=== PATIENT | female | born 1940 | race Caucasian/White ===

== ENCOUNTER 2018-10-28 09:55 | Emergency (ER) | payer OTHER, BC ==
[2018-10-28 10:37] LABS: Protime INR 1.57
[2018-10-28 10:42] LABS: Absolute Lymphocytes (CBC) 1.6 K/uL (0.7-4.9); Absolute Monocytes 1.7 K/uL (0.1-1.3); Absolute Neutrophil 33.6 K/uL (1.8-8.0); Basophils % 0.3 % (0-1.3); Hematocrit 28.9 % (36.0-45.0); Lymphocytes % 4.3 % (15.3-44.8); MPV 8.8 fL (7.6-11.3); Monocytes % 4.6 % (3.3-12.3); RBC Red Blood Cell Count 3.95 M/uL (3.86-4.86)
--- NOTE | 2018-10-28 10:52 | RAD REPORT ---
EXAM DESCRIPTION: RAD - Chest Single View - 10/28/2018 10:42 am CLINICAL HISTORY: Fall, chest pain COMPARISON: Chest exam April 2007. TECHNIQUE: AP portable chest image was obtained 1039 hours . FINDINGS: The lungs are fibrotic as a baseline. There is a 2 centimeter masslike density along the m edial right upper chest. There is questionable small 7 mm nodule left suprahilar region. Both are new from remote 2007 imaging. No focal consolidation. No failure or volume overload. Heart and vasculature are normal. No measurable pleural effusion and no pneumothorax. No acute bony abnormality seen. No acute aortic findings suspected. Referring clinician was notified of the chest finding 10:48 a.m.. IMPRESSION: Approximately 2 centimeter rounded mass density medial right upper lung field and possib le small nodule left suprahilar region. Both warrant follow-up CT chest imaging Fibrotic lung change with no infiltrate or failure finding.
[2018-10-28 10:53] LABS: ALT/SGPT 20 U/L (12-78); AST/SGOT 34 U/L (15-37); Albumin 2.3 g/dL (3.4-5.0); Alkaline Phosphatase 125 U/L (45-117); BUN Blood Urea Nitrogen 20 mg/dL (7-18); Bicarbonate 24 mmol/L (21-32); Bilirubin Direct 0.1 mg/dL (0-0.2); Bilirubin Total 0.5 mg/dL (0.2-1.0); CKMB Creatine Kinase MB 2.6 ng/mL (0.3-3.6); Creatine Phosphokinase 329 U/L (26-192); Glucose Level 115 mg/dL (74-106); Magnesium 2.1 mg/dL (1.8-2.4); NT PRO-BNP 2053 pg/mL (<450); Potassium 3.9 mmol/L (3.5-5.1); Protein, Total 7.9 g/dL (6.4-8.2); Sodium Level 130 mmol/L (136-145); Troponin (Emerg Dept Use Only) < 0.02 ng/mL (0.0-0.045)
--- NOTE | 2018-10-28 11:14 | RAD REPORT ---
EXAM DESCRIPTION: CT - CTHCSPWOC - 10/28/2018 10:51 am CLINICAL HISTORY: Trauma, head and neck injury. fall COMPARISON: Facial Bones W/ Mpr dated 10/28/2018; Abdomen Pelvis W Contrast dated 10/28/2018 TECHNIQUE: Axial 5 mm thick images of the head were obtained. Axial 2 mm thick images of the cervical spine were obtained with sagittal and coronal reconstruction images generated and reviewed. All CT scans are performed using dose optimization technique as appropriate and may include automated exposure control or mA/KV adjustment according to patient size. FINDINGS: CT HEAD WITHOUT CONTRAST: No acute hemorrhage, hydrocephalus or extra-axial collection is identified.Moderate generalized brain atrophy.No areas of brain edema or midline shift. The paranasal sinuses and mastoids are clear.The calvarium is intact. CT CERVICAL SPINE WITHOUT CONTRAST: No fracture or subluxation.No prevertebral soft tissues swelling is identified. Carotid atheroscleros is. IMPRESSION: No acute intracranial or cervical spine findings.
--- NOTE | 2018-10-28 11:16 | RAD REPORT ---
EXAM DESCRIPTION: CT - CTFB CLINICAL HISTORY: fall Fall, trauma, facial pain and injury. COMPARISON: No comparisons TECHNIQUE: Axial 2 mm thick images of the face were obtained with sagittal and coronal reconstructio n images. All CT scans are performed using dose optimization technique as appropriate and may include automated exposure control or mA/KV adjustment according to patient size. FINDINGS: No acute facial bone fracture is seen.The mandible is intact. The globes and orbital contents are grossly unremarkable.The paranasal sinuses and mastoids are clear . IMPRESSION: Negative for facial bone fracture.
[2018-10-28] MEDS ORDERED: NA CHLORIDE 0.9% 1,000 ML ONE (11:53)
[2018-10-28 12:19] LABS: Urine Bacteria <20 /HPF (<20); Urine Culture Reflex Order NOT NEEDED; Urine RBC <5 /HPF (NONE SEEN)
[2018-10-28 12:37] LABS: Platelet Estimate INCR; Toxic Granulation 1+
[2018-10-28 12:38] LABS: Blood Morphology Comment NOT SEEN (NOT SEEN)
--- NOTE | 2018-10-28 13:41 | RAD REPORT ---
EXAM DESCRIPTION: CT - Chest Abd Pelvis Wo Con - 10/28/2018 1:27 pm CLINICAL HISTORY: Chest and abdomen pain. LLQ abdomen pain COMPARISON: Head C Spine Mpr Wo Con dated 10/28/2018; Facial Bones W/ Mpr dated 10/28/2018; Chest Single View dated 10/28/2018 TECHNIQUE: A noncontrast examination was performed. All CT scans are performed using dose optimization technique as appropriate and may include automated exposure control or mA/KV adjustment according to patient size. FINDINGS: Solid irregular mass measuring 3.0 x 2.8 cm is seen in the upper medial right lung. This m ass abuts the mediastinum and superior vena cava and is likely lung malignancy. Tiny noncalcified nod ules present in the left lung base posteriorly measuring 5 mm. The lungs are diffusely emphysematous. Several mildly prominent lymph nodes are seen in the upper mediastinum. Small hiatal hernia. Noncontrast assessment of the liver shows no focal mass or biliary dilatation. The spleen, pancreas a nd right kidney are normal. Punctate stone is seen in the inferior left kidney without hydronephrosis . Small gallstone may be present in the gallbladder. Mild thickening of both adrenal glands are seen. Irregular masslike lesion is seen in the left lower quadrant sigmoid colon measuring 3.2 x 2.6 cm. Th ere appears to be extraluminal air and inflammatory changes extending from this mass to a multilocula xenia abscess in the left inguinal region measuring 7.0 x 4.9 cm. The surrounding tissues are inflamed. The combination foci of findings is suspicious for a perforated colonic neoplasm. The pattern of sarai ging findings would be unusual for infection/diverticulitis. Direct visualization with colonoscopy wo uld be recommended. No lytic or blastic bone lesion is seen. 5 mm anterolisthesis L4 on 5 is seen. IMPRESSION: 3.0 x 2.8 cm solid mass in the superior mediastinum abutting the SVC is compatible with lung neoplasia. Suspicion for solid mass involving the left lower quadrant sigmoid colon measuring approximately 3.2 x 2.6 cm. Perforation of the colon in this region is suspected with fluid in inflammation tracking in to the left inguinal region were a multiloculated abscess collection is seen measuring 7.0 x 4.9 cm. Direct visualization with followup colonoscopy would be advised.
[2018-10-28 13:50] LABS: Urine Blood NEGATIVE (NEG); Urine Glucose NEGATIVE (NEG); Urine Protein NEGATIVE (NEG); Urine Specific Gravity 1.015 (1.005-1.030); Urine pH 6.5 (5.0-7.0)
[2018-10-28] MEDS ORDERED: PIPER/TAZO/NS 3.375gm 3.375 GM/100 ML BAG ONE (14:06)
--- NOTE | 2018-10-28 14:49 | EDPHYS ---
Physician Documentation [facility] Name: Tesha Amaya Age: 77 yrs Sex: Female : 1940 Arrival Date: 10/28/2018 Time: 09:56 Bed 17 Private MD: ED Physician Ho Marina HPI: 10/28 10:20 This 77 yrs old Female presents to ER via Wheelchair with complaints of cp Abdominal Pain, Weakness. 10:20 The patient presents with abdominal pain in the left lower quadrant. Onset: The cp symptoms/episode began/occurred "for weeks". The symptoms do not radiate. Associated signs and symptoms: Pertinent positives: fever, Pertinent negatives: anorexia, blood in stools, chest pain, constipation, diarrhea, dysuria, vomiting. Severity of pain: in the emergency department the pain is unchanged despite home interventions. Patient reports fall from standing position while returning from bathroom this morning around 0130. Patient reports she struck head on carpeted floor and remained on floor until she was able to call daughter this morning to assist her. Historical: - Allergies: 10:11 Codeine; hj - Home Meds: 10:11 [place] Thyroid 60 mg Oral tab twice a day [Active]; bisoprolol fumarate 5 mg oral tab 1 hj tab once daily [Active]; triamterene-hydrochlorothiazid 75-50 mg Oral tab 1 tab once daily [Active]; - PMHx: 10:11 Hypothyroidism; Hypertension; hj - PSHx: 10:11 None; hj - Immunization history:: Adult Immunizations up to date. - Social history:: Smoking status: Patient/guardian denies using tobacco, Patient/guardian denies using alcohol. - Ebola Screening: : Patient negative for fever greater than or equal to 101.5 degrees Fahrenheit, and additional compatible Ebola Virus Disease symptoms Patient denies exposure to infectious person Patient denies travel to an Ebola-affected area in the 21 days before illness onset. ROS: 10:25 Constitutional: Negative for body aches, chills, fever, poor PO intake, weight loss. cp 10:25 Eyes: Negative for injury, pain, redness, and discharge. cp 10:25 ENT: Negative for drainage from ear(s), ear pain, sore throat, difficulty swallowing, difficulty handling secretions. 10:25 Cardiovascular: Negative for chest pain, edema, palpitations. 10:25 Respiratory: Negative for cough, shortness of breath, wheezing. 10:25 Abdomen/GI: Positive for abdominal pain, of the left lower quadrant, Negative for vomiting, diarrhea, constipation, black/tarry stool, rectal bleeding. 10:25 Back: Negative for pain at rest, pain with movement, radiated pain. 10:25 : Negative for urinary symptoms. 10:25 Skin: Negative for rash. 10:25 Neuro: Positive for general weakness, Negative for altered mental status, dizziness, headache, syncope. 10:25 All other systems are negative. Exam: 10:30 Constitutional: The patient appears in no acute distress, alert, awake, cp non-diaphoretic, non-toxic, well developed, well nourished. 10:30 Head/face: Noted is abrasion(s), that are mild, of the below left eye, swelling, that cp is mild. 10:30 Eyes: Pupils: equal, round, and reactive to light and accomodation, Extraocular movements: intact throughout, Conjunctiva: normal, no exudate, no injection, Sclera: no appreciated abnormality, Lids and lashes: appear normal, bilaterally. 10:30 ENT: External ear(s): are unremarkable, Ear canal(s): are normal, clear, TM's: bulging, is not appreciated, bilaterally, dullness, bilaterally, erythema, is not appreciated, bilaterally, Nose: is normal, Mouth: Lips: moist, Oral mucosa: pink and intact, moist, Posterior pharynx: is normal, airway is patent, no erythema, no exudate, Voice: is normal. 10:30 Neck: C-spine: C-collar placed in ED, vertebral tenderness, that is mild, crepitus, is not appreciated, ROM/movement: pain, that is mild, with flexion, nuchal rigidity, is not appreciated. 10:30 Chest/axilla: Inspection: normal, Palpation: is normal, no crepitus, no tenderness. 10:30 Cardiovascular: Rate: normal, Rhythm: regular, Edema: is not appreciated, JVD: is not appreciated. 10:30 Respiratory: the patient does not display signs of respiratory distress, Respirations: normal, no use of accessory muscles, no retractions, no splinting, no tachypnea, labored breathing, is not present, Breath sounds: are clear throughout, no decreased breath sounds, no stridor, no wheezing. 10:30 Abdomen/GI: Inspection: abdomen appears normal, Bowel sounds: active, all quadrants, Palpation: soft, in all quadrants, mild abdominal tenderness, in the left lower quadrant, rebound tenderness, is not appreciated, voluntary guarding, is elicited in the left lower quadrant, involuntary guarding, is not appreciated. 10:30 Back: pain, is absent, ROM is normal. 10:30 Skin: no rash present. 10:30 Neuro: Orientation: to person, place \\T\\ time. Mentation: is normal, Cerebellar function: is grossly normal, Motor: moves all fours, general weakness w/o focal deficits, Sensation: is normal. 10:35 ECG was reviewed by the Attending Physician. Vital Signs: 10:09 BP 145 / 50; Pulse 85; Resp 20; Temp 98.0(O); Pulse Ox 100% ; Weight 90.72 kg; Height 5 hj ft. 5 in. (165.10 cm); 11:15 BP 138 / 55; Pulse 74; Resp 18; Pulse Ox 100% on R/A; hj 12:40 BP 136 / 60; Pulse 79; Resp 18; Pulse Ox 100% on R/A; hj 13:22 BP 175 / 55; Pulse 76; Resp 18; Temp 97.8(O); Pulse Ox 98% ; Pain 0/10; mh5 10:09 Body Mass Index 33.28 (90.72 kg, 165.10 cm) MDM: 10:11 Patient medically screened. 13:56 Physician consultation: Juan Ann MD was called at 13:56, was contacted at 13:56, regarding patient's condition, after a discussion of the case, a recommendation for transfer for higher level of care is made, for IR drainage of pelvic abscess. 14:05 Data reviewed: vital signs, nurses notes, lab test result(s), EKG, radiologic studies, CT scan, plain films, I have discussed the patient's presentation/case with the attending Emergency Department Physician; and as a result, I will administer antibiotics Zosyn. 10/28 10:19 Order name: Basic Metabolic Panel; Complete Time: 11:25 10/28 13:56 Interpretation: Normal except: NA 130; CL 95; GLUC 115; BUN 20; CRE 1.49; GFR 34. cp 05/02 10:19 Order name: CBC with Diff; Complete Time: 13:45 cp 05/02 11:29 Interpretation: Normal except: WBC 37.1; HGB 9.3; HCT 28.9; MCV 73.2; MCH 23.5; PLT cp 592; RDW 16.2; SOILA% 90.8; LYM% 4.3; NEUT A 33.6; MNA 1.7. 05 10:19 Order name: LFT's; Complete Time: 11:25 cp 05/02 10:19 Order name: Magnesium; Complete Time: 11:25 cp 0502 10:19 Order name: NT PRO-BNP; Complete Time: 11:25 cp 0502 10:19 Order name: PT-INR; Complete Time: 11:25 cp 05/02 10:19 Order name: Troponin (emerg Dept Use Only); Complete Time: 11:25 cp 10/28 10:19 Order name: CK; Complete Time: 11:25 cp 10/28 10:19 Order name: Ckmb; Complete Time: 11:25 cp 0502 10:22 Order name: XRAY Chest (1 view); Complete Time: 11:25 cp 02 10:22 Order name: Urine Microscopic Only; Complete Time: 13:45 cp 05/02 13:45 Interpretation: Normal except: UWBC 20-50; SQEPI 20-50. cp 05/02 10:24 Order name: Lipase; Complete Time: 11:25 cp 0502 10:47 Order name: Manual Differential; Complete Time: 13:45 EDMS 02 12:25 Order name: Urine Dipstick--Ancillary (enter results); Complete Time: 13:55 eb 10/28 10:19 Order name: EKG; Complete Time: 10:20 cp 0502 10:19 Order name: Cardiac monitoring; Complete Time: 10:20 cp 05/02 10:19 Order name: EKG - Nurse/Tech; Complete Time: 10:25 cp 05/02 10:19 Order name: IV Saline Lock; Complete Time: 10:21 cp 0502 10:19 Order name: Labs collected and sent; Complete Time: 10:25 cp 05/02 10:19 Order name: O2 Per Protocol; Complete Time: 10:21 cp 05/02 10:19 Order name: O2 Sat Monitoring; Complete Time: 10:21 cp 10/28 10:22 Order name: Urine Dipstick-Ancillary (obtain specimen); Complete Time: 12:03 cp 10/28 10:22 Order name: CT Head C Spine; Complete Time: 11:25 cp 10/28 10:22 Order name: CT Facial Bones W/O Con; Complete Time: 11:25 cp 10/28 11:34 Order name: CT Chest Abdomen Pelvis W/O Contrast: give oral contrast; Complete Time: cp 13:45 EC:35 Rate is 75 beats/min. Rhythm is regular. [place] interval is normal. QRS interval is normal. cp QT interval is normal. T waves are Flattened in lead aVL. Interpreted by me. Reviewed by me. Administered Medications: 11:30 Drug: NS 0.9% 500 ml Route: IV; Rate: 250 ml/hr; Site: right antecubital; hj 13:57 Follow up: IV Status: Completed infusion; IV Intake: 500ml hj 11:42 Drug: NS 0.9% 1000 ml Route: IV; Rate: 100 ml/hr; Site: right antecubital; hj 13:57 Follow up: IV Status: Infusion continued hj 15:26 Follow up: IV Status: Infusion continued upon transfer; IV Intake: 450ml hj 13:51 Drug: Zosyn 3.375 grams Route: IVPB; Infused Over: 60 mins; Site: right antecubital; hj 14:30 Follow up: IV Status: Completed infusion; IV Intake: 100ml hj Disposition: 14:51 Chart complete. cp 17:01 Co-signature as Attending Physician, Ho Marina MD. rn Disposition: 10/28/18 14:48 Transfer ordered to [facility]. Diagnosis are Right lung mass, Sigmoid colon mass with perforation and abscess. - Reason for transfer: Higher level of care. - Accepting physician is DR Annabella Allison. - Condition is Stable. - Problem is new. - Symptoms have improved. Signatures: Dispatcher [employer] EDHo Lehman MD MD rn Joaquin, Henry, RN RN hj Page, Corey, PA PA cp Corrections: (The following items were deleted from the chart) 11:29 11:29 Normal except: WBC 37.1; HGB 9.3; HCT 28.9; MCV 73.2; MCH 23.5; PLT 592; RDW cp 16.2; SOILA% 90.8; LYM% 4.3; NEUT A 33.6. cp 11:37 10:30 Abdomen Pelvis W Con+CT.RAD.BRZ ordered. EDMS EDMS 11:38 10:49 Thorax W/ Con+CT.RAD.BRZ ordered. EDMS EDMS 12:03 10:22 Watkins ordered. cp hj 15:25 14:48 10/28/2018 14:48 Transfer ordered to [facility]. hj Diagnosis is Right lung mass; Sigmoid colon mass with perforation and abscess. Reason for transfer: Higher level of care. Accepting physician is DR Annabella Allison. Condition is Stable. Problem is new. Symptoms have improved. cp
--- NOTE | 2018-10-28 14:49 | ER ---
Nurse's Notes [facility] Name: Tesha Amaya Age: 77 yrs Sex: Female : 1940 Arrival Date: 10/28/2018 Time: 09:56 Bed 17 Private MD: Diagnosis: Right lung mass;Sigmoid colon mass with perforation and abscess Presentation: 10/28 10:11 Presenting complaint: Patient states: LLQ pain X 2-3 weeks, is getting worse, was due iw to see Dr. Chua today but had a fall last night, states she was bent over due to pain and slid forward onto carpeted floor, was on floor for 3 hours, pt has small abrasion to left cheek and left wrist, c/o weakness and chills. Transition of care: patient was not received from another setting of care. Onset of symptoms was October 16, 2018. Risk Assessment: Do you want to hurt yourself or someone else? Patient reports no desire to harm self or others. Initial Sepsis Screen: Does the patient meet any 2 criteria? No. Patient's initial sepsis screen is negative. Does the patient have a suspected source of infection? No. Patient's initial sepsis screen is negative. Care prior to arrival: None. 10:11 Method Of Arrival: Wheelchair iw 10:11 Acuity: DIANNA 3 iw Triage Assessment: 10:11 General: Appears in no apparent distress. uncomfortable, Behavior is calm, cooperative, hj appropriate for age. Pain: Complains of pain in abdomen. GI: Reports lower abdominal pain, upper abdominal pain, diarrhea, nausea. Historical: - Allergies: 10:11 Codeine; hj - Home Meds: 10:11 [place] Thyroid 60 mg Oral tab twice a day [Active]; bisoprolol fumarate 5 mg oral tab 1 hj tab once daily [Active]; triamterene-hydrochlorothiazid 75-50 mg Oral tab 1 tab once daily [Active]; - PMHx: 10:11 Hypothyroidism; Hypertension; hj - PSHx: 10:11 None; hj - Immunization history:: Adult Immunizations up to date. - Social history:: Smoking status: Patient/guardian denies using tobacco, Patient/guardian denies using alcohol. - Ebola Screening: : Patient negative for fever greater than or equal to 101.5 degrees Fahrenheit, and additional compatible Ebola Virus Disease symptoms Patient denies exposure to infectious person Patient denies travel to an Ebola-affected area in the 21 days before illness onset. Screenin:11 Abuse screen: Denies threats or abuse. Denies injuries from another. Nutritional hj screening: No deficits noted. Tuberculosis screening: No symptoms or risk factors identified. Fall Risk Fall in past 12 months (25 points). Assessment: 10:11 GI: Bowel sounds present X 4 quads. Abd is soft and non tender. hj 10:11 General: Appears in no apparent distress. uncomfortable, Behavior is calm, cooperative, hj appropriate for age. Pain: Complains of pain in abdomen. Neuro: Level of Consciousness is awake, alert, obeys commands, Oriented to person, place, time, situation, Appropriate for age. Cardiovascular: Capillary refill < 3 seconds Patient's skin is warm and dry. Respiratory: Airway is patent Respiratory effort is even, unlabored, Respiratory pattern is regular, symmetrical. : No signs and/or symptoms were reported regarding the genitourinary system. EENT: No signs and/or symptoms were reported regarding the EENT system. Derm: No signs and/or symptoms reported regarding the dermatologic system. Musculoskeletal: No signs and/or symptoms reported regarding the musculoskeletal system. 11:00 Reassessment: Patient and/or family updated on plan of care and expected duration. Pain hj level reassessed. Patient is alert, oriented x 3, equal unlabored respirations, skin warm/dry/pink. awaiting results and POC:. 12:40 Reassessment: Patient and/or family updated on plan of care and expected duration. Pain hj level reassessed. Patient is alert, oriented x 3, equal unlabored respirations, skin warm/dry/pink. awaiting POC; daughter in room;. 13:15 Reassessment: CT chest taken;. hj 14:30 Reassessment: Patient and/or family updated on plan of care and expected duration. Pain hj level reassessed. Patient is alert, oriented x 3, equal unlabored respirations, skin warm/dry/pink. awaiting CT result and POC:. 14:45 Reassessment: provider in roof for POC;. hj 15:13 Reassessment: family is aware of tranfer and updated with ambulance ETA;. hj Vital Signs: 10:09 BP 145 / 50; Pulse 85; Resp 20; Temp 98.0(O); Pulse Ox 100% ; Weight 90.72 kg; Height 5 hj ft. 5 in. (165.10 cm); 11:15 BP 138 / 55; Pulse 74; Resp 18; Pulse Ox 100% on R/A; hj 12:40 BP 136 / 60; Pulse 79; Resp 18; Pulse Ox 100% on R/A; hj 13:22 BP 175 / 55; Pulse 76; Resp 18; Temp 97.8(O); Pulse Ox 98% ; Pain 0/10; mh5 10:09 Body Mass Index 33.28 (90.72 kg, 165.10 cm) ED Course: 09:56 Patient arrived in ED. as 10:03 Juma Landaverde, FLORIAN is Primary Nurse. hj 10:06 Naseem Looney PA is PHCP. cp 10:06 Ho Marina MD is Attending Physician. cp 10:08 Patient has correct armband on for positive identification. Bed in low position. Call 5 light in reach. Side rails up X2. Adult w/ patient. Warm blanket given. Pulse ox on. NIBP on. 10:11 Arm band placed on. hj 10:13 Triage completed. iw 10:43 XRAY Chest (1 view) In Process Unspecified. EDMS 10:44 Notified Nurse Practitioner and/or Physician Instructor Business Education of a critical lab result(s), WBC iw 37.1. 10:46 EKG done, by freezer laboratory technician. reviewed by Naseem MA. at1 10:46 No provider procedures requiring assistance completed. Initial lab(s) drawn, by il, hj sent to lab. Inserted saline lock: 22 gauge in right antecubital area, using aseptic technique. Blood collected. 10:52 CT Head C Spine In Process Unspecified. EDMS 10:52 CT Facial Bones W/O Con In Process Unspecified. EDMS 13:27 CT Chest Abdomen Pelvis W/O Contrast: give oral contrast In Process Unspecified. EDMS 14:09 transfer initiated with Kristen at the [facility] [place]. eb 14:29 administrative approval given by Kristen Oscar RN transfer table operator helper/ Patient has eb been accepted to the [facility] ER/ Dr. Yesenia Allison has accepted the patient in transfer without conference/ report to be called to [phone]. 14:56 Patient transferred, IV remains in place. intact. hj Administered Medications: 11:30 Drug: NS 0.9% 500 ml Route: IV; Rate: 250 ml/hr; Site: right antecubital; hj 13:57 Follow up: IV Status: Completed infusion; IV Intake: 500ml hj 11:42 Drug: NS 0.9% 1000 ml Route: IV; Rate: 100 ml/hr; Site: right antecubital; hj 13:57 Follow up: IV Status: Infusion continued hj 15:26 Follow up: IV Status: Infusion continued upon transfer; IV Intake: 450ml hj 13:51 Drug: Zosyn 3.375 grams Route: IVPB; Infused Over: 60 mins; Site: right antecubital; hj 14:30 Follow up: IV Status: Completed infusion; IV Intake: 100ml hj Intake: 13:57 IV: 500ml; Total: 500ml. hj 14:30 IV: 100ml; Total: 600ml. hj 15:26 IV: 450ml; Total: 1050ml. Outcome: 14:48 ER care complete, transfer ordered by . karla 14:56 Transferred by ground EMS to [facility], Transfer form completed. X-rays sent hj w/ patient. 14:56 Condition: stable 14:56 Instructed on the need for transfer, Demonstrated understanding of instructions. 15:25 Patient left the ED. Signatures: Dispatcher [employer] Brooke Bowman Irene, FLORIAN DU Gayle Leslie, fusing machine tender EKG Tat1 Juma Landaverde RN RN Naseem Looney PA PA cp Martinez, Maria [facility] Lauren Fuller Corrections: (The following items were deleted from the chart) 11:16 10:09 BP 145 / 50; Pulse 85bpm; Resp 20bpm; Pulse Ox 100%; Temp 98.0F Oral; 5
--- NOTE | 2018-10-28 17:06 | EKG ---
Test Date: 2018-10-28 Test Time: 10:28:16 Plc Programmer: MEHUL MEASUREMENT RESULTS: Intervals: Rate: 75 ME: 164 QRSD: 94 QT: 390 QTc: 435 [place]: P: 54 ME: 164 QRS: -12 T: 59 INTERPRETIVE STATEMENTS: Normal sinus rhythm Normal ECG Compared to ECG 08/11/2001 12:52:00 Left-axis deviation no longer present Electronically Signed On 10-28-18 17:05:02 CDT by Shahriar Giron
== END 2018-10-28 15:25 | disposition short-term general hospital (02) ==
LOC: ER 09:55
DX: R91.8 Other nonspecific abnormal finding of lung field (principal); K63.1 Perforation of intestine (nontraumatic); K63.0 Abscess of intestine; E03.9 Hypothyroidism, unspecified; I10 Essential (primary) hypertension
CPT/HCPCS: 96365; 96361; 93005; 85025; 80048; 36415; 83735; 82550; 85610; 80076; 84484; 82553; 83690; 83880; 70450; 71250; 72125; 70486; 76377; 74176; 71045; 99285; J2543; J7030; 81003; 81015

== ENCOUNTER 2018-11-20 15:50 | Emergency (ER) | payer OTHER, BC ==
--- OUTSIDE RECORDS SUMMARY | 2018-11-20 15:54 | XMS REPORT | Continuity of Care Document ---
:1940 Author Organization Interface Problems Problem Status Onset Classification Date Comments Source Date Reported BEDDED Active 11/12/19 [facility] OUTPATIENT Medical IMAGE GUIDED Center FRAIN ST DSU SIGMOID MASS Active 11/06/[address] MASS IN ABDOMEN Active 11/04/[address] PERFORATED Active 10/29/19 [facility] SIGMOID MASS [address] ABSCESS Center Anemia Resolved Problem 11/19/2018 [facility], [facility] [place] Anxiety Resolved Problem 11/19/2018 [facility], [facility] [place] Arthritis Resolved Problem 11/19/2018 [facility], [facility] [place] Thyroid disease Resolved Problem 11/19/2018 [facility], [facility] [place] Hypertension Resolved Problem 11/19/2018 [facility], [facility] [place] Cancer of colon Active Problem 11/19/2018 [facility], [facility] [place] Morbid obesity Active Problem 11/19/2018 [facility] Morbid obesity Active Problem 11/17/2018 [facility] [place] PERFORATION OF Active [facility] INTESTINE Medical (NONTRAUMATIC) [place] Medications Medication Details Route Status Patient Ordering Order Source Instructions Provider Date Ondansetron 4 mg, 2 mL, No Longer [facility] Route: IVP, Active 2018 Medical Drug form: INJ, Center ONCE, Dosing Weight 97.727, kg, PRN Nausea & Vomiting, Start date: 11/17/18 16:50:00 CDTNotes: (Same as: Zofran) MEDICATION WASTE Product Size: 4 mg Product Wasted: ___ mg Flumazenil 0.2 mg, 2 mL, No Longer [facility] Route: IVP, Active 2018 Medical Drug form: INJ, Center PRN, Dosing Weight 97.727, kg, PRN Benzodiazepine Reversal, Initial dose, Start date: 11/17/18 16:50:00 CDT, Duration: 30 day, Stop date: 12/17/18 16:49:00 CDTNotes: (Same as: Romazicon) Naloxone 0.4 mg, 1 mL, No Longer [place] Route: IVP, Active 2019 Medical Drug form: INJ, Center Q2MIN, Dosing Weight 97.727, kg, PRN Narcotic Reversal, Start date: 11/17/18 16:50:00 CDT, Duration: 8 doses or times, Stop date: 11/18/18 0:00:00 CDTNotes: Same as Narcan Hydralazine 25 mg, 1 tab, Inactive [place] Hydrochloride 25 MG Route: PO, Drug 2019 Medical Oral Tablet form: TAB, Center ONCE, Dosing Weight 97.727, kg, Priority: STAT, Start date: 11/11/18 14:27:00 CDT, Stop date: 11/11/18 14:27:00 CDTNotes: (Same as: Apresoline) May interfere w/enteral feedings Take With Food. GoLYTELY oral See Inactive [facility] powder for Instructions, 2019 reconstitution Take as directed by physician. Give jug for Colonoscopy, # 1 ea, 0 Refill(s), Pharmacy: [facility] [id number] Acetaminophen 500 1 gm=2 tab, PO, Active [place] MG Oral Tablet Q6H, X 7 day, # 2019 Medical 56 tab, 0 Center Refill(s) Metronidazole 500 500 mg=1 tab, Active [place] MG Oral Tablet PO, Q8H, X 7 2019 Medical day, # 21 tab, Center 0 Refill(s) ferrous sulfate 325 325 mg, PO, Active [place] MG Oral Tablet Daily, # 30 2019 Medical [Feosol] tab, 0 Center Refill(s) Docusate Sodium 100 100 mg=1 cap, Inactive [place] MG Oral Capsule PO, BID, # 14 2019 Medical cap, 0 Center Refill(s), other ciprofloxacin 500 500 mg=1 tab, Active [place] mg oral tablet PO, Q12H, X 7 2019 Medical day, # 14 tab, Center 0 Refill(s) Acetaminophen 500 1 gm=2 tab, PO, Inactive [place] MG Oral Tablet Q6H, X 7 day, # 2019 Medical 56 tab, 0 Center Refill(s), other Zofran 4 mg, 2 mL, Inactive [facility] Route: IVP2018 Medical Drug form: INJ, Center ONCE, Dosing Weight 100, kg, Start date: 10/31/18 13:18:00 CDT, Stop date: 10/31/18 13:18:00 CDTNotes: (Same as: Zofran) MEDICATION WASTE Product Size: 4 mg Product Wasted: ___ mg Flagyl 500 mg, 1 tab, No Longer [facility] Route: PO, Drug Active 2018 Medical form: TAB, Q8H, Center Dosing Weight 100, kg, Start date: 10/30/18 16:00:00 CDT, Duration: 30 day, Stop date: 11/29/18 8:00:00 CDT, ABX Indication: Intra-abdominal InfectionNotes: (Same as: Flagyl) Take with food/ avoid alcohol Zofran 4 mg, 2 mL, Inactive [facility] Route: IVP2018 Medical Drug form: INJ, Center ONCE, Dosing Weight 100, kg, Start date: 10/30/18 15:48:00 CDT, Stop date: 10/30/18 15:48:00 CDTNotes: (Same as: Zofran) MEDICATION WASTE Product Size: 4 mg Product Wasted: 0 mg Hydrochlorothiazide 0.5 tab, PO, Active [facility] 50 MG / Triamterene Daily, 0 2018 Medical 75 MG Oral Tablet Refill(s) Center Ciprofloxacin 500 mg, 1 tab, No Longer [facility] Route: PO, Drug Active 2019 Medical form: TAB, Center Q12H, Dosing Weight 100, kg, Start date: 10/30/18 12:00:00 CDT, Duration: 30 day, Stop date: 11/29/18 0:00:00 CDT, ABX Indication: Intra-abdominal InfectionNotes: May interfere w/enteral feedings - Take 1 hr before or 2 hrs after antacids, dairy pdt & minerals. On empty stomach. Hydrochlorothiazide 1 cap, Route: No Longer [facility] 25 MG / Triamterene PO, Drug Form: Active 2019 Medical 37.5 MG Oral CAP, Dosing Center Capsule Weight 100, kg, QAM, Start date: 10/30/18 9:00:00 CDT, Duration: 30 day, Stop date: 11/28/18 9:00:00 CDTNotes: (triamterene-hy drochlorothiazi de 37.5-25 mg CAP) (Same As: Dyazide) Melatonin 3 mg, 1 tab, No Longer [place] Route: PO, Drug Active 2018 Medical form: TAB, Center Bedtime, Dosing Weight 100, kg, PRN Sleep, Start date: 10/29/18 23:35:00 CDT, Duration: 30 day, Stop date: 11/28/18 23:34:00 CDTNotes: (Same as: Melatonin) Bisoprolol 5 mg, 1 tab, No Longer [place] Route: PO, Drug Active 2018 Medical form: TAB, Center Daily, Dosing Weight 100, kg, Start date: 10/29/18 21:00:00 CDT, Duration: 30 day, Stop date: 11/27/18 21:00:00 CDTNotes: (Same As: Zebeta) Dextrose 5% with 1,000 mL, Rate: No Longer [place] 0.45% NaCl IV 1,000 100 ml/hr, Active 2019 Medical mL Infuse over: 10 Center hr, Route: IV, Dosing Weight 100 kg, Total Volume: 1,000, Start date: 10/29/18 18:15:00 CDT, Duration: 30 day, Stop date: 11/28/18 18:14:00 CDT, 2.16, m2 Lidocaine 15 mL, Route: Inactive [place] Hydrochloride 10 INTRADERM, 2019 Medical MG/ML Injectable Dosing Weight Center Solution 100, kg, ONCE, Start date: 10/29/18 15:47:00 CDT, Stop date: 10/29/18 15:47:00 CDT Fentanyl 50 microgram, Inactive [place] Route: IV, 2019 Medical ONCE, Dosing Center Weight 100, kg, Start date: 10/29/18 15:30:00 CDT, Stop date: 10/29/18 15:30:00 CDT Midazolam 0.5 mg, Route: Inactive [place] IV, ONCE, 2019 Medical Dosing Weight Center 100, kg, Start date: 10/29/18 15:30:00 CDT, Stop date: 10/29/18 15:30:00 CDT Fentanyl 50 microgram, Inactive [facility] Route: IV, 2019 Medical ONCE, Dosing Center Weight 100, kg, Start date: 10/29/18 15:20:00 CDT, Stop date: 10/29/18 15:20:00 CDT Midazolam 1 mg, Route: Inactive [facility] IV, ONCE, 2019 Medical Dosing Weight Center 100, kg, Start date: 10/29/18 15:20:00 CDT, Stop date: 10/29/18 15:20:00 CDT Hydrochlorothiazide 1 cap, Route: Inactive [facility] 25 MG / Triamterene PO, Drug Form: 2019 Medical 37.5 MG Oral CAP, Dosing Center Capsule Weight 100, kg, QAM, Start date: 10/29/18 14:00:00 CDT, Duration: 30 day, Stop date: 11/28/18 9:00:00 CDTNotes: (triamterene-hy drochlorothiazi de 37.5-25 mg CAP) (Same As: Dyazide) [place] Thyroid 30 mg, 1 tab, No Longer [facility] Route: PO, Drug Active 2018 Medical form: TAB, Center QNoon, Dosing Weight 100, kg, Start date: 10/29/18 12:00:00 CDT, Duration: 30 day, Stop date: 11/27/18 12:00:00 CDTNotes: (Same As: Sherif Bermudez, S-P-T) remove patch 1 patch, Route: No Longer [facility] TOP, Daily, Active 2019 Medical Drug form: Center ERFILM, Start date: 10/29/18 10:00:00 CDT, Duration: 30 day, Stop date: 11/27/18 10:00:00 CDT [place] Thyroid 60 mg, 1 tab, No Longer [facility] Route: PO, Drug Active 2019 Medical form: TAB, Center Daily, Dosing Weight 100, kg, Start date: 10/29/18 9:00:00 CDT, Duration: 30 day, Stop date: 11/27/18 9:00:00 CDTNotes: (Same As: [place]if Thyroid, S-P-T) Docusate Sodium 100 100 mg, 1 cap, No Longer [place] MG Oral Capsule Route: PO, Drug Active 2018 Medical form: CAP, BID, Center Dosing Weight 100, kg, Start date: 10/29/18 9:00:00 CDT, Duration: 30 day, Stop date: 11/27/18 17:00:00 CDT heparin 5,000 unit, 1 No Longer [place] mL, Route: Active 2019 Medical SUB-Q, Drug Center form: INJ, Q8H, Dosing Weight 100, kg, Start date: 10/29/18 0:00:00 CDT, Stop date: 11/27/18 16:00:00 CDT Bisoprolol 5 mg, Route: Inactive [place] PO, Drug form: 2019 Medical TAB, ONCE, Center Dosing Weight 100, kg, Priority: STAT, Start date: 10/28/18 22:59:00 CDT, Stop date: 10/28/18 22:59:00 CDT Hydralazine 5 mg, 0.25 mL, No Longer [place] Route: IV, Drug Active 2018 Medical form: INJ, TID, Center Dosing Weight 100, kg, PRN Hypertension, Start date: 10/28/18 22:14:00 CDT, Duration: 30 day, Stop date: 11/27/18 22:13:00 CDTNotes: (Same as: Apresoline) Push over 5 minutes thyroid (PRISON) 30 MG 30 mg=1 tab, Active [place] Oral Tablet [[place] PO, QNoon, 0 2018 Medical Thyroid] Refill(s) [place] thyroid (PRISON) 60 MG See Active [place] Oral Tablet [[place] Instructions, 1 2018 Medical Thyroid] tab PO Daily, 0 Center Refill(s) Hydrochlorothiazide 1 cap, PO, QAM, No Longer [place] 25 MG / Triamterene 0 Refill(s) Active 2019 Medical 37.5 MG Oral Center Capsule bisoprolol 5 mg 5 mg=1 tab, PO, Active [place] oral tablet Daily, 0 2019 Medical Refill(s) [place] Lidocaine 1 patch, Route: No Longer [place] Hydrochloride 0.05 TOP, Q24H, Drug Active 2019 Medical MG/MG Transdermal form: FILM, [place] Patch [Lidoderm] Start date: 10/28/18 22:00:00 CDT, Duration: 30 day, Stop date: 11/26/18 22:00:00 CDT Naproxen 500 mg, 1 tab, No Longer [facility] Route: PO, Drug Active 2018 Medical form: TAB, Center Q12H, Dosing Weight 100, kg, PRN Pain Score 4-6, Start date: 10/28/18 21:38:00 CDT, Duration: 30 day, Stop date: 11/27/18 21:37:00 CDT Tramadol 50 mg, 1 tab, No Longer [place] Route: PO, Drug Active 2018 Medical form: TAB, Q6H, Center Dosing Weight 100, kg, PRN Pain Score 7-10, Do NOT use for patients with a past medical history of seizures, Start date: 10/28/18 21:38:00 CDT, Duration: 30 day, Stop date: 11/27/18 21:37:00 CDT Zosyn 3.375 gm, Inactive [place] Route: IVPB2018 Medical Drug form: Center PDR/INJ, ONCE, Dosing Weight 100, kg, Priority: STAT, Start date: 10/28/18 21:26:00 CDT, Stop date: 10/28/18 21:26:00 CDT, ABX Indication: Intra-abdominal InfectionNotes: MEDICATION WASTE Product Size: 3375 mg Product Wasted: ___ mg Ciprofloxacin 400 mg, 200 mL, No Longer [place] Route: IVPB, Active 2018 Medical Drug form: INJ, Center [id number], Dosing Weight 100, kg, Start date: 10/28/18 21:00:00 CDT, Duration: 30 day, Stop date: 11/27/18 13:00:00 CDT, ABX Indication: Intra-abdominal Infection Sodium Chloride 250 mL, Rate: No Longer [place] 0.9% (titrate) 250 To prime line Active 2019 Medical mL and flush Center remaining blood products., Dosing Weight 100, kg, Route: IV, Total Volume: 250, Start Date: 10/28/18 20:31:00 CDT, Duration: 30 day, Stop date: 11/27/18 20:30:00 CDT, Replace Every: 24 hr Flagyl 500 mg, 100 mL, No Longer [facility] Route: IVPB, Active 2019 Medical Drug form: INJ, Center [id number], Dosing Weight 100, kg, Priority: STAT, Start date: 10/28/18 20:28:00 CDT, Duration: 30 day, Stop date: 11/27/18 16:00:00 CDT, ABX Indication: Intra-abdominal Infection gabapentin 300 mg, 1 cap, No Longer [place] Route: PO, Drug Active 2019 Medical form: CAP, Q8H, Center Dosing Weight 100, kg, PRN Pain Score 6-10, Priority: NOW, Start date: 10/28/18 20:28:00 CDT, Duration: 30 day, Stop date: 11/27/18 20:27:00 CDTNotes: (Same as: Neurontin) Acetaminophen 1 gm, 2 tab, No Longer [place] Route: PO, Drug Active 2019 Medical form: TAB, Q6H, Center Dosing Weight 100, kg, Priority: NOW, Start date: 10/28/18 20:28:00 CDT, Duration: 30 day, Stop date: 11/27/18 18:00:00 CDT Isolyte S PH 7.4 1,000 mL, Rate: No Longer [place] 1,000 mL 100 ml/hr, Active 2019 Medical Infuse over: 10 Center hr, Route: IV, Dosing Weight 100 kg, Total Volume: 1,000, Start date: 10/28/18 20:28:00 CDT, Duration: 30 day, Stop date: 11/27/18 20:27:00 CDT, 2.16, [id number]: (Same as: Isolyte S PH 7.4) Isolyte S PH-7.4 500 mL, Route: Inactive [place] (Bolus) IV IV, ONCE, 2019 Medical Dosing Weight Center 100 kg, Start date: 10/28/18 20:28:00 CDT, Stop date: 10/28/18 20:28:00 CDT Allergies, Adverse Reactions, Alerts Substance Category Reaction Severity Reaction Status Date Comments Source type Reported codeine Assertion Drug Active [facility] allergy Medical Center Immunizations Immunization Date Given Site Status Last Updated Comments Source Results Order Name Results Value Reference Date Interpretation Comments Source Range Chest w Chest w EXAM: CT CHEST WITH CONTRAST 11/15 - OP[facility] contrast CT contrast CT - [place] DATE: 11/15/2018 14:00 CDT Read by: Rebecca Carranza MD Dictated Date/time: 11/15/18 14:45 Electronically Signed by: Rebecca Carranza MD 11/15/18 14:59 FINAL REPORT INDICATION: - 77 y/o ADDITIONAL INFORMATION: -- This is a 77-year-old female with mass in the lung and abdomen, colon cancer. TECHNIQUE: Volumetric CT acquisition of the chest was obtained following the intravenous administration of contrast. Sagittal, coronal and axial MIP reformatted images were reconstructed and obtained at the workstation. I.V. Contrast Dose: 100 mL Visipaque contrast Total Exam DLP: 662.55 mGy-- cm COMPARISON: No prior chest CT is available for comparison. FINDINGS: Heart is not enlarged. The mitral annulus is calcified. Ascending aorta and central pulmonary arteries are normal in caliber. No pericardial effusion. There are no pleural effusions. For a description of findings below the diaphragm, please reference the recent abdominal CT from 11/10/2018. Subcentimeter mediastinal lymph nodes. Dependent atelectasis in the bilateral lower lobes. Mild biapical scarring. There is scattered air trapping predominantly in the lower lungs bilaterally. There is an irregular mass in the right upper lobe abutting the mediastinum on axial image 66 and sagittal image 116 measuring 29 x 33 mm There is an adjacent satellite nodule in the right upper lobe measuring 6 mm image 80. Additional pulmonary nodules as follows, series 2: A 2 mm nodule right apex image 36 A 2 mm nodule left apex image 40 A 2 mm nodule left upper lobe posteriorly image 52 A 2.5 mm nodule left upper lobe image 57 A 1 mm nodule left lower lobe image 109 A 2 mm nodule left lower lobe image 171 A 5 mm nodule left lower lobe image 148 There are several small lucent lesions scattered throughout the thoracic spine and the sternum. IMPRESSION: 1. Irregular mass in the right upper lobe abutting the mediastinum measures 29 x 33 mm. This could represent a primary or metastatic lesion. 2. Several additional small pulmonary nodules scattered bilaterally ranging in size from 1 to 6 mm. These are nonspecific but could be metastatic. 3. Dependent atelectasis in the bilateral lower lobes. Scattered air trapping predominantly in the lower lobes. 4. Calcified mitral annulus. 5. Several small lucent lesions scattered throughout the thoracic spine and sternum. These could be due to lytic metastases. HEMATOLOGY Eosinophils # 0.2 K/CMM 0.0 - 0.5 11/02 [facility] [address] [place] [address] HEMATOLOGY Basophils # 0.1 K/CMM 0.0 - 0.2 11/[address] HEMATOLOGY Microcyte 1+ None Seen 11/02 [facility] (11/02/18 3:19 AM) HEMATOLOGY Monocytes # 1.0 K/CMM 0.0 - 0.8 11/[address] HEMATOLOGY Monocytes 7.6 % 2.0 - 12.0 11/[address] HEMATOLOGY Eosinophils 1.7 % 0.0 - 4.0 11/[address] HEMATOLOGY Basophils 0.4 % 0.0 - 1.0 11/[address] HEMATOLOGY Neutrophils # 10.0 K/CMM 1.5 - 8.1 11/02 [facility] [address] [place] [address] HEMATOLOGY Lymphocytes # 2.2 K/CMM 1.0 - 5.5 11/[address] HEMATOLOGY Segs 74.0 % 45.0 - 11/02 [facility] [address] [facility] HEMATOLOGY Lymphocytes 16.3 % 20.0 - 11/[address] [facility] HEMATOLOGY MCH 25.1 pg 27.0 - 11/[address] [facility] HEMATOLOGY MPV 8.4 fL 7.4 - 10.4 11/[address] [place] [address] HEMATOLOGY MCHC 31.9 g/dL 32.0 - 11/[address] [facility] HEMATOLOGY RDW 20.2 % 11.5 - 11/[address] [facility] HEMATOLOGY Platelet 527 K/CMM 133 - 450 11/[address] HEMATOLOGY Hct 33.1 % 36.0 - 11/02 [place] [address] [facility] HEMATOLOGY MCV 78.6 fL 80.0 - 11/02 [place] 98.[address] [facility] HEMATOLOGY WBC 13.6 K/CMM 3.7 - 10.4 11/[address] [facility] HEMATOLOGY RBC 4.22 M/CMM 4.20 - 11/02 [place] 5.[address] [facility] HEMATOLOGY Hgb 10.6 g/dL 12.0 - 11/[address] [facility] BLOOD BANK ABO/Rh O POS 11/[address] [facility] BLOOD BANK Antibody Scrn Negative 11/01 [facility] (11/01/18 5:37 PM) [place] HEMATOLOGY Monocytes # 0.8 K/CMM 0.0 - 0.[address] [facility] HEMATOLOGY Eosinophils # 0.1 K/CMM 0.0 - 0.5 11/[address] [facility] HEMATOLOGY Basophils # 0.1 K/CMM 0.0 - 0.2 11/01 /[address] [facility] HEMATOLOGY Monocytes 5.4 % 2.0 - 12.0 11/[address] [facility] HEMATOLOGY Eosinophils 0.5 % 0.0 - 4.0 11/[address] [facility] HEMATOLOGY Lymphocytes 12.6 % 20.0 - [address] [facility] HEMATOLOGY Segs 81.0 % 45.0 - 05 [facility] [address] [facility] HEMATOLOGY Basophils 0.5 % 0.0 - 1.0 05 /[address] [facility] HEMATOLOGY Lymphocytes # 1.8 K/CMM 1.0 - 5.5 11/[address] [facility] HEMATOLOGY Neutrophils # 11.8 K/CMM 1.5 - 8.1 11/[address] [facility] HEMATOLOGY Microcyte 1+ None [facility]11[facility]18 5:37 PM[facility] HEMATOLOGY MCHC 31.9 g/dL 32.0 - 05/ 36.[address] [facility] HEMATOLOGY MCV 78.2 fL 80.0 - 05 [place] 98.[address] [facility] HEMATOLOGY MCH 25.0 pg 27.0 - 05 31.[address] [facility] HEMATOLOGY Hct 33.6 % 36.0 - 05 [place] 48.0 /[address] [facility] HEMATOLOGY RDW 19.7 % 11.5 - 0506 [place] 14.[address] [facility] HEMATOLOGY MPV 8.3 fL 7.4 - 10.4 05/06 [facility] HEMATOLOGY Platelet 581 K/CMM 133 - 450 11/01 [facility] HEMATOLOGY Hgb 10.7 g/dL 12.0 - 11/01 [facility] 16.[address] [facility] HEMATOLOGY RBC 4.30 M/CMM 4.20 - 11/01 [facility] 5.[address] [facility] HEMATOLOGY WBC 14.6 K/CMM 3.7 - 10.4 11/01 [facility] MOLECULAR C difficile Negative Negative 11/01 [facility] DIAGNOSTIC DNA Medical (11/01/18 4:28 PM) [place] Abdomen Abdomen acute EXAM: XR ABDOMEN 2 VIEWS 11/01 - [facility] acute series w - Medical series w chest 1 view EXAM: CHEST 1 VIEW [place] chest 1 DX view DX Read by: Jeison Escoto MD Dictated Date/time: 11/01/18 14:20 DATE: 11/01/2018 12:59 CDT Electronically Signed by: Jeison Escoto MD 11/01/18 14:24 FINAL REPORT INDICATION: - [place] ADDITIONAL INFORMATION: None. COMPARISON: None. TECHNIQUE: A single frontal view of the chest and upright and/or decubitus and supine abdominal radiographs were done. Number of images: 5 FINDINGS: Lines and tubes: Left pelvic drainage pigtail catheter.. Chest: Right perihilar 3.1 x 3.0 cm density.. Pneumothorax: None Vascularity: Normal pulmonary vascularity.. Heart size: Normal for technique. The mediastinal contours are normal. Bowel: No free air. No differential air fluid levels. Mild gaseous distension of bowel loops seen. Nonspecific air-fluid levels are seen. Bones. There is an L1 vertebral body fracture. Stool burden: None. Soft Tissues: Mild. IMPRESSION: 1. No acute abnormalities seen. 2. Tubes as above. CHEM PANEL eGFR 57 10/31 Result Comment: The eGFR is calculated using the CKD-EPI formula. In most young, healthy individuals the eGFR will be >90 mL/ min/1.73m2. The eGFR declines with age. An eGFR of 60-89 may be normal in [facility] mL/min/1. some populations, particularly the elderly, for whom the CKD-EPI formula has not been extensively validated. Use of the eGFR is not recommended in the following populations: [address] Center Individuals with unstable creatinine concentrations, including patients and those with serious co-morbid conditions. Patients with extremes in muscle mass or diet. The data above are obtained from the National Kidney Disease Education Program (NKDEP) which additionally recommends that when the eGFR is used in patients with extremes of body mass index for purposes of drug dosing, the eGFR should be multiplied by the estimated BMI. CHEM PANEL BUN 14 mg/dL 7 - [address] CHEM PANEL Potassium Lvl 3.7 meq/L 3.5 - 5.1 10/[address] CHEM PANEL Chloride Lvl 103 meq/L 95 - [address] CHEM PANEL Creatinine 0.97 mg/dL 0.50 - 05 [facility] Lvl 1.[address] [facility] CHEM PANEL Sodium Lvl 137 meq/L 135 - [address] CHEM PANEL Glucose Lvl 94 mg/dL 70 - [address] CHEM PANEL CO2 24 meq/L 24 - [address] CHEM PANEL Calcium Lvl 8.9 mg/dL 8.5 - 10.[address] CHEM PANEL AGAP 13.7 meq/L 10.0 - 0505 [facility] 20.[address] [facility] HEMATOLOGY Segs 71.8 % 45.0 - 0505 [facility] 75.[address] [facility] HEMATOLOGY Lymphocytes 17.5 % 20.0 - 0505 [facility] 40.[address] [facility] HEMATOLOGY Monocytes # 1.0 K/CMM 0.0 - 0.[address] HEMATOLOGY Eosinophils # 0.4 K/CMM 0.0 - 0.[address] HEMATOLOGY Microcyte 1+ None Seen 10/[address] *ABN* [place] (10/31/18 4:50 AM) HEMATOLOGY Basophils # 0.1 K/CMM 0.0 - 0.[address] HEMATOLOGY Anisocyte 1+ None Seen 10/[address] *ABN* [place] (10/31/18 4:50 AM) HEMATOLOGY Monocytes 7.5 % 2.0 - 12.[address] HEMATOLOGY Neutrophils # 10.0 K/CMM 1.5 - 8.1 [address] [facility] HEMATOLOGY Lymphocytes # 2.4 K/CMM 1.0 - 5.5 [address] [facility] HEMATOLOGY Eosinophils 2.7 % 0.0 - 4.0 [address] [facility] HEMATOLOGY Basophils 0.5 % 0.0 - 1.0 10/31 [facility] [facility] HEMATOLOGY Large Plt Moderate None Seen 10/31 Medical *ABN* Center (10/31/18 4:50 AM) HEMATOLOGY Toxic Gran Slight [address] [facility] HEMATOLOGY MCHC 32.3 g/dL 32.0 - 05 [place] 36.[address] [facility] HEMATOLOGY Platelet 523 K/CMM 133 - 450 05 [facility] [facility] HEMATOLOGY RDW 18.5 % 11.5 - 05 [facility] 14.[address] [facility] HEMATOLOGY MPV 8.6 fL 7.4 - 10.4 10/[address] HEMATOLOGY WBC 13.9 K/CMM 3.7 - 10.4 10/31 [facility] [facility] HEMATOLOGY MCH 25.1 pg 27.0 - 05 [facility] 31.0 [facility] HEMATOLOGY MCV 77.6 fL 80.0 - 10/31 [facility] 98.[address] [facility] HEMATOLOGY RBC 4.17 M/CMM 4.20 - 10/31 [facility] 5.[address] [facility] HEMATOLOGY Hct 32.4 % 36.0 - 10/31 [facility] 48.[address] [facility] HEMATOLOGY Hgb 10.5 g/dL 12.0 - 10/31 [facility] 16.[address] [facility] CHEM PANEL eGFR 59 10/30 Result Comment: The eGFR is calculated using the CKD-EPI formula. In most young, healthy individuals the eGFR will be >90 mL/ min/1.73m2. The eGFR declines with age. An eGFR of 60-89 may be normal in [facility] mL/min/1. some populations, particularly the elderly, for whom the CKD-EPI formula has not been extensively validated. Use of the eGFR is not recommended in the following populations: [address] Individuals with unstable creatinine concentrations, including patients and those with serious co-morbid conditions. Patients with extremes in muscle mass or diet. The data above are obtained from the National Kidney Disease Education Program (NKDEP) which additionally recommends that when the eGFR is used in patients with extremes of body mass index for purposes of drug dosing, the eGFR should be multiplied by the estimated BMI. CHEM PANEL BUN 15 mg/dL 7 - 22 10/[address] CHEM PANEL Sodium Lvl 136 meq/L 135 - 145 10/[address] CHEM PANEL Potassium Lvl 3.4 meq/L 3.5 - 5.1 10/[address] CHEM PANEL Glucose Lvl 114 mg/dL 70 - 99 10/[address] CHEM PANEL AGAP 12.4 meq/L 10.0 - 10/30 [facility] 20.[address] [facility] CHEM PANEL CO2 24 meq/L 24 - 32 10/[address] CHEM PANEL Creatinine 0.95 mg/dL 0.50 - 10/30 [facility] Lvl 1.[address] [facility] CHEM PANEL Chloride Lvl 103 meq/L 95 - 109 10/[address] CHEM PANEL Calcium Lvl 8.5 mg/dL 8.5 - 10.5 10/[address] MEROPENEM:S Gram Stain Gram Stain 10/29 [facility]:PT:ISOL Report Performed Medical ATE:ORDQN:M By: Center IC [facility] MEROPENEM:S Culture: Many Escherichia coli 10/29 [facility]:PT:ISOL Aspirate/Body /2018 Medical ATE:ORDQN:M Fluid/Tissue Many Alpha Streptococcus, Not Enterococcus [facility] MEROPENEM:S Alpha Alpha 10/29 [facility]:PT:ISOL Streptococcus Streptococ Medical ATE:ORDQN:M , Not cus, Not Center IC Enterococcus Enterococc MEROPENEM:S Escherichia Escherichi 10/29 [facility]:PT:ISOL coli a coli /2018 Medical ATE:ORDQN:M Center IC Abdomen Abdomen PROCEDURE: Drainage catheter placement 10/29 - [facility] Abscess w Abscess w - Medical drainage drainage CT Center CT Procedural Personnel Read by: Mathew Nicole MD Dictated Date/time: 10/29/18 15:44 Attending physician(s): Mathew Nicole M.D. Electronically Signed by : Mathew Nicole MD 10/29/18 15:46 FINAL REPORT Fellow physician(s): None Resident physician(s): Yaw Paniagua MD Advanced practice provider(s): None Pre-procedure diagnosis: Colonic mass Post-procedure diagnosis: Same Indication: Perforated colonic mass Additional clinical history: None Complications: No immediate complications. IMPRESSION: Percutaneous placement of a 12 Welsh drainage catheter into left lower quadrant abscess, yielding 20 mL of purulent fluid. Plan: Catheter should be flushed with 20 mL every 8 hours. Follow-up tube check in 2 weeks. PROCEDURE SUMMARY: - CT drainage catheter placement under CT guidance - Additional procedure(s): None PROCEDURE DETAILS: Pre-procedure Consent: Informed consent for the procedure including risks, benefits and alternatives was obtained and time-out was performed prior to the procedure. Preparation: The site was prepared and draped using maximal sterile barrier technique including cutaneous antisepsis. Anesthesia/sedation Level of anesthesia/sedation: Moderate sedation (conscious sedation) Anesthesia/sedation administered by: Independent trained observer under attending supervision with continuous monitoring of the patient's level of consciousness and physiologic status Total intra-service sedation time (minutes): 30 Drainage catheter placement The patient was positioned supine. Initial imaging was performed. Local anesthesia was administered. The fluid collection was accessed using 18-gauge needle and a drainage catheter was placed. Position of the drainage catheter within the fluid collection was confirmed. - Initial imaging findings: Air and fluid collection left lower quadrant - Drainage catheter placed: 12-Welsh - External catheter securement: Suture - Post-drainage imaging findings: Drainage catheter in the collection Contrast Contrast agent: None Contrast volume (mL): [address] dose length product (mGy-cm): 470 Additional Details Additional description of procedure: None Equipment details: None Specimens removed: Aspirated fluid 10 mL purulent fluid sent for analysis. Estimated blood loss (mL): Less than 10 Standardized report: [id number] Attestation Signer name: Mathew Nicole MD I attest that I was present for the entire procedure. I reviewed the stored images and agree with the report as written. CHEM PANEL eGFR 46 10/29 Result Comment: The eGFR is calculated using the CKD-EPI formula. In most young, healthy individuals the eGFR will be >90 mL/ min/1.73m2. The eGFR declines with age. An eGFR of 60-89 may be normal in [facility] mL/min/1.7 some populations, particularly the elderly, for whom the CKD-EPI formula has not been extensively validated. Use of the eGFR is not recommended in the following populations: [address] Individuals with unstable creatinine concentrations, including patients and those with serious co-morbid conditions. Patients with extremes in muscle mass or diet. The data above are obtained from the National Kidney Disease Education Program (NKDEP) which additionally recommends that when the eGFR is used in patients with extremes of body mass index for purposes of drug dosing, the eGFR should be multiplied by the estimated BMI. CHEM PANEL Glucose Lvl 77 mg/dL 70 - 99 10/[address] CHEM PANEL Creatinine 1.16 mg/dL 0.50 - 10/29 [facility] 1.[address] [facility] CHEM PANEL BUN 19 mg/dL 7 - 22 10/[address] CHEM PANEL Sodium Lvl 135 meq/L 135 - 145 10/[address] CHEM PANEL Potassium Lvl 4.0 meq/L 3.5 - 5.1 10/[address] CHEM PANEL Chloride Lvl 102 meq/L 95 - 109 10/[address] CHEM PANEL Calcium Lvl 8.8 mg/dL 8.5 - 10.5 10/[address] CHEM PANEL CO2 20 meq/L 24 - 32 10/[address] CHEM PANEL AGAP 17.0 meq/L 10.0 - 10/29 [facility] 20.[address] [facility] CHEM PANEL Phosphorus 4.1 mg/dL 2.5 - 4.5 10/[address] CHEM PANEL Magnesium Lvl 2.0 mg/dL 1.8 - 2.4 10/[address] CHEM PANEL Lactic Acid 1.0 mMol/L 0.5 - 2.2 10/29 [facility] [address] [place] [address] IMMUNOLOGY Prealbumin 6.1 mg/dL 18.0 - 10/29 [facility] 45.[address] [facility] URINE AND UA RBC 1 /HPF 0 - 2 10/[address] URINE AND UA Bacteria Occasional None Seen 10/29 [facility] STOOL /HPF /HPF /[address] [facility] URINE AND UA Mucus Few /LPF None Seen 10/29 [facility] STOOL /LPF [facility] URINE AND UA Amorph Occasional None Seen 10/29 [facility] Alissa /HPF /HPF [facility] URINE AND UA Hyal Cast 3 /LPF 0 - 2 10/[address] URINE AND UA [place] Yeast Few /HPF None Seen 10/29 [facility] STOOL /HPF [facility] URINE AND UA WBC 5 /HPF 0 - 5 10/29 [facility] [address] [place] [address] URINE AND UA Turbidity Marked Clear 10/29 [facility] [address] [place] [address] *ABN* Center (10/29/18 12:06 AM) URINE AND UA Color Yellow Yellow 10/29 [facility] *NA* Center (10/29/18 12:06 AM) URINE AND UA Ketones Trace Negative 10/29 [facility] mg/dL mg/dL [facility] URINE AND UA Glucose Negative Negative 10/29 [facility] mg/dL mg/dL [facility] URINE AND UA Spec Grav 1.014 <=1.030 10/29 [facility] [address] [place] [address] URINE AND UA Protein Negative Negative 10/29 [facility] mg/dL mg/dL [facility] URINE AND UA pH 5.0 5.0 - 8.0 10/[address] URINE AND UA Nitrite Negative Negative 10/[address] (10/29/18 12:06 AM) [place] URINE AND UA Blood Small Negative 10/29 [facility] *ABN* Center (10/29/18 12:06 AM) URINE AND UA Bili Negative Negative 10/29 [facility] *NA* Center (10/29/18 12:06 AM) URINE AND UA null 0.1 - 1.0 10/29 [facility] Urobilinogen /[address] [facility] URINE AND UA Sq Epi Moderate Few /LPF 10/29 [facility] /LPF [address] [place] [address] URINE AND UA Leuk Est Small Negative 10/29 [facility] Medical *ABN* Center (10/29/18 12:06 AM) TUMOR CEA 7.0 ng/mL 0.0 - 3.0 10/29 [facility] [facility] BLOOD BANK RBC product Product available 10/29 [facility] RESULTS Medical (10/28/18 7:54 PM) [place] BLOOD BANK Antibody Scrn Negative 10/28 [facility] RESULTS [facility] (10/28/18 6:30 PM) [place] BLOOD BANK ABO/Rh O POS 10/28 [facility] RESULTS [facility] CARDIAC Total CK 279 unit/L 12 - 191 10/28 [facility] ENZYMES [facility] CHEM PANEL Lactic Acid 1.9 mmol/L 0.5 - 2.2 10/28 [facility] WB /[address] [facility] HEMATOLOGY PTT 25.5 s 22.9 - 10/28 [place] 35.[address] [facility] HEMATOLOGY PT 17.1 s 12.0 - 10/28 [facility] 14.[address] [facility] HEMATOLOGY INR 1.42 0.85 - 10/28 [facility] [address]. [facility] HEMATOLOGY Hypochrom 1+ None Seen 10/28 [facility] (10/28/18 6:30 PM) [place] HEMATOLOGY Large Plt Moderate None [facility] [place] (10/28/18 6:30 PM) HEMATOLOGY Anisocyte 1+ None Seen 10/28 [facility]* [place] (10/28/18 6:30 PM) HEMATOLOGY Atypical 0.0 % <=0.0 % 10/28 [facility] Lymphs [facility] HEMATOLOGY Tot Cell Ct 200 10/28 [facility] HEMATOLOGY Schistocyte 0-2 10/28 [facility] [facility] HEMATOLOGY Toxic Gran Moderate None Seen 10/28 [facility]* [place] (10/28/18 6:30 PM) HEMATOLOGY Rouleaux Present None Seen 10/28 [facility]* [place] (10/28/18 6:30 PM) HEMATOLOGY Bands 0.0 % 0.0 - 11.0 10/28 [facility] /[address] [facility] Brain-Outsi Brain-Outside EXAM: Brain-Outside Consult CT 10/28 - [facility] de Consult Consult CT - Medical CT This report was dictated by a Pot Liner/Fellow/ Physician Home Insurance Agent. I have personally Center reviewed the images as well as the interpretation and agree with the findings. DATE: 10/28/2018 8:23 PM CDT Read by: Camilo Coulter MD Resident/Fellow/Physician Home Insurance Agent: Camilo Coulter MD Dictated Date/time: 10/28/18 20:40 Electronically Signed by: Ela Calloway MD 10/29/18 00:48 FINAL REPORT INDICATION: - outside study COMPARISON: None TECHNIQUE: Axial images of the head were obtained without contrast administration DISCUSSION: No acute hemorrhage, hydrocephalus or midline shift. Prominence of the cerebral sulci due to volume loss. No acute parenchymal abnormality. IMPRESSION: Negative exam Spine-Outsi Spine-Outside EXAM: CT CERVICAL SPINE WITHOUT CONTRAST 2ND OPINION INTERPRETATION 10/28 - [facility] Consult Consult CT /2018 - Medical CT This report was dictated by a Pot Liner/Fellow/ Physician Home Insurance Agent. I have personally Center reviewed the images as well as the interpretation and agree with the findings. DATE: 10/28/2018 18:31 CDT Read by: Yoni Gabriel MD Resident/Fellow/Physician Home Insurance Agent: Yoni Gabriel MD Dictated Date/time: 10/28/18 20:08 Electronically Signed by: Wolf Beaver MD 10/28/18 23:00 FINAL REPORT INDICATION: - OUTSIDE STUDY, second interpretation requested COMPARISON: None TECHNIQUE: Noncontrast CT images of the cervical spine, obtained at [facility] 10/28/2018 at 1050 hours. Axial, sagittal and coronal images provided. UT SECTION: ER FINDINGS: The spine is imaged from the skull base to the level of T3. Atherosclerotic calcifications of the carotid bulbs and proximal internal carotid arteries present. Grade 1 anterolisthesis present at C4-C5, likely degenerative. Vertebral body heights are normal. No cervical spine fracture is identified. Multiple scattered small lucent bone lesions present throughout the visualized spine. No prevertebral soft tissue edema or hematoma is observed. Mild-moderate degenerative disc disease present at C4-C7. Disc osteophyte complex bulge and uncovertebral joint hypertrophy present at C5-C7. Mild-moderate right-sided facet arthropathy present at C3-C5. Moderate-severe left-sided facet arthropathy present at C2-C5. Left-sided neural foraminal stenosis present at C4-C5. IMPRESSION: Multiple small lucent bone lesions present throughout the visualized spine. Differential possibilities include metastatic disease and multiple myeloma. No cervical spine fractures identified. Grade 1 anterolisthesis at C4-C5, probably degenerative. Multilevel degenerative disc disease, uncovertebral joint hypertrophy, disc -osteophyte complex bulge, and facet joint arthropathy with neural foraminal stenosis as described. Brain-Outsi Brain-Outside EXAM: CT FACIAL BONES WITHOUT CONTRAST 2ND OPINION INTERPRETATION 10/28 - [facility] Consult Consult CT [facility] DATE: 10/28/2018 18:29 CDT Read by: Wolf Beaver MD Dictated Date/time: 10/29/18 15:17 Electronically Signed by: Wolf Beaver MD 10/29/18 15:27 FINAL REPORT INDICATION: - outside study/fall, trauma head and neck injury COMPARISON: None available TECHNIQUE: Second opinion interpretation of CT facial bone exam obtained at [facility] 10/28/2018 at 1050 hours Non-contrast axial images through the facial bones were obtained. Sagittal and coronal reformatted images were performed. FINDINGS: Evaluation the soft tissues limited due to only bone algorithm images. Globes are intact. No intraconal hematoma identified. Visualized submandibular and parotid glands are unremarkable. Paranasal sinuses are clear. Mastoid air cells are clear. No facial bone fractures identified. Dental cavities and periodontal disease noted. Moderate degenerative changes of the right temporomandibular joint noted. Cervical spine findings reported on concurrent CT cervical spine exam. IMPRESSION: No facial bone fractures identified. Vital Signs Vital Sign Value Date Comments Source Systolic (mm Hg) 158 11/17/2018 [facility] Diastolic (mm Hg) 62 11/17/2018 [facility] Respitory Rate 16 11/17/2018 [facility] Respitory Rate 20 11/17/2018 [facility] Systolic (mm Hg) 144 11/17/2018 [facility] Diastolic (mm Hg) 63 11/17/2018 [facility] Systolic (mm Hg) 151 11/17/2018 [facility] Diastolic (mm Hg) 70 11/17/2018 [facility] Respitory Rate 16 11/17/2018 [facility] Height 162.56 cm 11/17/2018 [facility] Weight 97.727 11/17/2018 [facility] BMI Calculated 36.98 11/17/2018 [facility] Heart Rate 89 11/17/2018 [facility] Systolic (mm Hg) 176 11/11/2018 [facility] Diastolic (mm Hg) 78 11/11/2018 [facility] Respitory Rate 18 11/11/2018 [facility] Systolic (mm Hg) 188 11/11/2018 [facility] Diastolic (mm Hg) 81 11/11/2018 [facility] Respitory Rate 18 11/11/2018 [facility] Systolic (mm Hg) 174 11/11/2018 [facility] Diastolic (mm Hg) 74 11/11/2018 [facility] Respitory Rate 18 11/11/2018 [facility] Weight 97.727 11/11/2018 [facility] Height 162.56 cm 11/11/2018 [facility] BMI Calculated 36.98 11/11/2018 [facility] Respitory Rate 20 11/02/2018 [facility] Systolic (mm Hg) 148 11/02/2018 [facility] Diastolic (mm Hg) 65 11/02/2018 [facility] Heart Rate 60 11/02/2018 [facility] Temperature Oral (F) 97.7 F 11/02/2018 [facility] Heart Rate 62 11/02/2018 [facility] Respitory Rate 20 11/02/2018 [facility] Systolic (mm Hg) 151 11/02/2018 [facility] Diastolic (mm Hg) 78 11/02/2018 [facility] Temperature Oral (F) 98.2 F 11/02/2018 [facility] Heart Rate 52 11/02/2018 [facility] Systolic (mm Hg) 151 11/02/2018 [facility] Diastolic (mm Hg) 70 11/02/2018 [facility] Respitory Rate 20 11/02/2018 [facility] Temperature Oral (F) 97.4 F 11/02/2018 [facility] BMI Calculated 37.84 10/29/2018 [facility] Weight 100 10/29/2018 [facility] Height 162.56 cm 10/29/2018 [facility] Weight 100 10/28/2018 [facility] BMI Calculated 37.84 10/28/2018 [facility] Height 162.56 cm 10/28/2018 [facility] Encounters Location Location Encounter Encounter Reason Attending ADM DC Status Source Details Type Number For Provider Date Date Visit [facility] [id number] Shahriar Rios 10/28 11/02 [facility] Ramana [facility] Digestive Phone [id number] 11/05 11/07 [facility] Disease Message [facility] Bedded [id number] Rojelio 11/11 11/11 [facility] Ramana Outpatient 1 Zvaaracely [facility] Outpt Diag [id number] Medina Bautistae 11/15 11/16 [facility] Day Surgery [id number] Ihsan 11/17 11/18 Terrence Boles 0 [facility] Procedures Procedure Code Date Perfomer Comments Source
--- OUTSIDE RECORDS SUMMARY | 2018-11-20 15:55 | XMS REPORT | Summary of Care ---
:1940 Author Organization [facility] Address [address] [place] [address], [address] [place] [address]- Encounter HQ Encntr_alias(FIN) [id number] Date(s): 11/05/18 - 11/06/18 [facility] [address] [place] [address] [place] [id number]- Vital Signs No data available for this section Problem List Condition Effective Dates Status Health Status Informant Morbid obesity(Confirmed) Active Allergies, Adverse Reactions, Alerts Substance Reaction Severity Status codeine Active Medications GoLYTELY oral powder for reconstitution See Instructions, Take as directed by physician. Give jug for Colonoscopy, # 1 ea, 0 Refill(s), Pharmacy: [email or web address] [id number] Start Date: 11/05/18 Stop Date: 11/05/18 Status: Completed Results No data available for this section Immunizations No data available for this section Procedures No data available for this section Social History Social History Type Response Smoking Status Never smoker; Exposure to Tobacco Smoke None; Cigarette Smoking Last 365 Days No; Reg Smoking Cessation Counseling No entered on: 10/28/18 Assessment and Plan No data available for this section
--- OUTSIDE RECORDS SUMMARY | 2018-11-20 15:55 | XMS REPORT | Summary of Care ---
:1940 Author Organization [facility] Address [address] [place] [id number] Encounter HQ Jesser_jose(FIN) [phone] Date(s): 10/28/18 - 11/02/[address] Professional Services provided by [facility] [place] [address]- Discharge Disposition: Home or Self Care Attending Physician: Shahriar Rios MD Admitting Physician: Shahriar Rios MD Vital Signs Most recent to oldest [Reference 1 2 3 Range]: Height 162.56 cm 162.56 cm (10/29/18 12:31 AM) (10/28/18 4:25 PM) Temperature Oral [96.4-99.1 DegF] 97.7 DegF 98.2 DegF 97.4 DegF (11/02/18 4:00 PM) (11/02/18 1:00 PM) (11/02/18 8:00 AM) Blood Pressure [90-140/60-90 148/65 mmHg 151/78 mmHg 151/70 mmHg mmHg] *HI* *HI* *HI* (11/02/18 4:00 PM) (11/02/18 1:00 PM) (11/02/18 8:00 AM) Respiratory Rate [14-20 BRMIN] 20 BRMIN 20 BRMIN 20 BRMIN (11/02/18 4:00 PM) (11/02/18 1:00 PM) (11/02/18 8:00 AM) Peripheral Pulse Rate [60-100 60 bpm 62 bpm 52 bpm bpm] (11/02/18 4:00 PM) (11/02/18 1:00 PM) *LOW* (11/02/18 8:00 AM) Weight 100 kg 100 kg (10/29/18 12:31 AM) (10/28/18 4:25 PM) Body Mass Index 37.84 m2 37.84 m2 (10/29/18 12:31 AM) (10/28/18 4:25 PM) Problem List Condition Effective Dates Status Health Status Informant Morbid obesity(Confirmed) Active Allergies, Adverse Reactions, Alerts Substance Reaction Severity Status codeine Active Medications acetaminophen 1 gm, 2 tab, Route: PO, Drug form: TAB, Q6H, Dosing Weight 100, kg, Priority: NOW, Start date: 10/28/18 20:28:00 CDT, Duration: 30 day, Stop date: 11/27/18 18 :00:00 CDT Start Date: 10/28/18 Stop Date: 11/02/18 Status: Discontinuedacetaminophen 500 mg oral tablet 1 gm=2 tab, PO, Q6H, X 7 day, # 56 tab, 0 Refill(s) Start Date: 11/02/18 Stop Date: 11/09/18 Status: Orderedacetaminophen 500 mg oral tablet 1 gm=2 tab, PO, Q6H, X 7 day, # 56 tab, 0 Refill(s), other Start Date: 11/02/18 Stop Date: 11/02/18 Status: DiscontinuedArmour Thyroid 60 mg, 1 tab, Route: PO, Drug form: TAB, Daily, Dosing Weight 100, kg, Start date: 10/29/18 9:00:00 CDT, Duration: 30 day, Stop date: 11/27/18 9:00:00 CDT Notes: (Same As: [place] Thyroid, S-P-T) Start Date: 10/29/18 Stop Date: 11/02/18 Status: DiscontinuedArmour Thyroid 30 mg, 1 tab, Route: PO, Drug form: TAB, QNoon, Dosing Weight 100, kg, Start date: 10/29/18 12:00:00CDT, Duration: 30 day, Stop date: 11/27/18 12:00:00 CDT Notes: (Same As: [place] Thyroid, S-P-T) Start Date: 10/29/18 Stop Date: 11/02/18 Status: DiscontinuedArmour Thyroid 30 mg oral tablet 30 mg=1 tab, PO, QNoon, 0 Refill(s) Start Date: 10/28/18 Status: OrderedArmour Thyroid 60 mg oral tablet See Instructions, 1 tab PO Daily, 0 Refill(s) Start Date: 10/28/18 Status: Orderedbisoprolol 5 mg, Route: PO, Drug form: TAB, ONCE, Dosing Weight 100, kg, Priority: STAT, Start date: 10/28/18 22:59:00 CDT, Stop date: 10/28/18 22:59:00 CDT Start Date: 10/28/18 Stop Date: 10/28/18 Status: Discontinuedbisoprolol 5 mg, 1 tab, Route: PO, Drug form: TAB, Daily, Dosing Weight 100, kg, Start date : 10/29/18 21:00:00 CDT, Duration: 30 day, Stop date: 11/27/18 21:00:00 CDT Notes: (Same As: Zebeta) Start Date: 10/29/18 Stop Date: 11/02/18 Status: Discontinuedbisoprolol 5 mg oral tablet 5 mg=1 tab, PO, Daily, 0 Refill(s) Start Date: 10/28/18 Status: Orderedciprofloxacin 400 mg, 200 mL, Route: IVPB, Drug form: INJ, [id number], Dosing Weight 100, kg, Start date: 10/28/18 21:00:00 CDT, Duration: 30 day, Stop date: 11/27/18 13:00: 00 CDT, ABX Indication: Intra-abdominal Infection Start Date: 10/28/18 Stop Date: 10/30/18 Status: Discontinuedciprofloxacin 500 mg, 1 tab, Route: PO, Drug form: TAB, Q12H, Dosing Weight 100, kg, Start date: 10/30/18 12:00:00CDT, Duration: 30 day, Stop date: 11/29/18 0:00:00 CDT, ABX Indication: Intra-abdominal Infection Notes: May interfere w/enteral feedings - Take 1 hr before or 2 hrs after antacids, dairy pdt & minerals. On empty stomach. Start Date: 10/30/18 Stop Date: 11/02/18 Status: Discontinuedciprofloxacin 500 mg oral tablet 500 mg=1 tab, PO, Q12H, X 7 day, # 14 tab, 0 Refill(s) Start Date: 11/02/18 Stop Date: 11/09/18 Status: OrderedDextrose 5% with 0.45% NaCl IV 1,000 mL 1,000 mL, Rate: 100 ml/hr, Infuse over: 10 hr, Route: IV, Dosing Weight 100 kg, Total Volume: 1,000,Start date: 10/29/18 18:15:00 CDT, Duration: 30 day, Stop date: 11/28/18 18:14:00 CDT, 2.16, m2 Start Date: 10/29/18 Stop Date: 10/30/18 Status: Discontinueddocusate sodium 100 mg oral capsule 100 mg, 1 cap, Route: PO, Drug form: CAP, BID, Dosing Weight 100, kg, Start date : 10/29/18 9:00:00 CDT, Duration: 30 day, Stop date: 11/27/18 17:00:00 CDT Start Date: 10/29/18 Stop Date: 11/02/18 Status: Discontinueddocusate sodium 100 mg oral capsule 100 mg=1 cap, PO, BID, # 14 cap, 0 Refill(s), other Start Date: 11/02/18 Stop Date: 11/02/18 Status: DiscontinuedfentaNYL 50 microgram, Route: IV, ONCE, Dosing Weight 100, kg, Start date: 10/29/18 15:30 :00 CDT, Stop date: 10/29/18 15:30:00 CDT Start Date: 10/29/18 Stop Date: 10/29/18 Status: CompletedfentaNYL 50 microgram, Route: IV, ONCE, Dosing Weight 100, kg, Start date: 10/29/18 15:20 :00 CDT, Stop date: 10/29/18 15:20:00 CDT Start Date: 10/29/18 Stop Date: 10/29/18 Status: CompletedFeosol 325 mg oral tablet 325 mg, PO, Daily, # 30 tab, 0 Refill(s) Start Date: 11/02/18 Stop Date: 12/02/18 Status: OrderedFlagyl 500 mg, 100 mL, Route: IVPB, Drug form: INJ, ABXQ8H, Dosing Weight 100, kg, Priority: STAT, Start date: 10/28/18 20:28:00 CDT, Duration: 30 day, Stop date: 11/27/18 16:00:00 CDT, ABX Indication: Intra-abdominal Infection Start Date: 10/28/18 Stop Date: 10/30/18 Status: DiscontinuedFlagyl 500 mg, 1 tab, Route: PO, Drug form: TAB, Q8H, Dosing Weight 100, kg, Start date : 10/30/18 16:00:00 CDT, Duration: 30 day, Stop date: 11/29/18 8:00:00 CDT, ABX Indication: Intra-abdominal Infection Notes: (Same as: Flagyl) Take with food/ avoid alcohol Start Date: 10/30/18 Stop Date: 11/02/18 Status: Discontinuedgabapentin 300 mg, 1 cap, Route: PO, Drug form: CAP, Q8H, Dosing Weight 100, kg, PRN Pain Score 6-10, Priority:NOW, Start date: 10/28/18 20:28:00 CDT, Duration: 30 day, Stop date: 11/27/18 20:27:00 CDT Notes: (Same as: Neurontin) Start Date: 10/28/18 Stop Date: 11/02/18 Status: Discontinuedheparin 5,000 unit, 1 mL, Route: SUB-Q, Drug form: INJ, Q8H, Dosing Weight 100, kg, Start date: 10/29/18 0:00:00 CDT, Stop date: 11/27/18 16:00:00 CDT Start Date: 10/29/18 Stop Date: 11/02/18 Status: DiscontinuedhydrALAZINE 5 mg, 0.25 mL, Route: IV, Drug form: INJ, TID, Dosing Weight 100, kg, PRN Hypertension, Start date: 10/28/18 22:14:00 CDT, Duration: 30 day, Stop date: 22:13:00 CDT Notes: (Same as: Apresoline)Push over 5 minutes Start Date: 10/28/18 Stop Date: 11/02/18 Status: Discontinuedhydrochlorothiazide-triamterene 25 mg-37.5 mg oral capsule 1 cap, Route: PO, Drug Form: CAP, Dosing Weight 100, kg, QAM, Start date: 14:00:00 CDT, Duration: 30 day, Stop date: 11/28/18 9:00:00 CDT Notes: (triamterene-hydrochlorothiazide 37.5-25 mg CAP)(Same As: Dyazide) Start Date: 10/29/18 Stop Date: 10/29/18 Status: Discontinuedhydrochlorothiazide-triamterene 25 mg-37.5 mg oral capsule 1 cap, Route: PO, Drug Form: CAP, Dosing Weight 100, kg, QAM, Start date: 9:00:00 CDT, Duration: 30 day, Stop date: 11/28/18 9:00:00 CDT Notes: (triamterene-hydrochlorothiazide 37.5-25 mg CAP)(Same As: Dyazide) Start Date: 10/30/18 Stop Date: 11/02/18 Status: Discontinuedhydrochlorothiazide-triamterene 25 mg-37.5 mg oral capsule 1 cap, PO, QAM, 0 Refill(s) Start Date: 10/28/18 Stop Date: 10/30/18 Status: Discontinuedhydrochlorothiazide-triamterene 50 mg-75 mg oral tablet 0.5 tab, PO, Daily, 0 Refill(s) Start Date: 10/30/18 Status: OrderedIsolyte S PH 7.4 1,000 mL 1,000 mL, Rate: 100 ml/hr, Infuse over: 10 hr, Route: IV, Dosing Weight 100 kg, Total Volume: 1,000,Start date: 10/28/18 20:28:00 CDT, Duration: 30 day, Stop date: 11/27/18 20:27:00 CDT, 2.16, m2 Notes: (Same as: Isolyte S PH 7.4) Start Date: 10/28/18 Stop Date: 10/29/18 Status: DiscontinuedIsolyte S PH-7.4 (Bolus) IV 500 mL, Route: IV, ONCE, Dosing Weight 100 kg, Start date: 10/28/18 20:28:00 CDT , Stop date: 10/28/18 20:28:00 CDT Start Date: 10/28/18 Stop Date: 10/28/18 Status: Completedlidocaine 1% 15 mL, Route: INTRADERM, Dosing Weight 100, kg, ONCE, Start date: 10/29/18 15:47 :00 CDT, Stop date: 10/29/18 15:47:00 CDT Start Date: 10/29/18 Stop Date: 10/29/18 Status: CompletedLidoderm 5% topical film (patch) 1 patch, Route: TOP, Q24H, Drug form: FILM, Start date: 10/28/18 22:00:00 CDT, Duration: 30 day, Stop date: 11/26/18 22:00:00 CDT Start Date: 10/28/18 Stop Date: 11/02/18 Status: Discontinuedmelatonin 3 mg, 1 tab, Route: PO, Drug form: TAB, Bedtime, Dosing Weight 100, kg, PRN Sleep, Start date: 10/29/18 23:35:00 CDT, Duration: 30 day, Stop date: 11/28/18 23:34:00 CDT Notes: (Same as: Melatonin) Start Date: 10/29/18 Stop Date: 11/02/18 Status: DiscontinuedmetroNIDAZOLE 500 mg oral tablet 500 mg=1 tab, PO, Q8H, X 7 day, # 21 tab, 0 Refill(s) Start Date: 11/02/18 Stop Date: 11/09/18 Status: Orderedmidazolam 0.5 mg, Route: IV, ONCE, Dosing Weight 100, kg, Start date: 10/29/18 15:30:00 CDT, Stop date: 10/29/18 15:30:00 CDT Start Date: 10/29/18 Stop Date: 10/29/18 Status: Completedmidazolam 1 mg, Route: IV, ONCE, Dosing Weight 100, kg, Start date: 10/29/18 15:20:00 CDT , Stop date: 10/29/1914:20:00 CDT Start Date: 10/29/18 Stop Date: 10/29/18 Status: Completednaproxen 500 mg, 1 tab, Route: PO, Drug form: TAB, Q12H, Dosing Weight 100, kg, PRN Pain Score 4-6, Start date: 10/28/18 21:38:00 CDT, Duration: 30 day, Stop date: 11/27 21:37:00 CDT Start Date: 10/28/18 Stop Date: 11/02/18 Status: Discontinuedremove patch 1 patch, Route: TOP, Daily, Drug form: ERFILM, Start date: 10/29/18 10:00:00 CDT , Duration: 30 day, Stop date: 11/27/18 10:00:00 CDT Start Date: 10/29/18 Stop Date: 11/02/18 Status: DiscontinuedSodium Chloride 0.9% (titrate) 250 mL 250 mL, Rate: To prime line and flush remaining blood products., Dosing Weight 100, kg, Route: IV, Total Volume: 250, Start Date: 10/28/18 20:31:00 CDT, Duration: 30 day, Stop date: 11/27/18 20:30:00 CDT, Replace Every: 24 hr Start Date: 10/28/18 Stop Date: 11/02/18 Status: Discontinuedtramadol 50 mg, 1 tab, Route: PO, Drug form: TAB, Q6H, Dosing Weight 100, kg, PRN Pain Score 7-10, Do NOT usefor patients with a past medical history of seizures, Start date: 10/28/18 21:38:00 CDT, Duration: 30 day, Stop date: 11/27/18 21:37: 00 CDT Start Date: 10/28/18 Stop Date: 11/02/18 Status: DiscontinuedZofran 4 mg, 2 mL, Route: IVP, Drug form: INJ, ONCE, Dosing Weight 100, kg, Start date : 10/31/18 13:18:00 CDT, Stop date: 10/31/18 13:18:00 CDT Notes: (Same as: Zofran) MEDICATION WASTE Product Size: 4 mgProduct Wasted: ___ mg Start Date: 10/31/18 Stop Date: 10/31/18 Status: CompletedZofran 4 mg, 2 mL, Route: IVP, Drug form: INJ, ONCE, Dosing Weight 100, kg, Start date : 10/30/18 15:48:00 CDT, Stop date: 10/30/18 15:48:00 CDT Notes: (Same as: Zofran) MEDICATION WASTE Product Size: 4 mgProduct Wasted: 0 mg Start Date: 10/30/18 Stop Date: 10/30/18 Status: CompletedZosyn 3.375 gm, Route: IVPB, Drug form: PDR/INJ, ONCE, Dosing Weight 100, kg, Priority : STAT, Start date: 10/28/18 21:26:00 CDT, Stop date: 10/28/18 21:26:00 CDT, ABX Indication: Intra-abdominal Infection Notes: MEDICATION WASTE Product Size: 3375 mgProduct Wasted: ___ mg Start Date: 10/28/18 Stop Date: 10/28/18 Status: Completed Results Most recent to oldest 1 2 3 [Reference Range]: Neutrophils # [1.5-8.1 10.0 K/CMM 11.8 K/CMM 10.0 K/CMM K/CMM] *HI* *HI* *HI* (11/02/18 3:19 AM) (11/01/18 5:37 PM) (10/31/18 4:50 AM) Lymphocytes # [1.0-5.5 2.2 K/CMM 1.8 K/CMM 2.4 K/CMM K/CMM] (11/02/18 3:19 AM) (11/01/18 5:37 PM) (10/31/18 4:50 AM) Monocytes # [0.0-0.8 K/CMM] 1.0 K/CMM 0.8 K/CMM 1.0 K/CMM *HI* (11/01/18 5:37 PM) *HI* (11/02/18 3:19 AM) (10/31/18 4:50 AM) Eosinophils # [0.0-0.5 0.2 K/CMM 0.1 K/CMM 0.4 K/CMM K/CMM] (11/02/18 3:19 AM) (11/01/18 5:37 PM) (10/31/18 4:50 AM) Basophils # [0.0-0.2 K/CMM] 0.1 K/CMM 0.1 K/CMM 0.1 K/CMM (11/02/18 3:19 AM) (11/01/18 5:37 PM) (10/31/18 4:50 AM) Schistocyte 0-2 *Unknown* (10/28/18 6:30 PM) Large Plt [None Seen] Moderate Moderate *ABN* *ABN* (10/31/18 4:50 AM) (10/28/18 6:30 PM) eGFR 57 mL/min/1.73m2 1 59 mL/min/1.73m2 2 46 mL/min/1.73m2 3 *NA* *NA* *NA* (10/31/18 4:50 AM) (10/30/18 1:32 AM) (10/29/18 6:13 AM) RBC product Product available (10/28/18 7:54 PM) ABO/Rh O POS O POS *Unknown* *Unknown* (11/01/18 5:37 PM) (10/28/18 6:30 PM) Antibody Scrn Negative Negative (11/01/18 5:37 PM) (10/28/18 6:30 PM) AGAP [10.0-20.0 mEq/L] 13.7 mEq/L 12.4 mEq/L 17.0 mEq/L (10/31/18 4:50 AM) (10/30/18 1:32 AM) (10/29/18 6:13 AM) Anisocyte [None Seen] 1+ 1+ *ABN* *ABN* (10/31/18 4:50 AM) (10/28/18 6:30 PM) Bands [0.0-11.0 %] 0.0 % (10/28/18 6:30 PM) Basophils [0.0-1.0 %] 0.4 % 0.5 % 0.5 % (11/02/18 3:19 AM) (11/01/18 5:37 PM) (10/31/18 4:50 AM) BUN [7-22 mg/dL] 14 mg/dL 15 mg/dL 19 mg/dL (10/31/18 4:50 AM) (10/30/18 1:32 AM) (10/29/18 6:13 AM) Calcium Lvl [8.5-10.5 mg/dL] 8.9 mg/dL 8.5 mg/dL 8.8 mg/dL (10/31/18 4:50 AM) (10/30/18 1:32 AM) (10/29/18 6:13 AM) CEA [0.0-3.0 ng/mL] 7.0 ng/mL *HI* (10/28/18 8:49 PM) Total CK [12-191 unit/L] 279 unit/L *HI* (10/28/18 6:30 PM) Chloride Lvl [95-109 mEq/L] 103 mEq/L 103 mEq/L 102 mEq/L (10/31/18 4:50 AM) (10/30/18 1:32 AM) (10/29/18 6:13 AM) CO2 [24-32 mEq/L] 24 mEq/L 24 mEq/L 20 mEq/L (10/31/18 4:50 AM) (10/30/18 1:32 AM) *LOW* (10/29/18 6:13 AM) Creatinine Lvl [0.50-1.40 0.97 mg/dL 0.95 mg/dL 1.16 mg/dL mg/dL] (10/31/18 4:50 AM) (10/30/18 1:32 AM) (10/29/18 6:13 AM) Eosinophils [0.0-4.0 %] 1.7 % 0.5 % 2.7 % (11/02/18 3:19 AM) (11/01/18 5:37 PM) (10/31/18 4:50 AM) Glucose Lvl [70-99 mg/dL] 94 mg/dL 114 mg/dL 77 mg/dL (10/31/18 4:50 AM) *HI* (10/29/18:13 AM) (10/30/18 1:32 AM) Hct [36.0-48.0 %] 33.1 % 33.6 % 32.4 % *LOW* *LOW* *LOW* (11/02/18 3:19 AM) (11/01/18 5:37 PM) (10/31/18 4:50 AM) Hgb [12.0-16.0 g/dL] 10.6 g/dL 10.7 g/dL 10.5 g/dL *LOW* *LOW* *LOW* (11/02/18 3:19 AM) (11/01/18 5:37 PM) (10/31/18 4:50 AM) Hypochrom [None Seen] 1+ (10/28/18 6:30 PM) INR [0.85-1.17] 1.42 *HI* (10/28/18 6:30 PM) Potassium Lvl [3.5-5.1 3.7 mEq/L 3.4 mEq/L 4.0 mEq/L mEq/L] (10/31/18 4:50 AM) *LOW* (10/29/18 6:13 AM) (10/30/18 1:32 AM) Lactic Acid Lvl [0.5-2.2 1.0 mMol/L mMol/L] (10/29/18 6:13 AM) Atypical Lymphs [<=0.0 %] 0.0 % (10/28/18 6:30 PM) Lymphocytes [20.0-40.0 %] 16.3 % 12.6 % 17.5 % *LOW* *LOW* *LOW* (11/02/18 3:19 AM) (11/01/18 5:37 PM) (10/31/18 4:50 AM) MCH [27.0-31.0 pg] 25.1 pg 25.0 pg 25.1 pg *LOW* *LOW* *LOW* (11/02/18 3:19 AM) (11/01/18 5:37 PM) (10/31/18 4:50 AM) MCHC [32.0-36.0 g/dL] 31.9 g/dL 31.9 g/dL 32.3 g/dL *LOW* *LOW* (10/31/18 4:50 AM) (11/02/18 3:19 AM) (11/01/18 5:37 PM) MCV [80.0-98.0 fL] 78.6 fL 78.2 fL 77.6 fL *LOW* *LOW* *LOW* (11/02/18 3:19 AM) (11/01/18 5:37 PM) (10/31/18 4:50 AM) Magnesium Lvl [1.8-2.4 2.0 mg/dL mg/dL] (10/29/18 6:13 AM) Microcyte [None Seen] 1+ 1+ 1+ *ABN* *ABN* *ABN* (11/02/18 3:19 AM) (11/01/18 5:37 PM) (10/31/18 4:50 AM) Monocytes [2.0-12.0 %] 7.6 % 5.4 % 7.5 % (11/02/18 3:19 AM) (11/01/18 5:37 PM) (10/31/18 4:50 AM) MPV [7.4-10.4 fL] 8.4 fL 8.3 fL 8.6 fL (11/02/18 3:19 AM) (11/01/18 5:37 PM) (10/31/18 4:50 AM) Sodium Lvl [135-145 mEq/L] 137 mEq/L 136 mEq/L 135 mEq/L (10/31/18 4:50 AM) (10/30/18 1:32 AM) (10/29/18 6:13 AM) Phosphorus [2.5-4.5 mg/dL] 4.1 mg/dL (10/29/18 6:13 AM) Platelet [133-450 K/CMM] 527 K/CMM 581 K/CMM 523 K/CMM *HI* *HI* *HI* (11/02/18 3:19 AM) (11/01/18 5:37 PM) (10/31/18 4:50 AM) Segs [45.0-75.0 %] 74.0 % 81.0 % 71.8 % (11/02/18 3:19 AM) *HI* (10/31/18 4:50 AM) (11/01/18 5:37 PM) Prealbumin [18.0-45.0 mg/dL] 6.1 mg/dL *LOW* (10/29/18 6:13 AM) PT [12.0-14.7 seconds] 17.1 seconds *HI* (10/28/18 6:30 PM) PTT [22.9-35.8 seconds] 25.5 seconds (10/28/18 6:30 PM) RBC [4.20-5.40 M/CMM] 4.22 M/CMM 4.30 M/CMM 4.17 M/CMM (11/02/18 3:19 AM) (11/01/18 5:37 PM) *LOW* (10/31/18 4:50 AM) RDW [11.5-14.5 %] 20.2 % 19.7 % 18.5 % *HI* *HI* *HI* (11/02/18 3:19 AM) (11/01/18 5:37 PM) (10/31/18 4:50 AM) Rouleaux [None Seen] Present *ABN* (10/28/18 6:30 PM) Tot Cell Ct 200 *NA* (10/28/18 6:30 PM) Toxic Gran Slight *NA* (10/31/18 4:50 AM) Toxic Gran [None Seen] Moderate *ABN* (10/28/18 6:30 PM) UA Amorph Alissa [None Seen Occasional /HPF /HPF] *NA* (10/29/18 12:06 AM) UA Bacteria [None Seen /HPF] Occasional /HPF *NA* (10/29/18 12:06 AM) UA Bili [Negative] Negative *NA* (10/29/18 12:06 AM) UA Blood [Negative] Small *ABN* (10/29/18 12:06 AM) UA Color [Yellow] Yellow *NA* (10/29/18 12:06 AM) UA Glucose [Negative mg/dL] Negative mg/dL *NA* (10/29/18 12:06 AM) UA Hyal Cast [0-2 /LPF] 3 /LPF *HI* (10/29/18 12:06 AM) UA Ketones [Negative mg/dL] Trace mg/dL *ABN* (10/29/18 12:06 AM) UA Leuk Est [Negative] Small *ABN* (10/29/18 12:06 AM) UA Mucus [None Seen /LPF] Few /LPF *NA* (10/29/18 12:06 AM) UA Nitrite [Negative] Negative (10/29/18 12:06 AM) UA pH [5.0-8.0] 5.0 (10/29/18 12:06 AM) UA Protein [Negative mg/dL] Negative mg/dL (10/29/18 12:06 AM) UA RBC [0-2 /HPF] 1 /HPF (10/29/18 12:06 AM) UA Spec Grav [<=1.030] 1.014 (10/29/18 12:06 AM) UA Sq Epi [Few /LPF] Moderate /LPF *ABN* (10/29/18 12:06 AM) UA Turbidity [Clear] Marked *ABN* (10/29/18 12:06 AM) UA Urobilinogen [0.1-1.0 <1.0 mg/dL mg/dL] (10/29/18 12:06 AM) UA WBC [0-5 /HPF] 5 /HPF (10/29/18 12:06 AM) UA [place] Yeast [None Seen Few /HPF /HPF] *ABN* (10/29/18 12:06 AM) WBC [3.7-10.4 K/CMM] 13.6 K/CMM 14.6 K/CMM 13.9 K/CMM *HI* *HI* *HI* (11/02/18 3:19 AM) (11/01/18 5:37 PM) (10/31/18 4:50 AM) C difficile DNA [Negative] Negative (11/01/18 4:28 PM) Lactic Acid WB [0.5-2.2 1.9 mmol/L mmol/L] (10/28/18 6:30 PM) 1Result Comment: The eGFR is calculated using the CKD-EPI formula. In most young , healthy individualsthe eGFR will be >90 mL/min/1.73m2. The eGFR declines with age. An eGFR of 60-89 may be normal insome populations, particularly the elderly, for whom the CKD-EPI formula has not been extensively validated. Use of the eGFR is not recommended in the following populations: Individuals with unstable creatinine concentrations, including patients and those with serious co-morbid conditions. Patients with extremes in muscle mass or diet. The data above are obtained from the National Kidney Disease Education Program ( NKDEP) which additionally recommends that when the eGFR is used in patients with extremes of body mass index for purposesof drug dosing, the eGFR should be multiplied by the estimated BMI.2Result Comment: The eGFR is calculated using the CKD-EPI formula. In most young, healthy individualsthe eGFR will be >90 mL/min/1.73m2. The eGFR declines with age. An eGFR of 60-89 may be normal insome populations, particularly the elderly, for whom the CKD-EPI formula has not been extensively validated. Use of the eGFR is not recommended in the following populations: Individuals with unstable creatinine concentrations, including patients and those with serious co-morbid conditions. Patients with extremes in muscle mass or diet. The data above are obtained from the National Kidney Disease Education Program ( NKDEP) which additionally recommends that when the eGFR is used in patients with extremes of body mass index for purposesof drug dosing, the eGFR should be multiplied by the estimated BMI.3Result Comment: The eGFR is calculated using the CKD-EPI formula. In most young, healthy individualsthe eGFR will be >90 mL/min/1.73m2. The eGFR declines with age. An eGFR of 60-89 may be normal insome populations, particularly the elderly, for whom the CKD-EPI formula has not been extensively validated. Use of the eGFR is not recommended in the following populations: Individuals with unstable creatinine concentrations, including patients and those with serious co-morbid conditions. Patients with extremes in muscle mass or diet. The data above are obtained from the National Kidney Disease Education Program ( NKDEP) which additionally recommends that when the eGFR is used in patients with extremes of body mass index for purposesof drug dosing, the eGFR should be multiplied by the estimated BMI.Microbiology Reports TEST:Culture: Aspirate/Body Fluid/Tissue STATUS:Auth (Verified) BODY SITE: SOURCE:Aspirate COLLECTED DATE/TIME:10/29/18 4:00 PMFINAL REPORTMany Escherichia coli Many Alpha Streptococcus, Not EnterococcusSTAIN REPORTGram Stain Performed By: [facility] ORGANISM:Escherichia coliORGANISM:Alpha Streptococcus, Not Enterococcus Immunizations No data available for this section Procedures No data available for this section Social History Social History Type Response Smoking Status Never smoker; Exposure to Tobacco Smoke None; Cigarette Smoking Last 365 Days No; Reg Smoking Cessation Counseling No entered on: 10/28/18 Assessment and Plan Extracted from: Title: Interventional Radiology Author: Lizbeth Herrmann NP Date: 11/02/18 Progress Note - Daily [facility] Completed: Friday, NOVEMBER 02, 2018, 15: 24 by Lizbeth Herrmann NP RM: [id number], [id number] SHANIA AMAYA 77y (: 1940) F Attending: Shahriar Rios MD Service: Surgery Reason for Admission: PERFORATED SIGMOID MASS W/ ABSCESS Working DRG: Code status: Full Code Current diet: Isolation: No Isolation/Standard Precautions Allergies: codeine SUBJECTIVE Resting in bed. Patient states she is happy that she is being discharged today , but nervous about caring for the drain. She denies pain or shortness of breath. OBJECTIVE No sign of distress noted. Neuro- Alert, oriented, appropriate Lungs- Clear throughout anteriorly, nonlabored CV- S1,S2, RRR Abd- Round, soft, nontender to palpation, + bowel sounds Ext- pink, warm, palpable distal pulses, no edema 24hr Labs 11/02 0319 WBC 13.6 H RBC 4.22 Hgb 10.6 L Hct 33.1 L MCV 78.6 L MCH 25.1 L MCHC 31.9 L RDW 20.2 H Platelet 527 H MPV 8.4 Segs 74.0 Monocytes 7.6 Lymphocytes 16.3 L Eosinophils 1.7 Basophils 0.4 Neutrophils # 10.0 H Lymphocytes # 2.2 Monocytes # 1.0 H Eosinophils # 0.2 Basophils # 0.1 Microcyte 1+ 11/01 1737 ABO/Rh O POS Antibody Scrn Negative WBC 14.6 H RBC 4.30 Hgb 10.7 L Hct 33.6 L MCV 78.2 L MCH 25.0 L MCHC 31.9 L RDW 19.7 H Platelet 581 H MPV 8.3 Segs 81.0 H Monocytes 5.4 Lymphocytes 12.6 L Eosinophils 0.5 Basophils 0.5 Neutrophils # 11.8 H Lymphocytes # 1.8 Monocytes # 0.8 Eosinophils # 0.1 Basophils # 0.1 Microcyte 1+ 11/01 1628 C difficile DNA Negative [place] still necessary (Yes/No): Line still necessary (Yes/No): Vitals Tmp(F) Pulse BP RR SpO2 FIO2 11/02 13:00 98.2 62 151/78 20 98 --- 11/02 08:00 97.4 52 151/70 20 99 --- 11/02 03:52 97.5 60 140/69 18 98 --- 11/02 00:17 97.9 63 148/69 19 98 --- 11/01 20:00 97.7 68 138/66 20 98 --- 24 Hr Tmax: 98.2F (36.78c) at 11/02 13:00 Vital Signs are the last 5 in the past 48 hours. Date Wt(kg) Wt(lb) Ht(cm) Ht(in) Method 10/29 100.00 220.00 162.56 64.00 Est/Sta 10/28 (initial) 100.00 220.00 Estimated 10/28 162.56 64.00 Stated I&O Record In Out Bal 11/02 24hr Tot 240 0 240 11/01 24hr Tot 1240 45 1195 Medications (17) Active Scheduled Meds (11): 10/28/18 acetaminophen 1 gm PO Q6H 10/29/18 bisoprolol 5 mg PO Daily 10/30/18 ciprofloxacin 500 mg PO Q12H 10/29/18 docusate (docusate sodium 100 mg oral capsule) 100 mg PO BID 10/29/18 heparin 5,000 unit SUB-Q Q8H 10/30/18 hydrochlorothiazide-triamterene (hydrochlorothiazide-triamterene 25 mg -37.5 mg oral capsule) 1 cap PO QAM 10/28/18 lidocaine topical (Lidoderm 5% topical film (patch)) 1 patch TOP Q24H 10/30/18 metroNIDAZOLE (Flagyl) 500 mg PO Q8H 10/29/18 remove patch 1 patch TOP Daily 10/29/18 thyroid desiccated ([place] Thyroid) 30 mg PO QNoon 10/29/18 thyroid desiccated ([place] Thyroid) 60 mg PO Daily Unscheduled Meds: None PRN Meds (5): 10/28/18 gabapentin 300 mg PO Q8H 10/28/18 hydrALAZINE 5 mg IV TID 10/29/18 melatonin 3 mg PO Bedtime 10/28/18 naproxen 500 mg PO Q12H 10/28/18 tramadol 50 mg PO Q6H One Time Meds: None Continuous Infusions (1): 10/28/18 Sodium Chloride 0.9% IV 250 mL (Sodium Chloride 0.9% (titrate) 250 mL ) 250 mL To prime line and flush remaining blood products. ASSESSMENT 1. Pericolonic LLQ Fluid Collection s/p 10 Fr Pigtail catheter placed per IR on 10/29/2018 2. Right Lung Nodule 3. Obesity 4. Sigmoid Mass PLAN: Patient is being discharged home today. Oral, written, and hands on education and supplies were provided to the patient and family regarding how to flush the drain, change the dressing, cover it to show er, empty the bag, etc... They verbalized understanding. Home Care is set up. The patient is to record the input and output from the catheter. We will schedule her to follow up with the IR Clinic [place]. She is also to follow up with the IR Clinic regarding a biopsy of her right lung nodule. Plan of care was discussed with the patient, family, RN, and IR Attending, Dr. Hughes. Lizbeth Herrmann, [facility] Interventional Radiology Extracted from: Title: GI Initial Consult Note Author: Ihsan Treviño MD Date : 10/29/18 Ms. Amaya is a 77yo F with PMH HTN and hypothyroidism transferred from OSH after CT scan showing sigmoid abscess and concern for sigmoid mass. GI consulted for recommendations concerning this possible malignancy. - No plans for colonoscopy during this admission - Patient will need outpatient colonoscopy once sigmoid abscess has resolved ( no sooner than 2 weeks from today) - Agree with IR consult for abscess drainage and abx per primary team Plan discussed with attending Dr. Treviño. Please page GI with any questions. The patient was seen and reviewed with resident/fellow in the rounds on . I agree with the history of presenting illness and physical exam. I have personally reviewed the lab results and radiology tests and discussed the findings with resident/fellow . We have formulated the assessment and plan together for this patient and I agree with the current recommendations. Thank you for the consult. Ihsan Treviño MD, [facility] Rubio Chicas MD Chair in Gastroenterology, Hepatology and Solution Specialist of Advanced Endoscopy, Offset Plate Preparation Supervisor [facility], [facility], [facility] [phone] (New Patient Referral) [phone] or [phone] (Office Phone, [facility] [phone] (Office Fax, [place], [facility]) [phone] (Administrative Office, [facility]) [phone] (Fax, Administrative Office, [place]) [phone] (Pager) Extracted from: Title: Surgery H&P Author: Camilo eBss MD Date: 10/28/18 77yoF w/ PMH of HTN, hypothyroidism transferred from OSH forsigmoid colon perforationw/ surrounding abscess, with imaging findings indicating likely malignancy w/ mass lesions noted in the sigmoid colon and right lung. - Admit to under EGS. - NPO, mIVF. 1 time 500cc bolus of Isolyte. - Start IV cipro/flagyl. Obtain blood cultures, UA w/ reflex prior to starting ABX. - MMPT as needed. - SQH tonight for VTE ppx, will hold AM dose for possible IR procedure. - IR consulted for potential drainage of asbcess in AM. - Obtain CEA level. VTE ppx:SQ Heparin- will hold in AM for possible IR drainage. Admit to surgical floor. Emergency General Surgery Faculty Addendum I have seen and examined the patient with the residents Dr. Green, Dr. Bess and Dr. Ray I repeated the history and examined the patient. I have reviewed the pertinent laboratory values and imaging studies. I agree with the assessment and plan as documented in the attached note and as detailed below: Ms. Amaya is a 77 yo f with history andimaging concerning for cancer who presents with a LLQabscess pericolonic abscess thatinvolves her abdominal wall, 3 cm sigmoid colon mass. She has a nodule noted in herright upper lobe concerning for metastatic disease. She has lost 50 lbs.She deniesnights sweats fevers and chills. 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 - no indication for emergent operation at this time. - colorectalrectal consult in am. CEA level. - serial abd exams. Shahriar Rios MD Emergency General Surgery
--- OUTSIDE RECORDS SUMMARY | 2018-11-20 15:55 | XMS REPORT ---
:1940 [facility] Address [address] [place] [address] Dr. Hagan [address] [place] [address] Care Team Providers Name Role Phone Unavailable Unavailable Unavailable Problems This patient has no known problems. Allergies, Adverse Reactions, Alerts This patient has no known allergies or adverse reactions. Medications This patient has no known medications. Encounters Start End Encounter Admission Attending Care Care Encounter Date/Time Date/Time Type Type Clinicians Facility Department ID 2018-11-17 2018-11-17 Outpatient [facility] [id number] 12:49:00 12:49:00 2018-11-11 2018-11-11 Outpatient [facility] [id number] 11:51:00 11:51:00 2018-11-09 2018-11-09 Outpatient [facility] [id number] 10:28:00 10:28:00 2018-10-28 2018-10-28 Inpatient [facility] [id number] 21:35:00 14:56:00
--- OUTSIDE RECORDS SUMMARY | 2018-11-20 15:55 | XMS REPORT | Summary of Care ---
:1940 Author Organization [facility] Address [address] [place], [place] [address]- Encounter HQ Jesseredita(FIN) [id number] Date(s): 11/17/18 - 11/17/[address] [address]- [place] Discharge Disposition: Home or Self Care Attending Physician: Ihsan Treviño MD Referring Physician: Ihsan Treviño MD Vital Signs Most recent to oldest 1 2 3 [Reference Range]: Height 162.56 cm (11/17/18 2:02 PM) Blood Pressure [90-140/60-90 158/62 mmHg 144/63 mmHg 151/70 mmHg mmHg] *HI* *HI* *HI* (11/17/18 4:52 PM) (11/17/18 4:30 PM) (11/17/18 4:15 PM) Respiratory Rate [14-20 BRMIN] 16 BRMIN 20 BRMIN 16 BRMIN (11/17/18 4:52 PM) (11/17/18 4:30 PM) (11/17/18 4:15 PM) Peripheral Pulse Rate [60-100 89 bpm bpm] (11/17/18 1:15 PM) Weight 97.727 kg (11/17/18 2:02 PM) Body Mass Index 36.98 m2 (11/17/18 2:02 PM) Problem List Condition Effective Dates Status Health Status Informant Anemia(Confirmed) Resolved Anxiety(Confirmed) Resolved Arthritis(Confirmed) Resolved Thyroid disease(Confirmed) Resolved Hypertension(Confirmed) Resolved Cancer of colon(Confirmed) Active Morbid obesity(Confirmed) Active Allergies, Adverse Reactions, Alerts Substance Reaction Severity Status codeine Active Medications ANES flumazenil 0.2 mg, 2 mL, Route: IVP, Drug form: INJ, PRN, Dosing Weight 97.727, kg, PRN Benzodiazepine Reversal, Initial dose, Start date: 11/17/18 16:50:00 CDT, Duration: 30 day, Stop date: 12/17/18 16:49:00 CDT Notes: (Same as: Romazicon) Start Date: 11/17/18 Stop Date: 11/18/18 Status: DiscontinuedANES naloxone 0.4 mg, 1 mL, Route: IVP, Drug form: INJ, Q2MIN, Dosing Weight 97.727, kg, PRN Narcotic Reversal, Start date: 11/17/18 16:50:00 CDT, Duration: 8 doses or times , Stop date: 11/18/18 0:00:00 CDT Notes: Same as Narcan Start Date: 11/17/18 Stop Date: 11/18/18 Status: CompletedANES ondansetron 4 mg, 2 mL, Route: IVP, Drug form: INJ, ONCE, Dosing Weight 97.727, kg, PRN Nausea & Vomiting, Start date: 11/17/18 16:50:00 CDT Notes: (Same as: Prabhakar) MEDICATION WASTE Product Size: 4 mgProduct Wasted: ___ mg Start Date: 11/17/18 Stop Date: 11/18/18 Status: Discontinued Results No data available for this section Immunizations No data available for this section Procedures No data available for this section Social History Social History Type Response Smoking Status Never smoker; Exposure to Tobacco Smoke None; Cigarette Smoking Last 365 Days No; Reg Smoking Cessation Counseling No entered on: 11/19/18 Assessment and Plan No data available for this section
--- OUTSIDE RECORDS SUMMARY | 2018-11-20 15:55 | XMS REPORT | Summary of Care ---
:1940 Author Organization [facility] Address [address] [place], [place] [address]- Encounter HQ Encntr_alias(FIN) [id number] Date(s): 11/15/18 - 11/15/18 [facility] [address] [place] [address]- [phone] Discharge Disposition: Home or Self Care Attending Physician: Medina Chance MD Referring Physician: Medina Chance MD Vital Signs No data available for this section Problem List Condition Effective Dates Status Health Status Informant Anemia(Confirmed) Resolved Anxiety(Confirmed) Resolved Arthritis(Confirmed) Resolved Thyroid disease(Confirmed) Resolved Hypertension(Confirmed) Resolved Cancer of colon(Confirmed) Active Morbid obesity(Confirmed) Active Allergies, Adverse Reactions, Alerts Substance Reaction Severity Status codeine Active Medications No data available for this section Results No data available for this section Immunizations No data available for this section Procedures No data available for this section Social History Social History Type Response Smoking Status Never smoker; Exposure to Tobacco Smoke None; Cigarette Smoking Last 365 Days No; Reg Smoking Cessation Counseling No entered on: 11/17/18 Assessment and Plan No data available for this section
--- OUTSIDE RECORDS SUMMARY | 2018-11-20 15:55 | XMS REPORT | Summary of Care ---
:1940 Author Organization [facility] Address [address] [place], [place] [address]- Encounter HQ Aislinn(FIN) [id number] Date(s): 11/11/18 - 11/11/[address] [address]- [place] Discharge Disposition: Home or Self Care Attending Physician: Rojelio Mesa MD Referring Physician: Rojelio Mesa MD Vital Signs Most recent to oldest 1 2 3 [Reference Range]: Height 162.56 cm (11/11/18 1:20 PM) Blood Pressure [90-140/60-90 176/78 mmHg 188/81 mmHg 174/74 mmHg mmHg] *HI* *HI* *HI* (11/11/18 3:40 PM) (11/11/18 3:30 PM) (11/11/18 3:20 PM) Respiratory Rate [14-20 BRMIN] 18 BRMIN 18 BRMIN 18 BRMIN (11/11/18 3:40 PM) (11/11/18 3:30 PM) (11/11/18 3:20 PM) Weight 97.727 kg (11/11/18 1:20 PM) Body Mass Index 36.98 m2 (11/11/18 1:20 PM) Problem List Condition Effective Dates Status Health Status Informant Anemia(Confirmed) Resolved Anxiety(Confirmed) Resolved Arthritis(Confirmed) Resolved Thyroid disease(Confirmed) Resolved Hypertension(Confirmed) Resolved Cancer of colon(Confirmed) Active Morbid obesity(Confirmed) Active Allergies, Adverse Reactions, Alerts Substance Reaction Severity Status codeine Active Medications hydrALAZINE 25 mg oral tablet 25 mg, 1 tab, Route: PO, Drug form: TAB, ONCE, Dosing Weight 97.727, kg, Priority: STAT, Start date:11/11/18 14:27:00 CDT, Stop date: 11/11/18 14:27:00 CDT Notes: (Same as: Apresoline) May interfere w/enteral feedings Take With Food. Start Date: 11/11/18 Stop Date: 11/11/18 Status: Ordered Results No data available for this section Immunizations No data available for this section Procedures No data available for this section Social History Social History Type Response Smoking Status Never smoker; Exposure to Tobacco Smoke None; Cigarette Smoking Last 365 Days No; Reg Smoking Cessation Counseling No entered on: 11/11/18 Assessment and Plan Extracted from: Title: IR H&P Author: Chintan Maldonado Date: 11/11/18 Interventional Radiology History and Physical History of Present Illness: 77 YO WF with PMH of hypothyroidism and hypertension who was transferred from OSH after found to have imaging concerning for colonic perforation with possible abscess, sigmoid mass, and right lung nodul e. Pt underwent 10/29/18 image guided LLQ fluid collection aspiration with 12F drain placement. Pt seen is clinic as output has been < 10cc for several consecutive days, and imaging on clinic followup concerning for possible fistula formation. Past Medical History: Anemia Anxiety Arthritis Hypertension Thyroid disease Past Surgical History: No qualifying data available Social History: Tobacco Details: Use: Never smoker. Tobacco smoke exposure: None. Did the Patient Smoke Cigarettes Anytime During the Last 365 Days? No. Cessation Counseling Provided? No. Family History: Mother: Cancer, Liver Grandparent: Cancer, Other Allergies Reviewed: Allergies: codeine Current Medications: Medications (0) Active Scheduled Meds: None Unscheduled Meds: None PRN Meds: None One Time Meds: None Continuous Infusions: None Labs: (no lab data in past 24 hours) Imaging Studies: Review of Systems: Constitutional Symptoms: no fever, no chills HEENT: no vision changes, no sore throat Cardiovascular: no chest pain Respiratory: no cough, no wheezing Gastrointestinal: no abdominal pain or nausea/vomiting Genitourinary: no difficulty urinating Musculoskeletal: no joint pain Integumentary: no rash Neurological: no seizure, no headache Psychiatric: no anxiety and/or depression Endocrine: no polyuria, no polydipsia Hematologic/Lymphatic: no bleeding Physical Examination: Vitals Tmp(F) Pulse BP RR SpO2 FIO2 (no data in last 48 hours) 24 Hr Tmax: No Data Available Vital Signs are the last 5 in the past 48 hours. Gen: AAO x3, NAD HEENT: normocephalic, anicteric sclera Neck: Supple with midline trachea Resp: Clear to auscultation bilaterally CV: RRR, no murmurs Abd: BS present, abd soft, LLQ 12F drain in place with purulent drainage Neuro: sensation to light touch intact Skin: no rashes or jaundice Impression 1. Pericolonic LLQ fluid collection s/p / abdominal drain placement 2. Anemia 3. Leukocytosis Plan: Plan is for image guided abdominal drain evaluation with possible removal under local anesthesia vs moderate sedation with interventional radiology. Benefits, risks, and alternatives were discussed wit h patient in the IR clinic, and she verbalized understanding and consented to proceed. -Pt last ate at 9am, however, she is agreeable to IV narcotics should any intervention be needed -BP elevated to 180/90; pt reported compliance with BP meds this morning, will give hydralazine 25mg x1 THANK YOU FOR CONSULTING INTERVENTIONAL RADIOLOGY, IF YOU HAVE ANY QUESTIONS, PLEASE CONTACT [phone].
--- OUTSIDE RECORDS SUMMARY | 2018-11-20 15:56 | XMS REPORT | Summary of Care ---
:1940 Author Name DARLENE VILLASEÑOR N.P. Address [place] Physicians Unavailable , Care Team Providers Name Role Phone DARLENE VILLASEÑOR N.P. Unavailable Unavailable PRAVEEN BARRETO [place], MARCO ANTONIO Jorgenesn Unavailable Unavailable DARLENE MORGAN Unavailable Unavailable BLAIR BARRETO, RADHA Crawford Unavailable Unavailable Kamila BARRETO, Ihsan Unavailable Unavailable Functional Status Name Dates Details Functional status health issues are not documented Status: Name Dates Details Cognitive status health issues are not documented Status: Problems Name Dates Details Colonic mass (569.89, K63.9) Status: Active Intra-abdominal collection (789.59, R18.8) Status: Active Medications Name Dates Details Orchard Thyroid 60 MG Oral Tablet Refills: 0 Active Orchard Thyroid 30 MG Oral Tablet Refills: 0 Active Bisoprolol Fumarate 5 MG Oral Tablet Refills: 0 Active hydroCHLOROthiazide 50 MG Oral Tablet Refills: 0 Active Allergies and Adverse Reactions Name Dates Details Codeine Derivatives (Allergy) Status: Active Past Medical History Name Dates Details History of essential hypertension (V12.59, Z86.79) Status: Resolved History of hypothyroidism (V12.29, Z86.39) Status: Resolved Procedures Procedure Dates Details [facility] Vascular/Interventional Radiology Consult Date: 11-Nov-2018 CT Abdomen wo contrast [id number] Date: 05-Nov-2018 No pertinent past medical history Completed Immunization Name Dates Details Immunizations not documented Family History Name Dates Details Family history of Liver cancer, primary, with metastasis from liver to other site (155.0, C22.8) Status: Active Name Dates Details No pertinent family history (V49.89, Z78.9) Status: Active Social History Name Dates Details - Status: Name Dates Details Former smoker Vital Signs Date Test Result Details 20-Qat-83831:54 BP Systolic 130 mm[Hg] Status: Comments: Location: LUE; Position: Sitting BP Diastolic 76 mm[Hg] Status: Comments: Location: LUE; Position: Sitting Temperature 97.4 f Status: Comments: Method: Oral Heart Rate 82 /min Status: Comments: Quality: Normal Respiration Rate 18 /min Status: Comments: Quality: Normal O2 SAT 95 % Status: Comments: Source: RA Height 64.5 in Status: Weight 215 lb Status: Body Mass Index Calculated 36.33 kg/m2 Status: Body Surface Area Calculated 2.03 m2 Status: Results Date Description Value Details Results not documented Plan of Care Name Dates Details Planned Observations Planned Goals not documented Planned Encounters Appointment; [facility], [facility] On: 17-Nov-2018 14:30 Appointment; GENERAL, SERVICE On: 25-Nov-2018 13:30 Interventions Provided Labs/Procedures/ImagingVR Vascular/Interventional Radiology Consult; To Be Done : 11 Nov 2018PlanIntra-abdominal fluid collection s/p LLE drain placement* Drain removal was deferred due to concern of possible fistula in the setting of perforated diverticulum and recent imaging findings previously mentioned. Patient referred to -IR for drain study, possible removal to exclude fistula/ communication w/sigmoid colon. It was explained that if there is noabnormal communication, drain will be removed.* Patient has an appointment with Dr. Allison to discuss potential surgical interventions on November 23. Instructions Name Dates Details Instructions not documented Encounters Appointment; RADIOLOGY, PROVIDER On: 11-Nov-2018 9:30 Encounter Diagnosis: Problem not documented
[2018-11-20] MEDS ORDERED: NA CHLORIDE 0.9% 1,000 ML ONE ×2 (16:59→18:37)
[2018-11-20 17:20] LABS: Absolute Lymphocytes (CBC) 0.8 K/uL (0.7-4.9); Absolute Monocytes 1.2 K/uL (0.1-1.3); Absolute Neutrophil 13.6 K/uL (1.8-8.0); Basophils % 0.3 % (0-1.3); Eosinophils % 0.2 % (0-4.4); Hematocrit 33.4 % (36.0-45.0); Lymphocytes % 5.1 % (15.3-44.8); MPV 9.6 fL (7.6-11.3); Monocytes % 7.8 % (3.3-12.3); RBC Red Blood Cell Count 4.17 M/uL (3.86-4.86)
[2018-11-20 17:22] LABS: Protime INR 1.39
--- NOTE | 2018-11-20 17:36 | RAD REPORT ---
EXAM DESCRIPTION: RAD - Chest Single View - 11/20/2018 5:06 pm CLINICAL HISTORY: ABDOMINAL DISTENTION Chest pain. COMPARISON: Chest Single View dated 10/28/2018; Abdomen Pelvis Wo Contrast dated 11/10/2018; Chest Ab d Pelvis Wo Con dated 10/28/2018 FINDINGS: Portable technique limits examination quality. Emphysematous changes are present with 2 cm solid mass again noted along the right peritracheal regio n. The heart is normal in size. No displaced fractures.
--- NOTE | 2018-11-20 17:41 | EDPHYS ---
Physician Documentation [facility] Name: Tesha Amaya Age: 77 yrs Sex: Female : 1940 Arrival Date: 11/20/2018 Time: 15:53 Bed 5 Private MD: ED Physician Naseem Fang HPI: 11/20 16:32 This 77 yrs old Female presents to ER via Wheelchair with complaints of radha Fever, Bloody Stools. 16:32 This 77 yrs old Female presents to ER via Wheelchair with complaints of radha Fever, Bloody Stools. 16:32 The patient reports fever, that was measured at 100 degrees Fahrenheit. Onset: The radha symptoms/episode began/occurred. Historical: - Allergies: 16:15 Codeine; la1 - PMHx: 16:15 Hypertension; Hypothyroidism; la1 - Immunization history:: Adult Immunizations up to date. - Social history:: Smoking status: Patient/guardian denies using tobacco. - Ebola Screening: : No symptoms or risks identified at this time. ROS: 17:37 Eyes: Negative for injury, pain, redness, and discharge, ENT: Negative for injury, radha pain, and discharge, Neck: Negative for injury, pain, and swelling, Cardiovascular: Negative for chest pain, palpitations, and edema, Respiratory: Negative for shortness of breath, cough, wheezing, and pleuritic chest pain, Back: Negative for injury and pain, : Negative for injury, bleeding, discharge, and swelling, MS/Extremity: Negative for injury and deformity, Skin: Negative for injury, rash, and discoloration, Neuro: Negative for headache, weakness, numbness, tingling, and seizure, Psych: Negative for depression, anxiety, suicide ideation, homicidal ideation, and hallucinations, Allergy/Immunology: Negative for hives, rash, and allergies, Endocrine: Negative for neck swelling, polydipsia, polyuria, polyphagia, and marked weight changes, Hematologic/Lymphatic: Negative for swollen nodes, abnormal bleeding, and unusual bruising. 17:37 Abdomen/GI: Positive for abdominal pain, of the left lower quadrant. Exam: 17:37 Head/Face: Normocephalic, atraumatic. Eyes: Pupils equal round and reactive to light, radha extra-ocular motions intact. Lids and lashes normal. Conjunctiva and sclera are non-icteric and not injected. Cornea within normal limits. Periorbital areas with no swelling, redness, or edema. ENT: Nares patent. No nasal discharge, no septal abnormalities noted. Tympanic membranes are normal and external auditory canals are clear. Oropharynx with no redness, swelling, or masses, exudates, or evidence of obstruction, uvula midline. Mucous membranes moist. Neck: Trachea midline, no thyromegaly or masses palpated, and no cervical lymphadenopathy. Supple, full range of motion without nuchal rigidity, or vertebral point tenderness. No Meningismus. Chest/axilla: Normal chest wall appearance and motion. Nontender with no deformity. No lesions are appreciated. Cardiovascular: Regular rate and rhythm with a normal S1 and S2. No gallops, murmurs, or rubs. Normal PMI, no JVD. No pulse deficits. Respiratory: Lungs have equal breath sounds bilaterally, clear to auscultation and percussion. No rales, rhonchi or wheezes noted. No increased work of breathing, no retractions or nasal flaring. Back: No spinal tenderness. No costovertebral tenderness. Full range of motion. Female : Normal external genitalia. Skin: Warm, dry with normal turgor. Normal color with no rashes, no lesions, and no evidence of cellulitis. MS/ Extremity: Pulses equal, no cyanosis. Neurovascular intact. Full, normal range of motion. Neuro: Awake and alert, GCS 15, oriented to person, place, time, and situation. Cranial nerves II-XII grossly intact. Motor strength 5/5 in all extremities. Sensory grossly intact. Cerebellar exam normal. Normal gait. Psych: Awake, alert, with orientation to person, place and time. Behavior, mood, and affect are within normal limits. 17:37 Constitutional: The patient appears febrile. 17:37 Abdomen/GI: Inspection: distension, Bowel sounds: normal, Palpation: mild abdominal tenderness, in the left lower quadrant, Liver: no appreciated palpable abnormalities, Hernia: not appreciated. Vital Signs: 16:15 BP 125 / 59; Pulse 89; Resp 16; Temp 99.6(TE); Pulse Ox 98% on R/A; Weight 99.79 kg; la1 Height 5 ft. 4 in. (162.56 cm); 19:30 BP 157 / 68; Pulse 74; Resp 18; Pulse Ox 98% on R/A; ea 20:36 BP 139 / 53; Pulse 69; Resp 18; Pulse Ox 98% on R/A; Pain 2/10; ea 21:07 BP 137 / 58; Pulse 70; Resp 18; Temp 98.6; Pulse Ox 98% ; ea 21:15 BP 148 / 50; Pulse 68; Resp 18; Pulse Ox 97% ; ea 16:15 Body Mass Index 37.76 (99.79 kg, 162.56 cm) la1 MDM: 16:22 Patient medically screened. [facility] 17:38 Data reviewed: vital signs, nurses notes, lab test result(s), EKG, radiologic studies, [facility] CT scan, plain films, left lower quadrant fullness, with percutaneous drain, purulent drainage. 11/20 16:33 Order name: Basic Metabolic Panel [facility] 11/20 16:33 Order name: CBC with Diff [facility] 11/20 16:33 Order name: LFT's [facility] 11/20 16:33 Order name: Magnesium [facility] 11/20 16:33 Order name: NT PRO-BNP [facility] 11/20 16:33 Order name: PT-INR [facility] 11/20 16:33 Order name: Troponin (emerg Dept Use Only) [facility] 11/20 16:33 Order name: Lipase [facility] 11/20 16:33 Order name: Urine Culture [facility] 11/20 16:33 Order name: Blood Culture Adult (2) [facility] 11/20 16:33 Order name: Procalcitonin; Complete Time: 18:09 [facility] 11/20 16:33 Order name: Lactate; Complete Time: 17:41 [facility] 11/20 16:33 Order name: XRAY Chest (1 view); Complete Time: 17:41 [facility] 11/20 16:33 Order name: CT Abd/Pelvis - W/Contrast [facility] 11/20 16:33 Order name: Basic Metabolic Panel; Complete Time: 18:09 [facility] 11/20 16:33 Order name: CBC with Automated Diff; Complete Time: 18:09 [facility] 11/20 16:33 Order name: Liver (Hepatic) Function; Complete Time: 18:09 [facility] 11/20 16:33 Order name: Magnesium; Complete Time: 18:09 [facility] 11/20 16:33 Order name: NT PRO-BNP; Complete Time: 18:09 [facility] 11/20 16:33 Order name: Protime (+INR); Complete Time: 17:41 [facility] 11/20 16:33 Order name: Troponin (Emerg Dept Use Only); Complete Time: 18:09 [facility] 11/20 16:34 Order name: Lipase; Complete Time: 18:09 [facility] 11/20 17:23 Order name: CBC Smear Scan; Complete Time: 18:09 [facility] 11/20 18:20 Order name: Urine Dipstick--Ancillary (enter results) 11/20 16:33 Order name: EKG; Complete Time: 16:34 [facility] 11/20 16:33 Order name: Cardiac monitoring; Complete Time: 17:46 [facility] 11/20 16:33 Order name: EKG - Nurse/Tech; Complete Time: 17:46 [facility] 11/20 16:33 Order name: IV Saline Lock; Complete Time: 17:10 [facility] 11/20 16:33 Order name: Labs collected and sent; Complete Time: 17:47 [facility] 11/20 16:33 Order name: O2 Per Protocol; Complete Time: 17:47 [facility] 11/20 16:33 Order name: O2 Sat Monitoring; Complete Time: 17:47 [facility] Administered Medications: 17:30 Drug: NS 0.9% 500 ml Route: IV; Rate: bolus; Site: right antecubital; sg 19:50 Follow up: IV Status: Completed infusion; IV Intake: 500ml ea 18:20 Drug: Cipro 400 mg Volume: 200 ml; Route: IVPB; Infused Over: 60 mins; Site: right sg antecubital; 20:20 Follow up: Response: No adverse reaction; No change in condition; IV Status: Completed fc infusion; IV Intake: 200ml 21:32 Follow up: IV Status: Infusion continued upon transfer ea 18:20 Drug: Pepcid 20 mg Route: IVP; Site: right antecubital; sg 19:50 Follow up: Response: No adverse reaction ea 18:30 Drug: NS 0.9% 1000 ml Route: IV; Rate: 125 ml/hr; Site: right antecubital; sg 21:33 Follow up: IV Status: Infusion continued upon transfer; IV Intake: 500ml ea 18:30 Drug: Tylenol 650 mg Route: PO; sg 19:50 Follow up: Response: No adverse reaction; Pain is decreased ea 18:30 Drug: Potassium Chloride 20 mEq Route: IV; Rate: per protocol; Site: right antecubital; 21:29 Follow up: IV Status: Completed infusion la1 20:18 Drug: Magnesium Sulfate 1 grams Route: IVPB; Infused Over: 1 hrs; Site: left la1 antecubital; 21:31 Follow up: IV Status: Infusion continued upon transfer ea 20:21 Drug: Flagyl 500 mg Volume: 100 ml; Route: IVPB; Rate: 200 ml/hr; Infused Over: 30 fc mins; Site: right antecubital; 21:29 Follow up: IV Status: Completed infusion la1 21:32 Follow up: IV Status: Infusion continued upon transfer ea Disposition: 11/20/18 17:40 Transfer ordered to [facility]. Diagnosis are Abdominal and pelvic pain - colon mass, abscess, with percutaneous drain, Fever, unspecified, Elevated white blood cell count, Hypokalemia, Hypomagnesemia, Anemia, unspecified. - Reason for transfer: Higher level of care. - Accepting physician is to [facility]. - Condition is Fair. - Problem is new. - Symptoms have improved. Signatures: Dispatcher [employer] EDMS Jayant Albert RN RN Naseem Pineda MD MD cha Chretien, Felicia, RN RN fc Attema, Lee, RN RN la1 Antunez, Elena, RN RN ea Corrections: (The following items were deleted from the chart) 17:41 17:40 11/20/2018 17:40 Transfer ordered to [facility]. radha Diagnosis is Abdominal and pelvic pain - colon mass, abscess, with percutaneous drain; Fever, unspecified. Reason for transfer: Higher level of care. Accepting physician is to [facility]. Condition is Fair. Problem is new. Symptoms have improved. [facility] 18:13 17:41 11/20/2018 17:40 Transfer ordered to [facility]. radha Diagnosis is Abdominal and pelvic pain - colon mass, abscess, with percutaneous drain; Fever, unspecified; Elevated white blood cell count. Reason for transfer: Higher level of care. Accepting physician is to [facility]. Condition is Fair. Problem is new. Symptoms have improved. [facility] 21:37 18:13 11/20/2018 17:40 Transfer ordered to [facility]. ea Diagnosis is Abdominal and pelvic pain - colon mass, abscess, with percutaneous drain; Fever, unspecified; Elevated white blood cell count; Hypokalemia; Hypomagnesemia; Anemia, unspecified. Reason for transfer: Higher level of care. Accepting physician is to [facility]. Condition is Fair. Problem is new. Symptoms have improved. radha
--- NOTE | 2018-11-20 17:41 | ER ---
Nurse's Notes [facility] Name: Tesha Amaya Age: 77 yrs Sex: Female : 1940 Arrival Date: 11/20/2018 Time: 15:53 Bed 5 Private MD: Diagnosis: Abdominal and pelvic pain-colon mass, abscess, with percutaneous drain;Fever, unspecified;Elevated white blood cell count;Hypokalemia;Hypomagnesemia;Anemia, unspecified Presentation: 11/20 16:14 Presenting complaint: Child states: Fever, bloody stool. pt has drain from colon la1 abscess in place and home health instructed her to come in for evaluation. Given 2 advil at 1330. Transition of care: patient was not received from another setting of care. Onset of symptoms was November 20, 2018. Risk Assessment: Do you want to hurt yourself or someone else? Patient reports no desire to harm self or others. Initial Sepsis Screen: Does the patient meet any 2 criteria? No. Patient's initial sepsis screen is negative. Does the patient have a suspected source of infection? No. Patient's initial sepsis screen is negative. Care prior to arrival: None. 16:14 Method Of Arrival: Wheelchair la1 16:14 Acuity: DIANNA 2 la1 Historical: - Allergies: 16:15 Codeine; la1 - PMHx: 16:15 Hypertension; Hypothyroidism; la1 - Immunization history:: Adult Immunizations up to date. - Social history:: Smoking status: Patient/guardian denies using tobacco. - Ebola Screening: : No symptoms or risks identified at this time. Screenin:40 Abuse screen: Denies threats or abuse. Denies injuries from another. Nutritional sg screening: No deficits noted. Tuberculosis screening: No symptoms or risk factors identified. Never had TB. Fall Risk None identified. Assessment: 16:40 General: Appears in no apparent distress. well groomed, well developed, well nourished, sg Behavior is calm, cooperative, appropriate for age. Pain: Complains of pain in left lower quadrant Quality of pain is described as aching. Neuro: Level of Consciousness is awake, alert, obeys commands, Oriented to person, place, time, situation, Digital Research Analyst are equal bilaterally Moves all extremities. Speech is normal, Facial symmetry appears normal. Cardiovascular: Heart tones S1 S2 present Capillary refill is brisk in bilateral fingers Patient's skin is warm and dry. Chest pain is denied. Respiratory: Airway is patent Respiratory effort is even, unlabored, Respiratory pattern is regular, symmetrical. GI: Abdomen is round non-distended, obese, to gravity drainage. Gastric tube from recent surgery Stools are reported to be loose, diarrhea. : No signs and/or symptoms were reported regarding the genitourinary system. EENT: No signs and/or symptoms were reported regarding the EENT system. Derm: Skin is pink, warm \T\ dry. Musculoskeletal: No signs and/or symptoms reported regarding the musculoskeletal system. 18:51 Reassessment: Patient appears in no apparent distress at this time. awaiting CT scan sg results prior to transport to receiving facility. 19:48 General: Appears in no apparent distress. Behavior is calm, cooperative, appropriate ea for age. Pain: Denies pain. Neuro: Level of Consciousness is awake, alert, obeys commands, Oriented to person, place, time, situation, Speech is normal. Cardiovascular: Patient's skin is warm and dry. Respiratory: Airway is patent Respiratory effort is even, unlabored, Respiratory pattern is regular, symmetrical. GI: Abdomen is non-distended. Derm: Skin is pink, warm \T\ dry. Musculoskeletal: No signs and/or symptoms reported regarding the musculoskeletal system. 19:50 Reassessment: Report given to Lupe DU at [facility]. ea 20:50 Reassessment: Patient and/or family updated on plan of care and expected duration. Pain ea level reassessed. Patient is alert, oriented x 3, equal unlabored respirations, skin warm/dry/pink. Awaiting on EMS for transport. 21:06 Reassessment: Patient and/or family updated on plan of care and expected duration. Pain ea level reassessed. Patient is alert, oriented x 3, equal unlabored respirations, skin warm/dry/pink. 21:34 Reassessment: Patient and/or family updated on plan of care and expected duration. Pain ea level reassessed. Patient is alert, oriented x 3, equal unlabored respirations, skin warm/dry/pink. EMS at facility for transfer, report given to EMS. Pt left ED via stretcher per EMS, pt tolerating well. Vital Signs: 16:15 BP 125 / 59; Pulse 89; Resp 16; Temp 99.6(TE); Pulse Ox 98% on R/A; Weight 99.79 kg; la1 Height 5 ft. 4 in. (162.56 cm); 19:30 BP 157 / 68; Pulse 74; Resp 18; Pulse Ox 98% on R/A; ea 20:36 BP 139 / 53; Pulse 69; Resp 18; Pulse Ox 98% on R/A; Pain 2/10; ea 21:07 BP 137 / 58; Pulse 70; Resp 18; Temp 98.6; Pulse Ox 98% ; ea 21:15 BP 148 / 50; Pulse 68; Resp 18; Pulse Ox 97% ; ea 16:15 Body Mass Index 37.76 (99.79 kg, 162.56 cm) la1 ED Course: 15:53 Patient arrived in ED. rg4 16:15 Triage completed. la1 16:15 Arm band placed on left wrist. la1 16:22 Naseem Fang MD is Attending Physician. radha 17:07 XRAY Chest (1 view) In Process Unspecified. EDMS 17:09 Inserted saline lock: 20 gauge in right antecubital area, using aseptic technique. tr5 Blood collected. 17:09 Lipase Sent. tr5 17:09 Troponin (Emerg Dept Use Only) Sent. tr5 17:10 NT PRO-BNP Sent. tr5 17:10 Protime (+INR) Sent. tr5 17:10 Blood Culture Adult (2) Sent. tr5 17:10 Procalcitonin Sent. tr5 17:10 Lactate Sent. tr5 17:11 Basic Metabolic Panel Sent. tr5 17:11 CBC with Diff Sent. tr5 17:11 LFT's Sent. tr5 17:11 Troponin (emerg Dept Use Only) Sent. tr5 17:11 PT-INR Sent. tr5 17:11 NT PRO-BNP Sent. tr5 17:11 Magnesium Sent. tr5 17:11 Liver (Hepatic) Function Sent. tr5 17:12 Magnesium Sent. tr5 17:12 Basic Metabolic Panel Sent. tr5 17:12 CBC with Automated Diff Sent. tr5 17:46 Jayant Albert, RN is Primary Nurse. sg 18:14 \T\[address] Fang with Juan Carlos Carver from the [facility]/ \T\ 174 Dr. Levy the practice professional emergency room doctor with Dr. Fang for patient transfer consultation./ \T\[id number] administrative approval given by Juan Carlos Carver RN from the [facility]/ patient has been accepted to the [facility] ER by Dr. Levy/ report to be called to [phone]. 19:00 CT Abd/Pelvis - W/Contrast In Process Unspecified. EDMS 19:50 Patient has correct armband on for positive identification. Bed in low position. Call ea light in reach. 20:17 Inserted saline lock: 22 gauge in left antecubital area, using aseptic technique. la1 21:07 No provider procedures requiring assistance completed. Patient transferred, IV remains ea in place. Administered Medications: 17:30 Drug: NS 0.9% 500 ml Route: IV; Rate: bolus; Site: right antecubital; sg 19:50 Follow up: IV Status: Completed infusion; IV Intake: 500ml ea 18:20 Drug: Cipro 400 mg Volume: 200 ml; Route: IVPB; Infused Over: 60 mins; Site: right sg antecubital; 20:20 Follow up: Response: No adverse reaction; No change in condition; IV Status: Completed fc infusion; IV Intake: 200ml 21:32 Follow up: IV Status: Infusion continued upon transfer ea 18:20 Drug: Pepcid 20 mg Route: IVP; Site: right antecubital; sg 19:50 Follow up: Response: No adverse reaction ea 18:30 Drug: NS 0.9% 1000 ml Route: IV; Rate: 125 ml/hr; Site: right antecubital; sg 21:33 Follow up: IV Status: Infusion continued upon transfer; IV Intake: 500ml ea 18:30 Drug: Tylenol 650 mg Route: PO; sg 19:50 Follow up: Response: No adverse reaction; Pain is decreased ea 18:30 Drug: Potassium Chloride 20 mEq Route: IV; Rate: per protocol; Site: right antecubital; sg 21:29 Follow up: IV Status: Completed infusion la1 20:18 Drug: Magnesium Sulfate 1 grams Route: IVPB; Infused Over: 1 hrs; Site: left la1 antecubital; 21:31 Follow up: IV Status: Infusion continued upon transfer ea 20:21 Drug: Flagyl 500 mg Volume: 100 ml; Route: IVPB; Rate: 200 ml/hr; Infused Over: 30 fc mins; Site: right antecubital; 21:29 Follow up: IV Status: Completed infusion la1 21:32 Follow up: IV Status: Infusion continued upon transfer ea Intake: 19:50 IV: 500ml; Total: 500ml. ea 20:20 IV: 200ml; Total: 700ml. fc 21:33 IV: 500ml; Total: 1200ml. ea Outcome: 17:40 ER care complete, transfer ordered by . radha 19:50 Instructed on the need for transfer. ea 21:34 Transferred by ground EMS to [facility], Transfer form completed. ea 21:34 Condition: stable 21:37 Patient left the ED. ea Signatures: Dispatcher [employer] EDMS Jayant Albert, RN RN Naseem Pineda MD MD cha Chretien, Felicia, RN Scott Solis RN RN laJudy Johnson rg4 Cristina Youssef RN RN ea Botello, Elizabeth eb Rodriguez, Tommie RN RN tr5 Corrections: (The following items were deleted from the chart) 16:16 16:14 Presenting complaint: Child states: Fever, bloody stool. pt has drain from colon la1 abscess in place and home health instructed her to come in for evaluation. la1
[2018-11-20 17:51] LABS: Anisocytosis 2+; Blood Morphology Comment NOTED (NOT SEEN); Platelet Estimate ADEQ; Urine White Blood Cell Casts OK
[2018-11-20 17:53] LABS: ALT/SGPT 19 U/L (12-78); AST/SGOT 15 U/L (15-37); Albumin 2.5 g/dL (3.4-5.0); Alkaline Phosphatase 73 U/L (45-117); BUN Blood Urea Nitrogen 17 mg/dL (7-18); Bicarbonate 24 mmol/L (21-32); Bilirubin Direct 0.1 mg/dL (0-0.2); Bilirubin Total 0.4 mg/dL (0.2-1.0); Glucose Level 109 mg/dL (74-106); Lipase 112 U/L (73-393); Magnesium 1.5 mg/dL (1.8-2.4); NT PRO-BNP 2743 pg/mL (<450); Protein, Total 7.3 g/dL (6.4-8.2); Sodium Level 133 mmol/L (136-145); Troponin (Emerg Dept Use Only) < 0.02 ng/mL (0.0-0.045)
[2018-11-20 18:01] LABS: Potassium 2.9 mmol/L (3.5-5.1)
[2018-11-20 18:28] LABS: Urine Blood NEGATIVE (NEG); Urine Glucose NEGATIVE (NEG); Urine Protein NEGATIVE (NEG)
[2018-11-20] MEDS ORDERED: MAGNESIUM SULFATE 1 gm IVPB 1 GM/100 ML BAG IV ONE (18:36)
[2018-11-20] MEDS ORDERED: ACETAMINOPHEN 325 MG TABLET ONE (18:36)
[2018-11-20] MEDS ORDERED: CIPROFLOXACIN 400mg IV 400 MG/200 ML BAG IV ONE (18:37)
[2018-11-20] MEDS ORDERED: KCL 20 MEQ/100 mL IVPB 20 MEQ/100 ML BAG IV ONE (18:37)
[2018-11-20] MEDS ORDERED: FAMOTIDINE 20 MG/2 ML VIAL IV ONE (18:37)
[2018-11-20] MEDS ORDERED: METRONIDAZOLE 500mg IVPB 500 MG/100 ML BAG IV ONE (18:37)
--- NOTE | 2018-11-20 19:12 | RAD REPORT ---
EXAM DESCRIPTION: CTAbdomen Pelvis W Contrast - 11/20/2018 6:59 pm CLINICAL HISTORY: Abdominal pain. ABD PAIN COMPARISON: Abdomen Pelvis Wo Contrast dated 11/10/2018 TECHNIQUE: Biphasic CT imaging of the abdomen and pelvis was performed with 100 ml non-ionic IV cont rast. All CT scans are performed using dose optimization technique as appropriate and may include automated exposure control or mA/KV adjustment according to patient size. FINDINGS: The lung bases are emphysematous but clear. Mild fatty liver. The spleen, pancreas, adrenal glands and kidneys are within normal limits. Inflammatory changes are seen involving the descending colon and the sigmoid colon in the left lower quadrant. There is a percutaneous drain in place and a left lower quadrant abscess collection measuri ng 4.6 x 3.6 cm. This abscess appears slightly larger in size compared to the 11/10/2018 study. No fr ee intraperitoneal air seen. No bowel obstruction. No evidence of significant lymphadenopathy. No suspicious bony findings. IMPRESSION: Mild increase in size of the left lower quadrant/ inguinal region abscess since the 10/27, with drainage catheter in place. Inflammatory changes are present involving the descending co simón and the proximal sigmoid colon. 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 Direct visualization with colonoscopy may be of value for followup.
--- NOTE | 2018-11-21 10:07 | EKG ---
Test Date: 2018-11-20 Test Time: 16:59:43 Practice Specialist: SWG MEASUREMENT RESULTS: Intervals: Rate: 80 NV: 166 QRSD: 92 QT: 390 QTc: 449 [place]: P: 43 NV: 166 QRS: -33 T: 51 INTERPRETIVE STATEMENTS: Normal sinus rhythm Left axis deviation Minimal voltage criteria for LVH, may be normal variant Abnormal ECG Compared to ECG 10/28/2018 10:28:16 Left-axis deviation now present Left ventricular hypertrophy now present Electronically Signed On 11-21-18 10:05:40 CDT by Marlon Smith
== END 2018-11-20 21:37 | disposition short-term general hospital (02) ==
LOC: ER 15:50
DX: K63.0 Abscess of intestine (principal); D72.829 Elevated white blood cell count, unspecified; E87.6 Hypokalemia; E83.42 Hypomagnesemia; D64.9 Anemia, unspecified; I10 Essential (primary) hypertension; E03.9 Hypothyroidism, unspecified; Z88.5 Allergy status to narcotic agent
CPT/HCPCS: 93005; 87040 ×2; 87088; 85025; 87086; 80048; 36415; 83735; 85610; 80076; 83605; 81003; 84484; 83690; 84145; 83880; 74177; 71045; 99285; Q9966; J3475; J7030 ×2; J0744

== ENCOUNTER 2019-02-04 16:55 | Inpatient (IN) | payer OTHER, BC ==
--- OUTSIDE RECORDS SUMMARY | 2019-02-04 17:02 | XMS REPORT | Continuity of Care Document ---
:1940 Author Organization [employer] ([place]) Information On[employer] Care Team Providers Name Role Phone [facility] [employer] Information [employer] Unavailable Unavailable Problems Problem Status Onset Classification Date Comments Source Date Reported CONTAINED Active 11/21/19 [facility] ABDOMINAL Medical ABSCESS Center COLONIC MASS, Active 11/21/19 [facility] ABSCESS OF [address] [place] [address] SIGMOID COLON Center OUTPATIENT/RUL Active 11/20/19 [facility] LUNG BX Medical Center BEDDED Active 11/12/19 [facility] OUTPATIENT/ Medical IMAGE GUIDED Center FRAIN ST DSU SIGMOID MASS Active 11/06/[address] MASS IN ABDOMEN Active 11/04/[address] Center PERFORATED Active 10/29/19 [facility] SIGMOID MASS W/ 19 Medical ABSCESS Center Anemia Resolved Problem 12/10/2018 [facility], SANJUANA Boles Anxiety Resolved Problem 12/10/2018 [facility], OPIZa Boles Arthritis Resolved Problem 12/10/2018 [facility], OPIZa B[place] Thyroid disease Resolved Problem 12/10/2018 [facility], OPIZa B[place] Hypertension Resolved Problem 12/10/2018 [facility], OPIZa B[place] Cancer of colon Active Problem 12/10/2018 [facility], OPIZa [place] Morbid obesity Active Problem 12/10/2018 [facility], SANJUANA Boles, EDDC PERFORATION OF Active [facility] INTESTINE Medical (NONTRAUMATIC) Center DISEASE OF Active [facility] INTESTINE, Medical UNSPECIFIED Center ABSCESS OF Active [facility] Medications Medication Details Route Status Patient Ordering Order Source Instructions Provider Date Potassium Chloride 40 mEq, 2 tab, Inactive 11/23/ [facility] Route: PO, Drug 2018 Medical form: ERTAB, Center ONCE, Dosing Weight 100, kg, Electrolyte replacement, Start date: 11/23/18 15:28:00 CDT, Stop date: 11/23/18 15:28:00 CDTNotes: (Same as: K-Dur 20) "Do Not Crush" Give with food and full glass of water For patients unable to swallow tablet, dissolve in one half glass of water. Allow about 2 minutes for the tablets to disintegrate. Stir before giving to prepare slurry and administer. Please exclude Patients with feeding tube less than 14 Nepali (Dobhoff, J-tube etc) and pediatric and patients. Enoxaparin 40 mg, 0.4 mL, Inactive [place] Route: SUB-Q, 2019 Medical Drug form: INJ, Center [id number], Dosing Weight 100, kg, Start date: 11/23/18 15:00:00 CDT, Duration: 30 day, Stop date: 12/22/18 15:00:00 CDTNotes: (Same as: Lovenox) Potassium Chloride 10 mEq, 50 mL, Inactive [facility] Route: IVPB, 2019 Medical Drug form: INJ, Center ONCE, Dosing Weight 100, kg, Start date: 11/23/18 14:01:00 CDT, Stop date: 11/23/18 14:01:00 CDTNotes: (Same as: KCL) Infuse over 2 hours. Metronidazole 500 500 mg=1 tab, Active [place] MG Oral Tablet PO, TID, X 4 2019 Medical [Flagyl] day, # 12 tab, Center 0 Refill(s) ciprofloxacin 250 250 mg=1 tab, Active [place] mg oral tablet PO, Q12H, X 4 2019 Medical day, # 8 tab, 0 Center Refill(s) Docusate Sodium 50 50 mg=1 cap, Active [place] MG Oral Capsule PO, BID, PRN 2019 Medical [Colace] Constipation, # Center 60 cap, 0 Refill(s) heparin sodium, 5,000 unit, 1 No Longer [place] porcine 2500 UNT/ML mL, Route: Active 2019 Medical Injectable Solution SUB-Q, Drug Center form: INJ, Q8H, Dosing Weight 100, kg, Priority: NOW, Start date: 11/22/18 10:09:00 CDT, Duration: 30 day, Stop date: 12/22/18 10:00:00 CDTNotes: porcine heparin sennosides, ALF 17.2 mg, 2 tab, No Longer [place] Route: PO, Drug Active 2019 Medical Form: TAB, Center Dosing Weight 99.7, kg, Bedtime, Start date: 11/21/18 21:00:00 CDT, Duration: 30 day, Stop date: 12/20/18 21:00:00 CDTNotes: (Same as: Garcia) [place] Thyroid 60 mg, 2 tab, No Longer [place] Route: PO, Drug Active 2019 Medical form: TAB, Center QNoon, Dosing Weight 100, kg, Start date: 11/21/18 12:00:00 CDT, Duration: 30 day, Stop date: 12/20/18 12:00:00 CDTNotes: (Same As: [place] Thyroid, S-P-T) [place] Thyroid 60 mg, 2 tab, No Longer [facility] Route: PO, Drug Active 2019 Medical form: TAB, Center Daily, Dosing Weight 100, kg, Priority: NOW, Start date: 11/21/18 10:13:00 CDT, Duration: 30 day, Stop date: 12/21/18 9:00:00 CDTNotes: (Same As: [place] Thyroid, S-P-T) Docusate 100 mg, 1 cap, No Longer [facility] Route: PO, Drug Active 2018 Medical form: CAP, BID, Center Dosing Weight 99.7, kg, Start date: 11/21/18 9:00:00 CDT, Duration: 30 day, Stop date: 12/20/18 17:00:00 CDTNotes: (Same as: Colace) (Do Not Crush) Hydrochlorothiazide 0.5 tab, Route: No Longer [place] 50 MG / Triamterene PO, Drug Form: Active 2019 Medical 75 MG Oral Tablet TAB, Dosing Center Weight 100, kg, Daily, Start date: 11/21/18 9:00:00 CDT, Duration: 30 day, Stop date: 12/20/18 9:00:00 CDTNotes: 18.75-12.5 mg=1/2 x 37.5-25 mg TAB ferrous sulfate 325 325 mg, 1 tab, No Longer [place] MG Oral Tablet Route: PO, Drug Active 2019 Medical [Feosol] form: ECTAB, Center Daily, Dosing Weight 100, kg, Start date: 11/21/18 9:00:00 CDT, Duration: 30 day, Stop date: 12/20/18 18:00:00 CDTNotes: Give with food. "Do Not Crush" Bisoprolol 5 mg, 1 tab, No Longer [place] Route: PO, Drug Active 2018 Medical form: TAB, Center Daily, Dosing Weight 100, kg, Start date: 11/21/18 9:00:00 CDT, Duration: 30 day, Stop date: 12/20/18 18:00:00 CDTNotes: (Same As: Zebeta) Flagyl 500 mg, 100 mL, No Longer [place] Route: IVPB, Active 2018 Medical Drug form: INJ, Center [id number], Dosing Weight 100, kg, Start date: 11/21/18 8:00:00 CDT, Duration: 7 day, Stop date: 11/28/18 0:00:00 CDT, ABX Indication: Intra-abdominal InfectionNotes: (Same as: Flagyl) Avoid alcohol. Ciprofloxacin 400 mg, 200 mL, No Longer [facility] Route: IVPB, Active 2018 Medical Drug form: INJ, Center [id number], Dosing Weight 100, kg, Start date: 11/21/18 8:00:00 CDT, Duration: 7 day, Stop date: 11/27/18 20:00:00 CDT, ABX Indication: Intra-abdominal InfectionNotes: Do not refrigerate Acetaminophen 650 mg, 2 tab, No Longer [facility] Route: PO, Drug Active 2018 Medical form: TAB, Q4H, Center Dosing Weight 99.7, kg, PRN Pain 1-3/Temp > 100.4 F, Start date: 11/21/18 1:36:00 CDT, Duration: 30 day, Stop date: 12/21/18 1:35:00 CDTNotes: Do not exceed 4 gm/day. (Same as: Tylenol) Melatonin 10 mg, 2 tab, No Longer [place] Route: PO, Drug Active 2018 Medical form: TAB, Center Bedtime, Dosing Weight 99.7, kg, PRN Insomnia, Start date: 11/21/18 1:36:00 CDT, Duration: 30 day, Stop date: 12/21/18 1:35:00 CDTNotes: (Same as: Melatonin) Glucagon 1 mg, Route: No Longer [place] IM, Drug form: Active 2019 Medical PDR/INJ, PRN, Center Dosing Weight 99.7, kg, PRN Blood Glucose Results, Start date: 11/21/18 1:36:00 CDT, Duration: 30 day, Stop date: 12/21/18 1:35:00 CDT Dextrose 50% 25 gm, 50 mL, No Longer [place] Syringe Route: IVP, Active 2019 Medical Drug Form: INJ, Center Dosing Weight 99.7, kg, PRN, PRN Blood Glucose Results, Start date: 11/21/18 1:36:00 CDT, Duration: 30 day, Stop date: 12/21/18 1:35:00 CDT Isolyte S PH 7.4 1,000 mL, Rate: No Longer [place] 1,000 mL 100 ml/hr, Active 2019 Medical Infuse over: 10 Center hr, Route: IV, Dosing Weight 99.7 kg, Total Volume: 1,000, Start date: 11/21/18 1:30:00 CDT, Duration: 30 day, Stop date: 12/21/18 1:29:00 CDT, 2.16, l5Teckf: (Same as: Isolyte S PH 7.4) Aspirin 324 mg, Route: Inactive [place] CHEW, Drug 2019 Medical form: CHEWTAB, Center ONCE, Dosing Weight 99.7, kg, Priority: STAT, Start date: 11/21/18 0:47:00 CDT, Stop date: 11/21/18 0:47:00 CDT Isolyte S PH-7.4 1,000 mL, 1000 No Longer [facility] ([place]) IV ml/hr, Infuse Active 2019 Medical Over: 1 hr, Center Route: IV, 1,000, Drug form: SOLN, ONCE, Dosing Weight 99.7 kg, Start date: 11/20/18 23:30:00 CDT, Stop date: 11/20/18 23:30:00 CDTNotes: (Same as: Isolyte S PH 7.4) Ondansetron 4 mg, 2 mL, No Longer [place] Route: IVP, Active 2019 Medical Drug form: INJ, Center ONCE, Dosing Weight 97.727, kg, PRN Nausea & Vomiting, Start date: 11/17/18 16:50:00 CDTNotes: (Same as: Zofran) MEDICATION WASTE Product Size: 4 mg Product Wasted: ___ mg Flumazenil 0.2 mg, 2 mL, No Longer [place] Route: IVP, Active 2019 Medical Drug form: INJ, Center PRN, Dosing Weight 97.727, kg, PRN Benzodiazepine Reversal, Initial dose, Start date: 11/17/18 16:50:00 CDT, Duration: 30 day, Stop date: 12/17/18 16:49:00 CDTNotes: (Same as: Romazicon) Naloxone 0.4 mg, 1 mL, No Longer [place] Route: IVP, Active 2018 Medical Drug form: INJ, Center Q2MIN, Dosing [...] Colonoscopy, # 1 ea, 0 Refill(s), Pharmacy: [facility] [id number] Acetaminophen 500 1 gm=2 tab, PO, Active [place] MG Oral Tablet Q6H, X 7 day, # 2019 Medical 56 tab, 0 Center Refill(s) Metronidazole 500 500 mg=1 tab, Active [place] MG Oral Tablet PO, Q8H, X 7 2019 Medical day, # 21 tab, Center 0 Refill(s) ferrous sulfate 325 325 mg, PO, Active [place] MG Oral Tablet Daily, # 30 2019 [...] other Zofran 4 mg, 2 mL, Inactive [facility] Route: IVP2018 Medical Drug form: INJ, Center ONCE, Dosing Weight 100, kg, Start date: 10/31/18 13:18:00 CDT, Stop date: 10/31/18 13:18:00 CDTNotes: (Same as: Zofran) MEDICATION WASTE Product Size: 4 mg Product Wasted: ___ mg Flagyl 500 mg, 1 tab, No Longer [place] Route: PO, Drug Active 2018 Medical form: TAB, Q8H, Center Dosing Weight 100, kg, Start date: 10/30/18 16:00:00 CDT, Duration: 30 day, Stop date: 11/29/18 8:00:00 CDT, ABX Indication: Intra-abdominal InfectionNotes: (Same as: Flagyl) Take with food/ avoid alcohol Zofran 4 mg, 2 mL, Inactive [facility] Route: IVP2018 Medical Drug form: INJ, Center ONCE, Dosing Weight 100, kg, Start date: 10/30/18 15:48:00 CDT, Stop date: 10/30/18 15:48:00 CDTNotes: (Same as: Zofran) MEDICATION WASTE Product Size: 4 mg Product Wasted: 0 mg Hydrochlorothiazide 0.5 tab, PO, Active [place] 50 MG / Triamterene Daily, 0 2019 Medical 75 MG Oral Tablet Refill(s) Center Ciprofloxacin 500 mg, 1 tab, No Longer [facility] Route: PO, Drug Active 2019 Medical form: TAB, Center Q12H, Dosing Weight 100, kg, Start date: 10/30/18 12:00:00 CDT, Duration: 30 day, Stop date: 11/29/18 0:00:00 CDT, ABX Indication: Intra-abdominal InfectionNotes: May interfere w/enteral feedings - Take 1 hr before or 2 hrs after antacids, dairy pdt & minerals. On empty stomach. Hydrochlorothiazide 1 cap, Route: No Longer [place] 25 MG / Triamterene PO, Drug Form: Active 2019 Medical 37.5 MG Oral CAP, Dosing Center Capsule Weight 100, kg, QAM, Start date: 10/30/18 9:00:00 CDT, Duration: 30 day, Stop date: 11/28/18 9:00:00 CDTNotes: (triamterene-hy drochlorothiazi de 37.5-25 mg CAP) (Same As: Dyazide) Melatonin 3 mg, 1 tab, No Longer [facility] Route: PO, Drug Active 2019 Medical form: TAB, Center Bedtime, Dosing Weight 100, kg, PRN Sleep, Start date: 10/29/18 23:35:00 CDT, Duration: 30 day, Stop date: 11/28/18 23:34:00 CDTNotes: (Same as: Melatonin) Bisoprolol 5 mg, 1 tab, No Longer [facility] Route: PO, Drug Active 2018 Medical form: TAB, Center Daily, Dosing Weight 100, kg, Start date: 10/29/18 21:00:00 CDT, Duration: 30 day, Stop date: 11/27/18 21:00:00 CDTNotes: (Same As: Zebeta) Dextrose 5% with 1,000 mL, Rate: No Longer [place] 0.45% NaCl IV 1,000 100 ml/hr, Active 2019 Medical mL Infuse over: 10 Center hr, Route: IV, Dosing Weight 100 kg, Total Volume: 1,000, Start date: 10/29/18 18:15:00 CDT, Duration: 30 day, Stop date: 11/28/18 18:14:00 CDT, 2.16, m2 Lidocaine 15 mL, Route: Inactive [facility] Hydrochloride 10 INTRADERM, 2019 Medical MG/ML Injectable Dosing Weight Center Solution 100, kg, ONCE, Start date: 10/29/18 15:47:00 CDT, Stop date: 10/29/18 15:47:00 CDT Fentanyl 50 microgram, Inactive [facility] Route: IV, 2019 Medical ONCE, Dosing Center Weight 100, kg, Start date: 10/29/18 15:30:00 CDT, Stop date: 10/29/18 15:30:00 CDT Midazolam 0.5 mg, Route: Inactive [facility] IV, ONCE, 2019 Medical Dosing Weight Center 100, kg, Start date: 10/29/18 15:30:00 CDT, Stop date: 10/29/18 15:30:00 CDT Fentanyl 50 microgram, Inactive [facility] Route: IV, 2019 Medical ONCE, Dosing Center Weight 100, kg, Start date: 10/29/18 15:20:00 CDT, Stop date: 10/29/18 15:20:00 CDT Midazolam 1 mg, Route: Inactive [facility] IV, ONCE, 2019 Medical Dosing Weight Center 100, kg, Start date: 10/29/18 15:20:00 CDT, Stop date: 10/29/18 15:20:00 CDT Hydrochlorothiazide 1 cap, Route: Inactive [facility] 25 MG / Triamterene PO, Drug Form: 2019 Medical 37.5 MG Oral CAP, Dosing Center Capsule Weight 100, kg, QAM, Start date: 10/29/18 14:00:00 CDT, Duration: 30 day, Stop date: 11/28/18 9:00:00 CDTNotes: (triamterene-hy drochlorothiazi de 37.5-25 mg CAP) (Same As: Dyazide) [place] Thyroid 30 mg, 1 tab, No Longer [facility] Route: PO, Drug Active 2018 Medical form: TAB, Center QNoon, Dosing Weight 100, kg, Start date: 10/29/18 12:00:00 CDT, Duration: 30 day, Stop date: 11/27/18 12:00:00 CDTNotes: (Same As: [place] Thyroid, S-P-T) remove patch 1 patch, Route: No Longer [facility] TOP, Daily, Active 2019 Medical Drug form: Center ERFILM, Start date: 10/29/18 10:00:00 CDT, Duration: 30 day, Stop date: 11/27/18 10:00:00 CDT [place] Thyroid 60 mg, 1 tab, No Longer [facility] Route: PO, Drug Active 2019 Medical form: TAB, Center Daily, Dosing Weight 100, kg, Start date: 10/29/18 9:00:00 CDT, Duration: 30 day, Stop date: 11/27/18 9:00:00 CDTNotes: (Same As: [place] Thyroid, S-P-T) Docusate Sodium 100 100 mg, 1 cap, No Longer [facility] MG Oral Capsule Route: PO, Drug Active 2019 Medical form: CAP, BID, Center Dosing Weight 100, kg, Start date: 10/29/18 9:00:00 CDT, Duration: 30 day, Stop date: 11/27/18 17:00:00 CDT heparin 5,000 unit, 1 No Longer [facility] mL, Route: Active 2019 Medical SUB-Q, Drug Center form: INJ, Q8H, Dosing Weight 100, kg, Start date: 10/29/18 0:00:00 CDT, Stop date: 11/27/18 16:00:00 CDT Bisoprolol 5 mg, Route: Inactive [facility] PO, Drug form: 2019 Medical TAB, ONCE, Center Dosing Weight 100, kg, Priority: STAT, Start date: 10/28/18 22:59:00 CDT, Stop date: 10/28/18 22:59:00 CDT Hydralazine 5 mg, 0.25 mL, No Longer [facility] Route: IV, Drug Active 2019 Medical form: INJ, TID, Center Dosing Weight 100, kg, PRN Hypertension, Start date: 10/28/18 22:14:00 CDT, Duration: 30 day, Stop date: 11/27/18 22:13:00 CDTNotes: (Same as: Apresoline) Push over 5 minutes thyroid (ALF) 30 MG 30 mg=1 tab, Active [facility] Oral Tablet [[place] PO, QNoon, 0 2018 Medical Thyroid] Refill(s) [place] thyroid (ALF) 60 MG See Active [place] Oral Tablet [[place] Instructions, 2018 Medical Thyroid] tab PO Daily, 0 [place] Refill(s) Hydrochlorothiazide 1 cap, PO, QAM, No Longer [place] 25 MG / Triamterene 0 Refill(s) Active 2019 Medical 37.5 MG Oral Center Capsule bisoprolol 5 mg 5 mg=1 tab, PO, Active [place] oral tablet Daily, 0 2018 Medical Refill(s) [place] Lidocaine 1 patch, Route: No Longer [facility] Hydrochloride 0.05 TOP, Q24H, Drug Active 2019 Medical MG/MG Transdermal form: FILM, [place] Patch [Lidoderm] Start date: 10/28/18 22:00:00 CDT, Duration: 30 day, Stop date: 11/26/18 22:00:00 CDT Naproxen 500 mg, 1 tab, No Longer [facility] Route: PO, Drug Active 2018 Medical form: TAB, Center Q12H, Dosing Weight 100, kg, PRN Pain Score 4-6, Start date: 10/28/18 21:38:00 CDT, Duration: 30 day, Stop date: 11/27/18 21:37:00 CDT Tramadol 50 mg, 1 tab, No Longer [facility] Route: PO, Drug Active 2019 Medical form: TAB, Q6H, Center Dosing Weight 100, kg, PRN Pain Score 7-10, Do NOT use for patients with a past medical history of seizures, Start date: 10/28/18 21:38:00 CDT, Duration: 30 day, Stop date: 11/27/18 21:37:00 CDT Zosyn 3.375 gm, Inactive [place] Route: IVPB, 2018 Medical Drug form: Center PDR/INJ, ONCE, Dosing Weight 100, kg, Priority: STAT, Start date: 10/28/18 21:26:00 CDT, Stop date: 10/28/18 21:26:00 CDT, ABX Indication: Intra-abdominal InfectionNotes: MEDICATION WASTE Product Size: 3375 mg Product Wasted: ___ mg Ciprofloxacin 400 mg, 200 mL, No Longer [facility] Route: IVPB, Active 2018 Medical Drug form: INJ, Center [id number], Dosing Weight 100, kg, Start date: 10/28/18 21:00:00 CDT, Duration: 30 day, Stop date: 11/27/18 13:00:00 CDT, ABX Indication: Intra-abdominal Infection Sodium Chloride 250 mL, Rate: No Longer [place] 0.9% (titrate) 250 To prime line Active 2019 Medical mL and flush Center remaining blood products., Dosing Weight 100, kg, Route: IV, Total Volume: 250, Start Date: 10/28/18 20:31:00 CDT, Duration: 30 day, Stop date: 11/27/18 20:30:00 CDT, Replace Every: 24 hr Flagyl 500 mg, 100 mL, No Longer [facility] Route: IVPB, Active 2018 Medical Drug form: INJ, Center [id number], Dosing Weight 100, kg, Priority: STAT, Start date: 10/28/18 20:28:00 CDT, Duration: 30 day, Stop date: 11/27/18 16:00:00 CDT, ABX Indication: Intra-abdominal Infection gabapentin 300 mg, 1 cap, No Longer [facility] Route: PO, Drug Active 2019 Medical form: CAP, Q8H, Center Dosing Weight 100, kg, PRN Pain Score 6-10, Priority: NOW, Start date: 10/28/18 20:28:00 CDT, Duration: 30 day, Stop date: 11/27/18 20:27:00 CDTNotes: (Same as: Neurontin) Acetaminophen 1 gm, 2 tab, No Longer [facility] Route: PO, Drug Active 2019 Medical form: TAB, Q6H, Center Dosing Weight 100, kg, Priority: NOW, Start date: 10/28/18 20:28:00 CDT, Duration: 30 day, Stop date: 11/27/18 18:00:00 CDT Isolyte S PH 7.4 1,000 mL, Rate: No Longer [facility] 1,000 mL 100 ml/hr, Active 2019 Medical Infuse over: 10 Center hr, Route: IV, Dosing Weight 100 kg, Total Volume: 1,000, Start date: 10/28/18 20:28:00 CDT, Duration: 30 day, Stop date: 11/27/18 20:27:00 CDT, 2.16, q4Hhosn: (Same as: Isolyte S PH 7.4) Isolyte S PH-7.4 500 mL, Route: Inactive [facility] ([place]) IV IV, ONCE, 2018 Medical Dosing Weight Center 100 kg, Start date: 10/28/18 20:28:00 CDT, Stop date: 10/28/18 20:28:00 CDT Allergies, Adverse Reactions, Alerts Substance Category Reaction Severity Reaction Status Date Comments Source type Reported codeine Assertion Drug Active [facility] Immunizations No Data Provided for This Section Results Order Name Results Value Reference Date Interpretation Comments Source Range CHEM PANEL eGFR 56 11/23 Result Comment: The Medical eGFR is Center calculated using the CKD-EPI formula. In most young, healthy individuals the eGFR will be >90 mL/min/1.73m2 . The eGFR declines with age. An eGFR of 60-89 may be normal in some populations, particularly the elderly, for whom the CKD-EPI formula has not been extensively validated. Use of the eGFR is not recommended in the following populations:< br/>
Debra viduals with unstable creatinine concentration s, including patients and those with serious co-morbid conditions.<b r/>
Patie nts with extremes in muscle mass or diet.

The data above are obtained from the National Kidney Disease Education Program (NKDEP) which additionally recommends that when the eGFR is used in patients with extremes of body mass index for purposes of drug dosing, the eGFR should be multiplied by the estimated BMI. CHEM PANEL Calcium Lvl 8.7 8.5 - 10.5 11/23 [facility] CHEM PANEL CO2 25 24 - 32 11/23 [facility] CHEM PANEL Chloride Lvl 104 95 - 109 11/23 [facility] CHEM PANEL Potassium Lvl 3.3 3.5 - 5.1 11/23 [facility]2018 [facility] CHEM PANEL Sodium Lvl 139 135 - 145 11/23 [facility] CHEM PANEL Creatinine 0.98 0.50 - 11/23 [facility] Lvl 1.40 [facility] CHEM PANEL BUN 11 7 - 22 11/23 2018 [facility] CHEM PANEL Glucose Lvl 76 70 - 99 11/23 2018 [facility] CHEM PANEL AGAP 13.3 10.0 - 11/23 [place] 20.0 [facility] CHEM PANEL Magnesium Lvl 2.0 1.8 - 2.4 11/23 [facility] CHEM PANEL Phosphorus 3.1 2.5 - 4.5 11/23 2018 [facility] HEMATOLOGY RDW 24.1 11.5 - 11/23 [place] 14.5 [facility] HEMATOLOGY MCHC 32.3 32.0 - 11/23 [place] 36.0 [facility] HEMATOLOGY Platelet 269 133 - 450 11/23 2018 [facility] HEMATOLOGY MPV 10.4 7.4 - 10.4 11/23 [facility] HEMATOLOGY RBC 3.96 4.20 - 11/23 [place] 5.40 /2018 [facility] HEMATOLOGY WBC 9.3 3.7 - 10.4 11/23 [facility] HEMATOLOGY Hct 31.8 36.0 - 11/23 [place] 48.0 [facility] HEMATOLOGY Hgb 10.3 12.0 - 11/23 [place] 16.0 [facility] HEMATOLOGY MCH 25.9 27.0 - 11/23 [facility] 31.0 [facility] HEMATOLOGY MCV 80.3 80.0 - 11/23 [place] 98.0 2019 [facility] HEMATOLOGY Lymphocytes 18.3 20.0 - 11/23 [place] 40.0 2019 [facility] HEMATOLOGY Basophils 1.3 0.0 - 1.0 11/23 2018 [facility] HEMATOLOGY Segs 64.2 45.0 - 11/23 [place] 75.0 2019 [facility] HEMATOLOGY Neutrophils # 6.0 1.5 - 8.1 11/23 [facility] HEMATOLOGY Eosinophils 4.5 0.0 - 4.0 11/23 [facility] HEMATOLOGY Monocytes 11.7 2.0 - 12.0 11/23 [facility] HEMATOLOGY Monocytes # 1.1 0.0 - 0.8 11/23 [facility] HEMATOLOGY Eosinophils # 0.4 0.0 - 0.5 11/23 2018 [facility] HEMATOLOGY Lymphocytes # 1.7 1.0 - 5.5 11/23 [facility] HEMATOLOGY Smudge Moderate None Seen 11/23 [facility] *ABN* [facility] (11/23/18 4:50 AM) [place] HEMATOLOGY Anisocyte 1+ None Seen 11/23 [facility] *ABN* [facility] (11/23/18 4:50 AM) [place] HEMATOLOGY Basophils # 0.1 0.0 - 0.2 11/23 [facility] HEMATOLOGY Plt Morph Normal Normal 11/23 [facility] (11/23/18 4:50 AM) [facility] HEMATOLOGY RBC Morph Normal Normal 11/23 [facility] (11/23/18 4:50 AM) [facility] PARATHYROID Ca Ion WB 1.07 1. - 11/23 [facility] PROFILE 07.23 [facility] PARATHYROID Ca Norm WB 1.05 1. - 11/23 [facility] 07.23 [facility] ELECTROLYTE AGAP 11.2 10.0 - 11/22 [facility] S 20. [facility] ELECTROLYTE eGFR 58 11/22 Result [facility] Comment: The [facility] eGFR is Center calculated using the CKD-EPI formula. In most young, healthy individuals the eGFR will be >90 mL/min/1.73m2 . The eGFR declines with age. An eGFR of 60-89 may be normal in some populations, particularly the elderly, for whom the CKD-EPI formula has not been extensively validated. Use of the eGFR is not recommended in the following populations:< br/>
Debra viduals with unstable creatinine concentration s, including patients and those with serious co-morbid conditions.<b r/>
Patie nts with extremes in muscle mass or diet.

The data above are obtained from the National Kidney Disease Education Program (NKDEP) which additionally recommends that when the eGFR is used in patients with extremes of body mass index for purposes of drug dosing, the eGFR should be multiplied by the estimated BMI. ELECTROLYTE Calcium Lvl 8.4 8.5 - 10.5 11/22 [facility] ELECTROLYTE BUN 9 7 - 22 11/22 [facility] ELECTROLYTE Glucose Lvl 105 70 - 99 11/22 [facility] ELECTROLYTE Potassium Lvl 3.2 3.5 - 5.1 11/22 [facility] ELECTROLYTE Chloride Lvl 102 95 - 109 11/22 [facility] /2018 [facility] ELECTROLYTE CO2 26 24 - 32 11/22 [facility] S /2018 [facility] ELECTROLYTE Sodium Lvl 136 135 - 145 11/22 [facility] S 2018 [facility] ELECTROLYTE Creatinine 0.96 0.50 - 11/22 [facility] S Lvl 1.40 [facility] HEMATOLOGY Platelet 224 133 - 450 11/22 [facility] HEMATOLOGY MPV 9.8 7.4 - 10.4 11/22 2018 [facility] HEMATOLOGY Hgb 11.5 12.0 - 11/22 [facility] 16.0 [facility] HEMATOLOGY RBC 4.45 4.20 - 11/22 [facility] 5.40 [facility] HEMATOLOGY Hct 35.8 36.0 - 11/22 [facility] 48.0 [facility] HEMATOLOGY RDW 24.1 11.5 - 11/22 [facility] 14.5 [facility] HEMATOLOGY MCHC 32.2 32.0 - 11/22 [facility] 36.0 [facility] HEMATOLOGY MCH 25.9 27.0 - 11/22 [facility] 31.0 [facility] HEMATOLOGY MCV 80.4 80.0 - 11/22 [facility] 98.0 [facility] HEMATOLOGY WBC 8.4 3.7 - 10.4 11/22 [facility] HEMATOLOGY Neutrophils # 6.1 1.5 - 8.1 11/22 [facility] HEMATOLOGY Eosinophils 2.4 0.0 - 4.0 11/22 [facility] HEMATOLOGY Basophils 0.5 0.0 - 1.0 11/22 [facility] HEMATOLOGY Segs 72.4 45.0 - 11/22 [facility] 75.0 2019 [facility] HEMATOLOGY Lymphocytes 13.3 20.0 - 11/22 [facility] 40.0 [facility] HEMATOLOGY Monocytes 11.4 2.0 - 12.0 11/22 [facility] HEMATOLOGY Anisocyte 1+ None Seen 11/22 [facility] *ABN* /2018 [facility] (11/22/18 12:19 PM) [place] HEMATOLOGY Eosinophils # 0.2 0.0 - 0.5 11/22 [facility]2018 [facility] HEMATOLOGY Monocytes # 1.0 0.0 - 0.8 11/22 [facility]2018 [facility] HEMATOLOGY Lymphocytes # 1.1 1.0 - 5.5 11/22 [facility] HEMATOLOGY INR 1.32 0.85 - 11/21 [place] 1.17 [facility] HEMATOLOGY PT 16.1 12.0 - 11/21 [facility] 14.7 [facility] HEMATOLOGY PTT 31.9 22.9 - 11/21 [facility] 35.8 [facility] CHEM PANEL Bili Total 0.5 0.2 - 1.3 11/[address] CHEM PANEL Alk Phos 73 39 - 136 11/21 [facility] CHEM PANEL Bili Indirect UNABLE TO 0.0 - 1.0 11/21 [facility] CHEM PANEL Bili Direct <0.1 0.0 - 0.3 11/21 [facility]2018 [facility] CHEM PANEL Albumin Lvl 2.1 3.5 - 5.0 11/[address] CHEM PANEL Total Protein 6.7 6.4 - 8.4 11/[address] CHEM PANEL Globulin 4.6 2.7 - 4.2 11/[address] CHEM PANEL A/G Ratio 0.5 0.7 - 1.6 11/[address] CHEM PANEL AST 34 0 - 37 11/[address] CHEM PANEL ALT 17 0 - 65 11/[address] CHEM PANEL eGFR 44 11/21 [facility] Comment: The Medical eGFR is Center calculated using the CKD-EPI formula. In most young, healthy individuals the eGFR will be >90 mL/min/1.73m2 . The eGFR declines with age. An eGFR of 60-89 may be normal in some populations, particularly the elderly, for whom the CKD-EPI formula has not been extensively validated. Use of the eGFR is not recommended in the following populations:< br/>
Debra viduals with unstable creatinine concentration s, including patients and those with serious co-morbid conditions.<b r/>
Patie nts with extremes in muscle mass or diet.

The data above are obtained from the National Kidney Disease Education Program (NKDEP) which additionally recommends that when the eGFR is used in patients with extremes of body mass index for purposes of drug dosing, the eGFR should be multiplied by the estimated BMI. CHEM PANEL CO2 22 24 - 32 11/[address] CHEM PANEL Potassium Lvl 3.2 3.5 - 5.1 11/21 Result Comment: [facility] Center hemolyzed. CHEM PANEL Chloride Lvl 98 95 - 109 11/21 [facility]2018 [facility] CHEM PANEL Creatinine 1.21 0.50 - 11/21 [place] Lvl 1.40 [facility] CHEM PANEL Sodium Lvl 131 135 - 145 11/21 2018 [facility] CHEM PANEL BUN 18 7 - 22 11/21 [facility]2018 [facility] CHEM PANEL Glucose Lvl 103 70 - 99 11/21 [facility]2018 [facility] CHEM PANEL Calcium Lvl 8.3 8.5 - 10.5 11/21 [facility] CHEM PANEL AGAP 14.2 10.0 - 11/21 [facility] 20.0 [facility] CHEM PANEL Lactic Acid 1.3 0.5 - 2.2 11/21 [facility] HEMATOLOGY Neutrophils # 10.8 1.5 - 8.1 11/21 [facility]2018 [facility] HEMATOLOGY Lymphocytes # 0.9 1.0 - 5.5 11/21 [facility] HEMATOLOGY Monocytes # 1.1 0.0 - 0.8 11/21 [facility] HEMATOLOGY Eosinophils # 0.1 0.0 - 0.5 11/21 [facility]2018 [facility] HEMATOLOGY Basophils # 0.1 0.0 - 0.2 11/21 [facility] HEMATOLOGY Anisocyte 1+ None Seen 11/21 [facility] *ABN* /2018 [facility] (11/21/18 12:11 AM) [facility] HEMATOLOGY Segs 83.1 45.0 - 11/21 [facility] 75.0 [facility] HEMATOLOGY Lymphocytes 6.9 20.0 - 11/21 [place] 40.0 [facility] HEMATOLOGY Monocytes 8.5 2.0 - 12.0 11/21 [facility] HEMATOLOGY Eosinophils 1.0 0.0 - 4.0 11/21 [facility]2018 [facility] HEMATOLOGY Basophils 0.5 0.0 - 1.0 11/21 [facility] HEMATOLOGY RBC Morph Normal Normal 11/21 [facility] (11/21/18 12:11 AM) [facility] HEMATOLOGY Plt Morph Normal Normal 11/21 [facility] (11/21/18 12:11 AM) [facility] HEMATOLOGY PTT 27.9 22.9 - 05/26 [place] 35.8 /2019 [facility] HEMATOLOGY INR 1.25 0.85 - 11/21 [place] 1.17 [facility] HEMATOLOGY PT 15.5 12.0 - 11/21 [place] 14.7 [facility] HEMATOLOGY Hct 31.0 36.0 - 11/21 [place] 48.0 [facility] HEMATOLOGY MCV 79.9 80.0 - 11/21 [place] 98.0 [facility] HEMATOLOGY MCH 25.8 27.0 - 11/21 [place] 31.0 /2018 [facility] HEMATOLOGY MCHC 32.3 32.0 - 11/21 [place] 36.0 [facility] HEMATOLOGY RDW 23.7 11.5 - 11/21 [facility] 14.5 [facility] HEMATOLOGY Platelet 265 133 - 450 11/21 [facility] HEMATOLOGY MPV 9.2 7.4 - 10.4 11/21 [facility] HEMATOLOGY WBC 12.9 3.7 - 10.4 11/21 [facility] HEMATOLOGY RBC 3.88 4.20 - 11/21 [place] 5.40 /2018 [facility] HEMATOLOGY Hgb 10.0 12.0 - 11/21 [place] 16.0 [facility] CHEM PANEL Phosphorus 4.0 2.5 - 4.5 11/19 [facility] CHEM PANEL Magnesium Lvl 1.9 1.8 - 2.4 11/19 [facility]2018 [facility] CHEM PANEL Globulin 5.3 2.7 - 4.2 11/19 2018 [facility] CHEM PANEL A/G Ratio 0.5 0.7 - 1.6 11/19 [facility] CHEM PANEL AGAP 14.5 10.0 - 11/19 [place] 20.0 [facility] CHEM PANEL B/C Ratio 11 6 - 25 11/[address] CHEM PANEL Bili Total 0.3 0.2 - 1.3 11/19 [facility]2018 [facility] CHEM PANEL AST 26 0 - 37 11/[address] CHEM PANEL Alk Phos 79 39 - 136 11/19 [facility]2018 [facility] CHEM PANEL Total Protein 7.8 6.4 - 8.4 11/19 [facility] CHEM PANEL Albumin Lvl 2.5 3.5 - 5.0 11/[address] CHEM PANEL ALT 30 0 - 65 05/ [address] CHEM PANEL eGFR 43 11/19 Result [facility] Comment: The Medical eGFR is Center calculated using the CKD-EPI formula. In most young, healthy individuals the eGFR will be >90 mL/min/1.73m2 . The eGFR declines with age. An eGFR of 60-89 may be normal in some populations, particularly the elderly, for whom the CKD-EPI formula has not been extensively validated. Use of the eGFR is not recommended in the following populations:< br/>
Debra viduals with unstable creatinine concentration s, including patients and those with serious co-morbid conditions.<b r/>
Patie nts with extremes in muscle mass or diet.

The data above are obtained from the National Kidney Disease Education Program (NKDEP) which additionally recommends that when the eGFR is used in patients with extremes of body mass index for purposes of drug dosing, the eGFR should be multiplied by the estimated BMI. CHEM PANEL Chloride Lvl 99 95 - [address] CHEM PANEL Calcium Lvl 8.9 8.5 - 10.5 11/[address] CHEM PANEL CO2 28 24 - 32 11/[address] CHEM PANEL Potassium Lvl 3.5 3.5 - 5.1 11/[address] CHEM PANEL BUN 13 7 - 22 11/[address] CHEM PANEL Creatinine 1.23 0.50 - 11/19 [facility] Lvl 1.40 [facility] CHEM PANEL Glucose Lvl 157 70 - 99 11/[address] CHEM PANEL Sodium Lvl 138 135 - 145 11/[address] HEMATOLOGY Eosinophils 2.1 0.0 - 4.0 / [address] HEMATOLOGY Monocytes 8.3 2.0 - 12.0 / [address] HEMATOLOGY Lymphocytes 11.7 20.0 - 11/19 [facility] 40.[address] HEMATOLOGY Segs 76.8 45.0 - 05/ [place] 75.0 2018 [facility] HEMATOLOGY Eosinophils # 0.2 0.0 - 0.5 11/[address] HEMATOLOGY Lymphocytes # 1.1 1.0 - 5.5 11/19 [facility] HEMATOLOGY Basophils # 0.1 0.0 - 0.2 11/19 [facility] HEMATOLOGY Monocytes # 0.7 0.0 - 0.8 11/19 [facility] HEMATOLOGY Neutrophils # 6.9 1.5 - 8.1 11/19 [facility] HEMATOLOGY Basophils 1.1 0.0 - 1.0 11/19 [facility] HEMATOLOGY Anisocyte 1+ None Seen 11/19 [facility] *ABN* /2018 [facility] (11/19/18 10:32 AM) [facility] HEMATOLOGY Large Plt slight 11/19 [facility] HEMATOLOGY INR 1.12 0.85 - 11/19 [facility] 1.17 [facility] HEMATOLOGY PTT 29.4 22.9 - 11/19 [facility] 35.8 [facility] HEMATOLOGY PT 14.2 12.0 - 11/19 [facility] 14.7 [facility] HEMATOLOGY RDW 24.8 11.5 - 11/19 [facility] 14.5 [facility] HEMATOLOGY Platelet 340 133 - 450 11/19 [facility] HEMATOLOGY MPV 9.0 7.4 - 10.4 11/19 [facility] HEMATOLOGY MCH 26.1 27.0 - 11/19 [facility] 31.0 [facility] HEMATOLOGY MCHC 32.0 32.0 - 11/19 [facility] 36.0 [facility] HEMATOLOGY MCV 81.6 80.0 - 11/19 [facility] 98.0 [facility] HEMATOLOGY RBC 4.19 4.20 - 11/19 [facility] 5.40 [facility] HEMATOLOGY Hgb 10.9 12.0 - 11/19 [place] 16.0 2019 [facility] HEMATOLOGY Hct 34.2 36.0 - 11/19 [facility] 48.0 2019 [facility] HEMATOLOGY WBC 9.0 3.7 - 10.4 11/19 [facility] TUMOR CEA 11.2 0.0 - 3.0 11/19 [facility] CHEM PANEL Vitamin D, 67.4 30.0 - 11/09 [facility] 25-OH, Total 100.0 [facility] CHEM PANEL Phosphorus 3.9 2.5 - 4.5 11/09 [facility] CHEM PANEL Magnesium Lvl 1.8 1.8 - 2.4 11/[address] ELECTROLYTE AGAP 15.1 10.0 - 11/09 [facility] S 20.0 [facility] ELECTROLYTE B/C Ratio 14 6 - 25 11/[address] ELECTROLYTE A/G Ratio 0.5 0.7 - 1.6 11/[address] ELECTROLYTE Globulin 5.3 2.7 - 4.2 11/[address] ELECTROLYTE eGFR 39 11/[address] [facility] Comment: The Medical eGFR is Center calculated using the CKD-EPI formula. In most young, healthy individuals the eGFR will be >90 mL/min/1.73m2 . The eGFR declines with age. An eGFR of 60-89 may be normal in some populations, particularly the elderly, for whom the CKD-EPI formula has not been extensively validated. Use of the eGFR is not recommended in the following populations:< br/>
Debra viduals with unstable creatinine concentration s, including patients and those with serious co-morbid conditions.<b r/>
Patie nts with extremes in muscle mass or diet.

The data above are obtained from the National Kidney Disease Education Program (NKDEP) which additionally recommends that when the eGFR is used in patients with extremes of body mass index for purposes of drug dosing, the eGFR should be multiplied by the estimated BMI. ELECTROLYTE BUN 19 7 - 22 11/[address] ELECTROLYTE Creatinine 1.32 0.50 - 11/09 [facility] Lvl 1.40 [facility] ELECTROLYTE Sodium Lvl 137 135 - 145 11/[address] ELECTROLYTE Potassium Lvl 4.1 3.5 - 5.1 11/[address] ELECTROLYTE CO2 26 24 - 32 11/[address] ELECTROLYTE Chloride Lvl 100 95 - 109 11/[address] ELECTROLYTE Calcium Lvl 9.7 8.5 - 10.5 11/[address] ELECTROLYTE Glucose Lvl 135 70 - 99 11/[address] ELECTROLYTE Bili Total 0.2 0.2 - 1.3 11/[address] ELECTROLYTE Alk Phos 71 39 - 136 11/[address] ELECTROLYTE AST 22 0 - 37 11/09 [facility] S 2018 [facility] ELECTROLYTE ALT 18 0 - 65 11/09 [facility] S 2018 [facility] ELECTROLYTE Albumin Lvl 2.7 3.5 - 5.0 11/09 [facility] S 2018 [facility] ELECTROLYTE Total Protein 8.0 6.4 - 8.4 11/09 [facility] S 2018 [facility] HEMATOLOGY RDW 24.0 11.5 - 11/09 [facility] 14.5 /2019 [facility] HEMATOLOGY Platelet 562 133 - 450 11/09 [facility] HEMATOLOGY MPV 8.7 7.4 - 10.4 11/09 [facility] HEMATOLOGY MCHC 31.5 32.0 - 11/09 [facility] 36.0 /2019 [facility] HEMATOLOGY Hct 37.1 36.0 - 11/09 [facility] 48.0 /2018 [facility] HEMATOLOGY MCH 25.1 27.0 - 11/09 [facility] 31.0 /2019 [facility] HEMATOLOGY Hgb 11.7 12.0 - 11/09 [facility] 16.0 /2019 [facility] HEMATOLOGY MCV 79.8 80.0 - 11/09 [facility] 98.0 /2019 [facility] HEMATOLOGY RBC 4.65 4.20 - 11/09 [place] 5.40 /2019 [facility] HEMATOLOGY WBC 15.4 3.7 - 10.4 11/[address] HEMATOLOGY Monocytes 6.2 2.0 - 12.0 11/[address] HEMATOLOGY Eosinophils 1.3 0.0 - 4.0 11/[address] HEMATOLOGY Lymphocytes 8.8 20.0 - 11/09 [facility] 40.0 /2019 [facility] HEMATOLOGY Monocytes # 1.0 0.0 - 0.8 11/[address] HEMATOLOGY Neutrophils # 12.9 1.5 - 8.1 11/[address] HEMATOLOGY Lymphocytes # 1.4 1.0 - 5.5 11/[address] HEMATOLOGY Eosinophils # 0.2 0.0 - 0.5 11/[address] HEMATOLOGY Basophils 0.4 0.0 - 1.0 11/[address] HEMATOLOGY Anisocyte 1+ None Seen 11/09 [facility] *ABN* /2018 [facility] (11/09/18 12:56 PM) [place] HEMATOLOGY Basophils # 0.1 0.0 - 0.2 11/09 [facility] HEMATOLOGY Segs 83.3 45.0 - 11/09 [place] 75.0 2019 [facility] Center TUMOR CEA 20.9 0.0 - 3.0 11/09 [facility] HEMATOLOGY Eosinophils # 0.2 0.0 - 0.5 11/02 [facility] HEMATOLOGY Basophils # 0.1 0.0 - 0.2 11/02 [facility] HEMATOLOGY Microcyte 1+ None Seen 11/02 [facility] *ABN* /2018 [facility] (11/02/18 3:19 AM) [place] HEMATOLOGY Monocytes # 1.0 0.0 - 0.8 11/02 [facility] HEMATOLOGY Monocytes 7.6 2.0 - 12.0 11/02 2018 [facility] HEMATOLOGY Eosinophils 1.7 0.0 - 4.0 11/02 2018 [facility] HEMATOLOGY Basophils 0.4 0.0 - 1.0 11/02 [facility] HEMATOLOGY Neutrophils # 10.0 1.5 - 8.1 11/02 [facility] HEMATOLOGY Lymphocytes # 2.2 1.0 - 5.5 11/02 [facility] HEMATOLOGY Segs 74.0 45.0 - 11/02 [place] 75.0 2019 [facility] HEMATOLOGY Lymphocytes 16.3 20.0 - 05 [place] 40.0 2019 [facility] HEMATOLOGY MCH 25.1 27.0 - 11/02 [place] 31.0 2019 [facility] HEMATOLOGY MPV 8.4 7.4 - 10.4 11/02 [facility] HEMATOLOGY MCHC 31.9 32.0 - 05 [place] 36.0 2019 [facility] HEMATOLOGY RDW 20.2 11.5 - 05 [place] 14.5 2019 [facility] HEMATOLOGY Platelet 527 133 - 450 05 2018 [facility] HEMATOLOGY Hct 33.1 36.0 - 05 [place] 48.0 2019 [facility] HEMATOLOGY MCV 78.6 80.0 - 05 [place] 98.0 /2019 [facility] HEMATOLOGY WBC 13.6 3.7 - 10.4 11/02 [facility] HEMATOLOGY RBC 4.22 4.20 - 05 [place] 5.40 2019 [facility] HEMATOLOGY Hgb 10.6 12.0 - 0507 [place] 16.0 [facility] BLOOD BANK ABO/Rh O POS 05 [facility] RESULTS /2018 [facility] BLOOD BANK Antibody Scrn Negative 11/01 [facility] RESULTS (11/01/18 5:37 PM) [facility] HEMATOLOGY Monocytes # 0.8 0.0 - 0.8 05/ [facility] HEMATOLOGY Eosinophils # 0.1 0.0 - 0.5 05/ [facility] HEMATOLOGY Basophils # 0.1 0.0 - 0.2 05/ [facility] HEMATOLOGY Monocytes 5.4 2.0 - 12.0 05/ [facility] HEMATOLOGY Eosinophils 0.5 0.0 - 4.0 05/ [facility] HEMATOLOGY Lymphocytes 12.6 20.0 - 05 [place] 40.0 [facility] HEMATOLOGY Segs 81.0 45.0 - 05/06 [place] 75.0 [facility] HEMATOLOGY Basophils 0.5 0.0 - 1.0 05 [facility] HEMATOLOGY Lymphocytes # 1.8 1.0 - 5.5 05/ [facility] HEMATOLOGY Neutrophils # 11.8 1.5 - 8.1 05 [facility] HEMATOLOGY Microcyte 1+ None Seen 11/01 [facility] *ABN* /2018 [facility] (11/01/18 5:37 PM) [facility] HEMATOLOGY MCHC 31.9 32.0 - 05/06 [place] 36.0 2019 [facility] HEMATOLOGY MCV 78.2 80.0 - 05/06 [place] 98.0 2019 [facility] HEMATOLOGY MCH 25.0 27.0 - 05 [place] 31.0 2019 [facility] HEMATOLOGY Hct 33.6 36.0 - 05/06 [place] 48.0 2019 [facility] HEMATOLOGY RDW 19.7 11.5 - 05/ [place] 14.5 2019 [facility] HEMATOLOGY MPV 8.3 7.4 - 10.4 05 [facility] HEMATOLOGY Platelet 581 133 - 450 05/ [facility] HEMATOLOGY Hgb 10.7 12.0 - 05/06 [place] 16.0 2019 [facility] HEMATOLOGY RBC 4.30 4.20 - 05/06 [place] 5.40 2019 [facility] HEMATOLOGY WBC 14.6 3.7 - 10.4 11/01 [facility] MOLECULAR C difficile Negative Negative 11/01 [facility] DIAGNOSTIC DNA (11/01/18 4:28 PM) [facility] CHEM PANEL eGFR 57 10/31 Result [facility] Comment: The [facility] eGFR is Center calculated using the CKD-EPI formula. In most young, healthy individuals the eGFR will be >90 mL/min/1.73m2 . The eGFR declines with age. An eGFR of 60-89 may be normal in some populations, particularly the elderly, for whom the CKD-EPI formula has not been extensively validated. Use of the eGFR is not recommended in the following populations:< br/>
Debra viduals with unstable creatinine concentration s, including patients and those with serious co-morbid conditions.<b r/>
Patie nts with extremes in muscle mass or diet.

The data above are obtained from the National Kidney Disease Education Program (NKDEP) which additionally recommends that when the eGFR is used in patients with extremes of body mass index for purposes of drug dosing, the eGFR should be multiplied by the estimated BMI. CHEM PANEL BUN 14 7 - [address] CHEM PANEL Potassium Lvl 3.7 3.5 - 5.[address] CHEM PANEL Chloride Lvl 103 95 - [address] CHEM PANEL Creatinine 0.97 0.50 - 10/31 [facility] Lvl 1.40 /2018 [facility] CHEM PANEL Sodium Lvl 137 135 - [address] CHEM PANEL Glucose Lvl 94 70 - 99 05 [facility]2018 [facility] CHEM PANEL CO2 24 24 - 32 05/ [address] CHEM PANEL Calcium Lvl 8.9 8.5 - 10.[address] CHEM PANEL AGAP 13.7 10.0 - 05/05 [facility] 20.0 [facility] HEMATOLOGY Segs 71.8 45.0 - 05/05 [facility] 75.0 [facility] HEMATOLOGY Lymphocytes 17.5 20.0 - 05/05 [facility] 40.0 [facility] HEMATOLOGY Monocytes # 1.0 0.0 - 0.8 05/ [facility]2018 [facility] HEMATOLOGY Eosinophils # 0.4 0.0 - 0.5 05 2018 [facility] HEMATOLOGY Microcyte 1+ None [facility]en 10[facility] (10/31/18 4:50 AM) [place] HEMATOLOGY Basophils # 0.1 0.0 - 0.2 05 [facility]2018 [facility] HEMATOLOGY Anisocyte 1+ None Seen 10/31 [facility] (10/31/18 4:50 AM) [place] HEMATOLOGY Monocytes 7.5 2.0 - 12.0 05 [facility]2018 [facility] HEMATOLOGY Neutrophils # 10.0 1.5 - 8.1 05 [facility]2018 [facility] HEMATOLOGY Lymphocytes # 2.4 1.0 - 5.5 05 [facility]2018 [facility] HEMATOLOGY Eosinophils 2.7 0.0 - 4.0 05 [facility]2018 [facility] HEMATOLOGY Basophils 0.5 0.0 - 1.[address] HEMATOLOGY Large Plt Moderate None Seen 10/31 [facility]* [facility] (10/31/18 4:50 AM) [place] HEMATOLOGY Toxic Gran Slight 05 [facility] HEMATOLOGY MCHC 32.3 32.0 - 0505 [facility] 36.0 [facility] HEMATOLOGY Platelet 523 133 - 450 05 [facility]2018 [facility] HEMATOLOGY RDW 18.5 11.5 - 0505 [facility] 14.5 [facility] HEMATOLOGY MPV 8.6 7.4 - 10.[address] HEMATOLOGY WBC 13.9 3.7 - 10.4 05 [facility]2018 [facility] HEMATOLOGY MCH 25.1 27.0 - 0505 [place] 31.0 [facility] HEMATOLOGY MCV 77.6 80.0 - 0505 [place] 98.0 [facility] HEMATOLOGY RBC 4.17 4.20 - 0505 [facility] 5.40 [facility] HEMATOLOGY Hct 32.4 36.0 - 05/05 [facility] 48.0 [facility] HEMATOLOGY Hgb 10.5 12.0 - 05/05 [facility] 16.0 [facility] CHEM PANEL eGFR 59 05/04 [facility] Comment: The Medical eGFR is Center calculated using the CKD-EPI formula. In most young, healthy individuals the eGFR will be >90 mL/min/1.73m2 . The eGFR declines with age. An eGFR of 60-89 may be normal in some populations, particularly the elderly, for whom the CKD-EPI formula has not been extensively validated. Use of the eGFR is not recommended in the following populations:< br/>
Debra viduals with unstable creatinine concentration s, including patients and those with serious co-morbid conditions.<b r/>
Patie nts with extremes in muscle mass or diet.

The data above are obtained from the National Kidney Disease Education Program (NKDEP) which additionally recommends that when the eGFR is used in patients with extremes of body mass index for purposes of drug dosing, the eGFR should be multiplied by the estimated BMI. CHEM PANEL BUN 15 7 - 22 10/30 [facility]2018 [facility] CHEM PANEL Sodium Lvl 136 135 - 145 10/30 [facility]2018 [facility] CHEM PANEL Potassium Lvl 3.4 3.5 - 5.1 10/30 [facility]2018 [facility] CHEM PANEL Glucose Lvl 114 70 - 99 10/[address] CHEM PANEL AGAP 12.4 10.0 - 10/30 [facility] 20.0 [facility] CHEM PANEL CO2 24 24 - 32 10/[address] CHEM PANEL Creatinine 0.95 0.50 - 10/30 [facility] Lvl 1.40 [facility] CHEM PANEL Chloride Lvl 103 95 - 109 10/[address] CHEM PANEL Calcium Lvl 8.5 8.5 - 10.5 10/[address] MEROPENEM:S Gram Stain Gram Stain 10/29 [facility]:PT:ISOL Report Performed Medical ATE:ORDQN:M By: Center IC [facility] MEROPENEM:S Culture: Many Escherichia coli 10/29 [facility]:PT:ISOL Aspirate/Body Many Alpha Streptococcus, Not Enterococcus 2018 Medical ATE:ORDQN:M Fluid/Tissue Center IC MEROPENEM:S Alpha Alpha 10/29 [facility]:PT:ISOL Streptococcus Streptococ Medical ATE:ORDQN:M , Not cus, Not Center IC Enterococcus Enterococc us MEROPENEM:S Escherichia Escherichi 10/29 [facility]:PT:ISOL coli a coli Medical ATE:ORDQN:M Center IC CHEM PANEL eGFR 46 10/29 Result Comment: The Medical eGFR is Center calculated using the CKD-EPI formula. In most young, healthy individuals the eGFR will be >90 mL/min/1.73m2 . The eGFR declines with age. An eGFR of 60-89 may be normal in some populations, particularly the elderly, for whom the CKD-EPI formula has not been extensively validated. Use of the eGFR is not recommended in the following populations:< br/>
Debra viduals with unstable creatinine concentration s, including patients and those with serious co-morbid conditions.<b r/>
Patie nts with extremes in muscle mass or diet.

The data above are obtained from the National Kidney Disease Education Program (NKDEP) which additionally recommends that when the eGFR is used in patients with extremes of body mass index for purposes of drug dosing, the eGFR should be multiplied by the estimated BMI. CHEM PANEL Glucose Lvl 77 70 - 99 10/[address] CHEM PANEL Creatinine 1.16 0.50 - 10/29 [facility] Lvl 1.40 [facility] CHEM PANEL BUN 19 7 - 22 10/[address] CHEM PANEL Sodium Lvl 135 135 - 145 10/[address] CHEM PANEL Potassium Lvl 4.0 3.5 - 5.1 10/[address] CHEM PANEL Chloride Lvl 102 95 - 109 10/[address] CHEM PANEL Calcium Lvl 8.8 8.5 - 10.5 10/[address] CHEM PANEL CO2 20 24 - 32 10/[address] CHEM PANEL AGAP 17.0 10.0 - 10/29 [facility] 20.0 [facility] CHEM PANEL Phosphorus 4.1 2.5 - 4.5 10/[address] CHEM PANEL Magnesium Lvl 2.0 1.8 - 2.4 10/[address] CHEM PANEL Lactic Acid 1.0 0.5 - 2.2 10/29 [facility] IMMUNOLOGY Prealbumin 6.1 18.0 - 05 [place] 45.0 [facility] URINE AND UA RBC 1 0 - 2 10/29 [facility] URINE AND UA Bacteria Occasional None Seen 10/29 [facility] STOOL /HPF /HPF /2018 [facility] URINE AND UA Mucus Few /LPF None Seen 10/29 [facility] STOOL /LPF [facility] URINE AND UA Amorph Occasional None Seen 10/29 [facility] STOOL Alissa /HPF /HPF [facility] URINE AND UA Hyal Cast 3 0 - 2 10/29 [facility] [address] [place] [address] URINE AND UA [place] Yeast Few /HPF None Seen 10/29 [facility] STOOL /HPF [facility] URINE AND UA WBC 5 0 - 5 10/29 [facility] URINE AND UA Turbidity Marked Clear 10/29 [facility] *ABN* [facility] (10/29/18 12:06 AM) [place] URINE AND UA Color Yellow Yellow 10/29 [facility] *NA* [facility] (10/29/18 12:06 AM) [place] URINE AND UA Ketones Trace Negative 10/29 [facility] mg/dL mg/dL [facility] URINE AND UA Glucose Negative Negative 10/29 [facility] mg/dL mg/dL [facility] URINE AND UA Spec Grav 1.014 <=1.030 10/29 [facility] [address] [place] [address] URINE AND UA Protein Negative Negative 10/29 [facility] mg/dL mg/dL [facility] URINE AND UA pH 5.0 5.0 - 8.0 10/29 [facility] [address] [place] [address] URINE AND UA Nitrite Negative Negative 10/29 [facility] (10/29/18 12:06 AM) [facility] URINE AND UA Blood Small Negative 10/29 [facility] *ABN* [facility] (10/29/18 12:06 AM) [place] URINE AND UA Bili Negative Negative 10/29 [facility] *NA* [facility] (10/29/18 12:06 AM) [place] URINE AND UA <1.0 0.1 - 1.0 10/29 [facility] Urobilinogen /2018 [facility] URINE AND UA Sq Epi Moderate Few /LPF 10/29 [facility] STOOL /LPF [facility] URINE AND UA Leuk Est Small Negative 10/29 [facility] *ABN* [facility] (10/29/18 12:06 AM) [place] TUMOR CEA 7.0 0.0 - 3.0 10/29 [facility] MARKERS [facility] BLOOD BANK RBC product Product available 10/29 [facility] RESULTS (10/28/18 7:54 PM) [facility] BLOOD BANK Antibody Scrn Negative 10/28 [facility] RESULTS (10/28/18 6:30 PM) [facility] BLOOD BANK ABO/Rh O POS 10/28 [facility] RESULTS /2018 [facility] CARDIAC Total CK 279 12 - 191 10/28 [facility] ENZYMES /2018 [facility] CHEM PANEL Lactic Acid 1.9 0.5 - 2.2 10/28 [facility] WB /2018 [facility] HEMATOLOGY PTT 25.5 22.9 - 10/28 [facility] 35.8 [facility] HEMATOLOGY PT 17.1 12.0 - 10/28 [facility] 14.7 [facility] HEMATOLOGY INR 1.42 0.85 - 10/28 [facility] 1.17 [facility] HEMATOLOGY Hypochrom 1+ None Seen 10/28 [facility] (10/28/18 6:30 PM) [facility] HEMATOLOGY Large Plt Moderate None Seen 10/28 [facility] (10/28/18 6:30 PM) [place] HEMATOLOGY Anisocyte 1+ None Seen 10/28 [facility] (10/28/18 6:30 PM) [place] HEMATOLOGY Atypical 0.0 <=0.0 % 10/28 [facility] Lymphs [facility] HEMATOLOGY Tot Cell Ct 200 10/28 [facility] /2018 [facility] HEMATOLOGY Schistocyte 0-2 10/28 [facility] /[address] [place] [address] HEMATOLOGY Toxic Gran Moderate None Seen 10/28 [facility] (10/28/18 6:30 PM) [place] HEMATOLOGY Rouleaux Present None Seen 10/28 [facility] (10/28/18 6:30 PM) [place] HEMATOLOGY Bands 0.0 0.0 - 11.0 10/28 [facility] /[address] [place] [address] Pathology Reports No Data Provided for This Section Diagnostic Reports Report Value Date Source Chest w contrast CT EXAM: CT CHEST WITH CONTRAST 11/15/2018 SANJUANA Boles DATE: 11/15/2018 14:00 CDT INDICATION: - 77 y/o ADDITIONAL INFORMATION: -- [...] These could be due to lytic metastases. Abscess Catheter PROCEDURE: Drainage catheter check and removal 11/11/2018 [facility] [place] [facility] Procedural Personnel Center Attending physician(s): RAJESH ELLIS M.D. Fellow physician(s): None Resident physician(s): None Advanced practice provider(s): None Pre-procedure diagnosis: Diverticular abscess Post-procedure diagnosis: Same Indication: 77-year-old female with pelvic collection underwent drain placement. The drain has been in for a period of time with very little output. She is here for evaluation for possible removal or further treatment planning. Additional clinical history: None Complications: No immediate complications. 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 Plan: Patient will be evaluated by the surgical team for potential surgical intervention PROCEDURE SUMMARY: - Drainage catheter check under fluoroscopic guidance PROCEDURE DETAILS: Pre-procedure Consent: Informed consent for the procedure including risks, benefits and alternatives was obtained and time-out was performed prior to the procedure. Preparation: The site was prepared and draped using maximal sterile barrier technique including cutaneous antisepsis. Anesthesia/sedation Level of anesthesia/sedation: No sedation Anesthesia/sedation administered by: Not applicable Total intra-service sedation time (minutes): 0 Drainage catheter check and removal The patient was positioned supine. Initial imaging was performed with contrast injection through the indwelling tube. . - Initial imaging findings: The catheter is in good location. The abscess cavity is very small. There is this was communication with the large bowel. The catheter was not removed. Contrast Contrast agent: Nonionic Contrast volume (mL): 30 Radiation Dose Fluoroscopy time (minutes): 1.7 Reference air kerma (Yadira Ramirez): 23.3 Additional Details Additional description of procedure: None Equipment details: None Specimens removed: None Estimated blood loss (mL): Less than 10 Standardized report: [email or web address] Attestation Signer name: Rajesh Ellis MD I attest that I was present for the entire procedure. I reviewed the stored images and agree with the report as written. Abdomen acute series EXAM: XR ABDOMEN 2 VIEWS 11/01/2018 [facility] chest 1 view DX EXAM: CHEST 1 VIEW Center DATE: 11/01/2018 12:59 CDT INDICATION: - Distention ADDITIONAL INFORMATION: None. COMPARISON: [...] acute abnormalities seen. 2. Tubes as above. Abdomen Abscess w PROCEDURE: Drainage catheter placement 10/29/2018 [facility] CT Procedural Personnel Center Attending physician(s): Mathew Nicole M.D. Fellow physician(s): None Resident physician(s): Yaw Paniagua MD Advanced practice provider(s): None Pre-procedure diagnosis: Colonic mass Post-procedure diagnosis: Same Indication: Perforated colonic mass Additional clinical history: None Complications: No immediate complications. IMPRESSION: Percutaneous placement of a 12 Nepali drainage catheter into left lower quadrant abscess, [...] left lower quadrant - Drainage catheter placed: 12-Nepali - External catheter securement: Suture - Post-drainage [...] and agree with the report as written. Brain-Outside Consult EXAM: Brain-Outside Consult CT 10/28/2018 [facility] [address] DATE: 10/28/2018 8:23 PM CDT Center INDICATION: - outside study COMPARISON: None TECHNIQUE: Axial images of the head were obtained without contrast administration DISCUSSION: No acute hemorrhage, hydrocephalus or midline shift. Prominence of the cerebral sulci due to volume loss. No acute parenchymal abnormality. IMPRESSION: Negative exam Spine-Outside Consult EXAM: CT CERVICAL SPINE WITHOUT CONTRAST 2ND OPINION INTERPRETATION 10/28/2018 [facility] [address] DATE: 10/28/2018 18:31 CDT Center INDICATION: - OUTSIDE STUDY, second interpretation requested COMPARISON: None TECHNIQUE: Noncontrast CT images of the cervical spine, obtained at [facility] 10/28/2018 at 1050 hours. Axial, sagittal and [...] Multilevel degenerative disc disease, uncovertebral joint hypertrophy, disc- osteophyte complex bulge, and facet joint arthropathy with neural foraminal stenosis as described. Brain-Outside Consult EXAM: CT FACIAL BONES WITHOUT CONTRAST 2ND OPINION INTERPRETATION 10/28/2018 [facility] DATE: 10/28/2018 18:29 CDT Center INDICATION: - outside study/fall, trauma head and neck injury COMPARISON: None available TECHNIQUE: Second opinion interpretation of CT facial bone exam obtained at [facility] 10/28/2018 at 1050 hours Non-contrast axial images [...] exam. IMPRESSION: No facial bone fractures identified. Consultation Notes No Data Provided for This Section Discharge Summaries No Data Provided for This Section History and Physicals No Data Provided for This Section Vital Signs Vital Sign Value Date Comments Source Systolic (mm Hg) 130 11/23/2018 [facility] Diastolic (mm Hg) 78 11/23/2018 [facility] Respitory Rate 18 11/23/2018 [facility] Heart Rate 61 11/23/2018 [facility] Temperature Oral (F) 97.5 F 11/23/2018 [facility] Systolic (mm Hg) 152 11/23/2018 [facility] Diastolic (mm Hg) 78 11/23/2018 [facility] Respitory Rate 18 11/23/2018 [facility] Temperature Oral (F) 97.8 F 11/23/2018 [facility] Heart Rate 60 11/23/2018 [facility] Temperature Oral (F) 98.3 F 11/23/2018 [facility] Heart Rate 71 11/23/2018 [facility] Respitory Rate 18 11/23/2018 [facility] Systolic (mm Hg) 127 11/23/2018 [facility] Diastolic (mm Hg) 70 11/23/2018 [facility] Height 163.83 cm 11/21/2018 [facility] Weight 100 11/21/2018 [facility] BMI Calculated 37.26 11/21/2018 [facility] Weight 99.7 11/21/2018 [facility] Height 162.5 cm 11/19/2018 [facility] BMI Calculated 37.94 11/19/2018 [facility] Weight 100.182 11/19/2018 [facility] Systolic (mm Hg) 138 11/19/2018 [facility] Center Diastolic (mm Hg) 84 11/19/2018 [facility] Temperature Oral (F) 98.3 F 11/19/2018 [facility] Heart Rate 76 11/19/2018 [facility] Respitory Rate 16 11/19/2018 [facility] Systolic (mm Hg) 158 11/17/2018 [facility] Center Diastolic (mm Hg) 62 11/17/2018 [facility] Respitory Rate 16 11/17/2018 [facility] Respitory Rate 20 11/17/2018 [facility] Systolic (mm Hg) 144 11/17/2018 [facility] Center Diastolic (mm Hg) 63 11/17/2018 [facility] Systolic (mm Hg) 151 11/17/2018 [facility] Center Diastolic (mm Hg) 70 11/17/2018 [facility] Respitory Rate 16 11/17/2018 [facility] Height 162.56 cm 11/17/2018 [facility] Weight 97.727 11/17/2018 [facility] BMI Calculated 36.98 11/17/2018 [facility] Heart Rate 89 11/17/2018 [facility] Systolic (mm Hg) 176 11/11/2018 [facility] Center Diastolic (mm Hg) 78 11/11/2018 [facility] Respitory Rate 18 11/11/2018 [facility] Center Systolic (mm Hg) 188 11/11/2018 [facility] Center Diastolic (mm Hg) 81 11/11/2018 [facility] Respitory Rate 18 11/11/2018 [facility] Systolic (mm Hg) 174 11/11/2018 [facility] Center Diastolic (mm Hg) 74 11/11/2018 [facility] Respitory Rate 18 11/11/2018 [facility] Weight 97.727 11/11/2018 [facility] Height 162.56 cm 11/11/2018 [facility] BMI Calculated 36.98 11/11/2018 [facility] Height 162.56 cm 11/09/2018 [facility] Respitory Rate 16 11/09/2018 [facility] Temperature Oral (F) 97.9 F 11/09/2018 [facility] Heart Rate 101 11/09/2018 [facility] BMI Calculated 37.01 11/09/2018 [facility] Weight 97.8 11/09/2018 [facility] Systolic (mm Hg) 122 11/09/2018 [facility] Diastolic (mm Hg) 78 11/09/2018 [facility] Respitory Rate 20 11/02/2018 [facility] Systolic (mm Hg) 148 11/02/2018 [facility] Diastolic (mm Hg) 65 11/02/2018 [facility] Heart Rate 60 11/02/2018 [facility] Temperature Oral (F) 97.7 F 11/02/2018 [facility] Heart Rate 62 11/02/2018 [facility] Respitory Rate 20 11/02/2018 [facility] Systolic (mm Hg) 151 11/02/2018 [facility] Diastolic (mm Hg) 78 11/02/2018 [facility] Temperature Oral (F) 98.2 F 11/02/2018 [facility] Heart Rate 52 11/02/2018 [facility] Systolic (mm Hg) 151 11/02/2018 [facility] Diastolic (mm Hg) 70 11/02/2018 [facility] Respitory Rate 20 11/02/2018 [facility] Temperature Oral (F) 97.4 F 11/02/2018 [facility] BMI Calculated 37.84 10/29/2018 [facility] Weight 100 10/29/2018 [facility] Height 162.56 cm 10/29/2018 [facility] Weight 100 10/28/2018 [facility] BMI Calculated 37.84 10/28/2018 [facility] Height 162.56 cm 10/28/2018 [facility] Encounters Location Location Encounter Encounter Reason Attending ADM DC Status Source Details Type Number For Provider Date Date [facility] [id number] Phone [phone] 11/05 11/07 [facility] Disease Message [place] Oncology Recurring [id number] Medina Chance 11/09 12/09 [facility] Bedded [id number] Rojelio 11/11 11/11 [facility] Outpatient 1 [facility] Out[facility] Diag [id number] Medina Chance 11/15 11/16 [facility] Surgery [id number] Ihsan 11/17 11/18 [facility] 0 Thosani [facility] Observation [id number] Naseem 11/21 11/23 [facility] 5 Leoncio [facility] Procedures No Data Provided for This Section Assessment and Plan Assessment and Plan Date Source Extracted from:Title: Consult Note 12/09/2018 [facility] Author: Medina Chance MD Date: 11/09/18 Body mass index (BMI) 37.0-37.9, adult(Z68.37) 1. Patient losing weight due to malignancy. 2. Nutrition consult. Ordered: CEA, 11/19/18, Routine, ONCE, Future Order CBC w/ Diff and Platelet, 11/19/18, Routine, ONCE, Future Order CMP, 11/19/18, Routine, ONCE, Future Order Magnesium Level, 11/19/18, Routine, ONCE, Future Order [id number] Office/Outpatient Visit New, 11/09/18 13:35:00 CDT, 24 hr, Cancer of colon | Body mass index (BMI) 37.0-37.9, adult Phosphorus Level, 11/19/18, Routine, ONCE, Future Order PT and PTT, 11/19/18, Routine, ONCE, Future Order Cancer of colon(C18.9), Cancer of colon(C18.9) 1. I have discussed patient's diagnosis. 2. I discussed that the goal of chemotherapy is palliative. 3. I need full staging and currently have a colonoscopy scheduled on 11/17/[address] chest w/ contrast. 4.patient already has CT abdomen scheduled at [facility] and requested for CDto be uploaded. 5. Ihad discussed potential treatment options with chemotherapy. 6. I will have IR place a portacath within the nextweek. Colon perforation: 1. Continue abcs. 2. ct abdomen tomorrow at [facility] and pending 11/15/18 -IR drain removal Leukocytosis/Thrombocytosis: Reactive, 2/2 malignancy. Hypothyroidism: Cont current meds. RTC 11/19/18 Thank you for the opportunity to care for this patient. I will continue to follow with you. Ordered: CEA, 11/19/18, Routine, ONCE, Future Order CEA, 11/09/18 12:37:00 CDT, Stat, ONCE CT Chest w contrast, 11/15/18, C4 order, Stat, 77 y/o, Transport by Bed, N/A, Patient has IV Yes, Oxygen, No Isolation/Standard Precautions, Future Order Indicator, [facility] Follow Up, Weeks - 2, 11/19/18, Future Order Indicator, Cancer of colon , GI - [facility], Medina Chance MD CBC w/ Diff and Platelet, 11/19/18, Routine, ONCE, Future Order CMP, 11/19/18, Routine, ONCE, Future Order Magnesium Level, 11/19/18, Routine, ONCE, Future Order [id number] Office/Outpatient Visit New, 11/09/18 13:35:00 CDT, 24 hr, Cancer of colon | Body mass index (BMI) 37.0-37.9, adult Phosphorus Level, 11/19/18, Routine, ONCE, Future Order PT and PTT, 11/19/18, Routine, ONCE, Future Order Vitamin D 25-Hydroxy, 11/09/18 12:37:00 CDT, Stat, ONCE Extracted from:Title: EGS Discharge summary 11/23/2018 [facility] Author: Anthony Barba MD Date: 11/23/18 Discharge Summary Attending Physician:Wendy Levy MD Date of Admission: Patient was admitted on 11/23/2018 Date of Discharge: 11/23/2018 14:51 Admission Diagnosis: Abscess of intestine (K63.0) Disease of intestine, unspecified (K63.9) Discharge Diagnosis: Abscess of intestine (K63.0) Disease of intestine, unspecified (K63.9) Physical Exam at discharge Constitutional: NAD Neuro: awake, responsive HEENT: NCAT CV: normal rate, +2 radial Pulm: CTAB, on RA Abdomen: NTND, soft, LLQ drain in place, minimal clear drainage in bag and around tube 2/2 flushing MSK: moves all extremities Consultations: Consulting Physicians: (none on file) Operative Procedures: (no surgical procedures documented) Imaging: Imaging Studies (last 36 hours) (none) Labs: 24hr Labs 11/23 0450 Glucose Lvl 76 BUN 11 Creatinine Lvl 0.98 Sodium Lvl 139 Potassium Lvl 3.3 L Chloride Lvl 104 CO2 25 AGAP 13.3 Calcium Lvl 8.7 eGFR 56 Magnesium Lvl 2.0 Phosphorus 3.1 Ca Ion WB 1.07 Ca Norm WB 1.05 WBC 9.3 RBC 3.96 L Hgb 10.3 L Hct 31.8 L MCV 80.3 MCH 25.9 L MCHC 32.3 RDW 24.1 H Platelet 269 MPV 10.4 Segs 64.2 Monocytes 11.7 Lymphocytes 18.3 L Eosinophils 4.5 H Basophils 1.3 H Neutrophils # 6.0 Lymphocytes # 1.7 Monocytes # 1.1 H Eosinophils # 0.4 Basophils # 0.1 RBC Morph Normal Plt Morph Normal Anisocyte 1+ Smudge Moderate Hospital Course: Patient was a 77 y/o female with recently diagnosed malignancy of the sigmoid colon, and right sided lung nodule with previous pelvic abscess s/p IR placement of drain who was admitted to [facility] on 11/21 w ith c/o increased LLQ pain, fevers, as well as drainage around previously placed IR drain for pelvic abscess. Patient was admitted, started on IV abx and IR was consulted for evaluation of drain exchang e vs upsizing. IR staff reviewed imaging determined that there was no longer any drainable fluid collection and that patient should maintain current drain throughout discharge with 2 week follow-up give n previous fistula noted on abscessogram. Hospital Day #2, patient found to have minimal output per drain as well as around drain, no leukocytosis, and no c /o abdominal pain or TTP throughout. Patient w as tolerating regular diet, pain controlled with PO medications, ambulating, and afebrile. Discharge Instructions: Wound Care: Was affected area with warm soap and water. Do not submerge in water (hot tubs/pools). Please notify your physician if any of the following occur: Bleeding, Fever, Pain, Signs of infection, Swelling Other Information Special Home Care Instructions: Call to schedule follow-up with Radiology in 2 weeks to assess drain. If drain completely ceease to have output or if having worsened drainage around drain site, establis h follow-up with radiology as quickly as possible. Activity: Lifting: No heavy lifting 10 lbs Bathing: Shower only Incision care: clean with soap and water only, no alcohols, no lotions; keep open to air, clean, and dry Diet: Medication List: Medication List Active Medications Ordered acetaminophen: 650 mg, 2 tab, PO, Q4H, PRN: Pain 1-3/Temp > 100.4 F. bisoprolol: 5 mg, 1 tab, PO, Daily. ciprofloxacin: 400 mg, 200 mL, 200 ml/hr, IVPB, [id number]. Dextrose 50% in Water IV: 12.5 gm, 25 mL, IVP, PRN, PRN: Blood Glucose Results. Dextrose 50% in Water IV: 25 gm, 50 mL, IVP, PRN, PRN: Blood Glucose Results. docusate: 100 mg, 1 cap, PO, BID. Electrolyte Solution 1,000 mL: 100 ml/hr, IV, Stop: 12/21/18 1:29: 00 CDT. enoxaparin: 40 mg, 0.4 mL, SUB-Q, [id number]. ferrous sulfate: 325 mg, 1 tab, PO, Daily. glucagon: 1 mg, IM, PRN, PRN: Blood Glucose Results. hydrochlorothiazide-triamterene: 0.5 tab, PO, Daily. melatonin: 10 mg, 2 tab, PO, Bedtime, PRN: Insomnia. metroNIDAZOLE: 500 mg, 100 mL, 200 ml/hr, IVPB, [id number]. potassium chloride: 10 mEq, 50 mL, 50 ml/hr, IVPB, ONCE. senna: 17.2 mg, 2 tab, PO, Bedtime. thyroid desiccated: 60 mg, 2 tab, PO, QNoon. thyroid desiccated: 60 mg, 2 tab, PO, Daily. Prescribed ciprofloxacin: 250 mg, 1 tab, PO, Q12H, for 4 day, 8 tab, 0 Refill(s ). docusate: 50 mg, 1 cap, PO, BID, PRN: Constipation, 60 cap, 0 Refill(s). ferrous sulfate: 325 mg, PO, Daily, for 30 day, 30 tab, 0 Refill(s) . metroNIDAZOLE: 500 mg, 1 tab, PO, TID, for 4 day, 12 tab, 0 Refill(s ). Documented bisoprolol: 5 mg, 1 tab, PO, Daily, 0 Refill(s). hydrochlorothiazide-triamterene: 0.5 tab, PO, Daily, 0 Refill(s). thyroid desiccated: See Instructions, 1 tab PO Daily, 0 Refill(s). thyroid desiccated: 30 mg, 1 tab, PO, QNoon, 0 Refill(s). Medications Inactivated in the Last 72 Hours aspirin: 324 mg, CHEW, ONCE. Electrolyte Solution: 1,000 mL, 1000 ml/hr, IV, ONCE. heparin: 5,000 unit, 1 mL, SUB-Q, Q8H. hydrALAZINE: 25 mg, 1 tab, PO, ONCE. Follow-Up appointments: Physician Follow-Up v2 Follow-Up With Provider : physician, physician #2, physician #3 Provider #1 : Rafael Allison MD Follow-Up Call : Call for appointment Follow-up with Provider within : 2 Weeks Reason : Follow-up on treatment MH Provider #2 : Medina Chance MD Follow-Up Call : Call for appointment Follow-up with Provider #2 within : 1 Week Reason : Oncological follow-up Provider #3 : Rojelio Mesa MD Follow-Up Call : Call for appointment Follow-up with Provider #3 within : 2 Weeks Reason : Follow-up on drain Please return to the ER, or call the physician/clinic with any chest pain, shortness of breath fever >101F, nausea, vomiting, diarrhea, pain unrelieved by pain medication no urine output for grea ter than 8 hours, any signs of infection around the incision/wound such as redness, swelling, drainage, or with any other concerns. Extracted from:Title: EGS Progress Note Author: Deng Heller MD Date: 11/22/18 Progress Note - Daily [facility] Completed: Thursday, NOVEMBER 22, 2018, 08: 57 by Deng Heller MD RM: [id number] - [id number], 3JP SHANIA AMAYA 77y (: 1940) F Attending: Wendy Levy MD Service : Surgery Reason for Admission: COLONIC MASS, ABSCESS OF SIGMOID COLON Working DRG: Code status: None Specified=FULL CODE Current diet: Isolation: No Isolation/Standard Precautions Allergies: codeine SUBJECTIVE Doing ok, pain well controlled, hungry and wishes to eat. OBJECTIVE General appearance: Patient well nourished, well developed, NAD, resting comfortably Skin: Integument intact without rashes or erythema HEENT: normocephalic, Pupils equal and reactive to light and accommodation, neck without masses or lymphadenopathy, tympanic membranes clear Heart:regular rate and rhythm Vascular exam: 2+ pulses throughout with good capillary refill Lungs: Symmetric Chest Rise and Fall Abdomen: soft, drain in place with some leakage around drain, not distended Musculoskeletal: no limitation of passive/active motion Neurological: appropriately interactive; CN II-XII intact 24hr Labs 11/21 1028 PT 16.1 H INR 1.32 H PTT 31.9 Watkins still necessary (Yes/No): Line still necessary (Yes/No): Vitals Tmp(F) Pulse BP RR SpO2 FIO2 11/22 06:46 98.2 63 125/75 18 97 --- 11/22 05:02 98.1 80 144/68 18 97 --- 11/22 00:20 98.1 67 130/68 18 97 --- 11/21 20:17 98.6 74 145/69 18 98 --- 11/21 15:26 98.3 77 151/72 18 100 --- 24 Hr Tmax: 98.6F (37.00c) at 11/21 20:17 Vital Signs are the last 5 in the past 48 hours. Date Wt(kg) Wt(lb) Ht(cm) Ht(in) Method 11/21 100.00 220.00 163.83 64.50 Lucita/Sta 11/20 (initial) 99.70 219.34 Estimated 11/21 163.83 64.50 Stated I&O Record In Out Bal 11/21 24hr Tot 3280 15 3265 11/20 24hr Tot 1000 30 970 Medications (17) Active Scheduled Meds (9): 11/21/18 bisoprolol 5 mg PO Daily 11/21/18 ciprofloxacin 400 mg IVPB [id number] 200 ml/hr 11/21/18 docusate 100 mg PO BID 11/21/18 ferrous sulfate (Feosol 325 mg oral tablet) 325 mg PO Daily 11/21/18 hydrochlorothiazide-triamterene (hydrochlorothiazide-triamterene 50 mg -75 mg oral tablet) 0.5 tab PO Daily 11/21/18 metroNIDAZOLE (Flagyl) 500 mg IVPB [id number] 200 ml/hr 11/21/18 senna 17.2 mg PO Bedtime 11/21/18 thyroid desiccated ([place] Thyroid) 60 mg PO QNoon 11/21/18 thyroid desiccated ([place] Thyroid) 60 mg PO Daily Unscheduled Meds: None PRN Meds (5): 11/21/18 Dextrose 50% in Water IV (Dextrose 50% Syringe) 12.5 gm IVP PRN 11/21/18 Dextrose 50% in Water IV (Dextrose 50% Syringe) 25 gm IVP PRN 11/21/18 acetaminophen 650 mg PO Q4H 11/21/18 glucagon 1 mg IM PRN 11/21/18 melatonin 10 mg PO Bedtime One Time Meds (2): 11/20/18 (Completed) Electrolyte Solution (Isolyte S PH-7.4 (Bolus) IV) 1,000 mL IV ONCE 1000 ml/hr 11/21/18 (Discontinued) aspirin 324 mg CHEW ONCE Continuous Infusions (1): 11/21/18 Electrolyte Solution 1,000 mL (Isolyte S PH 7.4 1,000 mL) 1,000 mL 100 ml/hr ASSESSMENT and PLAN 77F with perforated sigmoid adenocarcinoma now s/p IR drain with leakage around drain -Pending IR for possible drain upsizing. Plan for Thursday 11/23. NPO after midnight. Deng Heller MD General Surgery PGY3 Addendum by Nestor Miles MD on 11/22/2018 16:43 I have discussed the patient with the chief resident, Samina Macdonald, and agree with the assessment and plan. Extracted from:Title: Consultation Note Author: Anthony Barba MD Date: 11/21/18 Assessment and Plan: Patient is a 77 y/o female who presents to [facility] ED with complaints of LLQ abdominal pain and foul smelling discharge around previously placed IR drain for pelvic fluid collection. CT AP performed at OSH demonstrates interval increase in dimensions of pelvic fluid collection with drain in place. -Admit to EGS, under observation -AM IR consultation for upsizing vs drain placement to pelvic fluid collection. -S/w oncology to determine goals including timing of chemotherapy -MMP -NPO pending possible procedure -mIVF Prophylaxis: LVX 40 q24, held pending possible IR procedure Disposition: Inpatient care per EGS Anthony Barba Jr., MD General Surgery PGY-1 MSO # [id number] Pager #: [phone] EGS Consult Note 11/21/2018 00:13 Consulting Physician: Wendy Levy MD Requesting Physician: Kennedy Mcloed MD Reason for Consultation: Pelvic fluid collection HPI: Patient is a 77 y/o female with PMH of HTN and hypothyroidism who was recently discharged from [facility] after she was found to have colonic perforation and concerns for a sigmoid mass and nodule in right ivan g when she presented to OSH for ground level fall. Prior to discharge IR placed a 10Fr pigtail drain in the LLQ to drain this fluid collection. At time of previous discharge patient was advised to follo w-up with GI for colonoscopy to obtain biopsy of this sigmoid colon mass as well as with IR for biopsy of lung nodule. Patient has since had her colonoscopy , biopsy demonstrated moderately differentiate d adenocarcinoma, patient has yet to obtain lung nodule biopsy. Also at time of previous discharge, Oncology was consulted with Dr. Chance who discussed with patient options for palliative chemotherapy, p atient was scheduled for permacath placement which has not yet been performed. This admission, patient presents with c/o LLQ abdominal pain as well as foul smelling drainage around her IR drain, associated with fevers as high as 101 recorded at home. Patient reports that she has c ontinued to flush her drain as she was instructed to do prior to discharge and reports that bag has continued to work as it had previously with no issues. Of note, patient stats that she has also seen s mall blood clots within her drain bag however no ponce blood and states the she has also had dark red blood in her stool which she had also c/o at previous admission. Review of Systems: Constitutional Symptoms: no fever, no weight loss, no weight gain, no fatigue , no malaise Eyes: no diplopia, no blurred vision, no redness, no discharge, no loss of vision Ears, Nose, Mouth, Throat: no dysphagia, no odynophagia, no otalgia, no deafness, no rhinorrhea Cardiovascular: no chest pain, no SOB, no AMBROSE, no orthopnea, no PND, exercise tolerated, no palpitations Respiratory: same as CVS, no cough, no hemoptysis Gastrointestinal: no NVD, no BPR, no dark stool, no constipation, + abdominal pain, + foul smelling output around drain Genitourinary: no dysuria, no frequency, no urgency, no nocturia, no incontinence Musculoskeletal: no arthralgia, no myalgia, no stiffness Integumentary: (skin and/or breast): no rash, no hives, no breast pain, no mass , no nipple dc Neurological: no weakness, no headache, no seizure, no dizziness, no tingling, no numbness Psychiatric: no anxiety, no depression, no insomnia Endocrine: no polyuria, no polydipsia, no fatigue, no weight loss, no weight gain, no cold or heat intolerance, no palpitations Hematologic/Lymphatic: no bleeding, no bruising, no edema, no lumps (axilla groin neck) Allergic/Immunologic: no rash, no allergies, no fever, no chills PMH: Anemia Anxiety Arthritis Hypertension Thyroid disease PSH: (no surgical procedures documented) Social History: Tobacco Details: Use: Never smoker. Tobacco smoke exposure: None. Did the Patient Smoke Cigarettes Anytime During the Last 365 Days? No. Cessation Counseling Provided? No. Medications: Medications (1) Active Scheduled Meds: None Unscheduled Meds: None PRN Meds: None One Time Meds (1): 11/20/18 (Ordered) Electrolyte Solution (Isolyte S PH-7.4 (Bolus) IV) 1,000 mL IV ONCE 1000 ml/hr Continuous Infusions: None Allergies: Allergies (1) Active Reaction codeine None documented Physical Examination/Findings: Vital Signs: Vitals Tmp(F) Pulse BP RR SpO2 FIO2 11/20 22:29 98.5 70 147/62 18 96 --- 24 Hr Tmax: 98.5F (36.94c) at 11/20 22:29 Vital Signs are the last 5 in the past 48 hours. General appearance: Patient well nourished, well developed, NAD, resting comfortably Skin: Integument intact without rashes or erythema HEENT: normocephalic, Pupils equal and reactive to light and accommodation, neck without masses or lymphadenopathy, tympanic membranes clear Heart:regular rate and rhythm without clicks/rubs or murmurs Vascular exam: 2+ pulses throughout with good capillary refill and no evidence of venous insufficiency Lungs: Symmetric Chest Rise and Fall Abdomen: soft, TTP in LLQ, with previously placed drain in place, foul smelling fluid draining around tube site, non-distended without palpable masses , no hepato-splenomegaly Musculoskeletal: no limitation of passive/active motion Neurological: appropriately interactive; CN II-XII intact No I and O Data Available Labs: (no lab data in past 24 hours) Imaging Studies (last 36 hours) (none) Emergency General Surgery Faculty Addendum I have seen and examined the patient with the resident. I have reviewed the pertinent laboratory values and imaging studies. I agree with the assessment and plan as documented in the attached note and as detailed below: Perforated sigmoid adenocarcinoma -- s/p IR drain which is still functioning. However, may need to be upsized based on outside imaging and leakage around drain. WBC 12.9. Afebrile. Start antibiotics and consult IR. Wendy Levy MD Extracted from:Title: Interventional Radiology 11/02/2018 [facility] Author: Lizbeth Herrmann NP Date: 11/02/18 Progress Note - Daily [facility] Completed: Friday, NOVEMBER 02, 2018, 15: 24 by Lizbeth Herrmann RELATIONS DIRECTOR RM: [id number] - [id number], 6EJP SHANIA AMAYA [...] palpable distal pulses, no edema 24hr Labs 05/07 0319 WBC 13.6 H RBC 4.22 Hgb [...] 1 patch TOP Daily 10/29/18 thyroid desiccated ([place] Thyroid) 30 mg PO QNoon 10/29/18 thyroid desiccated ([place] Thyroid) 60 mg PO Daily Unscheduled Meds: [...] with the IR Clinic in 1 w [place]. She is also to follow up with the IR Clinic regarding a biopsy of her right lung nodule. Plan of care was discussed with the patient, family, RN, and IR Attending, Dr. Hughes. Lizbeth Herrmann, ACNP-BC [facility] Interventional Radiology Extracted from:Title: GI Initial Consult Note Author: Ihsan Treviño MD Date: 10/29/18 Ms. Amaya is a 77yo F [...] you for the consult. Ihsan Treviño MD, [facility] Rubio Chicas MD Chair in Gastroenterology, Hepatology and Element Winding Machine Tender of Advanced Endoscopy, Stenotypist [facility], [facility], [facility] [phone] (New Patient Referral) [phone] or [phone] (Office Phone, [place], [facility]) [phone] (Office Fax, [place], [facility]) [phone] (Administrative Office, [facility]) [phone] (Fax, Administrative Office, [facility]) [phone] (Pager) Extracted from:Title: Surgery H&P Author: Camilo Bess MD Date: 10/28/18 77yoF w/ PMH of HTN, hypothyroidism transferred from OSH forsigmoid colon perforationw/ surrounding abscess, with imaging findings indicating likely malignancy w/ mass lesions noted in the sigmoid colon and right lung. - Admit to 6J under EGS. - NPO, mIVF. 1 time [...] AM for possible IR drainage. Admit to 6J surgical floor. Emergency General Surgery Faculty Addendum [...] with a LLQabscess pericolonic abscess thatinvolves her abdominalwall, 3 cm sigmoid colon mass. She has a nodule noted i n herright upper lobe concerning for metastatic disease. [...] exams. Shahriar Rios MD Emergency General Surgery Plan of Care No Data Provided for This Section Social History Social History Date Source Social History TypeResponse 11/21/2018 [facility] Smoking Status Former smoker; Type: Cigarettes; Previous treatment: None; Exposure to Tobacco Smoke None; Cigarette Smoking Last 365 Days No; Reg Smoking Cessation Counseling No; Started at age: 20.0; Stopped at age: 30; entered on: 11/21/18 Social History TypeResponse 11/17/2018 [facility] Smoking Status Never smoker; Exposure to Tobacco Smoke None; Cigarette Smoking Last 365 Days No; Reg Smoking Cessation Counseling No entered on: 11/17/18 Social History TypeResponse 10/28/2018 [facility] Smoking Status Never smoker; Exposure to Tobacco Smoke None; Cigarette Smoking Last 365 Days No; Reg Smoking Cessation Counseling No entered on: 10/28/18 Family History No Data Provided for This Section Advance Directives No Data Provided for This Section Functional Status No Data Provided for This Section
--- OUTSIDE RECORDS SUMMARY | 2019-02-04 17:03 | XMS REPORT ---
:1940 Author Organization [facility] Address [address] [place] [address] Dr. [address] [place] [id number] Care Team Providers Name Role Phone Unavailable Unavailable Unavailable Problems This patient has no known problems. Allergies, Adverse Reactions, Alerts This patient has no known allergies or adverse reactions. Medications This patient has no known medications. Encounters Start End Encounter Admission Attending Care Care Encounter Date/Time Date/Time Type Type Clinicians Facility Department ID 2018-11-28 Outpatient [facility] [id number] 14:51:58 2018-11-21 2018-11-21 Outpatient E [facility] [id number] 01:30:00 01:30:00 2018-11-17 2018-11-17 Outpatient [facility] [id number] 12:49:00 12:49:00 2018-11-11 2018-11-11 Outpatient [facility] [id number] 11:51:00 11:51:00 2018-11-09 2018-11-09 Outpatient [facility] [id number] 10:28:00 10:28:00 2018-10-28 2018-10-28 Inpatient E [facility] [id number] 21:35:00 14:56:00
[2019-02-04] MEDS ORDERED: NA CHLORIDE 0.9% 1,000 ML ONE (17:35)
[2019-02-04 18:09] LABS: Basophils % 0.3 % (0-1.3); Hematocrit 31.1 % (36.0-45.0); Lymphocytes % 7.7 % (15.3-44.8); MPV 8.9 fL (7.6-11.3); RBC Red Blood Cell Count 3.95 M/uL (3.86-4.86)
[2019-02-04 18:10] LABS: Protime INR 1.31
--- NOTE | 2019-02-04 18:11 | RAD REPORT ---
EXAM DESCRIPTION: RAD - Chest Single View - 02/04/2019 6:03 pm CLINICAL HISTORY: hyponatremia Chest pain. COMPARISON: Chest Single View dated 11/20/2018; Chest Single View dated 10/28/2018 FINDINGS: Portable technique limits examination quality. Emphysematous changes are present throughout the lungs. The patient's known right medial upper lobe 2 cm lung mass appears unchanged. The heart is normal in size. No displaced fractures.
[2019-02-04 18:24] LABS: ALT/SGPT 20 U/L (12-78); AST/SGOT 22 U/L (15-37); Albumin 2.7 g/dL (3.4-5.0); Alkaline Phosphatase 81 U/L (45-117); BUN Blood Urea Nitrogen 14 mg/dL (7-18); Bicarbonate 23 mmol/L (21-32); Bilirubin Direct 0.1 mg/dL (0-0.2); Bilirubin Total 0.3 mg/dL (0.2-1.0); Glucose Level 96 mg/dL (74-106); Magnesium 1.8 mg/dL (1.8-2.4); NT PRO-BNP 1414 pg/mL (<450); Potassium 3.7 mmol/L (3.5-5.1); Protein, Total 8.7 g/dL (6.4-8.2); Sodium Level 120 mmol/L (136-145); Troponin (Emerg Dept Use Only) < 0.02 ng/mL (0.0-0.045)
--- NOTE | 2019-02-04 18:31 | EDPHYS ---
Physician Documentation [facility] Name: Tesha Amaya Age: 78 yrs Sex: Female : 1940 Arrival Date: 02/04/2019 Time: 16:57 Bed 28 Private MD: ED Physician Fred Mcdonnell HPI: 02/04 18:31 This 78 yrs old Female presents to ER via Wheelchair with complaints of kdr Abnormal Lab Results (NA 117). 18:31 The patient has been feeling poorly for the past 24-48 hours for with vomiting x 3. kdr 19:00 Onset: The symptoms/episode began/occurred gradually, today. Severity of symptoms: At kdr their worst the symptoms were mild in the emergency department the symptoms are unchanged. The patient has not experienced similar symptoms in the past. The patient has not recently seen a physician. Historical: - Allergies: 17:18 Codeine; aa5 - Home Meds: 20:37 [place] Thyroid 60 mg Oral tab twice a day [Active]; bisoprolol fumarate 5 mg Oral tab 1 la1 tab once daily [Active]; triamterene-hydrochlorothiazid 75-50 mg Oral tab 1 tab once daily [Active]; ferrous sulfate 325 mg (65 mg iron) Oral tab [Active]; tramadol 50 mg Oral tab 1 tab every 6 hours [Active]; methocarbamol 500 mg Oral tab 1 tabs Q8H [Active]; - PMHx: 17:18 Hypertension; Hypothyroidism; Colon cancer; aa5 - PSHx: 17:18 Ileostomy; aa5 - Immunization history:: Pneumococcal vaccine is not up to date, Flu vaccine is not up to date. - Social history:: Smoking status: Patient/guardian denies using tobacco. - Ebola Screening: : No symptoms or risks identified at this time. ROS: 19:00 Constitutional: Negative for fever, chills, and weight loss, Eyes: Negative for injury, kdr pain, redness, and discharge, Neck: Negative for injury, pain, and swelling, Cardiovascular: Negative for chest pain, palpitations, and edema, Respiratory: Negative for shortness of breath, cough, wheezing, and pleuritic chest pain, Back: Negative for injury and pain, : Negative for injury, bleeding, discharge, and swelling, MS/Extremity: Negative for injury and deformity, Skin: Negative for injury, rash, and discoloration, Neuro: Negative for headache, weakness, numbness, tingling, and seizure activity. Psych: Negative for depression, anxiety, suicide ideation, homicidal ideation, and hallucinations, Allergy/Immunology: Negative for hives, rash, and allergies, Endocrine: Negative for neck swelling, polydipsia, polyuria, polyphagia, and marked weight changes, Hematologic/Lymphatic: Negative for swollen nodes, abnormal bleeding, and unusual bruising. 19:00 Abdomen/GI: Positive for nausea and vomiting, diarrhea, Stool has been loose today, Negative for abdominal cramps, abdominal distension, anorexia, dysphagia, hematemesis, black/tarry stool, rectal bleeding. Exam: 19:00 Constitutional: This is a well developed, well nourished patient who is awake, alert, kdr and in no acute distress. Head/Face: Normocephalic, atraumatic. Eyes: Pupils equal round and reactive to light, extra-ocular motions intact. Lids and lashes normal. Conjunctiva and sclera are non-icteric and not injected. Cornea within normal limits. Periorbital areas with no swelling, redness, or edema. Neck: Trachea midline, no thyromegaly or masses palpated, and no cervical lymphadenopathy. Supple, full range of motion without nuchal rigidity, or vertebral point tenderness. No Meningismus. Chest/axilla: Normal chest wall appearance and motion. Nontender with no deformity. No lesions are appreciated. Cardiovascular: Regular rate and rhythm with a normal S1 and S2. No gallops, murmurs, or rubs. Normal PMI, no JVD. No pulse deficits. Respiratory: Lungs have equal breath sounds bilaterally, clear to auscultation and percussion. No rales, rhonchi or wheezes noted. No increased work of breathing, no retractions or nasal flaring. Back: No spinal tenderness. No costovertebral tenderness. Full range of motion. Skin: Warm, dry with normal turgor. Normal color with no rashes, no lesions, and no evidence of cellulitis. MS/ Extremity: Pulses equal, no cyanosis. Neurovascular intact. Full, normal range of motion. Neuro: Awake and alert, GCS 15, oriented to person, place, time, and situation. Cranial nerves II-XII grossly intact. Motor strength 5/5 in all extremities. Sensory grossly intact. Cerebellar exam normal. Normal gait. Psych: Awake, alert, with orientation to person, place and time. Behavior, mood, and affect are within normal limits. 19:00 Abdomen/GI: Inspection: abdomen appears normal, The patient has a colostomy and a drain from a mass surrounding her abdominal mass/lesion. Vital Signs: 17:18 BP 136 / 55; Pulse 75; Resp 16 S; Temp 98.3(TE); Pulse Ox 99% on R/A; Weight 94.8 kg aa5 (R); Height 5 ft. 4 in. (162.56 cm) (R); Pain 0/10; 18:40 BP 154 / 54; Pulse 65; Resp 16; Pulse Ox 98% on R/A; la1 19:29 BP 165 / 56; Pulse 71; Resp 20; Temp 98.0(O); Pulse Ox 100% ; lt1 20:37 BP 151 / 50; Pulse 70; Resp 16; Temp 98.4; Pulse Ox 98% on R/A; la1 17:18 Body Mass Index 35.87 (94.80 kg, 162.56 cm) aa5 MDM: 18:31 Patient medically screened. kdr 19:00 Data reviewed: vital signs, lab test result(s), EKG, radiologic studies. Counseling: I kdr had a detailed discussion with the patient and/or guardian regarding: the historical points, exam findings, and any diagnostic results supporting the discharge/admit diagnosis, lab results, radiology results, the need for further work-up and treatment in the hospital. 02/04 17:30 Order name: Basic Metabolic Panel; Complete Time: 18:27 snw 02/04 17:30 Order name: CBC with Diff; Complete Time: 18:27 snw 02/04 17:30 Order name: LFT's; Complete Time: 18:27 snw 02/04 17:30 Order name: Magnesium; Complete Time: 18:27 snw 02/04 17:30 Order name: NT PRO-BNP; Complete Time: 18:27 snw 02/04 17:30 Order name: PT-INR; Complete Time: 18:27 snw 02/04 17:30 Order name: Troponin (emerg Dept Use Only); Complete Time: 18:27 snw 02/04 17:30 Order name: Urine Osmolality snw 02/04 17:30 Order name: Urine Sodium Random snw 02/04 17:30 Order name: Blood Culture Adult (2) snw 02/04 17:30 Order name: Urine Culture snw 02/04 17:33 Order name: Osmolality, Serum; Complete Time: 19:06 la1 02/04 20:04 Order name: Cortisol EDNV 02/04 17:30 Order name: XRAY Chest (1 view); Complete Time: 18:27 snw 02/04 17:30 Order name: EKG; Complete Time: 17:34 snw 02/04 17:30 Order name: Cardiac monitoring; Complete Time: 18:08 snw 02/04 17:30 Order name: EKG - Nurse/Tech; Complete Time: 17:52 snw 02/04 17:30 Order name: IV Saline Lock; Complete Time: 17:33 snw 02/04 17:30 Order name: Labs collected and sent; Complete Time: 17:33 snw 02/04 17:30 Order name: O2 Per Protocol; Complete Time: 17:52 snw 02/04 17:30 Order name: O2 Sat Monitoring; Complete Time: 17:52 snw 02/04 20:04 Order name: UR POTASSIUM EDNV 02/04 20:04 Order name: UR SODIUM EDNV 02/04 20:05 Order name: Urinalysis EDNV 02/04 20:05 Order name: Uric Acid EDNV 02/04 20:07 Order name: Vitamin B12 Level EDNV 02/04 20:07 Order name: Transferrin Sat/Iron Binding EDNV Administered Medications: 18:08 Drug: NS 0.9% 1000 ml Route: IV; Rate: 75 ml/hr; Site: left antecubital; la1 20:54 Follow up: IV Status: Infusion continued upon admission la1 Disposition: 02/04/19 18:31 Hospitalization ordered by Zev Gordon for Inpatient Admission. Preliminary diagnosis are Hypo-osmolality and hyponatremia, Weakness, Nausea and vomiting. - Bed requested for Telemetry/MedSurg (Inpatient). - Status is Inpatient Admission. la1 - Condition is Fair. - Problem is new. - Symptoms have improved. UTI on Admission? No Signatures: Dispatcher [employer] EDNV Fred Mcdonnell MD MD kdr Therrien, Shelly, BRICK EXTRUDER OPERATOR-C BRICK EXTRUDER OPERATOR-Csnw Workman, Rosangela, RN RN aa5 Scott Swan RN RN la1 Sally Casanova, FLORIAN RN cg Corrections: (The following items were deleted from the chart) 17:55 17:30 Watkins ordered. snw la1 20:06 19:59 URINE DIPSTICK--ANCILLARY+U.LAB.BRZ ordered. EDMS EDMS 20:10 18:31 Hospitalization Ordered by Zev Gordon DO for Inpatient Admission. Preliminary cg diagnosis is Hypo-osmolality and hyponatremia; Weakness; Nausea and vomiting. Bed requested for Telemetry/MedSurg (Inpatient). Status is Inpatient Admission. Condition is Fair. Problem is new. Symptoms have improved. UTI on Admission? No. kdr 21:20 20:10 02/04/2019 18:31 Hospitalization Ordered by Zev Gordon DO for Inpatient la1 Admission. Preliminary diagnosis is Hypo-osmolality and hyponatremia; Weakness; Nausea and vomiting. Bed requested for Telemetry/MedSurg (Inpatient). Status is Inpatient Admission. Condition is Fair. Problem is new. Symptoms have improved. UTI on Admission? No. cg
--- NOTE | 2019-02-04 18:31 | ER ---
Nurse's Notes [facility] Name: Tesha Amaya Age: 78 yrs Sex: Female : 1940 Arrival Date: 02/04/2019 Time: 16:57 Bed 28 Private MD: Diagnosis: Hypo-osmolality and hyponatremia;Weakness;Nausea and vomiting Presentation: 02/04 17:16 Presenting complaint: [id number] states "MD Fang called and said she is aa5 critically low on Sodium and told us to come to the ER". Pt c/o nausea/vomiting. Transition of care: patient was not received from another setting of care. Onset of symptoms was February 04, 2019. Care prior to arrival: None. 17:16 Acuity: DIANNA 3 aa5 17:16 Method Of Arrival: Wheelchair aa5 17:38 Risk Assessment: Do you want to hurt yourself or someone else? Patient reports no la1 desire to harm self or others. Initial Sepsis Screen: Does the patient meet any 2 criteria? No. Patient's initial sepsis screen is negative. Does the patient have a suspected source of infection? No. Patient's initial sepsis screen is negative. Historical: - Allergies: 17:18 Codeine; aa5 - Home Meds: 20:37 [place] Thyroid 60 mg Oral tab twice a day [Active]; bisoprolol fumarate 5 mg Oral tab 1 la1 tab once daily [Active]; triamterene-hydrochlorothiazid 75-50 mg Oral tab 1 tab once daily [Active]; ferrous sulfate 325 mg (65 mg iron) Oral tab [Active]; tramadol 50 mg Oral tab 1 tab every 6 hours [Active]; methocarbamol 500 mg Oral tab 1 tabs Q8H [Active]; - PMHx: 17:18 Hypertension; Hypothyroidism; Colon cancer; aa5 - PSHx: 17:18 Ileostomy; aa5 - Immunization history:: Pneumococcal vaccine is not up to date, Flu vaccine is not up to date. - Social history:: Smoking status: Patient/guardian denies using tobacco. - Ebola Screening: : No symptoms or risks identified at this time. Screenin:38 Abuse screen: Denies threats or abuse. Nutritional screening: No deficits noted. la1 Tuberculosis screening: No symptoms or risk factors identified. Fall Risk None identified. Assessment: 17:36 Reassessment: states lab called and said sodium was critically low. General: Appears la1 comfortable, well developed, Behavior is calm, cooperative. Pain: Denies pain. Neuro: Level of Consciousness is awake, alert, obeys commands, Oriented to person, place, time, situation. Cardiovascular: Capillary refill < 3 seconds Patient's skin is warm and dry. Respiratory: Airway is patent Respiratory effort is even, unlabored, Respiratory pattern is regular, symmetrical. GI: Ileostomy site is clean and dry. Ostomy appliance. : No signs and/or symptoms were reported regarding the genitourinary system. 19:20 Reassessment: Patient appears in no apparent distress at this time. No changes from la1 previously documented assessment. Patient and/or family updated on plan of care and expected duration. Pain level reassessed. Patient is alert, oriented x 3, equal unlabored respirations, skin warm/dry/pink. Vital Signs: 17:18 BP 136 / 55; Pulse 75; Resp 16 S; Temp 98.3(TE); Pulse Ox 99% on R/A; Weight 94.8 kg aa5 (R); Height 5 ft. 4 in. (162.56 cm) (R); Pain 0/10; 18:40 BP 154 / 54; Pulse 65; Resp 16; Pulse Ox 98% on R/A; la1 19:29 BP 165 / 56; Pulse 71; Resp 20; Temp 98.0(O); Pulse Ox 100% ; lt1 20:37 BP 151 / 50; Pulse 70; Resp 16; Temp 98.4; Pulse Ox 98% on R/A; la1 17:18 Body Mass Index 35.87 (94.80 kg, 162.56 cm) aa5 ED Course: 16:57 Patient arrived in ED. as 17:12 Fred Mcdonnell MD is Attending Physician. kdr 17:16 Arm band placed on. aa5 17:17 Triage completed. aa5 17:20 Scott Swan, FLORIAN is Primary Nurse. la1 17:37 Inserted saline lock: 22 gauge in left antecubital area, using aseptic technique. Blood la1 collected. 17:38 Placed in gown. Bed in low position. Call light in reach. hydraulic spinner on. Pulse ox la1 on. NIBP on. 18:04 XRAY Chest (1 view) In Process Unspecified. EDMS 18:29 Zev Gordon DO is Hospitalizing Provider. kdr 20:53 No provider procedures requiring assistance completed. Patient admitted, IV remains in la1 place. Administered Medications: 18:08 Drug: NS 0.9% 1000 ml Route: IV; Rate: 75 ml/hr; Site: left antecubital; la1 20:54 Follow up: IV Status: Infusion continued upon admission la1 Outcome: 18:31 Decision to Hospitalize by Provider. kdr 20:53 Admitted to Tele accompanied by tech, via stretcher, with chart. la1 20:53 Condition: stable 20:53 Instructed on the need for admit. 21:20 Patient left the ED. la1 Signatures: Dispatcher [employer] EDMS Fred Mcdonnell MD MD kdr Martinez, Amelia as Calderon, Audri, RN RN aa5 Scott Swan RN RN la1 Chichi Mason [facility]
--- NOTE | 2019-02-04 20:13 | P.HP ---
Certification for Inpatient Patient admitted to: Inpatient Patient will require the following post-hospital care: None Practitioner: I am a practitioner with admitting privileges, knowledge of patient current condition, hospital course, and medical plan of care. Services: Services provided to patient in accordance with Admission requirements found in Title 42 Section 412.3 of the Code of Federal Regulations Patient History Date of Service: 02/04/19 Primary Care Provider: Dr. Collazo; GastroOncology-Dr. Ramachandran Reason for admission: Abnormal lab History of Present Illness: 78-year-old female with history of colon cancer, hypertension and hypothyroidism, came to the ER after she was told due to abnormal lab. Patient is seen by Gastroenterology in [facility]. She had just seen her gastro oncologist today. Lab and follow up CT scan was obtained. She had a phone call which reported a low-sodium. She was told to go to the ER for further evaluation. Patient has been reporting some nausea and vomiting over the last 2 days. She denies any diarrhea, constipation. She did report some loose stool to her ileostomy bag. Patient has colon cancer with a drain to the abdomen due to an abscess. She had a drain placed 3 months ago. It was repositioned last Thursday. This is being closely followed by gastro oncology. In the ER patient evaluated. Sodium 120, potassium 3.7, chloride 85, CO2 23, BUN of 24, creatinine 1.25 with a GFR 42. White count 13.4, hemoglobin 10. Platelet count 493. Urinalysis pending at this time. Uric acid level pending. Other urine spot check levels are to be obtained. Patient is taking Dyazide at home. Due to the nature of the electrolyte in balance the patient was admitted for further treatment and evaluation. When I saw the patient ER, she appeared comfortable. She denied any chest pain , shortness of breath. Family at bedside Home medications list reviewed: Yes - Past Medical/Surgical History Diabetic: No -: Hypertension -: Hypothyroidism -: Colon cancer, stage IV with lung mass -: Left lower quadrant abscess with a drain -: Ileostomy -: Placement of catheter drain to the left lower quadrant Psychosocial/ Personal History: Patient lives at home - Family History Family History: Reviewed- Non-Contributory - Social History Smoking Status: Never smoker Alcohol use: No CD- Drugs: No Caffeine use: No Place of Residence: Home Review of Systems General: As per HPI Eyes: Unremarkable ENT: Unremarkable Respiratory: Unremarkable Cardiovascular: Unremarkable Gastrointestinal: Nausea, Vomiting, As per HPI Genitourinary: Unremarkable Musculoskeletal: Unremarkable Integumentary: Unremarkable Neurological: Unremarkable Lymphatics: Unremarkable Physical Examination - Physical Exam General: Alert, In no apparent distress, Oriented x3, Cooperative HEENT: Atraumatic, Normocephalic, PERRLA, Mucous membr. moist/pink Neck: Supple, No Thyromegaly Respiratory: Clear to auscultation bilaterally, Normal air movement Cardiovascular: Normal pulses, Regular rate/rhythm Gastrointestinal: Normal bowel sounds, Soft and benign, Non-distended, No tenderness, No masses, No rebound, No guarding, Other (The ostomy bag in place. Drain to the left lower quadrant) Integumentary: No tenderness/swelling, No erythema, No warmth, No cyanosis Neurological: Normal speech, Normal strength at 5/5 x4 extr, Normal tone, Normal affect - Studies Laboratory Data (last 24 hrs) 02/04/19 17:30: PT 15.3 H, INR 1.31 02/04/19 17:30: WBC 13.4 H, Hgb 10.0 L, Hct 31.1 L, Plt Count 493 H 02/04/19 17:30: Sodium 120 L, Potassium 3.7, BUN 14, Creatinine 1.25, Glucose 96 , Magnesium 1.8, Total Bilirubin 0.3, AST 22, ALT 20, Alkaline Phosphatase 81 Assessment and Plan - Plan Impression: Acute hyponatremia etiology unknown likely related to medication-Dyazide or SIADH Hypertension Hypothyroidism Colon cancer with ileostomy bag complicated with abscess to the left lower quadrant with drain in place Right middle lobe 2 cm lung mass likely metastatic Anemia of chronic disease with iron deficiency Plan: Acute hyponatremia etiology unknown likely related to medication-Dyazide or SIADH: Patient will be admitted for further evaluation and treatment. Will start normal saline at a low rate. Case discussed with nephrology who has been consulted. Will obtain uric acid, spot urine and spot sodium with urinalysis. Will also obtain cortisol level, tsh and free T4. Will recheck BMP in 4 hr to make sure sodium has not corrected too quickly. Will continue monitor closely. Will discontinue Dyazide. Recheck lab in the morning. Await further recommendations from nephrology. Will start DVT prophylaxis-Lovenox. Anticipate discharge in the next 1-2 days pending clinical improvement with lab improvement as well. Hypertension: Continue with Bisopropolol 5 mg 1 pill twice daily. Will adjust accordingly. Hypothyroidism: Continue with home medication [place] thyroid 60 mg twice daily. Will check tsh, free T4, total T3 and total T4. Colon cancer with ileostomy bag complicated with abscess to the left lower quadrant with drain in place: This is being managed by gastro oncology-Dr. Ramachandran at [facility]. I placed a call to him at [phone]. She apparently had a CT scan done today. Family reports that her cancer and abscess has not significantly changed. There is a plan to remove the drainage catheter within the next week. Will obtain procalcitonin level as patient has had recent fevers. Gastro oncology is aware. No need for antibiotic treatment at this time. Right middle lobe 2 cm lung mass likely metastatic: This is being managed by oncology. Anemia of chronic disease with iron deficiency: Continue with iron supplementation. Discharge Plan: Home Plan to discharge in: 72 Hours - Advance Directives Does patient have a Living Will: No Does patient have a Durable POA for Healthcare: No - Code Status/Comfort Care Code Status Assessed: Yes (Patient is full code) Time Spent Managing Pts Care (In Minutes): 55
[2019-02-04] MEDS: THYROID 30 MG TAB PO SCH (21:53)
[2019-02-04] MEDS: BISOPROLOL 5 MG TABLET PO SCH (21:53)
[2019-02-04] MEDS ORDERED: NA CHLORIDE 0.9% 1,000 ML IV SCH (21:53)
[2019-02-04] MEDS ORDERED: ACETAMINOPHEN 500 MG TAB PO PRN (21:53)
[2019-02-04] MEDS ORDERED: ONDANSETRON 4 MG/2 ML VIAL IV PRN (21:53)
[2019-02-04 22:32] VITALS: BMI 35.9
[2019-02-04 23:24] LABS: Potassium 3.7 mmol/L (3.5-5.1)
[2019-02-05 00:14] LABS: Urine Appearance CLEAR; Urine Bilirubin NEGATIVE (NEG); Urine Blood NEGATIVE (NEG); Urine Color YELLOW; Urine Glucose NEGATIVE (NEG); Urine Protein NEGATIVE (NEG); Urine Specific Gravity 1.025 (1.005-1.030); Urine Urobilinogen 0.2 mg/dL (0.2-1.0); Urine pH 5.5 (5.0-7.0)
[2019-02-05 00:27] LABS: Urine Microscopic Reflex NO UMIC
[2019-02-05 06:24] LABS: Absolute Lymphocytes (CBC) 1.2 K/uL (0.7-4.9); Basophils % 0.8 % (0-1.3); Hematocrit 28.1 % (36.0-45.0); Lymphocytes % 8.9 % (15.3-44.8); MPV 8.7 fL (7.6-11.3); RBC Red Blood Cell Count 3.59 M/uL (3.86-4.86)
[2019-02-05 06:42] LABS: Albumin 2.4 g/dL (3.4-5.0); Bilirubin Total 0.2 mg/dL (0.2-1.0); Magnesium 1.9 mg/dL (1.8-2.4); Protein, Total 7.6 g/dL (6.4-8.2); T4,Total 7.6 ug/dL (4.8-13.9); Thyroid Stimulating Hormone 4.31 uIU/mL (0.360-3.740)
--- NOTE | 2019-02-05 07:37 | EKG ---
Test Date: 2019-02-04 Test Time: 17:39:33 Major Gifts Manager: MEHUL MEASUREMENT RESULTS: Intervals: Rate: 68 [place]: 178 QRSD: 90 QT: 400 QTc: 425 [place]: P: 62 [place]: 178 QRS: -23 T: 54 INTERPRETIVE STATEMENTS: Normal sinus rhythm Minimal voltage criteria for LVH, may be normal variant Borderline ECG Compared to ECG 11/20/2018 16:59:43 Left-axis deviation no longer present Electronically Signed On 02-05-19 07:36:46 CDT by Shahriar Giron
[2019-02-05] MEDS: ENOXAPARIN 40 MG/0.4 ML SQ SCH (08:36)
[2019-02-05] MEDS: THYROID 30 MG TAB PO SCH ×2 (08:36→12:14)
[2019-02-05] MEDS ORDERED: FERROUS SULFATE 325 MG TAB PO SCH (09:00)
[2019-02-05] MEDS: BISOPROLOL 5 MG TABLET PO SCH (09:00)
[2019-02-05] MEDS ORDERED: NACHLORIDE 0.45% 1,000 ML IV SCH (10:00)
[2019-02-05] MEDS ORDERED: NACHLORIDE 0.45% 1,000 ML with POTASSIUM CL 10 MEQ IV SCH ×2 (10:00)
[2019-02-05 10:33] LABS: Potassium 3.8 mmol/L (3.5-5.1)
--- NOTE | 2019-02-05 11:24 | P.PN ---
Subjective Date of Service: 02/05/19 Primary Care Provider: Dr. Collazo; GastroOncology-Dr. Ramachandran Chief Complaint: Abnormal lab Pt seen and examined at bedside. Chart Reviewed. Case With Nephrology. No C.o Overnight. Does c/o having leg swelling this AM Review of Systems 10-point ROS is otherwise unremarkable Physical Examination - Vital Signs Temperature: 98.8 F Blood Pressure: 119/59 Pulse: 60 Respirations: 16 Pulse Ox (%): 96 - Physical Exam General: Alert, In no apparent distress HEENT: Atraumatic, PERRLA, EOMI Neck: Supple, JVD not distended Respiratory: Normal air movement, Expiratory wheezes Cardiovascular: Regular rate/rhythm, Normal S1 S2 Gastrointestinal: Normal bowel sounds, Other (Ileostomy Bag in place) Musculoskeletal: Swelling, Tenderness Integumentary: No rashes Neurological: Normal speech, Normal tone, Normal affect Lymphatics: No axilla or inguinal lymphadenopathy - Studies Laboratory Data (last 24 hrs) 02/04/19 17:30: PT 15.3 H, INR 1.31 02/04/19 17:30: WBC 13.4 H, Hgb 10.0 L, Hct 31.1 L, Plt Count 493 H 02/04/19 17:30: Sodium 120 L, Potassium 3.7, BUN 14, Creatinine 1.25, Glucose 96 , Magnesium 1.8, Total Bilirubin 0.3, AST 22, ALT 20, Alkaline Phosphatase 81 Medications List Reviewed: Yes Assessment And Plan - Current Problems (Diagnosis) (1) Hyponatremia Current Visit: Yes Status: Acute Plan: Acute hyponatremia etiology unknown likely related to medication-Dyazide vs increase outpt from Ileostomy bag -Ns at 75 ml/hr -Hold HCTZ -Nephrology consulted. Appreciated Reccs -Will obtain uric acid, spot urine, spot sodium with urinalysis, cortisol level , tsh and free T4. (2) HTN (hypertension) Current Visit: Yes Status: Chronic Plan: Chronic HTN -Hold HCTZ -Continue with Bisopropolol 5 mg 1 pill twice daily. Qualifiers: Hypertension type: essential hypertension Qualified Code(s): I10 - Essential (primary) hypertension (3) Colon cancer Current Visit: Yes Status: Acute Plan: Colon cancer with ileostomy bag complicated with abscess to the left lower quadrant with drain in place - Pt to f.u with gastro oncology-Dr. Ramachandran at [facility]. # . - CT scan done 02/04/19 with no change to Colon cancer and Abscess. - Per Dr Ramachandran Plan to remove the drainage catheter within the next week. No need for antibiotic treatment at this time. - Plan pending clinical Improvement Discharge Plan: Home Plan to discharge in: Greater than 2 days - Code Status/Comfort Care Code Status Assessed: Yes Critical Care: No
[2019-02-05] MEDS ORDERED: POTASSIUM CL SA 10 MEQ TAB PO ONE (17:00)
[2019-02-05] MEDS: FERROUS SULFATE 325 MG TAB PO SCH (17:48)
[2019-02-05] MEDS ORDERED: BISOPROLOL 5 MG TABLET PO SCH (18:00)
[2019-02-05] MEDS ORDERED: NA CHLORIDE 0.9% 1,000 ML IV SCH (22:00)
[2019-02-05 22:09] LABS: Potassium 4.5 mmol/L (3.5-5.1)
--- NOTE | 2019-02-05 22:51 | CON ---
Date of Consultation: 02/05/2019 Chief Complaint: Hyponatremia, Hypoosmolar. History Of Present Illness: Patient was admitted to the hospital because of hyponatremia. She had m ultiple medical problems including history of colon cancer, hypertension, hypothyroidism. She was re ferred by her computator for because of abnormal lab work. She was found to have hyponatremi a. ER lab work showed sodium of 120, potassium 3.7, chloride 85, CO2 of 23, BUN 24, creatinine 1.25, estimated GFR 42. White count 13.4, hemoglobin 10.0. Patient was seen by computator in [place], [place]. She had abnormal blood work and was ref erred to the hospital for hyponatremia. Recently, she was experiencing some nausea, vomiting over la st 2 days and p.o. intake has declined. She denies diarrhea or constipation. She has ileostomy bag and has some loose bowel movement. She has a colon cancer and drainage of abdominal abscess. The dr harry was placed 3 months ago and she has wound care provided by home health. Patient during this admission was taken off triamterene. She was taking triamterene for blood pressu re control. Likely triamterene and hydrochlorothiazide were culprit for hyponatremia. Patient denie s confusion or vision changes. Review of Systems: Constitutional: Denies fever or chills. Eyes: Denies vision changes. Ears, Nose, Mouth, and Throat: Denies sore throat or earache. Respiratory: Denies PND, orthopnea. Cardiovascular: Denies chest pain or palpitation. GI: Denies melena, hematemesis. Has some episodes of nausea, decreased p.o. fluid intake. : Denies hematuria or dysuria. All other systems reviewed and all are negative. Past Medical History: Hypertension, hypothyroidism, colon cancer stage IV with lung mass, left lower quadrant abscess with drain, ileostomy placement of the catheter to drain the lower abdominal quadra nt abscess, obesity, anemia iron deficiency. Social History: Denies tobacco, alcohol, or illicit drugs. Family History: No kidney disease in the family. Laboratory Data: Blood work: Sodium 125, potassium 4.0, chloride 92, CO2 of 22, BUN 14, creatinine 1.03, estimated GFR 52, albumin 2.4. Impression/plan: 1.Acute on chronic kidney injury. Prerenal azotemia. Hyponatremia secondary to Hydrochlorothiazide . Continue to adjust IV fluids. Patient was started on normal saline and patient will continue IV f luids and p.o. fluid intake adequately to provide correction of the hyponatremia. Adjustment of the fluids will be and done for adequate correction. Monitor electrolytes closely. Check magnesium and phosphorus level and adjust treatment. 2.Hypertension. Blood pressure controlled. 3.Hypothyroidism. Monitor TSH. 4.Abdominal abscess per primary team. HORTENCIA/RUBEN Voice ID: [id number] Report ID: [id number]
[2019-02-06 06:19] LABS: Basophils % 0.3 % (0-1.3); Hematocrit 27.3 % (36.0-45.0); Lymphocytes % 7.4 % (15.3-44.8); MPV 8.3 fL (7.6-11.3); RBC Red Blood Cell Count 3.44 M/uL (3.86-4.86)
[2019-02-06 06:40] LABS: Albumin 2.3 g/dL (3.4-5.0); Bilirubin Total 0.2 mg/dL (0.2-1.0); Magnesium 1.9 mg/dL (1.8-2.4); Potassium 4.2 mmol/L (3.5-5.1); Protein, Total 7.1 g/dL (6.4-8.2)
[2019-02-06] MEDS: ENOXAPARIN 40 MG/0.4 ML SQ SCH (08:04)
[2019-02-06] MEDS: THYROID 30 MG TAB PO SCH (08:04)
[2019-02-06] MEDS ORDERED: NACHLORIDE 0.45% 1,000 ML IV SCH (10:00)
[2019-02-06] MEDS ORDERED: ACETAMINOPHEN 500 MG TAB PO PRN (10:11)
[2019-02-06] MEDS ORDERED: TRAMADOL HCL 50 MG TAB PO PRN (10:11)
--- NOTE | 2019-02-06 12:04 | P.PN ---
Subjective Date of Service: 02/06/19 Primary Care Provider: Dr. Collazo; GastroOncology-Dr. Ramachandran Chief Complaint: Abnormal lab Pt seen and examined at bedside. Chart Reviewed. Case With Nephrology. No C.o Overnight. Does c/o having leg swelling this AM Review of Systems 10-point ROS is otherwise unremarkable Physical Examination - Vital Signs Temperature: 98.9 F Blood Pressure: 146/66 Pulse: 70 Respirations: 15 Pulse Ox (%): 96 - Physical Exam General: Alert, In no apparent distress HEENT: Atraumatic, PERRLA, EOMI Neck: Supple, JVD not distended Respiratory: Clear to auscultation bilaterally, Normal air movement Cardiovascular: Regular rate/rhythm, Normal S1 S2 Gastrointestinal: Normal bowel sounds, No tenderness Musculoskeletal: Swelling, Tenderness Integumentary: No rashes Neurological: Normal speech, Normal tone, Normal affect Lymphatics: No axilla or inguinal lymphadenopathy - Studies Medications List Reviewed: Yes Assessment And Plan - Current Problems (Diagnosis) (1) Hyponatremia Current Visit: Yes Status: Acute Plan: Acute hyponatremia etiology unknown likely related to medication-Dyazide vs increase outpt from Ileostomy bag -Stop Fluids today due to Edema. Started on NA pills -Hold HCTZ at this time due to Hyponatremia -Nephrology consulted. Appreciated Reccs -Will obtain uric acid, spot urine, spot sodium with urinalysis, cortisol level , tsh and free T4. (2) HTN (hypertension) Current Visit: Yes Status: Chronic Plan: Chronic HTN -Hold HCTZ -Continue with Bisopropolol 5 mg 1 pill twice daily. Qualifiers: Hypertension type: essential hypertension Qualified Code(s): I10 - Essential (primary) hypertension (3) Colon cancer Current Visit: Yes Status: Acute Plan: Colon cancer with ileostomy bag complicated with abscess to the left lower quadrant with drain in place - Pt to f.u with gastro oncology-Dr. Ramachandran at [facility]. Ph# . - CT scan done 02/04/19 with no change to Colon cancer and Abscess. - Per Dr Ramachandran Plan to remove the drainage catheter within the next week. No need for antibiotic treatment at this time. - Plan pending clinical Improvement Discharge Plan: Home Plan to discharge in: Greater than 2 days - Code Status/Comfort Care Code Status Assessed: Yes Critical Care: No
--- NOTE | 2019-02-06 15:07 | RAD REPORT ---
EXAM DESCRIPTION: RAD - Chest Single View - 02/06/2019 2:01 pm CLINICAL HISTORY: Shortness of breath COMPARISON: February 04 portable chest, October 28 CT chest TECHNIQUE: AP portable chest image was obtained 1258 hours . FINDINGS: Chronic interstitial lung pattern is present not substantially different. Patient has a kn own anterior right upper lobe mass that is not grossly different over the very short interval since A ugust 9. No acute mass or infiltrate elsewhere in the lung parenchyma. Heart and vasculature are norm al. No measurable pleural effusion and no pneumothorax. No acute bony abnormality seen. No acute aort ic findings suspected. IMPRESSION: No new or progressive lung finding. Exam is stable including no change to the previously detailed mass in the right upper lobe.
[2019-02-06] MEDS: FERROUS SULFATE 325 MG TAB PO SCH (16:02)
[2019-02-06] MEDS: SODIUM CHLORIDE 1 GM TAB PO SCH (16:02)
[2019-02-06] MEDS: BISOPROLOL 5 MG TABLET PO SCH (16:02)
[2019-02-06] MEDS ORDERED: BISOPROLOL 5 MG TABLET PO SCH (18:00)
[2019-02-06 23:20] LABS: Potassium 4.1 mmol/L (3.5-5.1)
--- NOTE | 2019-02-07 03:48 | PN ---
Date of Progress Note: 02/06/2019 Chief Complaint: Hyponatremia, hypoosmolar. History Of Present Illness: Patient was admitted to the hospital because of moderately severe to sev ere hyponatremia. Patient has history of colon cancer, hypertension, hypothyroidism. She was referr ed by her accounts payable assistant because of random blood work done outpatient showed sodium of 120. Yaneli ent was taking triamterene, which likely was a culprit for hyponatremia. The patient was taken off h ydrochlorothiazide. Recently, she was experiencing some nausea, vomiting over last 2 days and p.o. i ntake declined. Patient has denied diarrhea or constipation. Review of Systems: Denies fever chills. Physical Examination: Lungs: Clear auscultation bilaterally. Heart: S1, S2. Abdomen: Soft ,benign. Extremities: No edema. Laboratory Data: Sodium 127, potassium 4.5, chloride 94, CO2 23, BUN 14, creatinine 1.03, glucose 10 6, estimated GFR 52, calcium 8.5. Impression And Plan: 1.Acute on chronic kidney injury, prerenal azotemia. Renal function has been gradually improving. Sodium level is improving with IV fluids. Patient was started on p.o. fluid restriction. Subsequent ly, p.o. fluid restriction is on hold to adjust the correction of sodium with gradual prescription. 2.Prerenal azotemia, improving renal function. Avoid nephrotoxic medication. 3.Hyponatremia secondary to hydrochlorothiazide. Patient was instructed to avoid medication like hy drochlorothiazide. She cannot take nonsteroidal anti-inflammatory medication. 4.Monitor electrolytes including calcium, phosphorus, and magnesium. For hyponatremia, patient will continue IV normal saline. Plan is to monitor sodium level and for gradual correction. 5.Hypertension, blood pressure control. 6.Hypothyroidism. Monitor TSH. EB/MODL Voice ID: [id number] Report ID: [id number]
[2019-02-07 06:30] LABS: Basophils % 0.4 % (0-1.3); Hematocrit 26.6 % (36.0-45.0); Lymphocytes % 6.6 % (15.3-44.8); MPV 8.7 fL (7.6-11.3); RBC Red Blood Cell Count 3.36 M/uL (3.86-4.86)
[2019-02-07] MEDS: THYROID 30 MG TAB PO SCH (06:30)
[2019-02-07 06:39] LABS: Albumin 2.1 g/dL (3.4-5.0); Bilirubin Total 0.1 mg/dL (0.2-1.0); Magnesium 1.8 mg/dL (1.8-2.4); Potassium 4.2 mmol/L (3.5-5.1)
[2019-02-07] MEDS: SODIUM CHLORIDE 1 GM TAB PO SCH ×2 (08:00→17:33)
[2019-02-07] MEDS ORDERED: COSYNTROPIN 0.25 MG VIAL IV ONE (08:15)
[2019-02-07] MEDS ORDERED: SODIUM CHLORIDE 0.9% 10ML INJ IV ONE (08:15)
[2019-02-07] MEDS: BISOPROLOL 5 MG TABLET PO SCH (09:00)
[2019-02-07] MEDS: ENOXAPARIN 40 MG/0.4 ML SQ SCH (09:00)
[2019-02-07] MEDS ORDERED: FUROSEMIDE 40 MG/4 ML VIAL IV ONE (11:24)
--- NOTE | 2019-02-07 15:57 | P.PN ---
Subjective Date of Service: 02/07/19 Primary Care Provider: Dr. Collazo; GastroOncology-Dr. Ramachandran Chief Complaint: Abnormal lab Patient seen and examined at bedside. No family at bedside. Chart reviewed and case discussed with nursing staff. Planing of bilateral lower extremity swelling that has worsened over the past few days, worse since stopping the HCTZ. Denies any chest pain, shortness of breath, headache, dizziness, vision changes or complaints. Review of Systems 10-point ROS is otherwise unremarkable Physical Examination - Vital Signs Temperature: 98.1 F Blood Pressure: 144/64 Pulse: 74 Respirations: 20 Pulse Ox (%): 94 - Physical Exam General: Alert, In no apparent distress, Oriented x3 HEENT: Atraumatic, PERRLA, EOMI Neck: Supple, JVD not distended Respiratory: Clear to auscultation bilaterally, Normal air movement Cardiovascular: Regular rate/rhythm, Normal S1 S2 Gastrointestinal: Normal bowel sounds, No tenderness Musculoskeletal: No tenderness Integumentary: No rashes Neurological: Normal speech, Normal tone, Normal affect Lymphatics: No axilla or inguinal lymphadenopathy - Studies Microbiology Data (last 24 hrs): 02/04/19 19:52 Catheterized Urine Artemas Count - Final >100,000 CFU/ML. 02/04/19 19:52 Catheterized Urine - Final MIXED THOMAS. Medications List Reviewed: Yes Assessment And Plan - Current Problems (Diagnosis) (1) Hyponatremia Current Visit: Yes Status: Acute Plan: Acute hyponatremia etiology unknown, likely related to medication-Dyazide vs increase outpt from Ileostomy bag -Stop Fluids today due to Edema. Continue on NA pills -Hold HCTZ at this time due to Hyponatremia. Will discontinue on discharge. -Nephrology consulted. Appreciated Reccs -Will obtain uric acid, spot urine, spot sodium with urinalysis, cortisol level , tsh and free T4. (2) HTN (hypertension) Current Visit: Yes Status: Chronic Plan: Chronic HTN -Hold HCTZ -Continue with Bisopropolol 5 mg 1 pill twice daily. Qualifiers: Hypertension type: essential hypertension Qualified Code(s): I10 - Essential (primary) hypertension (3) Colon cancer Current Visit: Yes Status: Acute Plan: Colon cancer with ileostomy bag complicated with abscess to the left lower quadrant with drain in place - Pt to f.u with gastro oncology-Dr. Ramachandran at [facility]. Ph# . - CT scan done 02/04/19 with no change to Colon cancer and Abscess. - Per Dr Ramachandran Plan to remove the drainage catheter within the next week. No need for antibiotic treatment at this time. (4) Lower extremity edema Current Visit: Yes Status: Acute Plan: Likely secondary to discontinuing diuretic -avoid HCTZ. We will give 1 time IV Lasix 40 mg. Then start patient on oral Lasix 20 b.i.d. - Plan Disposition: Will anticipate discharge home tomorrow on Lasix 20 b.i.d. along with the sodium chloride tablet. She will also need to have 1.5 L fluid restriction Discharge Plan: Home Plan to discharge in: 24 Hours
[2019-02-07] MEDS: FUROSEMIDE 40 MG TABLET PO SCH (17:33)
[2019-02-07] MEDS: FERROUS SULFATE 325 MG TAB PO SCH (17:33)
--- NOTE | 2019-02-08 04:25 | PN ---
Date of Progress Note: 02/07/2019 Chief Complaint: Hyponatremia hyperosmolar. History Of Present Illness: Patient was taken off hydrochlorothiazide and was started on sodium chlo ride tablets and received IV fluids. Sodium level has improved over last 3 days from 120 to 130. Patient developed acute kidney injury with prerenal azotemia. Renal function has gradually improved with IV hydration. The patient was taken off diuretic. Patient was taking triamterene and diuretic was stopped due to h yponatremia. Patient is not a candidate for hydrochlorothiazide because of high risk of worsening of hyponatremia. Patient developed edema and patient may benefit from Lasix. Review of Systems: Denies fever, chills. Physical Examination: Lungs: Clear to auscultation bilaterally. Heart: S1, S2. Abdomen: Soft, benign. Extremities: Edema in both ankles. Laboratory Data: Blood work: Hemoglobin 8.8, WBC is 15.5, platelet count 442,000. Chemistry showed sodium 130, potassium 4.2, chloride 100, CO2 of 22, BUN 11, creatinine 0.94, glucose is 112, calcium 8.4, magnesium 1.8. Impression And Plan: 1.Hyponatremia hyperosmolar is improving adequately. Continue current IV fluids. 2.Patient will continue sodium chloride tablets and avoid hydrochlorothiazide. 3.Edema, fluid overload. Lasix started. 4.Hypertension. Elevated blood pressure. Advance blood pressure medication. Start Lasix for volemia control. Patient needs volume control and to be treated with di uretics for fluid overload. HORTENCIA/RUBEN Voice ID: [id number] Report ID: [id number]
[2019-02-08] MEDS: THYROID 30 MG TAB PO SCH (06:09)
[2019-02-08] MEDS: FUROSEMIDE 40 MG TABLET PO SCH (08:26)
[2019-02-08] MEDS: SODIUM CHLORIDE 1 GM TAB PO SCH (08:27)
[2019-02-08] MEDS: ENOXAPARIN 40 MG/0.4 ML SQ SCH (08:27)
[2019-02-08 08:28] VITALS: BP 135/64
[2019-02-08] MEDS: BISOPROLOL 5 MG TABLET PO SCH (08:56)
[2019-02-08 09:19] VITALS: TEMP 97.9
[2019-02-08 11:15] LABS: Absolute Lymphocytes (CBC) 1.3 K/uL (0.7-4.9); Basophils % 0.8 % (0-1.3); Hematocrit 26.9 % (36.0-45.0); Lymphocytes % 7.4 % (15.3-44.8); RBC Red Blood Cell Count 3.41 M/uL (3.86-4.86)
[2019-02-08 11:18] LABS: Albumin 2.2 g/dL (3.4-5.0); Bilirubin Total 0.1 mg/dL (0.2-1.0); Potassium 3.5 mmol/L (3.5-5.1); Protein, Total 7.2 g/dL (6.4-8.2)
[2019-02-08 12:03] VITALS: O2SAT 97
--- NOTE | 2019-02-08 12:45 | P.DS ---
Admission Date: 02/04/19 Discharge Date: 02/08/19 Primary Care Provider: Dr. Collazo; GastroOncology-Dr. Ramachandran Disposition: ROUTINE DISCHARGE Discharge Condition: GOOD Reason for Admission: Abnormal lab Consultations: Nephrology - Problems (1) Hyponatremia Current Visit: Yes Status: Acute (2) HTN (hypertension) Current Visit: Yes Status: Chronic Qualifiers: Hypertension type: essential hypertension Qualified Code(s): I10 - Essential (primary) hypertension (3) Colon cancer Current Visit: Yes Status: Acute (4) Lower extremity edema Current Visit: Yes Status: Acute Brief History of Present Illness: 78-year-old female with history of colon cancer, hypertension and hypothyroidism, came to the ER after she was told due to abnormal lab. Patient is seen by Gastroenterology in [facility]. She had just seen her gastro oncologist today. Lab and follow up CT scan was obtained. She had a phone call which reported a low-sodium. She was told to go to the ER for further evaluation. Patient has been reporting some nausea and vomiting over the last 2 days. She denies any diarrhea, constipation. She did report some loose stool to her ileostomy bag. Patient has colon cancer with a drain to the abdomen due to an abscess. She had a drain placed 3 months ago. It was repositioned last Thursday. This is being closely followed by gastro oncology. In the ER patient evaluated. Sodium 120, potassium 3.7, chloride 85, CO2 23, BUN of 24, creatinine 1.25 with a GFR 42. White count 13.4, hemoglobin 10. Platelet count 493. Urinalysis pending at this time. Uric acid level pending. Other urine spot check levels are to be obtained. Patient is taking Dyazide at home. Due to the nature of the electrolyte in balance the patient was admitted for further treatment and evaluation. When I saw the patient ER, she appeared comfortable. She denied any chest pain , shortness of breath. Family at bedside Hospital Course: Patient was admitted for hypernatremia. She was given IV fluids pathology was consulted. The IV fluids were then stops due to edema. She was started on sodium chloride pills. Her hydrochlorothiazide and triamterene were discontinued as this may have contributed to the hyponatremia. She did have some lower extremity swelling bilaterally. She was started on IV Lasix, which helped with the swelling. She will be continued on oral Lasix. She was told to discontinue hydrochlorothiazide and triamterene on discharge. She does have a history of colon cancer with ileostomy bag which is complicated with abscess to the left lower quadrant with a drain in place. She will follow up with her hardboard press operator in [place] in the next few days after discharge for further management as she has been following up. She otherwise remained stable throughout the stay. Her labs improved. She is not cleared for discharge by Nephrology. [place] diagnoses/treatment plan were explained to her, all questions were answered and she verbalized understanding. She was then discharged in a safe and stable manner. She will discontinue her triamterene and hydrochlorothiazide. She will continue sodium chloride tablets upon discharge along with a 1.5 clear fluid restriction. Vital Signs/Physical Exam: Temp Pulse Resp BP Pulse Ox 97.9 F 75 16 135/64 96 02/08/19 08:00 02/08/19 08:26 02/08/19 08:00 02/08/19 08:26 02/08/19 08:00 General: Alert, In no apparent distress, Oriented x3 HEENT: Atraumatic, PERRLA, EOMI Neck: Supple, JVD not distended Respiratory: Clear to auscultation bilaterally, Normal air movement Cardiovascular: Regular rate/rhythm, Normal S1 S2, Edema (Bilateral lower extremity, improved) Gastrointestinal: Normal bowel sounds, No tenderness Musculoskeletal: No tenderness Integumentary: No rashes Neurological: Normal speech, Normal tone, Normal affect Lymphatics: No axilla or inguinal lymphadenopathy Laboratory Data at Discharge: WBC 18.0 K/uL (4.3-10.9) H D 02/08/19 10:32 Hgb 9.0 g/dL (12.0-15.0) L 02/08/19 10:32 Hct 26.9 % (36.0-45.0) L 02/08/19 10:32 Plt Count 483 K/uL (152-406) H 02/08/19 10:32 PT 15.3 SECONDS (9.5-12.5) H 02/04/19 17:30 INR 1.31 02/04/19 17:30 Sodium 132 mmol/L (136-145) L 02/08/19 10:32 Potassium 3.5 mmol/L (3.5-5.1) 02/08/19 10:32 BUN 12 mg/dL (7-18) 02/08/19 10:32 Creatinine 1.16 mg/dL (0.55-1.3) 02/08/19 10:32 Glucose 120 mg/dL (74-106) H 02/08/19 10:32 Uric Acid 8.1 mg/dL (2.6-6.0) H 02/04/19 22:41 Magnesium 1.8 mg/dL (1.8-2.4) 02/07/19 05:45 Total Bilirubin 0.1 mg/dL (0.2-1.0) L 02/08/19 10:32 AST 14 U/L (15-37) L 02/08/19 10:32 ALT 14 U/L (12-78) 02/08/19 10:32 Alkaline Phosphatase 79 U/L (45-117) 02/08/19 10:32 Home Medications: RX: 0.9 % Sodium Chloride [Gregory 0.9% NaCl with Cap] 10 ml OSTOMY DAILY RX: Acetaminophen [Tylenol Extra Strength] 500 mg PO Q6HP PRN 02/04/19 RX: Bisoprolol Fumarate [Zebeta*] 5 mg PO DAILY 02/04/19 RX: Methocarbamol [Robaxin*] 500 mg PO TID PRN 02/04/19 RX: Thyroid Tab [[place] Thyroid*] 60 mg PO BID 02/04/19 RX: Tramadol HCl [Ultram] 50 mg PO Q6HP PRN 02/04/19 RX: Ferrous Sulfate [Ferrous Sulfate*] 325 mg PO DAILY@1800 #30 tab 02/08/19 RX: Furosemide [Lasix*] 40 mg PO BIDL #30 tab 02/08/19 RX: Sodium Chloride Tab [Sodium Chloride*] 1 gm PO BIDWM #60 tab 02/08/19 New Medications: RX: Ferrous Sulfate [Ferrous Sulfate*] 325 mg PO DAILY@1800 #30 tab RX: Furosemide [Lasix*] 40 mg PO BIDL #30 tab RX: Sodium Chloride Tab [Sodium Chloride*] 1 gm PO BIDWM #60 tab Patient Discharge Instructions: Please follow up with the primary care physician in 2- 3 days. Please follow up with your gastro oncologist. Please follow up with Nephrology in 2 weeks. Information provided to you. Please return to the emergency room for worsening symptoms. Diet: Regular Activity: Ad joe Followup: Charlette Pimentel MD [ACTIVE - CAN ADMIT] - 1-2 Weeks Deven Cevallos MD [Primary Care Provider] - 2-3 Days Time spent managing pt's care (in minutes): 55
[2019-02-08 13:57] LABS: Urine White Blood Cell Casts OK
[2019-02-08 13:58] LABS: Blood Morphology Comment NOT SEEN (NOT SEEN); Platelet Estimate INCR
--- NOTE | 2019-02-08 18:07 | PN ---
Subjective: Patient was admitted with acute kidney injury and hyponatremia. Hyponatremia secondary to hydrochlorothiazide. The patient responds very well to diuresis with Lasix. Physical Examination: Vital Signs: Blood pressure 135/64, pulse of 75. The patient had good urine output. Weight has bee n stable. Has urine output of 3200. Chest: Clear to auscultation. Heart: S1, S2 regular. Abdomen: Soft, nontender. Extremities: Trace edema. Laboratory Data: WBC 18, H and H 9/26.9, platelets 483. Sodium 132, potassium 3.5, bicarb 24, BUN 1 2, creatinine 1.1, GFR of 45, calcium 8.3. Urinalysis, urine osmolality 249, urine sodium 11, potass ium of 16. Current Medications: The patient on include salt tablet b.i.d., Lasix 40 mg twice daily, Lovenox, ferrous sulfate, Tylenol, levothyroxine, tramadol. Assessment And Plan: 1.Hyponatremia secondary to hydrochlorothiazide, recovered, resolved. 2.Hypertension, controlled, optimal. Continue current medication. 3.Hypothyroidism. Continue supplement. 4.Leukocytosis secondary to cancer. We will follow up with hospitalist. MILADIS Voice ID: [id number] Report ID: [id number]
== END 2019-02-08 15:00 | disposition home health service (06) | DRG 641 ==
LOC: ER 16:55 → ERHOLD 19:54 → 4TH 20:44
PROVIDERS: ADMIT Family Medicine; ATTEND Family Medicine
DX: E87.1 Hypo-osmolality and hyponatremia (principal); C18.9 Malignant neoplasm of colon, unspecified; N17.9 Acute kidney failure, unspecified; L02.211 Cutaneous abscess of abdominal wall; I10 Essential (primary) hypertension; R11.2 Nausea with vomiting, unspecified; Z93.3 Colostomy status; R60.9 Edema, unspecified; E03.9 Hypothyroidism, unspecified; R60.0 Localized edema; E66.9 Obesity, unspecified; Z68.35 Body mass index [BMI] 35.0-35.9, adult
CPT/HCPCS: 36415; 71045; 80048; 80053; 80076; 81003; 82024; 82533; 82607; 83540; 83735; 83880; 83930; 83935; 84132; 84145; 84300; 84436; 84439; 84443; 84466; 84480; 84484; 84550; 85025; 85610; 87040; 87086; 87088; 93005; 96360; 96361; 99285; J0834; J1650; J1940; J7030

== ENCOUNTER 2019-04-05 10:39 | Inpatient (IN) | payer OTHER, BC ==
[2019-04-05] MEDS ORDERED: NA CHLORIDE 0.9% 1,000 ML ONE (10:57)
[2019-04-05] MEDS ORDERED: ONDANSETRON 4 MG/2 ML VIAL ONE (11:06)
--- NOTE | 2019-04-05 11:21 | ER ---
Nurse's Notes [facility] Name: Tesha Amaya Age: 78 yrs Sex: Female : 1940 Arrival Date: 04/05/2019 Time: 10:48 Bed 5 Private MD: Diagnosis: Syncope and collapse;Volume depletion;Abdominal tenderness;Elevated white blood cell count;Hypomagnesemia Presentation: 04/05 10:48 Presenting complaint: Wound healing staff report that patient was there for initial ss evaluation of an abdominal wound when she had two syncopal episodes lasting 5 seconds each. Patient is awake and alert x4, c/o fatigue that began yesterday and nausea that began this morning. VS in wound healing were 103/55 HR 59. Transition of care: Wound healing center. Onset of symptoms was April 04, 2019. Risk Assessment: Do you want to hurt yourself or someone else? Patient reports no desire to harm self or others. Initial Sepsis Screen: Does the patient meet any 2 criteria? No. Patient's initial sepsis screen is negative. Does the patient have a suspected source of infection? Yes: Skin breakdown/wound. Care prior to arrival: None. 10:48 Acuity: DIANNA 2 ss 10:48 Method Of Arrival: Wheelchair ss Historical: - Allergies: 10:56 Codeine; ss - Home Meds: 10:56 [place] Thyroid 60 mg Oral tab twice a day [Active]; pantoprazole 40 mg oral TbEC 1 tab ss once daily [Active]; amlodipine 10 mg tab 1 tab once daily [Active]; prochlorperazine maleate 5 mg Oral tab 1 tab every 6 hours for Nausea and Vomiting [Active]; levofloxacin 500 mg Oral tab 1 tab once daily [Active]; amoxicillin-pot clavulanate 500-125 mg Oral tab 1 tab every 12 hours [Active]; morphine 15 mg Oral TbER every 4 hours for Severe Pain [Active]; - PMHx: 10:56 colon cancer; Hypertension; Hypothyroidism; ss - PSHx: 10:56 Ileostomy; ss - Immunization history:: Adult Immunizations unknown. - Social history:: Smoking status: Patient/guardian denies using tobacco. - Ebola Screening: : Patient denies exposure to infectious person Patient denies travel to an Ebola-affected area in the 21 days before illness onset. - Family history:: not pertinent. Screenin:05 Abuse screen: Denies threats or abuse. Denies injuries from another. Nutritional jl7 screening: No deficits noted. Tuberculosis screening: No symptoms or risk factors identified. Fall Risk IV access (20 points). Total [place]ont Fall Scale indicates No Risk (0-24 pts). Assessment: 11:00 General: Appears in no apparent distress. uncomfortable, Behavior is cooperative, jl7 appropriate for age, anxious. Pain: Denies pain. Neuro: Level of Consciousness is awake, alert, obeys commands, Oriented to person, place, time, situation. Cardiovascular: Reports nausea, Denies chest pain, Heart tones S1 S2 present Patient's skin is warm and dry. Rhythm is sinus bradycardia Chest pain is denied. Respiratory: Airway is patent Respiratory effort is even, unlabored, Respiratory pattern is regular, symmetrical, Breath sounds are clear bilaterally. GI: Ileostomy site is clean and dry. Ostomy appliance is intact. Reports nausea, Patient currently denies diarrhea, vomiting. : No signs and/or symptoms were reported regarding the genitourinary system. EENT: No signs and/or symptoms were reported regarding the EENT system. Derm: Skin is dry, Skin is pale, Skin temperature is warm. Musculoskeletal: No signs and/or symptoms reported regarding the musculoskeletal system. 11:05 Reassessment: Pt reports "My right jaw is hurting all of a sudden." Reports right arm jl7 achiness since this morning, ERD notified, at bedside and placed left EJ, Repeat EKG ordered. 11:37 Reassessment: Pt's daughter, Carmen, reports pt has stage 4 colon cancer with mets to jl7 the lungs, liver, and lymph nodes. ERD aware. 12:30 Reassessment: Patient appears in no apparent distress at this time. No changes from jl7 previously documented assessment. Patient and/or family updated on plan of care and expected duration. Pain level reassessed. Patient is alert, oriented x 3, equal unlabored respirations, skin warm/dry/pink. 14:11 Reassessment: attempted to call report, nurse unavailable. jl7 14:30 Reassessment: Patient appears in no apparent distress at this time. Patient and/or jl7 family updated on plan of care and expected duration. Pain level reassessed. Patient is alert, oriented x 3, equal unlabored respirations, skin warm/dry/pink. Patient denies pain at this time. Vital Signs: 10:56 BP 105 / 38; Pulse 55; Resp 21; Temp 96.7(TE); Pulse Ox 99% on R/A; Weight 89.81 kg; ss Height 5 ft. 4 in. (162.56 cm); Pain 0/10; 11:14 BP 137 / 67; Pulse 57; Resp 17 S; Pulse Ox 100% on R/A; jl7 12:51 BP 144 / 54; Pulse 64; Resp 18; Pulse Ox 100% ; sv 14:11 BP 139 / 49; Pulse 67; Resp 19 S; Pulse Ox 96% on R/A; jl7 10:56 Body Mass Index 33.99 (89.81 kg, 162.56 cm) NIH Stroke Scale Scores: 10:48 NIHSS Score: 0 ED Course: 10:48 Patient arrived in ED. ss 10:49 Naseem Fang MD is Attending Physician. radha 10:50 Charity Orozco RN is Primary Nurse. jl7 10:51 Triage completed. ss 10:51 EKG done, by construction tech. reviewed by Naseem Fang MD. sm3 10:56 Arm band placed on right wrist. ss 11:05 Patient has correct armband on for positive identification. Placed in gown. Bed in low jl7 position. Call light in reach. Side rails up X2. table hand on. Pulse ox on. NIBP on. Warm blanket given. 11:14 EKG done, by construction tech. reviewed by Naseem Fang MD Repeat EKG. at1 11:19 Charles Muniz MD is Hospitalizing Provider. radha 11:21 Initial lab(s) drawn, by ED staff, sent to lab. Inserted saline lock: 18 gauge in left jl7 EJ, using aseptic technique. Blood collected. 11:24 X-ray completed. Portable x-ray completed in exam room. Patient tolerated procedure mh1 well. 11:27 XRAY Chest (1 view) In Process Unspecified. EDMS 11:39 CT Head Brain wo Cont In Process Unspecified. EDMS 11:40 CT Stone Protocol In Process Unspecified. EDMS 14:47 No provider procedures requiring assistance completed. Patient admitted, IV remains in jl7 place. intact, No redness/swelling at site. Administered Medications: 11:14 Drug: NS 0.9% 500 ml Route: IV; Rate: bolus; Site: left jugular; [facility] 11:45 Follow up: Response: No adverse reaction; IV Status: Completed infusion; IV Intake: jl7 500ml 11:14 Drug: NS 0.9% 1000 ml Route: IV; Rate: 125 ml/hr; Site: left jugular; 7 14:49 Follow up: IV Status: Infusion continued upon admission jl7 13:25 Drug: Magnesium Sulfate 2 grams Route: IVPB; Infused Over: 2 hrs; Site: left jugular; jl7 14:48 Follow up: IV Status: Infusion continued upon admission jl7 13:32 Drug: Flagyl 500 mg Volume: 100 ml; Route: IVPB; Rate: 200 ml/hr; Infused Over: 30 jl7 mins; Site: left jugular; 14:00 Follow up: Response: No adverse reaction; IV Status: Completed infusion jl7 14:05 Drug: Zosyn 3.375 grams Route: IVPB; Infused Over: 60 mins; Site: left jugular; [facility] 14:49 Follow up: IV Status: Infusion continued upon admission jl Intake: 11:45 IV: 500ml; Total: 500ml. [facility] Outcome: 11:20 Decision to Hospitalize by Provider. ardha 14:47 Admitted to Tele accompanied by tech, family with patient, via stretcher, room 206, [facility] with chart, Report called to FLORIAN Lawler 14:47 Condition: stable 14:47 Discharge instructions given to patient, family, Instructed on the need for admit, Demonstrated understanding of instructions. 14:57 Patient left the ED. [facility] NIH Stroke Scale - NIH Stroke Score Date: 04/05/2019 Time: 10:48 Total Score = 0 1a. Level of Consciousness (LOC) - 0(Alert) 1b. Level of Consciousness (LOC) (Year \\T\\ Age) - 0(Both) 1c. LOC Commands (Open \\T\\ Closes Eyes/Rn Diabetes) - 0(Both) 2. Best Gaze (Lateral Gaze Paresis) - 0(Normal) 3. Visual Field Loss - 0(No visual loss) 4. Facial Palsy - 0(Normal) 5a. Left Arm: Motor (10-second hold) - 0(No drift) 5b. Right Arm: Motor (10-second hold) - 0(No drift) 6a. Left Leg: Motor (5-second hold - always test supine) - 0(No drift) 6b. Right Leg: Motor (5-second hold - always test supine) - 0(No drift) 7. Limb Ataxia (finger/nose \\T\\ heel/[place] - test with eyes open) - 0(Absent) 8. Sensory Loss (pinprick arms/legs/face) - 0(Normal) 9. Best Language: Aphasia (description/naming/reading) - 0(No aphasia) 10. Dysarthria (speech clarity - read or repeat words) - 0(Normal) 11. Extinction and Inattention (visual/tactile/auditory/spatial/personal) - 0(No abnormality) Initials: Signatures: Dispatcher [employer] Kasandra Shook, RN RN Naseem Pelayo MD MD cha Harvey, Martha 1 Noemi Mckeon RN RN ss Gayle Leslie, feather trimmer EKG Tat1 Charity Orozco RN RN jl7 Pamela Kemp sm3
--- NOTE | 2019-04-05 11:21 | EDPHYS ---
Physician Documentation [facility] Name: Tesha Amaya Age: 78 yrs Sex: Female : 1940 Arrival Date: 04/05/2019 Time: 10:48 Bed 5 Private MD: ED Physician Naseem Fang HPI: 04/05 11:13 This 78 yrs old Female presents to ER via Wheelchair with complaints of radha Syncope. 11:13 The patient has experienced near-syncope. Onset: The symptoms/episode began/occurred radha just prior to arrival. Duration: This was a single episode, that lasted an unknown period of time. Context: the episode(s) was witnessed. Associated injury: The patient did not suffer any apparent associated injury. Associated signs and symptoms: Pertinent positives: dizziness. Current symptoms: Currently, the patient is not experiencing any symptoms. The patient has not experienced similar symptoms in the past. Historical: - Allergies: 10:56 Codeine; ss - Home Meds: 10:56 [place] Thyroid 60 mg Oral tab twice a day [Active]; pantoprazole 40 mg oral TbEC 1 tab ss once daily [Active]; amlodipine 10 mg tab 1 tab once daily [Active]; prochlorperazine maleate 5 mg Oral tab 1 tab every 6 hours for Nausea and Vomiting [Active]; levofloxacin 500 mg Oral tab 1 tab once daily [Active]; amoxicillin-pot clavulanate 500-125 mg Oral tab 1 tab every 12 hours [Active]; morphine 15 mg Oral TbER every 4 hours for Severe Pain [Active]; - PMHx: 10:56 colon cancer; Hypertension; Hypothyroidism; ss - PSHx: 10:56 Ileostomy; ss - Immunization history:: Adult Immunizations unknown. - Social history:: Smoking status: Patient/guardian denies using tobacco. - Ebola Screening: : Patient denies exposure to infectious person Patient denies travel to an Ebola-affected area in the 21 days before illness onset. - Family history:: not pertinent. ROS: 11:13 Constitutional: Negative for fever, chills, and weight loss, Eyes: Negative for injury, radha pain, redness, and discharge, ENT: Negative for injury, pain, and discharge, Neck: Negative for injury, pain, and swelling, Cardiovascular: Negative for chest pain, palpitations, and edema, Respiratory: Negative for shortness of breath, cough, wheezing, and pleuritic chest pain, Back: Negative for injury and pain, : Negative for injury, bleeding, discharge, and swelling, MS/Extremity: Negative for injury and deformity, Skin: Negative for injury, rash, and discoloration, Psych: Negative for depression, anxiety, suicide ideation, homicidal ideation, and hallucinations, Allergy/Immunology: Negative for hives, rash, and allergies, Endocrine: Negative for neck swelling, polydipsia, polyuria, polyphagia, and marked weight changes, Hematologic/Lymphatic: Negative for swollen nodes, abnormal bleeding, and unusual bruising. 11:13 Abdomen/GI: Positive for abdominal pain. 11:13 Neuro: Positive for dizziness. Exam: 11:13 Constitutional: This is a well developed, well nourished patient who is awake, alert, radha and in no acute distress. Head/Face: Normocephalic, atraumatic. Eyes: Pupils equal round and reactive to light, extra-ocular motions intact. Lids and lashes normal. Conjunctiva and sclera are non-icteric and not injected. Cornea within normal limits. Periorbital areas with no swelling, redness, or edema. ENT: Nares patent. No nasal discharge, no septal abnormalities noted. Tympanic membranes are normal and external auditory canals are clear. Oropharynx with no redness, swelling, or masses, exudates, or evidence of obstruction, uvula midline. Mucous membranes moist. Neck: Trachea midline, no thyromegaly or masses palpated, and no cervical lymphadenopathy. Supple, full range of motion without nuchal rigidity, or vertebral point tenderness. No Meningismus. Chest/axilla: Normal chest wall appearance and motion. Nontender with no deformity. No lesions are appreciated. Cardiovascular: Regular rate and rhythm with a normal S1 and S2. No gallops, murmurs, or rubs. Normal PMI, no JVD. No pulse deficits. Respiratory: Lungs have equal breath sounds bilaterally, clear to auscultation and percussion. No rales, rhonchi or wheezes noted. No increased work of breathing, no retractions or nasal flaring. Back: No spinal tenderness. No costovertebral tenderness. Full range of motion. Female : Normal external genitalia. Skin: Warm, dry with normal turgor. Normal color with no rashes, no lesions, and no evidence of cellulitis. MS/ Extremity: Pulses equal, no cyanosis. Neurovascular intact. Full, normal range of motion. Neuro: Awake and alert, GCS 15, oriented to person, place, time, and situation. Cranial nerves II-XII grossly intact. Motor strength 5/5 in all extremities. Sensory grossly intact. Cerebellar exam normal. Normal gait. Psych: Awake, alert, with orientation to person, place and time. Behavior, mood, and affect are within normal limits. 11:13 Abdomen/GI: Inspection: abdomen appears normal, Bowel sounds: normal, Palpation: mild abdominal tenderness, in the right lower quadrant and left lower quadrant, Liver: no appreciated palpable abnormalities, Hernia: not appreciated. Vital Signs: 10:56 BP 105 / 38; Pulse 55; Resp 21; Temp 96.7(TE); Pulse Ox 99% on R/A; Weight 89.81 kg; ss Height 5 ft. 4 in. (162.56 cm); Pain 0/10; 11:14 BP 137 / 67; Pulse 57; Resp 17 S; Pulse Ox 100% on R/A; jl7 12:51 BP 144 / 54; Pulse 64; Resp 18; Pulse Ox 100% ; sv 14:11 BP 139 / 49; Pulse 67; Resp 19 S; Pulse Ox 96% on R/A; jl7 10:56 Body Mass Index 33.99 (89.81 kg, 162.56 cm) ss NIH Stroke Scale Scores: 10:48 NIHSS Score: 0 ss MDM: 10:49 Patient medically screened. [facility] 11:20 Data reviewed: vital signs, nurses notes, lab test result(s), EKG, radiologic studies, [facility] CT scan, plain films. 04/05 10:53 Order name: Basic Metabolic Panel; Complete Time: 12:41 [facility] 04/05 10:53 Order name: CBC with Diff; Complete Time: 12:04 [facility] 04/05 10:53 Order name: LFT's; Complete Time: 12:41 [facility] 04/05 10:53 Order name: Magnesium; Complete Time: 12:41 [facility] 04/05 10:53 Order name: NT PRO-BNP; Complete Time: 12:41 [facility] 04/05 10:53 Order name: PT-INR; Complete Time: 12:04 [facility] 04/05 10:53 Order name: Troponin (emerg Dept Use Only); Complete Time: 12:41 [facility] 04/05 10:53 Order name: XRAY Chest (1 view); Complete Time: 12:04 [facility] 04/05 10:53 Order name: Type And Screen; Complete Time: 12:41 [facility] 04/05 10:53 Order name: Urine Culture [facility] 04/05 10:53 Order name: Lipase; Complete Time: 12:41 [facility] 04/05 11:23 Order name: CT Head Brain wo Cont; Complete Time: 12:04 [facility] 04/05 13:58 Order name: Urine Dipstick--Ancillary (enter results) 04/05 13:58 Order name: Urine --Ancillary (enter results) 04/05 10:53 Order name: EKG; Complete Time: 10:55 [facility] 04/05 10:53 Order name: Cardiac monitoring; Complete Time: 10:54 [facility] 04/05 10:53 Order name: EKG - Nurse/Tech; Complete Time: 10:57 [facility] 04/05 10:53 Order name: IV Saline Lock; Complete Time: 11:23 [facility] 04/05 10:53 Order name: Labs collected and sent; Complete Time: 11:23 [facility] 04/05 10:53 Order name: O2 Per Protocol; Complete Time: 10:54 [facility] 04/05 10:53 Order name: O2 Sat Monitoring; Complete Time: 10:54 [facility] 04/05 11:23 Order name: CT Stone Protocol [facility] 04/05 11:28 Order name: EKG Electrocardiogram EDMS Administered Medications: 11:14 Drug: NS 0.9% 500 ml Route: IV; Rate: bolus; Site: left jugular; 7 11:45 Follow up: Response: No adverse reaction; IV Status: Completed infusion; IV Intake: jl7 500ml 11:14 Drug: NS 0.9% 1000 ml Route: IV; Rate: 125 ml/hr; Site: left jugular; jl7 14:49 Follow up: IV Status: Infusion continued upon admission jl7 13:25 Drug: Magnesium Sulfate 2 grams Route: IVPB; Infused Over: 2 hrs; Site: left jugular; jl7 14:48 Follow up: IV Status: Infusion continued upon admission jl7 13:32 Drug: Flagyl 500 mg Volume: 100 ml; Route: IVPB; Rate: 200 ml/hr; Infused Over: 30 jl7 mins; Site: left jugular; 14:00 Follow up: Response: No adverse reaction; IV Status: Completed infusion 14:05 Drug: Zosyn 3.375 grams Route: IVPB; Infused Over: 60 mins; Site: left jugular; 14:49 Follow up: IV Status: Infusion continued upon admission Disposition: 04/05/19 11:20 Hospitalization ordered by Charles Muniz for Inpatient Admission. Preliminary diagnosis are Syncope and collapse, Volume depletion, Abdominal tenderness, Elevated white blood cell count, Hypomagnesemia. - Bed requested for Telemetry/MedSurg (Inpatient). - Status is Inpatient Admission. jl7 - Condition is Fair. - Problem is new. - Symptoms have improved. UTI on Admission? No NIH Stroke Scale - NIH Stroke Score Date: 04/05/2019 Time: 10:48 Total Score = 0 1a. Level of Consciousness (LOC) - 0(Alert) 1b. Level of Consciousness (LOC) (Year \T\ Age) - 0(Both) 1c. LOC Commands (Open \T\ Closes Eyes/Ultrasonic Tester) - 0(Both) 2. Best Gaze (Lateral Gaze Paresis) - 0(Normal) 3. Visual Field Loss - 0(No visual loss) 4. Facial Palsy - 0(Normal) 5a. Left Arm: Motor (10-second hold) - 0(No drift) 5b. Right Arm: Motor (10-second hold) - 0(No drift) 6a. Left Leg: Motor (5-second hold - always test supine) - 0(No drift) 6b. Right Leg: Motor (5-second hold - always test supine) - 0(No drift) 7. Limb Ataxia (finger/nose \T\ heel/[place] - test with eyes open) - 0(Absent) 8. Sensory Loss (pinprick arms/legs/face) - 0(Normal) 9. Best Language: Aphasia (description/naming/reading) - 0(No aphasia) 10. Dysarthria (speech clarity - read or repeat words) - 0(Normal) 11. Extinction and Inattention (visual/tactile/auditory/spatial/personal) - 0(No abnormality) Initials: Signatures: Dispatcher [employer] Carolina Osei Corey, MD MD cha Smirch, Shelby, RN RN Charity Mccauley RN RN jl7 Corrections: (The following items were deleted from the chart) 12:42 11:20 Hospitalization Ordered by Charles Muniz MD for Inpatient Admission. radha Preliminary diagnosis is Syncope and collapse; Volume depletion. Bed requested for Telemetry/MedSurg (Inpatient). Status is Inpatient Admission. Condition is Fair. Problem is new. Symptoms have improved. UTI on Admission? No. radha 14:01 12:42 04/05/2019 11:20 Hospitalization Ordered by Charles Muniz MD for Inpatient bd Admission. Preliminary diagnosis is Syncope and collapse; Volume depletion; Abdominal tenderness; Elevated white blood cell count; Hypomagnesemia. Bed requested for Telemetry/MedSurg (Inpatient). Status is Inpatient Admission. Condition is Fair. Problem is new. Symptoms have improved. UTI on Admission? No. radha 14:57 14:01 04/05/2019 11:20 Hospitalization Ordered by Charles Muniz MD for Inpatient jl7 Admission. Preliminary diagnosis is Syncope and collapse; Volume depletion; Abdominal tenderness; Elevated white blood cell count; Hypomagnesemia. Bed requested for Telemetry/MedSurg (Inpatient). Status is Inpatient Admission. Condition is Fair. Problem is new. Symptoms have improved. UTI on Admission? No. bd
[2019-04-05 11:35] LABS: Absolute Lymphocytes (CBC) 1.9 K/uL (0.7-4.9); Basophils % 0.3 % (0-1.3); Hematocrit 33.5 % (36.0-45.0); Lymphocytes % 9.5 % (15.3-44.8); MPV 8.7 fL (7.6-11.3); RBC Red Blood Cell Count 4.28 M/uL (3.86-4.86)
[2019-04-05 11:39] LABS: Protime INR 1.47
--- NOTE | 2019-04-05 11:39 | RAD REPORT ---
EXAM DESCRIPTION: RAD - Chest Single View - 04/05/2019 11:27 am CLINICAL HISTORY: COUGH Chest pain. COMPARISON: Chest Single View dated 02/06/2019; Chest Single View dated 02/04/2019; Chest Single View d ated 11/20/2018; Chest Single View dated 10/28/2018 FINDINGS: Portable technique limits examination quality. Emphysematous changes are present throughout the lungs. Right upper lobe pulmonary mass lesion remain s unchanged since comparative chest radiographs. The heart is normal in size.
--- NOTE | 2019-04-05 11:45 | RAD REPORT ---
EXAM DESCRIPTION: CT - Head Brain Wo Cont - 04/05/2019 11:38 am CLINICAL HISTORY: Declining state;Dizziness Headache, drowsiness COMPARISON: Facial Bones W/ Mpr dated 10/28/2018 TECHNIQUE: All CT scans are performed using dose optimization technique as appropriate and may inclu de automated exposure control or mA/KV adjustment according to patient size. FINDINGS: No intracranial hemorrhage, hydrocephalus or extra-axial fluid collection.Mild brain atrop hy.No areas of brain edema or evidence of midline shift. The paranasal sinuses and mastoids are clear. The calvarium is intact. IMPRESSION: No acute intracranial abnormality.
[2019-04-05 12:12] LABS: AST/SGOT 16 U/L (15-37); Albumin 2.3 g/dL (3.4-5.0); Alkaline Phosphatase 73 U/L (45-117); BUN Blood Urea Nitrogen 12 mg/dL (7-18); Bicarbonate 23 mmol/L (21-32); Bilirubin Direct < 0.1 mg/dL (0-0.2); Bilirubin Total 0.3 mg/dL (0.2-1.0); Glucose Level 124 mg/dL (74-106); Lipase 91 U/L (73-393); Magnesium 1.6 mg/dL (1.8-2.4); NT PRO-BNP 1558 pg/mL (<450); Potassium 3.6 mmol/L (3.5-5.1); Protein, Total 7.7 g/dL (6.4-8.2); Sodium Level 132 mmol/L (136-145); Troponin (Emerg Dept Use Only) < 0.02 ng/mL (0.0-0.045)
[2019-04-05 12:17] LABS: ALT/SGPT < 6 U/L (12-78)
--- NOTE | 2019-04-05 12:26 | EKG ---
Test Date: 2019-04-05 Test Time: 11:10:13 School Psychologist Assistant: SHREYAS MEASUREMENT RESULTS: Intervals: Rate: 58 [place]: 164 QRSD: 88 QT: 442 QTc: 433 [place]: P: 58 [place]: 164 QRS: -29 T: 30 INTERPRETIVE STATEMENTS: Sinus bradycardia Minimal voltage criteria for LVH, may be normal variant Borderline ECG Compared to ECG 04/05/2019 10:42:48 No significant changes Electronically Signed On 04-05-19 12:26:01 CDT by Shahriar Giron
--- NOTE | 2019-04-05 12:26 | EKG ---
Test Date: 2019-04-05 Test Time: 10:42:48 Stave Planer Tender: SHREYAS MEASUREMENT RESULTS: Intervals: Rate: 55 MS: 156 QRSD: 84 QT: 436 QTc: 417 [place]: P: 54 MS: 156 QRS: -26 T: 34 INTERPRETIVE STATEMENTS: Sinus bradycardia Moderate voltage criteria for LVH, may be normal variant Borderline ECG Compared to ECG 02/04/2019 17:39:33 Sinus rhythm no longer present Electronically Signed On 04-05-19 12:26:03 CDT by Shahriar Giron
--- NOTE | 2019-04-05 12:41 | RAD REPORT ---
EXAM DESCRIPTION: CT - Stone Protocol - 04/05/2019 11:40 am CLINICAL HISTORY: ABD PAIN Abdominal wound, colon cancer history prior wound drainage, presyncopal episode COMPARISON: Abdomen Pelvis W Contrast dated 11/20/2018; Abdomen Pelvis Wo Contrast dated 9 TECHNIQUE: Axial [address] imaging of the abdomen and pelvis was performed without IV contrast. No IV contrast was given because of allergy, abnormal renal function, patient refusal or physician re quest. Oral contrast was given. All CT scans are performed using dose optimization technique as appropriate and may include automated exposure control or mA/KV adjustment according to patient size. FINDINGS: Since the prior examination, the patient has undergone abdominal surgery with creation of a ileostomy in the right mid abdomen. A percutaneous drain tube there was at the level of the abdomin al wall in the inferior most left lower quadrant has since been removed. No suspicious findings in the lung bases. The liver, spleen and pancreas show no suspicious findings on non-contrast imaging. Gallbladder and b iliary tree are also without suspicious finding. No hydronephrosis or suspicious renal mass. No significant adrenal finding. Isodense renal masses an d pyelonephritis cannot be excluded in the absence of IV contrast. Contracted urinary bladder shows n o suspicious finding. Uterus is still present with a large fibroid in the left-side of the fundus. Th is is not clearly different from the October examination. Ovaries are obscured by adjacent non-opacified small bowel loops. No gastric dilatation or gastric wall thickening. The distal ileum has been divided with both limbs b rought to the skin surface in the right lower quadrant ileostomy. Terminal ileum at the ileocecal arya ve shows no acute finding. Clinical history indicates colon cancer. No history is provided as to loca tion or whether not the patient has had the mass resected. No bowel staple line seen in the colon. The May imaging study showed irregular wall thickening and nodularity involving the sigmoid colon. Th is progressed between the mid October and late October comparison studies. On the current examination there is a large 15 centimeter lobulated mass that that extends from the i nvolved portion of the sigmoid colon anteriorly and laterally through the abdominal wall and into the subcutaneous tissues of the left inguinal region. There is stranding and edema in the surrounding fa t. Patient has a wound and extends to the skin surface at this same level. The proximal portion of th e sigmoid colon extends into this mass and the distal sigmoid colon is seen exiting this large mass. No air-fluid level. No air within this mass. There are small lymph nodes in the left inguinal region at the inferior margin of the mass. The site of the patient's malignancy is not known but may be the sigmoid colon. Growth of a mass to a 15 cm size in a 4-5 month interval would be unusual. No drainable collection is seen. This is potent ially a large phlegmonous mass from inflammatory debris, blood and large-bowel secretions. History lo w between the sigmoid colon in the scan would be suspected but needs correlation with wound output. No free air or pneumatosis. No free fluid collection. No bulky lymphadenopathy. Bony degenerative radha nges and vascular calcifications are noted. IMPRESSION: A large 15 centimeter lobulated mass is present in the left lower quadrant of the sigmoi d colon extending anterior and laterally through the abdominal wall into the left lower quadrant. This mass is contiguous with the wound in the left lower quadrant as well is contiguous with the sigm oid colon. The mass has the appearance of tumor but growth to this size over a 5 month interval would be unusual . The mass does not have simple hematoma appearance. A large phlegmonous mass from blood, inflammator y debris and colon secretions would be possible. There may also be a fistula between the sigmoid colon in the skin service through this large mass. No acute findings at the ileostomy site. No other acute findings.
[2019-04-05] MEDS ORDERED: Magnesium Sulfate 2gm IVPB 2 G/50 ML BAG IV ONE (13:28)
[2019-04-05] MEDS ORDERED: METRONIDAZOLE 500mg IVPB 500 MG/100 ML BAG IV ONE (13:28)
[2019-04-05] MEDS ORDERED: PIPER/TAZO/NS 3.375gm 3.375 GM/100 ML BAG ONE (13:28)
--- NOTE | 2019-04-05 14:17 | P.HP ---
Certification for Inpatient Patient admitted to: Inpatient Practitioner: I am a practitioner with admitting privileges, knowledge of patient current condition, hospital course, and medical plan of care. Services: Services provided to patient in accordance with Admission requirements found in Title 42 Section 412.3 of the Code of Federal Regulations Patient History Date of Service: 04/05/19 Reason for admission: Syncopal episode History of Present Illness: This is a 78-year-old female with past medical history of colon cancer with metastasis to the lung, hypertension, hypothyroidism who presented to the emergency room with an episode of syncope. Per patient, she was going to see him wound today and she felt lightheaded. She states that she fainted 2 times. She denies any dizziness but states that she is only lightheaded. No prior episodes like this before. She states she does not remember much from the episodes. She denies any chest pain, shortness of breath, headache, vision changes, speech changes, focal weakness, GI or complaints. Due to these episodes of syncope, she came to the emergency room. In the ER, blood pressure was 105/438, heart rate of 55, respirations of 21, afebrile at 96.7 with a BMI of 33.9. Her labs remarkable for WBC count elevated at 19.9 and sodium low at 132. Head CT was negative for any acute abnormalities. Her chest x-ray showed a right upper lobe mass, that has been unchanged from prior studies. At the time of my exam, patient was alert oriented x3, in no acute distress and hemodynamically stable. She stated that she felt fine, no further lightheadedness or syncopal episodes since she has been here Allergies codeine Allergy (Verified 02/04/19 21:52) Nausea/Vomiting hydrochlorothiazide Adverse Reaction (Verified 02/06/19 04:32) Shortness of breath Home medications list reviewed: Yes Home Medications: 0.9 % Sodium Chloride [Gregory 0.9% NaCl with Cap] 10 ml OSTOMY DAILY 02/04/19 Acetaminophen [Tylenol Extra Strength] 500 mg PO Q6HP PRN 02/04/19 Bisoprolol Fumarate [Zebeta*] 5 mg PO DAILY 02/04/19 Methocarbamol [Robaxin*] 500 mg PO TID PRN 02/04/19 Thyroid Tab [[place] Thyroid*] 60 mg PO BID 02/04/19 Tramadol HCl [Ultram] 50 mg PO Q6HP PRN 02/04/19 Ferrous Sulfate [Ferrous Sulfate*] 325 mg PO DAILY@1800 #30 tab 02/08/19 Furosemide [Lasix*] 40 mg PO BIDL #30 tab 02/08/19 Sodium Chloride Tab [Sodium Chloride*] 1 gm PO BIDWM #60 tab 02/08/19 - Past Medical/Surgical History Diabetic: No -: Hypertension -: Hypothyroidism -: Colon cancer, stage IV with lung mass -: Left lower quadrant abscess with a drain -: Ileostomy -: Placement of catheter drain to the left lower quadrant Psychosocial/ Personal History: Patient lives at home - Family History Father -: Heart disease Mother -: Liver disease - Social History Alcohol use: No CD- Drugs: No Caffeine use: Yes Review of Systems 10-point ROS is otherwise unremarkable Physical Examination - Physical Exam General: Alert, In no apparent distress, Oriented x3 HEENT: Atraumatic, PERRLA, Mucous membr. moist/pink, EOMI, Sclerae nonicteric Neck: Supple, 2+ carotid pulse no bruit, No LAD, Without JVD or thyroid abnormality Respiratory: Clear to auscultation bilaterally, Normal air movement Cardiovascular: Regular rate/rhythm, Normal S1 S2 Gastrointestinal: Normal bowel sounds, No tenderness, Other (Ileostomy in place) Musculoskeletal: No tenderness Integumentary: No rashes Neurological: Normal gait, Normal speech, Normal strength at 5/5 x4 extr, Normal tone, Normal affect Lymphatics: No axilla or inguinal lymphadenopathy - Studies Laboratory Data (last 24 hrs) 04/05/19 11:05: PT 17.1 H, INR 1.47 04/05/19 11:05: WBC 19.9 H, Hgb 10.8 L, Hct 33.5 L, Plt Count 437 H 04/05/19 11:05: Sodium 132 L, Potassium 3.6, BUN 12, Creatinine 0.83, Glucose 124 H, Magnesium 1.6 L, Total Bilirubin 0.3, AST 16, ALT < 6 L, Alkaline Phosphatase 73, Lipase 91 Assessment and Plan - Problems (Diagnosis) (1) Syncopal episodes Current Visit: Yes Status: Acute Plan: Unsure of etiology, but this could be secondary to underlying cancer, hypotension/dehydration, vasovagal. -admit to floor with tele -continue gentle hydration -carotid ultrasound ordered, pending -monitor labs and vital signs Qualifiers: Syncope type: unspecified Qualified Code(s): R55 - Syncope and collapse (2) Colon cancer Current Visit: No Status: Chronic Plan: Patient with a history of colon cancer, status post ileostomy placement -patient currently in the process of transferring her paperwork to Dr. Grady -she will continue outpatient follow up for her cancer Qualifiers: Colon location: unspecified part of colon Qualified Code(s): C18.9 - Malignant neoplasm of colon, unspecified (3) Hyponatremia Current Visit: Yes Status: Acute Plan: It seems that patient chronically has hypernatremia. -sodium 132 at this time -continue gentle IV hydration and monitor labs (4) HTN (hypertension) Current Visit: No Status: Chronic Plan: Stable, will restart home medications Qualifiers: Hypertension type: essential hypertension Qualified Code(s): I10 - Essential (primary) hypertension (5) Lung mass Current Visit: No Status: Chronic Plan: Noted on chest x-ray, unchanged from prior studies. -per family, biopsy has been done on this mass and it was found to be metastasis from colon cancer -they will continue outpatient workup - Plan DVT prophylaxis: Lovenox GI prophylaxis: Protonix, home medication Diet: Regular Disposition: Pending symptomatic improvement. Anticipate discharge home in the next 2 days Discharge Plan: Home Plan to discharge in: 48 Hours - Advance Directives Does patient have a Living Will: No Does patient have a Durable POA for Healthcare: No Time Spent Managing Pts Care (In Minutes): 55
[2019-04-05 15:25] VITALS: BMI 34.3
[2019-04-05] MEDS ORDERED: ONDANSETRON 4 MG/2 ML VIAL IV PRN (15:34)
[2019-04-05 15:54] LABS: Urine Blood 2+ (NEG); Urine Glucose NEGATIVE (NEG); Urine Protein NEGATIVE (NEG); Urine Specific Gravity 1.015 (1.005-1.030); Urine pH 6.5 (5.0-7.0)
[2019-04-05] MEDS: ENOXAPARIN 40 MG/0.4 ML SQ SCH (16:29)
[2019-04-05 16:50] LABS: Urine Specific Gravity 1.015 (1.005-1.030)
[2019-04-06] MEDS: NA CHLORIDE 0.9% 1,000 ML IV SCH ×3 (03:05→13:15)
[2019-04-06 06:37] LABS: Absolute Lymphocytes (CBC) 1.5 K/uL (0.7-4.9); Basophils % 0.2 % (0-1.3); Hematocrit 29.4 % (36.0-45.0); Lymphocytes % 9.4 % (15.3-44.8); MPV 9.1 fL (7.6-11.3); RBC Red Blood Cell Count 3.83 M/uL (3.86-4.86)
[2019-04-06 06:39] LABS: AST/SGOT 15 U/L (15-37); Albumin 2.1 g/dL (3.4-5.0); Alkaline Phosphatase 69 U/L (45-117); BUN Blood Urea Nitrogen 12 mg/dL (7-18); Bicarbonate 24 mmol/L (21-32); Bilirubin Total 0.3 mg/dL (0.2-1.0); Glucose Level 96 mg/dL (74-106); Phosphorus 3.1 mg/dL (2.5-4.9); Potassium 3.6 mmol/L (3.5-5.1); Protein, Total 6.7 g/dL (6.4-8.2); Sodium Level 135 mmol/L (136-145)
[2019-04-06 06:44] LABS: ALT/SGPT < 6 U/L (12-78)
[2019-04-06] MEDS: ENOXAPARIN 40 MG/0.4 ML SQ SCH (08:48)
[2019-04-06] MEDS ORDERED: TRAMADOL HCL 50 MG TAB PO PRN (11:21)
[2019-04-06] MEDS ORDERED: PROCHLORPERAZINE 5 MG TAB PO PRN (11:21)
[2019-04-06] MEDS: THYROID 30 MG TAB PO SCH (12:00)
[2019-04-06] MEDS ORDERED: PIPER/TAZO/NS 3.375gm 3.375 GM/100 ML BAG IVPB SCH (12:00)
[2019-04-06] MEDS: Levofloxacin500mg IV 500 MG/100 ML BAG IV SCH (13:14)
[2019-04-06] MEDS: PIPER/TAZO/NS 3.375gm 3.375 GM/100 ML BAG IVPB SCH (14:46)
--- NOTE | 2019-04-06 16:54 | P.PN ---
Subjective Date of Service: 04/06/19 Chief Complaint: Syncopal episode Patient seen and examined at bedside. No family at bedside. Chart reviewed and case discussed with nursing staff. Reports no complaints this morning Does state that she had some drainage from the site where she had the drain removed previously. Acute events noted overnight Review of Systems 10-point ROS is otherwise unremarkable Physical Examination - Vital Signs Temperature: 98.3 F Blood Pressure: 143/66 Pulse: 58 Respirations: 18 Pulse Ox (%): 96 - Physical Exam General: Alert, In no apparent distress, Oriented x3 HEENT: Atraumatic, PERRLA, EOMI Neck: Supple, JVD not distended Respiratory: Clear to auscultation bilaterally, Normal air movement Cardiovascular: Regular rate/rhythm, Normal S1 S2 Gastrointestinal: Normal bowel sounds, No tenderness Musculoskeletal: No tenderness Integumentary: Skin lesion (On left side of the abdomen), Other (Colostomy in place) Neurological: Normal speech, Normal tone, Normal affect Assessment And Plan - Current Problems (Diagnosis) (1) Syncopal episodes Current Visit: Yes Status: Acute Plan: Unsure of etiology, but this could be secondary to underlying cancer, hypotension/dehydration, vasovagal. -admit to floor with tele -continue gentle hydration -carotid ultrasound ordered, pending -monitor labs and vital signs Qualifiers: Syncope type: unspecified Qualified Code(s): R55 - Syncope and collapse (2) Colon cancer Current Visit: No Status: Chronic Plan: Patient with a history of colon cancer, status post ileostomy placement -patient currently in the process of transferring her paperwork to Dr. Grady -she will continue outpatient follow up for her cancer Qualifiers: Colon location: unspecified part of colon Qualified Code(s): C18.9 - Malignant neoplasm of colon, unspecified (3) Hyponatremia Current Visit: Yes Status: Acute Plan: It seems that patient chronically has hypernatremia. -sodium 132 at this time -continue gentle IV hydration and monitor labs (4) HTN (hypertension) Current Visit: No Status: Chronic Plan: Stable, will restart home medications Qualifiers: Hypertension type: essential hypertension Qualified Code(s): I10 - Essential (primary) hypertension (5) Lung mass Current Visit: No Status: Chronic Plan: Noted on chest x-ray, unchanged from prior studies. -per family, biopsy has been done on this mass and it was found to be metastasis from colon cancer -they will continue outpatient workup (6) Wound check, abscess Current Visit: Yes Status: Acute Plan: Located on left lower quadrant of the abdomen. Seems to be draining -patient does follow up with Dr. Agee in wound Care Clinic, consulted. Awaiting recommendations -will continue IV antibiotics at this time - Plan DVT prophylaxis: Lovenox GI prophylaxis: Protonix, home medication Diet: Regular Disposition: Pending symptomatic improvement. Anticipate discharge home in the next 24-48 hr
[2019-04-06] MEDS: FERROUS SULFATE 325 MG TAB PO SCH (21:00)
[2019-04-07] MEDS: PIPER/TAZO/NS 3.375gm 3.375 GM/100 ML BAG IVPB SCH ×3 (01:26→17:28)
[2019-04-07] MEDS: NA CHLORIDE 0.9% 1,000 ML IV SCH ×3 (01:27→18:54)
[2019-04-07 06:16] LABS: Basophils % 0.8 % (0-1.3); Hematocrit 30.2 % (36.0-45.0); MPV 8.9 fL (7.6-11.3); RBC Red Blood Cell Count 3.89 M/uL (3.86-4.86)
[2019-04-07 06:17] LABS: AST/SGOT 17 U/L (15-37); Albumin 2.1 g/dL (3.4-5.0); Alkaline Phosphatase 71 U/L (45-117); BUN Blood Urea Nitrogen 10 mg/dL (7-18); Bicarbonate 23 mmol/L (21-32); Bilirubin Total 0.3 mg/dL (0.2-1.0); Glucose Level 92 mg/dL (74-106); Potassium 3.9 mmol/L (3.5-5.1); Protein, Total 6.9 g/dL (6.4-8.2); Sodium Level 134 mmol/L (136-145)
[2019-04-07 06:20] LABS: ALT/SGPT < 6 U/L (12-78)
[2019-04-07] MEDS: THYROID 30 MG TAB PO SCH ×2 (08:00→12:00)
[2019-04-07] MEDS: BISOPROLOL 5 MG TABLET PO SCH (08:37)
[2019-04-07] MEDS: PANTOPRAZOLE 40MG TABLET PO SCH (08:39)
[2019-04-07] MEDS: ENOXAPARIN 40 MG/0.4 ML SQ SCH (08:39)
[2019-04-07] MEDS: SODIUM CHLORIDE 1 GM TAB PO SCH (08:39)
[2019-04-07] MEDS ORDERED: POTASSIUM CL SA 10 MEQ TAB PO ONE (09:00)
[2019-04-07] MEDS ORDERED: AMLODIPINE 10 MG TAB PO SCH (09:00)
--- NOTE | 2019-04-07 14:07 | P.PN ---
Subjective Date of Service: 04/07/19 Chief Complaint: Syncopal episode Subjective: No C/O voiced Patient seen and examined at bedside. No family at bedside. Chart reviewed and case discussed with nursing staff. Reports no complaints this morning Does state that she had some drainage from the site where she had the drain removed previously. The drainage is increased. No Acute events noted overnight Review of Systems 10-point ROS is otherwise unremarkable Physical Examination - Vital Signs Temperature: 97.7 F Blood Pressure: 145/67 Pulse: 53 Respirations: 18 Pulse Ox (%): 97 - Physical Exam General: Alert, In no apparent distress HEENT: Atraumatic, PERRLA, EOMI Neck: Supple, JVD not distended Respiratory: Clear to auscultation bilaterally, Normal air movement Cardiovascular: Regular rate/rhythm, Normal S1 S2 Gastrointestinal: Normal bowel sounds, No tenderness Musculoskeletal: No tenderness Integumentary: No rashes Neurological: Normal speech, Normal tone, Normal affect Lymphatics: No axilla or inguinal lymphadenopathy - Studies Laboratory Data (last 24 hrs) 04/07/19 05:38: Sodium 134 L, Potassium 3.9, BUN 10, Creatinine 0.79, Glucose 92 , Total Bilirubin 0.3, AST 17, ALT < 6 L, Alkaline Phosphatase 71 04/07/19 05:38: WBC 17.8 H, Hgb 10.2 L, Hct 30.2 L, Plt Count 408 H Microbiology Data (last 24 hrs): 04/07/19 01:55 Wound - Left Abdomen Gram Stain - Final Assessment And Plan - Current Problems (Diagnosis) (1) Syncopal episodes Current Visit: Yes Status: Acute Plan: Unsure of etiology, but this could be secondary to underlying cancer, hypotension/dehydration, vasovagal. - Resolved -continue gentle hydration -monitor labs and vital signs Qualifiers: Syncope type: unspecified Qualified Code(s): R55 - Syncope and collapse (2) Colon cancer Current Visit: No Status: Chronic Plan: Patient with a history of colon cancer, status post ileostomy placement -patient currently in the process of transferring her paperwork to Dr. Grady -she will continue outpatient follow up for her cancer Qualifiers: Colon location: unspecified part of colon Qualified Code(s): C18.9 - Malignant neoplasm of colon, unspecified (3) Hyponatremia Current Visit: Yes Status: Acute Plan: It seems that patient chronically has hypernatremia. Improving -sodium 132 at this time -continue gentle IV hydration and monitor labs (4) HTN (hypertension) Current Visit: No Status: Chronic Plan: Stable, will restart home medications Qualifiers: Hypertension type: essential hypertension Qualified Code(s): I10 - Essential (primary) hypertension (5) Lung mass Current Visit: No Status: Chronic Plan: Noted on chest x-ray, unchanged from prior studies. -per family, biopsy has been done on this mass and it was found to be metastasis from colon cancer -they will continue outpatient workup (6) Wound check, abscess Current Visit: Yes Status: Acute Plan: Located on left lower quadrant of the abdomen. Seems to be draining -patient does follow up with Dr. Agee in wound Care Clinic, consulted. Awaiting recommendations -will continue IV antibiotics at this time - Plan DVT prophylaxis: Lovenox GI prophylaxis: Protonix, home medication Diet: Regular Disposition: Pending symptomatic improvement and General surgery for wound check. Anticipate discharge home in the next 24-48 hr
[2019-04-07] MEDS: Levofloxacin500mg IV 500 MG/100 ML BAG IV SCH (16:08)
[2019-04-07] MEDS: AMLODIPINE 10 MG TAB PO SCH (17:27)
[2019-04-07] MEDS: FERROUS SULFATE 325 MG TAB PO SCH (18:55)
[2019-04-07] MEDS ORDERED: PNEUMOCOCCAL VACCINE 0.5 ML IMVAC ONE (21:00)
[2019-04-07] MEDS ORDERED: INFLUENZA VACCINE (for 3y+) 0.5 ML DOSE IMVAC ONE (21:00)
[2019-04-08] MEDS: PIPER/TAZO/NS 3.375gm 3.375 GM/100 ML BAG IVPB SCH ×3 (00:44→17:35)
[2019-04-08] MEDS: NA CHLORIDE 0.9% 1,000 ML IV SCH ×3 (03:34→23:34)
[2019-04-08 06:25] LABS: Absolute Lymphocytes (CBC) 1.9 K/uL (0.7-4.9); Basophils % 0.4 % (0-1.3); Hematocrit 28.2 % (36.0-45.0); Lymphocytes % 9.4 % (15.3-44.8); MPV 9.5 fL (7.6-11.3); RBC Red Blood Cell Count 3.69 M/uL (3.86-4.86)
[2019-04-08 06:38] LABS: AST/SGOT 11 U/L (15-37); Albumin 1.8 g/dL (3.4-5.0); Alkaline Phosphatase 58 U/L (45-117); BUN Blood Urea Nitrogen 7 mg/dL (7-18); Bicarbonate 22 mmol/L (21-32); Bilirubin Total 0.3 mg/dL (0.2-1.0); Glucose Level 90 mg/dL (74-106); Potassium 3.9 mmol/L (3.5-5.1); Protein, Total 6.2 g/dL (6.4-8.2); Sodium Level 135 mmol/L (136-145)
[2019-04-08 06:58] LABS: ALT/SGPT < 6 U/L (12-78)
[2019-04-08 08:22] VITALS: O2SAT 96
[2019-04-08] MEDS: PANTOPRAZOLE 40MG TABLET PO SCH (08:52)
[2019-04-08] MEDS: ENOXAPARIN 40 MG/0.4 ML SQ SCH (08:52)
[2019-04-08] MEDS: SODIUM CHLORIDE 1 GM TAB PO SCH (08:52)
[2019-04-08] MEDS: THYROID 30 MG TAB PO SCH ×2 (08:53→11:43)
[2019-04-08] MEDS: BISOPROLOL 5 MG TABLET PO SCH (08:53)
[2019-04-08 09:42] LABS: Blood Morphology Comment NOT SEEN (NOT SEEN); Platelet Estimate ADEQ
[2019-04-08] MEDS: Levofloxacin500mg IV 500 MG/100 ML BAG IV SCH (11:44)
--- NOTE | 2019-04-08 18:55 | P.PN ---
Subjective Date of Service: 04/08/19 Chief Complaint: Syncopal episode Subjective: Improving Patient seen and examined at bedside. No family at bedside. Chart reviewed and case discussed with nursing staff. Reports no complaints this morning Does state that she had some drainage from the site where she had the drain removed previously. The drainage is increased. No Acute events noted overnight Review of Systems 10-point ROS is otherwise unremarkable Physical Examination - Vital Signs Temperature: 98.2 F Blood Pressure: 130/46 Pulse: 66 Respirations: 18 Pulse Ox (%): 96 - Physical Exam General: Alert, In no apparent distress HEENT: Atraumatic, PERRLA, EOMI Neck: Supple, JVD not distended Respiratory: Clear to auscultation bilaterally, Normal air movement Cardiovascular: Regular rate/rhythm, Normal S1 S2 Gastrointestinal: Normal bowel sounds, No tenderness Musculoskeletal: No tenderness Integumentary: No rashes Neurological: Normal speech, Normal tone, Normal affect Lymphatics: No axilla or inguinal lymphadenopathy - Studies Microbiology Data (last 24 hrs): 04/07/19 01:55 Wound - Left Abdomen Gram Stain - Final Assessment And Plan - Current Problems (Diagnosis) (1) Syncopal episodes Current Visit: Yes Status: Acute Plan: Unsure of etiology, but this could be secondary to underlying cancer, hypotension/dehydration, vasovagal. - Resolved -continue gentle hydration -monitor labs and vital signs Qualifiers: Syncope type: unspecified Qualified Code(s): R55 - Syncope and collapse (2) Colon cancer Current Visit: No Status: Chronic Plan: Patient with a history of colon cancer, status post ileostomy placement -patient currently in the process of transferring her paperwork to Dr. Grady -she will continue outpatient follow up for her cancer Qualifiers: Colon location: unspecified part of colon Qualified Code(s): C18.9 - Malignant neoplasm of colon, unspecified (3) Hyponatremia Current Visit: Yes Status: Acute Plan: It seems that patient chronically has hypernatremia. Improving -sodium 132 at this time -continue gentle IV hydration and monitor labs (4) HTN (hypertension) Current Visit: No Status: Chronic Plan: Stable, will restart home medications Qualifiers: Hypertension type: essential hypertension Qualified Code(s): I10 - Essential (primary) hypertension (5) Lung mass Current Visit: No Status: Chronic Plan: Noted on chest x-ray, unchanged from prior studies. -per family, biopsy has been done on this mass and it was found to be metastasis from colon cancer -they will continue outpatient workup (6) Wound check, abscess Current Visit: Yes Status: Acute Plan: Located on left lower quadrant of the abdomen. Seems to be draining -patient does follow up with Dr. Agee in wound Care Clinic, consulted. Awaiting recommendations -will continue IV antibiotics at this time - Plan DVT prophylaxis: Lovenox GI prophylaxis: Protonix, home medication Diet: Regular Disposition: Pending symptomatic improvement and General surgery for wound check. Anticipate discharge home in the next 24-48 hr
[2019-04-08] MEDS ORDERED: FERROUS SULFATE 325 MG TAB PO SCH (19:00)
[2019-04-08] MEDS: AMLODIPINE 10 MG TAB PO SCH (21:00)
[2019-04-09] MEDS: PIPER/TAZO/NS 3.375gm 3.375 GM/100 ML BAG IVPB SCH ×2 (00:34→08:24)
[2019-04-09 06:09] LABS: Absolute Lymphocytes (CBC) 1.6 K/uL (0.7-4.9); Basophils % 0.4 % (0-1.3); MPV 8.4 fL (7.6-11.3); RBC Red Blood Cell Count 3.72 M/uL (3.86-4.86)
[2019-04-09 06:17] VITALS: BP 147/65
[2019-04-09 06:29] LABS: AST/SGOT 11 U/L (15-37); Albumin 1.8 g/dL (3.4-5.0); Alkaline Phosphatase 56 U/L (45-117); BUN Blood Urea Nitrogen 7 mg/dL (7-18); Bicarbonate 23 mmol/L (21-32); Bilirubin Total 0.3 mg/dL (0.2-1.0); Glucose Level 90 mg/dL (74-106); Potassium 3.5 mmol/L (3.5-5.1); Protein, Total 6.1 g/dL (6.4-8.2); Sodium Level 135 mmol/L (136-145)
[2019-04-09] MEDS: NA CHLORIDE 0.9% 1,000 ML IV SCH ×2 (06:30→09:34)
[2019-04-09 06:31] LABS: ALT/SGPT < 6 U/L (12-78)
[2019-04-09] MEDS: ENOXAPARIN 40 MG/0.4 ML SQ SCH (08:22)
[2019-04-09] MEDS: SODIUM CHLORIDE 1 GM TAB PO SCH (08:23)
[2019-04-09] MEDS: PANTOPRAZOLE 40MG TABLET PO SCH (08:23)
[2019-04-09] MEDS: THYROID 30 MG TAB PO SCH ×2 (08:23→11:27)
[2019-04-09] MEDS: BISOPROLOL 5 MG TABLET PO SCH (08:24)
[2019-04-09] MEDS ORDERED: POTASSIUM CL SA 10 MEQ TAB PO ONE (09:00)
[2019-04-09 09:40] VITALS: TEMP 98.4
[2019-04-09] MEDS: Levofloxacin500mg IV 500 MG/100 ML BAG IV SCH (11:28)
--- NOTE | 2019-04-09 13:12 | P.DS ---
Admission Date: 04/07/19 Discharge Date: 04/09/19 Disposition: ROUTINE DISCHARGE Discharge Condition: GOOD Reason for Admission: Syncopal episode Consultations: General surgery, Dr. Agee - Problems (1) Syncopal episodes Current Visit: Yes Status: Acute Qualifiers: Syncope type: unspecified Qualified Code(s): R55 - Syncope and collapse (2) Colon cancer Current Visit: No Status: Chronic Qualifiers: Colon location: unspecified part of colon Qualified Code(s): C18.9 - Malignant neoplasm of colon, unspecified (3) Hyponatremia Current Visit: Yes Status: Acute (4) HTN (hypertension) Current Visit: No Status: Chronic Qualifiers: Hypertension type: essential hypertension Qualified Code(s): I10 - Essential (primary) hypertension (5) Lung mass Current Visit: No Status: Chronic (6) Wound check, abscess Current Visit: Yes Status: Acute Brief History of Present Illness: This is a 78-year-old female with past medical history of colon cancer with metastasis to the lung, hypertension, hypothyroidism who presented to the emergency room with an episode of syncope. Per patient, she was going to see him jose gray and she felt lightheaded. She states that she fainted 2 times. She denies any dizziness but states that she is only lightheaded. No prior episodes like this before. She states she does not remember much from the episodes. She denies any chest pain, shortness of breath, headache, vision changes, speech changes, focal weakness, GI or complaints. Due to these episodes of syncope, she came to the emergency room. In the ER, blood pressure was 105/438, heart rate of 55, respirations of 21, afebrile at 96.7 with a BMI of 33.9. Her labs remarkable for WBC count elevated at 19.9 and sodium low at 132. Head CT was negative for any acute abnormalities. Her chest x-ray showed a right upper lobe mass, that has been unchanged from prior studies. At the time of my exam, patient was alert oriented x3, in no acute distress and hemodynamically stable. She stated that she felt fine, no further lightheadedness or syncopal episodes since she has been here Hospital Course: Patient admitted for syncopal episode, unsure of etiology. Could be secondary to underlying cancer, hypotension/dehydration or vasovagal. This resolved prior to discharge. She does have a history of colon cancer, status post ileostomy placement. She was also hypernatremic on admission. She also had an open wound on the left abdominal wall that was draining. She had it drained previously removed from that area and the wound never healed. General surgery, Dr. Agee was consulted for wound care. He recommended dry gauze to the area and follow up in wound Care Clinic on Thursday. Patient's WBC count did go up, was trending downward prior to discharge. She was discharged on oral Levaquin and amoxicillin. She will follow up with her primary care physician, oncology as well as wound Care Clinic on Thursday with Dr. Agee. She otherwise remained stable throughout the stay. Her diagnoses and treatment plan was explained to her, all questions were answered and she verbalized understanding. She was then discharged home in a safe and stable manner. Vital Signs/Physical Exam: Temp Pulse Resp BP Pulse Ox 98.4 F 72 15 147/65 H 96 04/09/19 08:00 04/09/19 08:24 04/09/19 08:00 04/09/19 08:24 04/09/19 08:00 General: Alert, In no apparent distress HEENT: Atraumatic, PERRLA, EOMI Neck: Supple, JVD not distended Respiratory: Clear to auscultation bilaterally, Normal air movement Cardiovascular: Regular rate/rhythm, Normal S1 S2 Gastrointestinal: Normal bowel sounds, No tenderness, Other (Illeostomy on right side) Musculoskeletal: No tenderness Integumentary: Skin lesion (on left abdominal wall, draining, improved. ) Neurological: Normal speech, Normal tone, Normal affect Lymphatics: No axilla or inguinal lymphadenopathy Laboratory Data at Discharge: WBC 18.4 K/uL (4.3-10.9) H 04/09/19 05:58 Hgb 9.3 g/dL (12.0-15.0) L 04/09/19 05:58 Hct 29.0 % (36.0-45.0) L 04/09/19 05:58 Plt Count 354 K/uL (152-406) 04/09/19 05:58 PT 17.1 SECONDS (9.5-12.5) H 04/05/19 11:05 INR 1.47 04/05/19 11:05 Sodium 135 mmol/L (136-145) L 04/09/19 05:58 Potassium 3.5 mmol/L (3.5-5.1) 04/09/19 05:58 BUN 7 mg/dL (7-18) 04/09/19 05:58 Creatinine 0.76 mg/dL (0.55-1.3) 04/09/19 05:58 Glucose 90 mg/dL (74-106) 04/09/19 05:58 Phosphorus 3.1 mg/dL (2.5-4.9) 04/06/19 05:37 Magnesium 2.0 mg/dL (1.8-2.4) 04/06/19 05:37 Total Bilirubin 0.3 mg/dL (0.2-1.0) 04/09/19 05:58 AST 11 U/L (15-37) L 04/09/19 05:58 ALT < 6 U/L (12-78) L 04/09/19 05:58 Alkaline Phosphatase 56 U/L (45-117) 04/09/19 05:58 Lipase 91 U/L (73-393) 04/05/19 11:05 Home Medications: Bisoprolol Fumarate [Zebeta*] 5 mg PO DAILY 02/04/19 Thyroid Tab [Dermott Thyroid*] 60 mg PO LUNCH 02/04/19 Tramadol HCl [Ultram] 50 mg PO Q6HP PRN 02/04/19 Amlodipine [Norvasc*] 10 mg PO DAILY 04/05/19 Ferrous Sulfate [Ferrous Sulfate*] 325 mg PO BEDTIME 04/05/19 Morphine Sulfate [Morphine Sulfate Cr] 15 mg PO Q4H PRN 04/05/19 Pantoprazole [Protonix Tab*] 40 mg PO DAILY 04/05/19 Prochlorperazine [Compazine*] 5 mg PO Q6H PRN 04/05/19 Sodium Chloride Tab [Sodium Chloride*] 1 gm PO PRN 04/05/19 Thyroid Tab [Dermott Thyroid*] 90 mg PO BREAKFAST 04/05/19 Amoxicillin 500 mg PO BID #14 capsule 04/09/19 Levofloxacin [Levaquin] 500 mg PO DAILY #7 tablet 04/09/19 New Medications: Amoxicillin 500 mg PO BID #14 capsule Levofloxacin [Levaquin] 500 mg PO DAILY #7 tablet Patient Discharge Instructions: Please follow up with the primary care physician in 2-3 days. Please follow up with Oncology in 1 week. Please follow up with Dr. Agee in the wound Care Clinic on Thursday. Return to the emergency room for worsening symptoms. Diet: AHA Activity: Ad joe Followup: Juma Agee MD [ACTIVE - CAN ADMIT] - Deven Cevallos MD [Primary Care Provider] - Time spent managing pt's care (in minutes): 55
== END 2019-04-09 14:00 | disposition home health service (06) | DRG 312 ==
LOC: ER 10:39 → ERHOLD 12:57 → INTOOBSV 12:57 → 2ND 14:44 → OBSVTOIN 04-07 12:57
PROVIDERS: ADMIT Family Medicine; ATTEND Family Medicine
DX: R55 Syncope and collapse (principal); C18.9 Malignant neoplasm of colon, unspecified; C78.00 Secondary malignant neoplasm of unspecified lung; E87.1 Hypo-osmolality and hyponatremia; L02.211 Cutaneous abscess of abdominal wall; I10 Essential (primary) hypertension; E03.9 Hypothyroidism, unspecified; Z93.2 Ileostomy status; Z23 Encounter for immunization
CPT/HCPCS: 36415; 70450; 71045; 74176; 76377; 80048; 80053; 80076; 81003; 81025; 83690; 83735; 83880; 84100; 84484; 85025; 85610; 86850; 86900; 86901; 87070; 87205; 90471; 90670; 93005; 96361; 96365; 96367; 96368; 99285; G0378; J1650; J2405; J2543; J3475; J7030; Q0164; Q2035

== ENCOUNTER 2019-04-12 18:02 | Inpatient (IN) | payer OTHER, BC ==
[2019-04-12] MEDS ORDERED: ONDANSETRON 4 MG/2 ML VIAL ONE (19:25)
[2019-04-12] MEDS ORDERED: NA CHLORIDE 0.9% 1,000 ML ONE (19:25)
[2019-04-12 19:51] LABS: Absolute Lymphocytes (CBC) 1.2 K/uL (0.7-4.9); Basophils % 0.1 % (0-1.3); Hematocrit 31.2 % (36.0-45.0); Lymphocytes % 4.1 % (15.3-44.8); MPV 8.7 fL (7.6-11.3); RBC Red Blood Cell Count 4.05 M/uL (3.86-4.86)
[2019-04-12 19:57] LABS: AST/SGOT 13 U/L (15-37); Alkaline Phosphatase 69 U/L (45-117); BUN Blood Urea Nitrogen 6 mg/dL (7-18); Bicarbonate 26 mmol/L (21-32); Bilirubin Direct < 0.1 mg/dL (0-0.2); Bilirubin Total 0.3 mg/dL (0.2-1.0); Glucose Level 96 mg/dL (74-106); Lipase 58 U/L (73-393); Potassium 3.5 mmol/L (3.5-5.1); Protein, Total 7.2 g/dL (6.4-8.2); Sodium Level 133 mmol/L (136-145)
[2019-04-12 19:58] LABS: ALT/SGPT < 6 U/L (12-78)
[2019-04-12] MEDS ORDERED: PIPER/TAZO/NS 3.375gm 3.375 GM/100 ML BAG ONE (20:44)
[2019-04-12 20:54] LABS: Blood Morphology Comment NOT SEEN (NOT SEEN); Platelet Estimate ADEQ
[2019-04-12 20:57] LABS: Urine Appearance CLEAR; Urine Bilirubin NEGATIVE (NEG); Urine Blood NEGATIVE (NEG); Urine Color YELLOW; Urine Glucose NEGATIVE (NEG); Urine Protein NEGATIVE (NEG); Urine Specific Gravity <=1.005 (1.005-1.030); Urine Urobilinogen 0.2 mg/dL (0.2-1.0); Urine pH 6.5 (5.0-7.0)
[2019-04-12 21:00] LABS: Urine Glucose NEGATIVE (NEG)
[2019-04-12 21:01] LABS: Urine Blood NEGATIVE (NEG); Urine Protein NEGATIVE (NEG)
[2019-04-12 21:10] LABS: Urine Amorphous Sediment 1+ /HPF (NONE SEEN); Urine Bacteria NONE SEEN /HPF (<20); Urine Culture Reflex Order NOT NEEDED; Urine RBC <5 /HPF (NONE SEEN)
[2019-04-12] MEDS ORDERED: VANCOMYCIN 1 GM/VIAL ONE (22:41)
[2019-04-12] MEDS ORDERED: NA CHLORIDE 0.9% 250 ML ONE (22:45)
--- NOTE | 2019-04-13 00:04 | P.HP ---
Certification for Inpatient Patient admitted to: Inpatient With expected LOS: >2 Midnights Practitioner: I am a practitioner with admitting privileges, knowledge of patient current condition, hospital course, and medical plan of care. Services: Services provided to patient in accordance with Admission requirements found in Title 42 Section 412.3 of the Code of Federal Regulations Patient History Date of Service: 04/12/19 Reason for admission: Fever and chills and malaise History of Present Illness: 78-year-old woman diagnosed with metastatic colon cancer in October 2018, with metastasis to the lungs (patient has a lung mass), intra-abdominal mass complicated with intra-abdominal abscess, had a diverting ileostomy and a drain placed for several months. She never had chemo due to the intra-abdominal abscess. The drainage was removed about 2 weeks ago at [facility]. She presented emergency department with a complaint of fever and chills and nausea. Patient was admitted a week ago for syncope and collapsed, noted to have severe leukocytosis, syncope thought to be secondary to dehydration. She has a residual wound on the LLQ of the abdomen from the drainage. She was treated with IV antibiotics and discharged 4 days ago with amoxicillin and levaquin. Patient returned to the ED with a complaint of fever and chills and nausea despite being compliant with the antibiotics. In the ED, patient noted to be afebrile. She has severe [place] [id number] abdomen and pelvis done demonstrated no abscess or fluid collection. Of note the patient was in [facility] about 2 weeks ago for follow up and was refered to Dr. Grady for palliative chemo or go on hospice. Patient is admitted for further management. Allergies codeine Allergy (Verified 02/04/19 21:52) Nausea/Vomiting hydrochlorothiazide Adverse Reaction (Verified 02/06/19 04:32) Shortness of breath Home Medications: Bisoprolol Fumarate [Zebeta*] 5 mg PO DAILY 02/04/19 Thyroid Tab [Lockhart Thyroid*] 60 mg PO LUNCH 02/04/19 Tramadol HCl [Ultram] 50 mg PO Q6HP PRN 02/04/19 Amlodipine [Norvasc*] 10 mg PO DAILY 04/05/19 Ferrous Sulfate [Ferrous Sulfate*] 325 mg PO BEDTIME 04/05/19 Morphine Sulfate [Morphine Sulfate Cr] 15 mg PO Q4H PRN 04/05/19 Pantoprazole [Protonix Tab*] 40 mg PO DAILY 04/05/19 Prochlorperazine [Compazine*] 5 mg PO Q6H PRN 04/05/19 Sodium Chloride Tab [Sodium Chloride*] 1 gm PO PRN 04/05/19 Thyroid Tab [Lockhart Thyroid*] 90 mg PO BREAKFAST 04/05/19 Amoxicillin 500 mg PO BID #14 capsule 04/09/19 Levofloxacin [Levaquin] 500 mg PO DAILY #7 tablet 04/09/19 - Past Medical/Surgical History Diabetic: No -: Hypertension -: Hypothyroidism -: Colon cancer, stage IV with lung mass -: Left lower quadrant abscess drain removed -: Ileostomy -: Placement of catheter drain to the left lower quadrant Psychosocial/ Personal History: Patient lives at home - Family History Father -: Heart disease Mother -: Liver disease - Social History Alcohol use: No CD- Drugs: No Caffeine use: No Review of Systems Other: Eyes: No eye discharge, Respiratory: No cough, no shortness of breath. CVS: No chest pain, no palpitation, no lightheadedness. GI: No abdominal pain, no vomit. Genitourinary: No dysuria, no urinary frequency, no incontinence, no hematuria. Musculoskeletal: No joint pains, or joint swelling. At baseline she is able to transfer from bed, and walk with assistance. Neurology: No headache, no asymmetric, weakness, no problem with swallowing. Except as documented, all other systems reviewed and negative. Physical Examination - Physical Exam General: Alert, In no apparent distress, Oriented x3 HEENT: Normocephalic, PERRLA, Mucous membr. moist/pink Neck: Supple, JVD not distended, No Thyromegaly Respiratory: Clear to auscultation bilaterally, Normal air movement Cardiovascular: No edema, Regular rate/rhythm, Normal S1 S2, No murmurs Capillary refill: <2 Seconds Gastrointestinal: Normal bowel sounds, Soft and benign, Masses (Left lower quadrant, Ileostomy-right lower quadrant, fungating wound-LLQ.) Musculoskeletal: No swelling, No erythema Integumentary: No rashes Neurological: Normal strength at 5/5 x4 extr, Cranial nerves 3-12 intact - Studies Laboratory Data (last 24 hrs) 04/12/19 19:25: Creatinine 0.74 04/12/19 19:25: WBC 29.0 H* D, Hgb 10.4 L, Hct 31.2 L, Plt Count 405 04/12/19 19:25: Sodium 133 L, Potassium 3.5, BUN 6 L, Creatinine 0.77, Glucose 96, Total Bilirubin 0.3, AST 13 L, ALT < 6 L, Alkaline Phosphatase 69, Lipase 58 L Assessment and Plan - Problems (Diagnosis) (1) Sepsis Current Visit: Yes Status: Acute (2) Metastatic colon cancer in female Current Visit: Yes Status: Acute (3) Wound, open, abdominal wall, anterior Current Visit: Yes Status: Acute (4) Chronic anemia Current Visit: Yes Status: Acute (5) Hyponatremia Current Visit: No Status: Acute - Plan Goals of care discussed with the patient. At the moment, she understands her prognosis is poor. She has been experiencing recurrent infections due to the cancer and not able to undergo even palliative chemo until infection is treated. She is open to hospice placement but looking to goals of care discussion with oncologist. She also desired her symptoms, especially her fever and chills be treated and be kept comfortable if it would take antibiotics to make her feel better. Patient will be admitted to the general medical floor. Will start IV Zosyn and Vanco Follow blood cultures obtained in the ED Monitor CBC and BMP. Wound care Supportive measures with IV hydration with normal saline, anti-emetics and antipyretics. Consult to oncology for goals of care discussion. Social service consult for hospice care. Feeding as tolerated. - Advance Directives Does patient have a Living Will: No Does patient have a Durable POA for Healthcare: No
--- NOTE | 2019-04-13 00:32 | ER ---
Nurse's Notes [facility] Name: Tesha Amaya Age: 78 yrs Sex: Female : 1940 Arrival Date: 04/12/2019 Time: 18:06 Bed 23 Private MD: Deven Cevallos Diagnosis: Elevated white blood cell count;Carcinoma in situ of colon;Fever, unspecified Presentation: 04/12 18:15 Presenting complaint: Patient states: i think i have a kidney infection, this morning tw2 my back was hurting, i had chills and fever, no burning with urination, urinary frequency, nauseous and vomiting, i was in hospital 8-12 of last week, the sample was taken for urine to be tested but i dont know if i finished the course of the medication, i did have a UTI last thursday. Transition of care: patient was not received from another setting of care. Onset of symptoms was April 12, 2019. Risk Assessment: Do you want to hurt yourself or someone else? Patient reports no desire to harm self or others. Initial Sepsis Screen: Does the patient meet any 2 criteria? No. Patient's initial sepsis screen is negative. Does the patient have a suspected source of infection? No. Patient's initial sepsis screen is negative. Care prior to arrival: None. 18:15 Method Of Arrival: Wheelchair tw2 18:15 Acuity: DIANNA 3 tw2 Triage Assessment: 18:20 General: Appears in no apparent distress. obese, Behavior is calm, cooperative, tw2 appropriate for age. Pain: Complains of pain in abdomen. GI: Reports lower abdominal pain, upper abdominal pain, nausea, vomiting. Historical: - Allergies: 18:20 Codeine; tw2 18:20 Hydrochlorothiazide; tw2 - Home Meds: 18:20 amlodipine 10 mg tab 1 tab once daily [Active]; amoxicillin-pot clavulanate 500-125 mg tw2 Oral tab 1 tab every 12 hours [Active]; bisoprolol fumarate 5 mg Oral tab 1 tab once daily [Active]; levofloxacin 500 mg Oral tab 1 tab once daily [Active]; prochlorperazine maleate 5 mg Oral tab 1 tab every 6 hours for Nausea and Vomiting [Active]; Magnet Thyroid 60 mg Oral tab twice a day [Active]; Magnet Thyroid 60 mg Oral tab at noon [Active]; ferrous sulfate 325 mg (65 mg iron) Oral tab [Active]; tramadol 50 mg Oral tab 1 tab as needed [Active]; morphine 15 mg Oral TbER as needed for Severe Pain [Active]; - PMHx: 18:20 colon cancer; Hypertension; Hypothyroidism; tw2 - PSHx: 18:20 Ileostomy; tw2 - Immunization history:: Adult Immunizations. - Social history:: Smoking status: . - Ebola Screening: : Patient denies travel to an Ebola-affected area in the 21 days before illness onset. Screenin:28 Abuse screen: Denies threats or abuse. Denies injuries from another. Nutritional ca1 screening: No deficits noted. Tuberculosis screening: No symptoms or risk factors identified. Fall Risk IV access (20 points). Assessment: 18:28 General: Appears in no apparent distress. comfortable, Behavior is calm, cooperative, ca1 appropriate for age, Reports chills for fever for 0-12 hours. Pain: Complains of pain in back Pain does not radiate. Pain currently is 0 out of 10 on a pain scale. at worst was 7 out of 10 on a pain scale. Pain began this morning. Neuro: Level of Consciousness is awake, alert, obeys commands, Oriented to person, place, time, situation, Appropriate for age. Cardiovascular: Heart tones S1 S2 present Capillary refill < 3 seconds Patient's skin is warm and dry. Respiratory: Airway is patent Respiratory effort is even, unlabored, Respiratory pattern is regular, symmetrical, Breath sounds are clear bilaterally. GI: Abdomen is round non-distended, Ileostomy site is clean and dry. Ostomy appliance is intact. Bowel sounds present X 4 quads. Abd is soft and non tender X 4 quads. Reports nausea, vomiting, since this morning. : Reports urgency, since yesterday urinary frequency. EENT: Reports nasal congestion since about a month now. Derm: Skin is intact, is healthy with good turgor, Skin is pink, warm \T\ dry. Musculoskeletal: Circulation, motion, and sensation intact. Capillary refill < 3 seconds, Range of motion: intact in all extremities. 19:32 Reassessment: Patient appears in no apparent distress at this time. Patient and/or ca1 family updated on plan of care and expected duration. Pain level reassessed. Patient is alert, oriented x 3, equal unlabored respirations, skin warm/dry/pink. Midline inserted by KATI Browne. Notified provider. 20:58 Reassessment: Patient appears in no apparent distress at this time. Patient and/or ca1 family updated on plan of care and expected duration. Pain level reassessed. Patient is alert, oriented x 3, equal unlabored respirations, skin warm/dry/pink. 23:37 Reassessment: Patient appears in no apparent distress at this time. Patient and/or rv family updated on plan of care and expected duration. Pain level reassessed. Patient is alert, oriented x 3, equal unlabored respirations, skin warm/dry/pink. Reassessment: JORI TALKED TO THE PATIENT AND FAMILY AND DECIDED TO ADMIT THE PATIENT HERE IN THE HOSPITAL. DR RUSSELL HAVE SEEN THE PATIENT. AWAITING ORDERS FOR ADMISSION. REPORT GIVEN TO FLORIAN BAIRD. General: Appears in no apparent distress. comfortable, Behavior is calm, cooperative. 04/13 00:53 Reassessment: Patient appears in no apparent distress at this time. Patient and/or wh family updated on plan of care and expected duration. Pain level reassessed. Patient is alert, oriented x 3, equal unlabored respirations, skin warm/dry/pink. Vital Signs: 04/12 18:20 BP 110 / 48; Pulse 69; Resp 17; Temp 97.3(TE); Pulse Ox 98% on R/A; Pain 0/10; tw2 19:32 BP 140 / 50; Pulse 64; Resp 16 S; Pulse Ox 97% on R/A; ca1 20:58 BP 135 / 50; Pulse 63; Resp 17 S; Pulse Ox 97% on R/A; ca1 22:00 BP 125 / 54; Pulse 69; Resp 16; Pulse Ox 98% on R/A; rv 22:45 BP 146 / 55; Pulse 68; Resp 15; Pulse Ox 98% ; rv 23:30 BP 152 / 61; Pulse 68; Resp 15; Pulse Ox 99% on R/A; rv ED Course: 18:06 Patient arrived in ED. mr 18:06 Deven Cevallos MD is Private Physician. mr 18:17 Triage completed. tw2 18:17 Arm band placed on. tw2 18:24 Kinza Riley, FLORIAN is Primary Nurse. ca1 18:27 Florentin Monte MD is Attending Physician. tw4 18:28 Patient has correct armband on for positive identification. Placed in gown. Bed in low ca1 position. Call light in reach. Side rails up X2. Pulse ox on. NIBP on. 18:40 Missed attempt(s): 22 gauge in right forearm. Bleeding controlled, band aid applied, ca1 catheter tip intact. 18:50 Missed attempt(s): 22 gauge in left antecubital area. Bleeding controlled, band aid ca1 applied, catheter tip intact. 19:25 Initial lab(s) drawn, by me, sent to lab. Inserted 18 gauge 10 cm midline to right fc upper arm basilic vein on first attempt. Line with good blood return and flushes well. 19:33 No provider procedures requiring assistance completed. ca1 20:01 Notified ED physician of a critical lab result(s). WBC 29. lp1 20:50 First set of blood cultures drawn by me. ca1 21:00 Second set of blood cultures drawn by lab staff. ca1 21:21 CXR XRAY In Process Unspecified. EDMS 21:48 CT Abd/Pelvis - IV Contrast Only In Process Unspecified. EDMS 21:48 Blayne Mckeon PA is PHCP. jr8 23:33 Jeison Rsusell is Hospitalizing Provider. jr8 04/13 00:53 Patient admitted, IV remains in place. Administered Medications: 04/12 19:31 Drug: NS 0.9% 1000 ml Route: IV; Rate: 1 bolus; Site: right upper arm; ca1 20:45 Follow up: Response: No adverse reaction; Nausea is decreased; IV Status: Completed ca1 infusion 19:31 Drug: Zofran 4 mg Route: IVP; Site: right upper arm; ca1 20:44 Follow up: Response: No adverse reaction; Nausea is decreased ca1 21:08 Drug: Zosyn 3.375 grams Route: IVPB; Infused Over: 60 mins; Site: right upper arm; ca1 22:53 Follow up: IV Status: Completed infusion rv 22:53 Drug: vancoMYCIN 1 grams Route: IVPB; Infused Over: 2 hrs; Site: right upper arm; rv 04/13 00:53 Follow up: Response: No adverse reaction; IV Status: Completed infusion Outcome: 04/12 23:33 Decision to Hospitalize by Provider. jr8 04/13 00:52 Admitted to Med/surg accompanied by nurse, family with patient, via stretcher, room wh 216, with chart, Report called to [facility] Condition: stable Instructed on the need for admit. 00:54 Patient left the ED. Signatures: Dispatcher [employer] EDSC Rand Mcwilliams mr Breanne, Hollie, RN RN fc Macrina Patterson RN RN lp1 Blayne Mckeon PA PA 8 Adela Mccann RN RN tw2 James Macias Florentin Monte MD MD tw4 Walker Khan, RN RN rv Kinaz Riley RN RN ca1
--- NOTE | 2019-04-13 00:33 | EDPHYS ---
Physician Documentation [facility] Name: Tesha Amaya Age: 78 yrs Sex: Female : 1940 Arrival Date: 04/12/2019 Time: 18:06 Bed 23 Private MD: Deven Cevallos ED Physician Florentin Monte HPI: 04/12 19:48 This 78 yrs old Female presents to ER via Wheelchair with complaints of tw4 Fever, Nausea/Vomiting. 19:52 The patient presents to the emergency department with nausea, vomiting, 3 times since tw4 the onset of symptoms. Onset: The symptoms/episode began/occurred today. Possible causes: unknown. The symptoms are aggravated by nothing. The symptoms are alleviated by nothing. Severity of symptoms: At their worst the symptoms were moderate in the emergency department the symptoms are unchanged. The patient has not recently seen a physician. 21:39 Pt has had diagnosis of intra abdominal abscess with percutaneous drainage in 10/2018. tw4 Drain recently removed Apr 02. Pt has been on antibiotics for UTI recently.. Historical: - Allergies: 18:20 Codeine; tw2 18:20 Hydrochlorothiazide; tw2 - Home Meds: 18:20 amlodipine 10 mg tab 1 tab once daily [Active]; amoxicillin-pot clavulanate 500-125 mg tw2 Oral tab 1 tab every 12 hours [Active]; bisoprolol fumarate 5 mg Oral tab 1 tab once daily [Active]; levofloxacin 500 mg Oral tab 1 tab once daily [Active]; prochlorperazine maleate 5 mg Oral tab 1 tab every 6 hours for Nausea and Vomiting [Active]; [place] Thyroid 60 mg Oral tab twice a day [Active]; [place] Thyroid 60 mg Oral tab at noon [Active]; ferrous sulfate 325 mg (65 mg iron) Oral tab [Active]; tramadol 50 mg Oral tab 1 tab as needed [Active]; morphine 15 mg Oral TbER as needed for Severe Pain [Active]; - PMHx: 18:20 colon cancer; Hypertension; Hypothyroidism; tw2 - PSHx: 18:20 Ileostomy; tw2 - Immunization history:: Adult Immunizations. - Social history:: Smoking status: . - Ebola Screening: : Patient denies travel to an Ebola-affected area in the 21 days before illness onset. ROS: 19:52 Constitutional: Negative for fever, chills, and weight loss, Eyes: Negative for injury, tw4 pain, redness, and discharge, Cardiovascular: Negative for chest pain, palpitations, and edema, Respiratory: Negative for shortness of breath, cough, wheezing, and pleuritic chest pain. 19:52 Back: Negative for injury and pain, MS/Extremity: Negative for injury and deformity, Skin: Negative for injury, rash, and discoloration, Neuro: Negative for headache, weakness, numbness, tingling, and seizure. 19:52 Abdomen/GI: Positive for nausea and vomiting, nausea, vomiting, and diarrhea, nausea, vomiting, Negative for abdominal pain, constipation, abdominal cramps, abdominal distension, anorexia, dysphagia, hematemesis, black/tarry stool, rectal pain. Exam: 19:52 Constitutional: This is a well developed, well nourished patient who is awake, alert, tw4 and in no acute distress. Head/Face: Normocephalic, atraumatic. Chest/axilla: Normal chest wall appearance and motion. Nontender with no deformity. No lesions are appreciated. Cardiovascular: Regular rate and rhythm with a normal S1 and S2. No gallops, murmurs, or rubs. Normal PMI, no JVD. No pulse deficits. Respiratory: Lungs have equal breath sounds bilaterally, clear to auscultation and percussion. No rales, rhonchi or wheezes noted. No increased work of breathing, no retractions or nasal flaring. Abdomen/GI: Soft, non-tender, with normal bowel sounds. No distension or tympany. No guarding or rebound. No evidence of tenderness throughout. Back: No spinal tenderness. No costovertebral tenderness. Full range of motion. MS/ Extremity: Pulses equal, no cyanosis. Neurovascular intact. Full, normal range of motion. Neuro: Awake and alert, GCS 15, oriented to person, place, time, and situation. Cranial nerves II-XII grossly intact. Motor strength 5/5 in all extremities. Sensory grossly intact. Cerebellar exam normal. Normal gait. Vital Signs: 18:20 BP 110 / 48; Pulse 69; Resp 17; Temp 97.3(TE); Pulse Ox 98% on R/A; Pain 0/10; tw2 19:32 BP 140 / 50; Pulse 64; Resp 16 S; Pulse Ox 97% on R/A; ca1 20:58 BP 135 / 50; Pulse 63; Resp 17 S; Pulse Ox 97% on R/A; ca1 22:00 BP 125 / 54; Pulse 69; Resp 16; Pulse Ox 98% on R/A; rv 22:45 BP 146 / 55; Pulse 68; Resp 15; Pulse Ox 98% ; rv 23:30 BP 152 / 61; Pulse 68; Resp 15; Pulse Ox 99% on R/A; rv MDM: 18:27 Patient medically screened. tw4 19:52 Differential diagnosis: Nonspecific abd pain, gastritis, cholecystitis, pancreatitis. tw4 Data reviewed: vital signs, nurses notes. Counseling: I had a detailed discussion with the patient and/or guardian regarding: the historical points, exam findings, and any diagnostic results supporting the discharge/admit diagnosis. Special discussion: I discussed with the patient/guardian in detail that at this point there is no indication for admission to the hospital. It is understood, however, that if the symptoms persist or worsen the patient needs to return immediately for re-evaluation. 21:41 Data interpreted: Pulse oximetry: Interpretation: normal. tw4 23:04 ED course: Patient has no phlegmon or discernable abscess noted on CT but cannot jr8 completely exclude underlying infection. Patient knows she is not a surgical candidate and is only on palliative care now. If she were to have bowel perforation or any other surgically emergent condition, does not want anything done at this point. Wants to stay here for palliative management at this point. Suppose to have f/u appointment with Dr. Grady to see if there is any palliative care available at this stage of cancer. Understands that Hospice care may be the only thing that can be done. Discussed with family that we can try and decrease WBC count through further exploration of other infective causes . 23:31 Physician consultation: Jeison Kaur was called at 23:32, was contacted at 23:32, jr8 regarding admission, to the telemetry unit. consult, patient's condition, and will see patient in ED. 04/12 18:27 Order name: Basic Metabolic Panel; Complete Time: 20:01 tw4 04/12 20:01 Interpretation: Normal except: NA 133; BUN 6; GFR 73. tw4 04/12 18:27 Order name: CBC with Diff; Complete Time: 21:49 tw4 04/12 20:50 Interpretation: Abnormal: HCT 31.2; HGB 10.4; MCH 25.8; MCV 77.1; WBC 29.0; NEUT A tw4 26.9; MN% 3.1; LYM% 4.1; SOILA% 92.6; RDW 18.5. 04/12 18:27 Order name: Creatinine for Radiology; Complete Time: 20:01 tw4 04/12 18:27 Order name: Hepatic Function; Complete Time: 20:01 [facility] 04/12 20:01 Interpretation: Normal except: AST 13; ALT < 6; ALB 2.0; GLOB 5.2; A/G 0.4. tw 04/12 18:27 Order name: Lipase; Complete Time: 20:01 [facility] 04/12 20:01 Interpretation: Normal except: LIP 58. 04/12 20:07 Order name: Manual Differential; Complete Time: 21:49 EDMS 04/12 20:40 Order name: Blood Culture Adult (2) [facility] 04/12 20:45 Order name: Urine Dipstick--Ancillary (enter results); Complete Time: 21:49 em1 04/12 20:51 Order name: Lactate; Complete Time: 21:49 tw4 04/12 20:52 Order name: CXR XRAY [facility] 04/12 20:55 Order name: Urinalysis W/Microscopic; Complete Time: 21:13 EDMS 04/12 21:13 Interpretation: Normal except: SQEPI 5-10. [facility] 04/12 21:13 Order name: CT Abd/Pelvis - IV Contrast Only [facility] 04/12 18:27 Order name: IV Saline Lock; Complete Time: 19:31 tw4 04/12 18:27 Order name: Labs collected and sent; Complete Time: 19:31 tw4 Administered Medications: 19:31 Drug: NS 0.9% 1000 ml Route: IV; Rate: 1 bolus; Site: right upper arm; ca1 20:45 Follow up: Response: No adverse reaction; Nausea is decreased; IV Status: Completed ca1 infusion 19:31 Drug: Zofran 4 mg Route: IVP; Site: right upper arm; ca1 20:44 Follow up: Response: No adverse reaction; Nausea is decreased ca1 21:08 Drug: Zosyn 3.375 grams Route: IVPB; Infused Over: 60 mins; Site: right upper arm; ca1 22:53 Follow up: IV Status: Completed infusion rv 22:53 Drug: vancoMYCIN 1 grams Route: IVPB; Infused Over: 2 hrs; Site: right upper arm; rv 04/13 00:53 Follow up: Response: No adverse reaction; IV Status: Completed infusion Disposition: 04/12/19 23:33 Hospitalization ordered by Jeison Kaur for Inpatient Admission. Preliminary diagnosis are Elevated white blood cell count, Carcinoma in situ of colon, Fever, unspecified. - Bed requested for Telemetry/MedSurg (Inpatient). - Status is Inpatient Admission. - Condition is Stable. - Problem is new. - Symptoms have improved. UTI on Admission? No Addendum: 04/19/2019 20:27 Co-signature as Attending Physician, Florentin Monte MD I agree with the assessment and t w4 plan of care. Signatures: Dispatcher [employer] EDWV Radha Joshua RN RN Blayne Mckeon PA PA jr8 Adela Mccann RN RN tw2 James Macias Florentin Monte MD MD tw4 Walker Khan RN RN Acob, FLORIAN Echols RN ca1 Corrections: (The following items were deleted from the chart) 04/12 20:55 20:18 URINALYSIS+U.LAB.BRZ ordered. EDWV EDWV 20:55 20:18 UA MICROSCOPIC+U.LAB.BRZ ordered. EDWV EDWV 04/13 00:03 04/12 23:33 Hospitalization Ordered by Jeison Kaur for Inpatient Admission. jabier Preliminary diagnosis is Elevated white blood cell count; Carcinoma in situ of colon; Fever, unspecified. Bed requested for Telemetry/MedSurg (Inpatient). Status is Inpatient Admission. Condition is Stable. Problem is new. Symptoms have improved. UTI on Admission? No. jr8 04/13 00:54 00:03 04/12/2019 23:33 Hospitalization Ordered by Jeison Kaur for Inpatient Admission. Preliminary diagnosis is Elevated white blood cell count; Carcinoma in situ of colon; Fever, unspecified. Bed requested for Telemetry/MedSurg (Inpatient). Status is Inpatient Admission. Condition is Stable. Problem is new. Symptoms have improved. UTI on Admission? No. jabier
[2019-04-13] MEDS ORDERED: MAGNESIUM HYDROXIDE 8% 30 ML PO PRN (00:49)
[2019-04-13] MEDS ORDERED: ACETAMINOPHEN 500 MG TAB PO PRN (00:49)
[2019-04-13] MEDS ORDERED: VANCOMYCIN 1 GM/VIAL IVPB ONE (00:49)
[2019-04-13] MEDS: HEPARIN 5000 UNIT/ML 1 ML VIAL SQ SCH ×3 (01:00→17:50)
[2019-04-13] MEDS: NA CHLORIDE 0.9% 1,000 ML IV SCH ×3 (01:17→14:13)
[2019-04-13 01:55] VITALS: BMI 34.4
[2019-04-13] MEDS ORDERED: VANCOMYCIN 1.5 GM in NA CHLORIDE 0.9% 500 ML IV ONE (02:00)
[2019-04-13 02:27] LABS: Urine Appearance CLEAR; Urine Bilirubin NEGATIVE (NEG); Urine Blood NEGATIVE (NEG); Urine Color YELLOW; Urine Glucose NEGATIVE (NEG); Urine Protein NEGATIVE (NEG); Urine Specific Gravity 1.015 (1.005-1.030); Urine Urobilinogen 0.2 mg/dL (0.2-1.0); Urine pH 6.5 (5.0-7.0)
[2019-04-13 02:42] LABS: Urine Microscopic Reflex NO UMIC
[2019-04-13] MEDS ORDERED: PIPERACIL/TAZO 3.375 GM VIAL IV ONE (05:39)
[2019-04-13] MEDS ORDERED: NA CHLORIDE 0.9% 100 ML ONE (05:48)
[2019-04-13] MEDS ORDERED: PIPER/TAZO/NS 3.375gm 3.375 GM/100 ML BAG IVPB SCH (06:00)
[2019-04-13] MEDS: ONDANSETRON 4 MG/2 ML VIAL IV PRN ×2 (08:22→17:08)
--- NOTE | 2019-04-13 08:25 | RAD REPORT ---
EXAM DESCRIPTION: [place] Single View04/12/2019 9:21 pm CLINICAL HISTORY: Fever COMPARISON: April 05, 2019 FINDINGS: Borderline mild increase in size of the medial right upper lobe mass. . Mild left upper lobe opacity may represent confluence of ribs and vessels or a small infiltrate/nodul e. The heart is normal size
[2019-04-13] MEDS ORDERED: POTASSIUM CL SA 10 MEQ TAB PO ONE (09:00)
[2019-04-13] MEDS ORDERED: TRAMADOL HCL 50 MG TAB PO PRN (09:33)
[2019-04-13] MEDS: FERROUS SULFATE 325 MG TAB PO SCH ×2 (09:33→17:13)
[2019-04-13] MEDS ORDERED: MORPHINE 15 MG IR TAB PO PRN (09:33)
--- NOTE | 2019-04-13 09:59 | RAD REPORT ---
EXAM DESCRIPTION: CT - Abdomen Pelvis W Contrast - 04/13/2019 8:46 am CLINICAL HISTORY: POSS INTRA-ABSCESS COMPARISON: 04/05/2019. TECHNIQUE: CT ABDOMEN PELVIS WITH IV CONTRAST on 04/12/2019 9:13 PM CDT This exam was performed according to our departmental dose-optimization program, which includes autom ated exposure control, adjustment of the mA and/or kV according to patient size and/or use of iterati ve reconstruction technique. FINDINGS: Lower lungs are clear. Abdomen: Liver is fatty in attenuation. There is no biliary dilatation. Gallbladder is normal in appe arance. There is a tiny hiatal hernia. Right lower quadrant ileostomy is present. The pancreas and sp alexandr are normal in appearance. The adrenal glands and kidneys are unremarkable. Abdominal aorta is normal in course and caliber without aneurysm. There is no free air. There is no r etroperitoneal adenopathy. Pelvis: The colon is decompressed. There is a mass extending from the level of the mid sigmoid colon into the left lower quadrant subcutaneous fat with a tract extending to the skin. There are several b ubbles of air within the mass. The mass measures up to 14.5 cm transverse, 7.3 cm AP and 12.4 cm cran iocaudal. Urinary bladder is unremarkable. There is no free fluid. Uterus is normal in size. Skeleton: There are no acute osseous findings. No suspicious bony lesions. IMPRESSION: Redemonstration of large left lower quadrant mass with several bubbles of air within the canal. Underlying superimposed infection is not completely excluded. Electronically signed by: Johnathon Ontiveros MD 04/12/2019 10:15 PM CDT Due to temporary technical issues with the PACS/Fluency reporting system, reports are being signed by the in house radiologist as a courtesy to ensure prompt reporting. The interpreting radiologist is socorro avelarly responsible for the content of the report.
[2019-04-13] MEDS: VANCOMYCIN 1.5 GM in NA CHLORIDE 0.9% 500 ML IVPB SCH (11:10)
--- NOTE | 2019-04-13 14:12 | PN ---
Patient is seen and examined. Chart reviewed and case discussed with RN and Dr. Ceja. Family at the bedside. Treatment plan explained. All questions answered. Patient wanting to proceed with hospice care at home. Medications: List reviewed. Code status: Full Physical Examination: Vital Signs: Temperature 98.8, heart rate 66, blood pressure 145/63, respirations 16, O2 at 93% on room air. General: Awake, alert, oriented x3, in some mild distress. Elderly female, ill -appearing. CV: S1, S2. Regular rate and rhythm. Peripheral pulses present. Respiratory: Moving air well bilaterally. No wheezing or stridor. No use of accessory muscles. Gastrointestinal: Abdomen is soft, nontender, nondistended. Positive bowel sounds. Patient does have ileostomy in place. Extremities: No clubbing, cyanosis, edema. Neuro: Cranial nerves 2 through 12 intact grossly. No focal neurological deficit. Speech is normal. Skin: Patient has wound on the left lower quadrant of the abdomen from where abscess drain was removed. Laboratory Data: Cultures are pending. WBC 29, H and H 10.4 and 31.2, platelets 405. Chest x-ray shows mild increase in size of medial right upper lobe mass. CT scan abdomen and pelvis shows large left lower quadrant mass with several bubbles of air within the canal. Underlying superimposed infection is not completely excluded. Assessment And Plan: A 78-year-old female with; 1. Sepsis. Patient has elevated white blood cell count, fever, chills. Source of infection is likely abdominal due to the abscess. Recent removal of her drainage catheter at [facility]. We will continue with broad-spectrum IV antibiotics. Follow up on cultures. 2. Metastatic colon cancer to the lung. The patient never received chemotherapy at [facility]. We will discuss further with Oncology. Dr. Ceja has been consulted. Patient wishing to proceed with hospice care however wants Oncology opinion. We will request records from [facility]. 3. Open abdominal wall wound, left lower quadrant site of previous drainage tube that was removed at [facility]. CT scan reviewed. Continue antibiotics since the patient is leaning towards hospice, but also on surgical evaluation, likely not a candidate for surgery. 4. Hyponatremia, likely related to cancer. 5. Anemia, microcytic, hypochromic. Continue to monitor H and H and transfuse as needed. 6. Deep vein thrombosis prophylaxis, heparin. Disposition: Oncology evaluation, likely hospice at home in the next 24 hours. /RUBEN Voice ID: [id number] Report ID: [id number] MTDD
[2019-04-13] MEDS: PIPER/TAZO/NS 3.375gm 3.375 GM/100 ML BAG IVPB SCH (14:13)
[2019-04-13] MEDS ORDERED: VANCOMYCIN 1.5 GM in NA CHLORIDE 0.9% 500 ML IVPB SCH (23:00)
[2019-04-14] MEDS ORDERED: VANCOMYCIN 1 GM in NA CHLORIDE 0.9% 250 ML IVPB SCH (01:00)
[2019-04-14] MEDS: PIPER/TAZO/NS 3.375gm 3.375 GM/100 ML BAG IVPB SCH ×3 (01:11→17:00)
[2019-04-14] MEDS: HEPARIN 5000 UNIT/ML 1 ML VIAL SQ SCH ×3 (01:14→17:00)
[2019-04-14] MEDS: NA CHLORIDE 0.9% 1,000 ML IV SCH ×4 (01:21→21:57)
[2019-04-14 05:35] LABS: Absolute Lymphocytes (CBC) 1.5 K/uL (0.7-4.9); Basophils % 0.5 % (0-1.3); Hematocrit 27.5 % (36.0-45.0); MPV 8.6 fL (7.6-11.3); RBC Red Blood Cell Count 3.55 M/uL (3.86-4.86)
[2019-04-14 05:49] LABS: BUN Blood Urea Nitrogen 6 mg/dL (7-18); Bicarbonate 24 mmol/L (21-32); Glucose Level 80 mg/dL (74-106); Potassium 3.4 mmol/L (3.5-5.1); Sodium Level 136 mmol/L (136-145)
[2019-04-14] MEDS: PANTOPRAZOLE 40MG TABLET PO SCH (06:07)
[2019-04-14] MEDS: ONDANSETRON 4 MG/2 ML VIAL IV PRN ×3 (07:36→18:04)
[2019-04-14] MEDS ORDERED: POTASSIUM 25 MEQ EFFERV TAB PO ONE (09:00)
[2019-04-14] MEDS ORDERED: POTASSIUM CL SA 10 MEQ TAB PO ONE (09:46)
[2019-04-14] MEDS: VANCOMYCIN 1.5 GM in NA CHLORIDE 0.9% 500 ML IVPB SCH (09:49)
[2019-04-14] MEDS: THYROID 90 MG PO SCH (14:45)
[2019-04-14] MEDS: ARMOUR THYROID 60 MG PO SCH (14:45)
--- NOTE | 2019-04-14 15:12 | PN ---
Date of Progress Note: 04/14/2019 Subjective: Patient seen and examined. Chart reviewed and case discussed with Dr. Ceja. She will be in today to evaluate patient and have a discussion regarding treatment options due to her dif fuse metastasis and widespread disease including abscess in the abdomen, most likely hospice as a rec ommendation. Patient states her chills are better. Medications: List reviewed. Physical Examination: Vital Signs: Temperature 98.2, heart rate 77, blood pressure 172/72, respirations 15, O2 93% on room air. General: Awake, alert, oriented x3. Elderly female in some mild distress. CV: S1, S2. Regular rate and rhythm. Peripheral pulses present. Respiratory: Moving air well bilaterally. No wheezing or stridor. No use of accessory muscles. Gastrointestinal: Abdomen is soft, nontender, nondistended. Positive bowel sounds. Ileostomy in pl [place] with liquid stool. Patient also has fistula and wound in her left lower quadrant from previous d rainage site. Extremities: No clubbing, cyanosis, or edema. No calf tenderness. Neurologic: Cranial nerves 2 through 12 intact grossly. No focal neurological deficit. Speech is n ormal. Laboratory Data: Sodium 136, potassium 3.4, chloride 104, CO2 24, BUN 6, creatinine 0.63, glucose 80 , calcium 7.9. WBC 16.7, H and H 9.1, 27.5, platelets 326, neutrophils 82%. Blood cultures, no grow th to date. Assessment And Plan: A 78-year-old female with; 1.Sepsis, improving. Patient has been afebrile. White blood cell count is trending down, however, still significantly elevated. Likely source of infection is abdominal abscess. Cultures show no gale wth to date. 2.Metastatic colon cancer to the lung. Spoke with Dr. Ceja. Likely recommendations are for h ospice. Patient wishes to have discussion with her before. Proceeding with hospice. 3.Open abdominal wall wound, left lower quadrant. Previous drainage tube removed at that site. Not a candidate for surgery due to hospice. 4.Hyponatremia, likely related to cancer, improved. 5.Hypokalemia. We will replace and monitor. 6.Microcytic hypochromic anemia. We will continue to monitor and transfuse as needed. Stable. 7.Deep venous thrombosis prophylaxis with heparin. Disposition: Pending Hematology-Oncology evaluation, possibly hospice set up and discharge to home w [facility] hospice. /RUBEN Voice ID: [id number] Report ID: [id number]
[2019-04-14] MEDS ORDERED: PROMETHAZINE 25 MG/ML VIAL IV PRN (17:44)
[2019-04-14] MEDS: FERROUS SULFATE 325 MG TAB PO SCH (21:00)
[2019-04-15] MEDS: PIPER/TAZO/NS 3.375gm 3.375 GM/100 ML BAG IVPB SCH ×3 (01:24→16:58)
[2019-04-15] MEDS: HEPARIN 5000 UNIT/ML 1 ML VIAL SQ SCH ×3 (01:25→21:52)
[2019-04-15] MEDS: NA CHLORIDE 0.9% 1,000 ML IV SCH ×3 (03:00→17:00)
[2019-04-15] MEDS: PANTOPRAZOLE 40MG TABLET PO SCH (04:25)
[2019-04-15] MEDS: ONDANSETRON 4 MG/2 ML VIAL IV PRN ×2 (04:25→11:54)
[2019-04-15] MEDS: VANCOMYCIN 1.5 GM in NA CHLORIDE 0.9% 500 ML IVPB SCH ×2 (04:27→21:50)
[2019-04-15 06:27] LABS: Potassium 3.3 mmol/L (3.5-5.1)
--- NOTE | 2019-04-15 08:36 | P.CNS ---
Date of Consult: 04/15/19 PC: Abscesses see this 78-year-old female in regards to surgical intervention. HPC: Patient presented to the hospital with nausea vomiting temperatures and fever not feeling well. She has history of colon cancer and carcinomatosis. She underwent a surgery earlier this year with results and a ileostomy. She now has recurrent tumor at the left lower quadrant numerous of pauses intra- abdominally. She has been offered hospice care PSHx: Ileostomy earlier this year, a drain site was of the left lower quadrant SOC: Allergic to codeine, and hydrochlorothiazide SYS REVIEW: Wound patient is not in any pain at the moment is able to eat. Has occasional cramping abdominal pain but otherwise is very comfortable. No urinary complaints. O/E awake alert vital signs are stated below appears cheerful and interactive HEENT: Not jaundiced Chest: Chest movement equal bilaterally ABD: Ileostomy in the right lower quadrant. Has been air in the left lower quadrant which shows tumor started come through abdominal wall in the area of old drain site. LOCO: Intact DATA: CT scan reviewed IMPRESSION: Patient has functioning ileostomy, but a large tumor burden in the left lower quadrant PLAN: This been evaluated by MD Fang. They have no further treatment for this patient. I have explained this to her. She has been placed on antibiotics. At the current time she is feeling well, she understands that there are really no other surgical options left for her. She understands hospice care and is quite content to go home. She j just wanted to explore if there was any other options before she went home.
[2019-04-15] MEDS: BISOPROLOL 5 MG TABLET PO SCH (08:58)
[2019-04-15] MEDS ORDERED: POTASSIUM CL SA 10 MEQ TAB PO SCH (09:00)
[2019-04-15] MEDS ORDERED: POTASSIUM CL SA 10 MEQ TAB PO ONE ×2 (09:00→21:00)
[2019-04-15 10:10] LABS: Absolute Lymphocytes (CBC) 1.2 K/uL (0.7-4.9); Basophils % 0.4 % (0-1.3); Lymphocytes % 6.6 % (15.3-44.8); MPV 8.5 fL (7.6-11.3); RBC Red Blood Cell Count 3.64 M/uL (3.86-4.86)
--- NOTE | 2019-04-15 10:55 | P.CNS ---
Date of Consult: 04/14/19 (Oncology) REASON FOR CONSULTATION: METASTATIC COLON CANCER Late note entry due to [employer] water server connection issues. Pt seen and on 5 pm HPI: Pt currently admitted in the hospital due to fevers, nausea and vomiting apparently clinical decline and currently being managed to address infection secondary to intra-abdominal abscess. Pt requested Oncology consultation to discuss treatment and hospice options. Apparently pt has been under the care of [facility] since October 2018 when she was diagnosed with sigmoid colon cancer. She then received a diverting ileostomy due to the presence of the large intra-abdominal pelvic mass/ ? abscess which was surgically drained. She has been in and out of the hospital since then for multiple recurrent infections secondary to the same and also seems to be declining in clinical and physical status gradually. Imaging studies done in [facility] show metastatic disease in the liver and lung as well. She was felt NOT to be an ideal chemotherapy candidate due to poor performance status and also due to the infections. She feels much better since the hospitalization. WBC has gradually come down as well with IV antibiotics. She reports needing assistance more than 90% of the time, for ADLS etc. She has [employer] assistance as well. Denies any pain. Pelvic mass is about 14 cm Son and friend at bedside who seem to be quite supportive and involved in her care. REVIEW OF SYSTEMS: General (Constitutional): (+) fatigue; (-)fever ;(-)night sweat; (+)loss of appetite; (+) wt loss; (-) heat or cold intolerance; (-) itching ; (+) recurrent infection; (+) history of anemia; (-) h/o transfusion; (-) bruising; HEENT: (-) [place]; (-)vision loss; (-) hearing loss; (-)nasal congestion; (-) bleeding mouth, nose, gums; (-) swallowing difficulties; (-)hoarseness Cardiovascular: (-) chest pain or pressure; (-) SOB; (-) orthopnea or PND; (-) palpitation; (- ) syncope; (-) leg swelling. Pulmonary: (-)cough ; (-)sputum; (-) shortness of breath on exertion; (-)wheezing; (-) hemoptysis Gastrointestinal: (-) reflux; (-) heartburn. (-)nausea; (-)vomiting or (-)hematemesis. (+)change in bowel habits. (-) rectal bleeding; (-) black tarry stools; (-) diarrhea; (-) constipation Genitourinary: (-) pain or burning during micturition. (-) urgency; (-)frequency and (-)poor stream of urine. (-) hematuria. (-) polyuria; (-)nocturia; (-) dribbling; Neurologic: (+) generalized weakness (-)double vision; (-) chronic loss of vision. (-) difficulty with speech or memory. (-) weakness ; (-) tingling in the lower extremities; (-) numbness of feet; (+) difficulty walking or with balance Musculoskeletal: (+) arthritis Psychiatric: no c/o Skin: Fungating mass in the LLQ Past Medical/Surgical History -: Hypertension -: Hypothyroidism -: Colon cancer, stage IV with lung mass -: Left lower quadrant abscess drain removed -: Ileostomy -: Placement of catheter drain to the left lower quadrant Psychosocial/ Personal History: Patient lives at home Family History Father -: Heart disease Mother -: Liver disease Social History Alcohol use: No CD- Drugs: No Caffeine use: No Allergies: reviewed. Medications: reviewed. Labs and imaging reviewed. Physical Exam General: Alert, In no apparent distress, lying in bed and verbal, Cooperative HEENT: Atraumatic, Normocephalic, PERRLA Neck: Supple, no LAD Respiratory: Clear to auscultation bilaterally, Normal air movement Cardiovascular: Normal pulses, Regular rate/rhythm Gastrointestinal: Normal bowel sounds, LLQ abdominal fungating mass through the skin; LLQ mass+; ileostomy+; No tenderness Neuro/Musculoskeletal: moving all extremities, AAOx3 Assessment and plan: Pt with advanced metastatic colon cancer with superimposed infection at the intra-abdominal mass, poor performance status (ECOG 3-4 at this time) currently admitted for management of sepsis. She reorts clinical improvement since admission. We discussed the following options: 1. In the event of NO possible surgical intervention and ongoing recurrent infectious process and borderline to poor performance status, she is not an ideal chemotherapy candidate. She understands that treating with chemotherapy at this time will lead to further clinical decline, complications etc. She understands that even with chemotherapy, goal will be to only palliate her symptoms, an attempt to prolong survival and not for cure. 2. Hospice care: goals of hospice care, medical and pain management and comfort care. She understands that no oncology related care is possible on hospice care. Also discussed about her wishes on advanced care directives, health care proxy etc. 3. Continue current care and consider option #2 in due course of time. She understands all the above 3 options, and wishes to discuss further with her family and then decide. Likely she is more inclining to go home once stable and c/w her home health services. Discussed with Dr Bedoya. I have also asked her to touch base with me in clinic as outpatient should she require a follow up or any other concerns.
[2019-04-15] MEDS: ARMOUR THYROID 60 MG PO SCH (11:55)
[2019-04-15] MEDS: AMLODIPINE 10 MG TAB PO SCH (11:59)
--- NOTE | 2019-04-15 16:05 | PN ---
Date of Progress Note: 04/15/2019 Subjective: Patient seen and examined, chart reviewed and case discussed with Dr. Murphy and Dr. Dr beckwith. The patient understands that there is no surgical option and she is not a candidate for [facility]. Currently wants to meet with hospice, however not convinced entirely and may end up going home to finish off treatment for sepsis and start hospice care later on in the future. Medications: List reviewed. Physical Examination: Vital Signs: Temperature 98.7, heart rate 81, blood pressure 177/76, respirations 16, O2 94% on room air. General: Awake, alert and oriented x3, in some mild distress. Patient is obese. BMI 34.3. CV: S1 and S2. Regular rate and rhythm. Peripheral pulses present. Respiratory: Moving air well b ilaterally. No wheezing or stridor. Gastrointestinal: Abdomen is soft. Mild tenderness to palpatio n. No guarding or rigidity. Ileostomy in place. Patient does have a fungating mass on the left low er quadrant from previous drain site. Extremities: No clubbing, cyanosis. Patient has pedal edema. Neurologic: Nonfocal. Laboratory Data: Sodium 134, potassium 3.3, chloride 103, CO2 24, BUN 5, creatinine 0.67, glucose 81 , calcium 7.9. WBC 18.5, H and H 9.3 and 28, platelets 344, neutrophils 86%. Blood cultures, no gale wth to date. Assessment And Plan: A 78-year-old female with: 1.Sepsis, improving. However WBC count is trending up. Source of infection is the abdominal absces s resulting from the mass. Cultures are negative. Patient understands that without surgical removal of the abscess, her infection will never truly go away despite antibiotics. She was seen by Dr. Mag guadarrama last night. She is not a surgical candidate. She has also been evaluated at [facility], who a lso did not offer surgery. 2.Metastatic colon cancer to the lung. The patient was evaluated by Dr. Ceja, appreciate her input. She does not recommend any chemotherapy at this time. The patient has low performance status and any chemo to use would be for palliation not curative. The patient understands. Family is on b oard. At this time, they are wanting to discuss options with [facility], however, not entirely read y to accept hospice. 3.Open abdominal wall wound and left lower quadrant. No surgical option at this time. Drainage tub e for abscess has been removed at [facility]. 4.Hyponatremia related to her malignancy. We will continue with IV fluids. 5.Hypokalemia, replace and monitor secondary to nausea and vomiting. 6.Non-intractable nausea and vomiting. We will continue with antiemetics. Add Phenergan p.r.n. 7.Microcytic hypochromic anemia. Monitor H and H, transfuse as needed. 8.Deep venous thrombosis prophylaxis with heparin. We will adjust dose due to patient's multiple br uising. Patient is at risk for DVT due to her malignancy. 9.Disposition. Overall, patient has a poor prognosis. She wants to discuss hospice with [facility] and w ill reach a decision. I feel that patient will likely not choose hospice and will go home, and to weir ve hospice set up once she is ready. We will discuss further with Case Management, Social work, and with the patient once she has met with [facility]. MONA Voice ID: [id number] Report ID: [id number]
[2019-04-15 17:21] VITALS: O2SAT 95
[2019-04-15] MEDS: FERROUS SULFATE 325 MG TAB PO SCH (21:51)
[2019-04-16] MEDS: PIPER/TAZO/NS 3.375gm 3.375 GM/100 ML BAG IVPB SCH ×2 (00:36→08:20)
[2019-04-16 05:41] LABS: Absolute Lymphocytes (CBC) 1.4 K/uL (0.7-4.9); Basophils % 0.4 % (0-1.3); Hematocrit 26.5 % (36.0-45.0); Lymphocytes % 9.2 % (15.3-44.8); MPV 8.8 fL (7.6-11.3); RBC Red Blood Cell Count 3.44 M/uL (3.86-4.86)
[2019-04-16 05:53] LABS: Potassium 3.9 mmol/L (3.5-5.1)
[2019-04-16] MEDS: PANTOPRAZOLE 40MG TABLET PO SCH (06:09)
[2019-04-16] MEDS: ONDANSETRON 4 MG/2 ML VIAL IV PRN ×2 (06:10→10:16)
[2019-04-16] MEDS: THYROID 90 MG PO SCH (08:00)
[2019-04-16] MEDS: BISOPROLOL 5 MG TABLET PO SCH (08:20)
[2019-04-16] MEDS: AMLODIPINE 10 MG TAB PO SCH ×2 (08:21→08:24)
[2019-04-16] MEDS: HEPARIN 5000 UNIT/ML 1 ML VIAL SQ SCH (08:22)
[2019-04-16 08:26] VITALS: BP 192/74
[2019-04-16] MEDS ORDERED: POTASSIUM CL SA 10 MEQ TAB PO ONE (09:00)
[2019-04-16] MEDS: NA CHLORIDE 0.9% 1,000 ML IV SCH (09:06)
[2019-04-16 12:16] VITALS: TEMP 98
--- NOTE | 2019-04-16 22:18 | DS ---
Date of Discharge: 04/16/2019 Consultants: 1.Dr. Murphy with General Surgery. 2.Dr. Ceja with Hematology-Oncology. Procedures: None. Admitting Diagnoses: 1.Sepsis. 2.Metastatic colon cancer. 3.Open abdominal wall wound, anterior aspect. 4.Chronic anemia. 5.Hyponatremia. Discharge Diagnoses: 1.Sepsis, improving. 2.Metastatic colon cancer to the lung. 3.Open abdominal wall wound, left lower quadrant, no surgical option. 4.Hyponatremia secondary to malignancy. 5.Hypokalemia, replaced. 6.Non-intractable nausea and vomiting, resolved. 7.Microcytic hypochromic anemia, stable. Hospital Course: Patient is a 78-year-old female with recent diagnosis of metastatic colon cancer in October 2018, who had been getting her workup done at [facility], however, was never started on chemo a nd had subsequent abscess and wound on the left lower quadrant of the abdomen. Patient recently had her drainage tube removed. She was admitted to our facility for further evaluation. Patient was fou nd to be septic. She was started on broad-spectrum IV antibiotics and cultures were obtained. Cultu res remained negative to date. Patient initially was considering hospice as she understands that she has a poor prognosis and is nonsurgical; however, wanted to have her fevers and chills be treated, s o that she would be more comfortable. The following day, patient's white blood cell count improved a nd that she was feeling significantly better; however, white count was still elevated at 15,000. Leora crooks requested oncology evaluation. She was scheduled to see Dr. Ceja as an outpatient. There fore, Oncology was consulted. They also recommended hospice care due to the patient's poor performan ce status and her widespread disease. Patient also had surgical evaluation for the abdominal wall wo und. Unfortunately, there are no surgical options. She is inoperable due to her cancer. She was ev aluated by Dr. Murphy. Patient then wished to have a meeting with hospice and requested to set up h ospice with [facility]. Patient was then discharged home with hospice at home. Her condition is fair. Ho wever, she understands that without drainage of this abscess, which is unfortunately inoperable, she will continue to have some form of infectious condition. She will be discharged on a course of antib iotics to cover the abdominal source bacteria. She does have an ileostomy in place. Care and comfor t measures, follow up as needed with hospice doctor. Diet: Heart healthy. Activity: As tolerated. Physical Examination: General: Awake, alert, oriented x3, obese female. CV: S1, S2. Respiratory: Moving air well bilaterally. Abdomen: Soft, nontender, nondistended. Positive bowel sounds. Ileostomy in place with liquid stoo l. Left lower quadrant abdominal wound. Extremities: No clubbing or cyanosis. Patient does have pedal edema. Neurologic: Nonfocal. Total time spent discharging patient was 43 minutes. /[email or web address] Voice ID: [id number] Report ID: [id number]
== END 2019-04-16 12:00 | disposition hospice, home (50) | DRG 872 ==
LOC: ER 18:02 → 2ND 04-13 00:24
PROVIDERS: ADMIT Internal Medicine; ATTEND Family Medicine
DX: A41.9 Sepsis, unspecified organism (principal); C18.9 Malignant neoplasm of colon, unspecified; C78.00 Secondary malignant neoplasm of unspecified lung; E87.1 Hypo-osmolality and hyponatremia; L02.211 Cutaneous abscess of abdominal wall; E03.9 Hypothyroidism, unspecified; I10 Essential (primary) hypertension; D72.829 Elevated white blood cell count, unspecified; E87.6 Hypokalemia; D64.9 Anemia, unspecified; Z93.2 Ileostomy status; R11.2 Nausea with vomiting, unspecified
CPT/HCPCS: 36415; 71045; 74177; 80048; 80076; 80202; 81001; 81003; 83605; 83690; 84132; 85025; 87040; 94760; 96361; 96365; 96366; 96367; 96375; 99251; 99285; J1644; J2405; J2543; J7030; J7040; Q9967